=== PATIENT | male | born 1935 | race Caucasian/White ===

== ENCOUNTER 2016-11-27 13:37 | Observation (INO) ==
[2016-11-27] MEDS ORDERED: Acetaminophen 325 MG TABLET PO PRN (15:55)
[2016-11-27] MEDS ORDERED: Naloxone 0.4 MG/ML INJ IVP PRN (15:55)
[2016-11-27] MEDS ORDERED: Ondansetron 4 MG/2 ML VIAL IVP PRN (15:55)
[2016-11-27] MEDS: 0.9 % Sodium Chloride 1,000 ML IVC SCH (17:28)
[2016-11-27] MEDS ORDERED: *HR* Dextrose 50 % in Water (Syg) 50 ML SYRINGE IVP PRN (18:00)
[2016-11-27] MEDS ORDERED: Dextrose Gel 15 GM PO PRN ×2 (18:00)
[2016-11-27] MEDS ORDERED: D5% in Water 1,000 ML IVC PRN (18:00)
[2016-11-27] MEDS ORDERED: Nitroglycerin 0.4 MG TAB.SUBL SL PRN (18:03)
--- NOTE | 2016-11-27 18:24 | Internal Med History&Physical ---
<Emily Le M - Last Filed: 11/27/16 19:20> Date of Encounter: 11/27/16 Time of Encounter: 18:20 Assessment and Plan (1) Abdominal pain Current visit: Yes Status: Acute Patient reported crampy abdominal pain starting yesterday, improved with passing flatus and with pain medication, also now improved with IV fluids. Possibly secondary to transient bowel ischemia given lactate of 5.5. Tylenol, ultram and morphine PRN for pain. Qualifiers: Abdominal location: generalized Qualified Code(s): R10.84 - Generalized abdominal pain (2) Lactic acid acidosis Current visit: Yes Status: Acute Lactic acid of 5.5, along with abdominal pain. UA consistent with dehydration. Patient was given fluid boluses at [place], continue with IV fluids. Patient may have had transient bowel ischemia suspected as possible source of lactic acidosis. Trending down with second value of 3.7. Continue to trend. (3) CAD (coronary artery disease) Current visit: Yes Status: Chronic Patient with history of CAD s/p CABG and stent placement. Continue aspirin, plavix, statin, beta dominique, imdur. Qualifiers: Coronary Disease-Associated Artery/Lesion type: bypass graft [place] vs. transplanted heart: [place] heart Associated angina: with unstable angina Qualified Code(s): I25.700 - Atherosclerosis of coronary artery bypass graft(s) , unspecified, with unstable angina pectoris (4) LYNSEY on CPAP Current visit: Yes Status: Chronic respiratory therapy consulted for CPAP (5) Atrial fibrillation Current visit: Yes Status: Chronic Patient in sinus rhythm, rate controlled. Continue home dose of medications. Qualifiers: Atrial fibrillation type: unspecified Qualified Code(s): I48.91 - Unspecified atrial fibrillation (6) Type 2 diabetes mellitus Current visit: Yes Status: Acute Hold metformin, glipizide diabetic diet check blood sugars ACHS sliding scale correction dose ACHS hypoglycemic protocol. Qualifiers: Diabetes mellitus complication status: with unspecified complications Diabetes mellitus nursing home insulin use: without termite renewal inspector use Qualified Code( s): E11.8 - Type 2 diabetes mellitus with unspecified complications (7) Anticoagulated on Coumadin Current visit: Yes Status: Acute INR therapeutic at 2.2. Continue home dose of Coumadin. Check PT/INR daily. (8) DVT prophylaxis Current visit: Yes Status: Acute patient on coumadin for history of afib and PE. additional pharmacologic prophylaxis not warranted. Internal Medicine - H&P: HPI Chief complaint: abdominal pain Admitted From: Hospital to Hospital Transfer Plans for Post Hospital Care: Home History of present illness: Mr. Poe is a 81 year old male with hypertension, hyperlipidemia, coronary artery disease status post stent placement and CABG, COPD, CHF, A. fib on Coumadin, history of DVT, and PE presented to the [place] ED with complaints of abdominal pain. Patient reports that abdominal pain started yesterday, he describes it as diffuse, crampy, intermittently sharp, somewhat relieved by passing gas, and pain medicine given in the ER. Evaluation in the emergency department revealed lactic acidosis with lactate of 5.5. He also had anemia with hemoglobin of 9.5, which is stable. Chronic kidney function was at baseline with creatinine of 1.45. Lipase was normal at 38. UA was consistent with a little dehydration. Chest x-ray showed no acute process. CT of the abdomen and pelvis showed no acute issues. EKG showed no significant changes in sinus rhythm. On exam, patient alert and oriented, in no acute distress. Cardiovascular regular rate and rhythm, lungs are clear bilaterally to auscultation. Abdomen was soft, obese, nontender to palpation, with positive bowel sounds. He had bilateral lower extremity +2 edema. Past Med Surg Social Fam HX - Past Medical History Medical history: atrial fibrillation, CHF, COPD, coronary artery disease, DVT, diabetes, GERD, hyperlipidemia, hypertension, myocardial infarction, pulmonary embolus, TIA Psychiatric history: no psych history - Past Surgical History Surgical History: angioplasty/stent, coronary bypass (CABG), IVC Filter, other - Social History Smoking Status: Former smoker Smokeless Tobacco Status: No Alcohol use: none Drug use: none - Family History Father Living Status: Hx Family Cardiac Disorders: Yes (Father) Hx Family Respiratory Disorders: No Hx Family Cancer: Yes Hx Family GI Disorders: Yes (ULCERS, GERD) Hx Family Endocrine Disorder: No Hx Family Neuromuscular Disorders: No Hx Family Neurologic Disorders: No Hx Family HEENT Disorders: No Hx Family Autoimmune Disorders: No Internal Medicine - H&P: Meds Acetaminophen [Tylenol] 975 mg PO QID PRN 11/16/15 [History] Aspirin 81 mg PO DAILY 11/16/15 [History] Atorvastatin [Lipitor] 40 mg PO HS 11/16/15 [History] Gabapentin [Neurontin] 200 mg PO TID 11/16/15 [History] Isosorbide MONOnitrate (24 HR) [Imdur] 30 mg PO DAILY 11/16/15 [History] Metformin HCl [Metformin HCl ER] 2,000 mg PO BID 11/16/15 [History] Nitroglycerin [Nitrostat] 0.4 mg SL AD PRN 11/16/15 [History] Warfarin [Coumadin] 3 mg PO DAILY 11/16/15 [History] Metoprolol XL (24 HR) Succ [Toprol Xl] 25 mg PO DAILY #30 tab.er.24h 11/19/15 [ Rx] Ferrous Sulfate [Iron] 325 mg PO BID 12/02/15 [History] Furosemide [Lasix] 40 mg PO BID 12/02/15 [History] Omeprazole [PriLOSEC] 20 mg PO DAILY 12/02/15 [History] Terazosin HCl 10 mg PO DAILY 12/02/15 [History] glipiZIDE [Glucotrol] 5 mg PO DAILY 12/02/15 [History] Ascorbic Acid [Vitamin C] 500 mg PO DAILY 365 Days 01/26/16 [Rx] Cyanocobalamin (B-12) [Vitamin B12] 1,000 mcg PO DAILY 11/27/16 [History] Lisinopril [Zestril] 5 mg PO DAILY 11/27/16 [History] [place]-3/Dha/Epa/Fish Oil [Fish Oil 1,000 mg Softgel] 1 each PO DAILY 11/27/16 [ History] Spironolactone [Aldactone] 25 mg PO DAILY 11/27/16 [History] 3 Allergy/AdvReac Type Severity Reaction Status Date / Time pseudoephedrine Allergy Anaphylaxis Verified 11/27/16 10:15 [From Actifed] sulfamethoxazole Allergy Anaphylaxis Verified 11/27/16 10:15 [From Bactrim] trimethoprim [From Bactrim] Allergy Anaphylaxis Verified 11/27/16 10:15 triprolidine [From Actifed] Allergy Anaphylaxis Verified 11/27/16 10:15 All Systems PM: A 10-system review of systems was performed and is negative for pertinent findings except as documented above in the HPI. - Constitutional Constitutional: no chills, no fever(s), no night sweats - EENT Eyes: no change in vision, no discharge, no pain, no photophobia Ears: no ear discharge, no ear pain, no tinnitus Nose, mouth and throat: no dysphagia, no nasal discharge, no neck pain, no sore throat - Cardiovascular Cardiovascular ROS IM: no chest pain, no diaphoresis, no dyspnea, no lightheadedness, no palpitations, no syncope - Respiratory Respiratory: no cough, no dyspnea, no wheezing, no excessive phlegm production - Gastrointestinal Gastrointestinal: abdominal pain, no diarrhea, no hematemesis, no hematochezia, no melena, no nausea, no vomiting - Musculoskeletal Musculoskeletal ROS IM: no numbness, no tingling - Integumentary Integumentary IM: no rash, no unusual bruising - Neurological Neurological ROS: no confusion, no convulsions, no focal weakness, no numbness, no tingling, no tremor(s) - Hematologic/Lymphatic Hematologic/Lymphatic: no easy bruising - Constitutional Vitals: Temp Pulse Resp BP Pulse Ox 97.8 F 77 16 163/92 97 11/27/16 15:42 11/27/16 15:42 11/27/16 15:42 11/27/16 15:42 11/27/16 15:42 General appearance: Present: A&O X 3, morbidly obese, pleasant, no acute distress - Head Head exam: Present: atraumatic, normocephalic - Eye Eye exam: Present: PERRL, conjuntiva pink, sclera anicteric Pupils: Present: PERRL - Neck Neck exam general surgery: Present: supple, trachea midline. Absent: lymphadenopathy - Respiratory Respiratory exam: Present: CTAB. Absent: accessory muscle use, rales, rhonchi, wheezes - Cardiovascular Cardiovascular exam: Present: RRR, +S1, +S2. Absent: diastolic murmur, gallop, rubs, systolic murmur - GI/Abdominal GI/Abdominal exam: Present: normal bowel sounds, soft, no peritoneal signs. Absent: distended, tenderness - Extremities Exam Extremities exam: Present: warm, radial pulses palpable and symmetrical. Absent : calf tenderness, cyanotic, pedal edema - Neurological Exam Neurological exam: Present: CN II-XII intact, oriented X3, no focal deficits. Absent: facial droop, speech deficit - Skin Skin exam: Present: dry, intact Internal Med - H&P Results - Labs Labs: Labs from [facility]: Hgb 9.5 Hct 31.5 WBC 9.1 Plt 139 Na 139 K 4.3 Cl 104 CO2 19 BUN 27 Cr 1.45 Glu 219 <FloColeNguyễn A - Last Filed: 11/28/16 12:20> Date of Encounter: 11/28/16 Internal Medicine - H&P: HPI History of present illness: Mr. Poe is a 81 year old male All Systems PM: A 10-system review of systems was performed and is negative for pertinent findings except as documented above in the HPI. - Constitutional Vitals: Temp Pulse Resp BP Pulse Ox 98.1 F 86 16 110/68 97 11/28/16 11:16 11/28/16 11:16 11/28/16 11:16 11/28/16 11:16 11/28/16 11:16 Internal Med - H&P Results - Labs CBC & Chem 7: 11/28/16 11:06 11/28/16 11:06 Labs: Short CBC 11/28/16 11/28/16 Range/Units 00:43 11:06 WBC 9.7 7.3 (4.3-11.1) K/mcL Hgb 9.3 L 9.4 L (12.9-16.9) g/dL Hct 31.8 L 32.1 L (37.5-50.1) % Plt Count 143 148 (140-400) K/mcL Neutrophils # 7.6 5.8 (1.6-8.9) K/mcL BMP 11/28/16 11/28/16 00:43 11:06 Sodium 139 137 Potassium 4.6 H 4.5 Chloride 106 107 Carbon Dioxide 24 24 BUN 19 16 Creatinine 1.22 1.19 Glucose 143 H 200 H Calcium 8.4 L 8.7 - Attending Attestation I have personally performed a face to face evaluation on this patient on . I have reviewed and agree with the care plan. History and Exam by me shows: Please see event note of this date.
[2016-11-27 19:03] LABS: Hemoglobin A1C 6.3 %
[2016-11-27] MEDS ORDERED: *HR* Morphine 2 MG/ML SYRINGE IVP PRN (19:24)
[2016-11-27] MEDS ORDERED: traMADol 50 MG TABLET PO PRN (19:24)
--- NOTE | 2016-11-27 19:26 | Event Note ---
Date of Encounter: 11/27/16 Time of Encounter: 19:24 I have personally performed a face to face evaluation on this patient. I have reviewed and agree with the care plan. History and Exam by me shows: 81 y/o transferred from [place] with abd pain and elevated lactate. He has received IV fluids and is doing better. Exam Alert. Comfortable Abd soft and nontender Heart not tachy I/P 1. Abd pain - ? mild ischemic Plan as in H&P and orders.
[2016-11-27] MEDS: Gabapentin 100 MG CAPSULE PO SCH (20:13)
[2016-11-27] MEDS: Furosemide 40 MG TABLET PO SCH (20:30)
[2016-11-27] MEDS ORDERED: Insulin LISPRO 300 UNITS/3 ML VIAL SQ SCH (21:00)
[2016-11-28 00:51] LABS: Basophils % 0.2 %; Eosinophils # 0.1 K/mcL (0.0-0.6); Eosinophils % 0.6 %; Hematocrit 31.8 % (37.5-50.1); Hemoglobin 9.3 g/dL (12.9-16.9); Immature Granulocytes % 0.6 % (0-4); Immature Platelets 4.4 % (1.1-6.1); Lymphocytes # 1.1 K/mcL (0.6-4.6); Lymphocytes % 11.3 %; Mean Corpuscular HGB Conc 29.2 g/dL (31.6-35.5); Mean Corpuscular Hemoglobin 24.1 pg (28.0-33.3); Mean Corpuscular Volume 82.4 fL (83.0-100.0); Mean Platelet Volume 10.5 fL (9.4-12.4); Monocytes # 0.9 K/mcL (0.0-1.3); Monocytes % 9.3 %; Neutrophils # 7.6 K/mcL (1.6-8.9); Platelet Count 143 K/mcL (140-400); Red Blood Count 3.86 M/mcL (4.19-5.50); Red Cell Distribution Width 15.2 % (11.5-14.5)
[2016-11-28 00:55] LABS: INR 2.5
[2016-11-28 00:58] LABS: Activated Partial Thrombo Time 36.8 Seconds (26.0-36.0)
[2016-11-28 01:04] LABS: BUN/Creatinine Ratio 16 (6-26); Blood Urea Nitrogen 19 mg/dL (8-26); Calcium 8.4 mg/dL (8.6-10.8); Carbon Dioxide 24 mEq/L (19-29); Chloride 106 mEq/L (98-109); Glucose 143 mg/dL (70-99); Osmolality,Calculated 293 (280-300); Potassium 4.6 mEq/L (3.5-4.5); Sodium 139 mEq/L (136-145); eGFR For African Americans > 60 (> 60); eGFR For Non-African Americans 57 (> 60)
[2016-11-28] MEDS: 0.9 % Sodium Chloride 1,000 ML IVC SCH (02:18)
[2016-11-28] MEDS: Gabapentin 100 MG CAPSULE PO SCH (08:37)
[2016-11-28] MEDS: Furosemide 40 MG TABLET PO SCH (08:37)
[2016-11-28] MEDS: Insulin LISPRO 300 UNITS/3 ML VIAL SQ SCH ×2 (08:37→12:17)
[2016-11-28] MEDS ORDERED: Cyanocobalamin (B-12) 1,000 MCG TABLET PO SCH (09:00)
[2016-11-28] MEDS ORDERED: Metoprolol XL (24 HR) Succ 25 MG TAB.ER.24H PO SCH (09:00)
[2016-11-28] MEDS ORDERED: Aspirin 81 MG TAB.CHEW PO SCH (09:00)
[2016-11-28] MEDS ORDERED: Isosorbide MONOnitrate (24 HR) 30 MG TAB.ER.24H PO SCH (09:00)
[2016-11-28] MEDS ORDERED: Spironolactone 25 MG TABLET PO SCH (09:00)
[2016-11-28] MEDS ORDERED: Ascorbic Acid 500 MG TABLET PO SCH (09:00)
[2016-11-28 11:14] LABS: Basophils % 0.1 %; Eosinophils # 0.1 K/mcL (0.0-0.6); Eosinophils % 0.7 %; Hematocrit 32.1 % (37.5-50.1); Hemoglobin 9.4 g/dL (12.9-16.9); Immature Granulocytes % 0.5 % (0-4); Immature Platelets 4.4 % (1.1-6.1); Lymphocytes # 0.9 K/mcL (0.6-4.6); Lymphocytes % 12.4 %; Mean Corpuscular HGB Conc 29.3 g/dL (31.6-35.5); Mean Corpuscular Hemoglobin 24.2 pg (28.0-33.3); Mean Corpuscular Volume 82.5 fL (83.0-100.0); Mean Platelet Volume 10.3 fL (9.4-12.4); Monocytes # 0.6 K/mcL (0.0-1.3); Monocytes % 7.9 %; Neutrophils # 5.8 K/mcL (1.6-8.9); Platelet Count 148 K/mcL (140-400); Red Blood Count 3.89 M/mcL (4.19-5.50); Red Cell Distribution Width 15.3 % (11.5-14.5); Segmented Neutrophils % 78.4 %
[2016-11-28 11:21] VITALS: BP 110/68
[2016-11-28 11:24] LABS: BUN/Creatinine Ratio 13 (6-26); Blood Urea Nitrogen 16 mg/dL (8-26); Calcium 8.7 mg/dL (8.6-10.8); Carbon Dioxide 24 mEq/L (19-29); Chloride 107 mEq/L (98-109); Glucose 200 mg/dL (70-99); Osmolality,Calculated 291 (280-300); Potassium 4.5 mEq/L (3.5-4.5); Sodium 137 mEq/L (136-145); eGFR For African Americans > 60 (> 60); eGFR For Non-African Americans 59 (> 60)
--- NOTE | 2016-11-28 14:11 | Discharge Summary ---
<Felicia Thompson - Last Filed: 11/28/16 15:04> Date of Encounter: 11/28/16 Time of Encounter: 14:08 - Discharge Diagnosis (1) Abdominal pain Priority: Primary Status: Acute Qualifiers: Abdominal location: generalized Qualified Code(s): R10.84 - Generalized abdominal pain (2) Lactic acidosis Priority: Primary Status: Acute (3) CAD (coronary artery disease) Priority: Secondary Status: Chronic Qualifiers: Coronary Disease-Associated Artery/Lesion type: bypass graft [place] vs. transplanted heart: [place] heart Associated angina: with unstable angina Qualified Code(s): I25.700 - Atherosclerosis of coronary artery bypass graft(s) , unspecified, with unstable angina pectoris (4) LYNSEY on CPAP Priority: Secondary Status: Chronic (5) Atrial fibrillation Priority: Secondary Status: Chronic Qualifiers: Atrial fibrillation type: unspecified Qualified Code(s): I48.91 - Unspecified atrial fibrillation (6) Type 2 diabetes mellitus Priority: Secondary Status: Acute Qualifiers: Diabetes mellitus complication status: with unspecified complications Diabetes mellitus penitentiary insulin use: without intermediate accountant use Qualified Code( s): E11.8 - Type 2 diabetes mellitus with unspecified complications (7) Anticoagulated on Coumadin Priority: Secondary Status: Chronic (8) DVT prophylaxis Priority: Secondary Status: Acute - Discharge Medications Home Medications: Acetaminophen [Tylenol] 975 mg PO QID PRN 11/16/15 [History] Aspirin 81 mg PO DAILY 11/16/15 [History] Atorvastatin [Lipitor] 40 mg PO HS 11/16/15 [History] Gabapentin [Neurontin] 200 mg PO TID 11/16/15 [History] Isosorbide MONOnitrate (24 HR) [Imdur] 30 mg PO DAILY 11/16/15 [History] Metformin HCl [Metformin HCl ER] 2,000 mg PO DAILY 11/16/15 [History] Nitroglycerin [Nitrostat] 0.4 mg SL AD PRN 11/16/15 [History] Warfarin [Coumadin] 3 mg PO DAILY 11/16/15 [History] Ferrous Sulfate [Iron] 325 mg PO BID 12/02/15 [History] Furosemide [Lasix] 40 mg PO BID 12/02/15 [History] Omeprazole [PriLOSEC] 20 mg PO DAILY 12/02/15 [History] Terazosin HCl 10 mg PO DAILY 12/02/15 [History] glipiZIDE [Glucotrol] 5 mg PO DAILY 12/02/15 [History] Ascorbic Acid [Vitamin C] 500 mg PO DAILY 365 Days 01/26/16 [Rx] Cyanocobalamin (B-12) [Vitamin B12] 1,000 mcg PO DAILY 11/27/16 [History] Lisinopril [Zestril] 5 mg PO DAILY 11/27/16 [History] [place]-3/Dha/Epa/Fish Oil [Fish Oil 1,000 mg Softgel] 1 each PO DAILY 11/27/16 [ History] Spironolactone [Aldactone] 25 mg PO DAILY 11/27/16 [History] Clopidogrel [Plavix] 75 mg PO DAILY 11/28/16 [History] Metoprolol XL (24 HR) Succ [Toprol Xl] 25 mg PO DAILY 11/28/16 [Rx] Potassium Chloride [Klor-Con 10] 10 meq PO DAILY 11/28/16 [History] Allergies/Adverse Reactions: 3 Allergy/AdvReac Type Severity Reaction Status Date / Time pseudoephedrine Allergy Anaphylaxis Verified 11/27/16 10:15 [From Actifed] sulfamethoxazole Allergy Anaphylaxis Verified 11/27/16 10:15 [From Bactrim] trimethoprim [From Bactrim] Allergy Anaphylaxis Verified 11/27/16 10:15 triprolidine [From Actifed] Allergy Anaphylaxis Verified 11/27/16 10:15 Procedures/tests Complete & Pending: Abdomen Pelvis/CT CT/CT abd pelvis wo no iv no oral IMPRESSION: Multiple low-density liver lesions most likely cysts. These are not completely evaluated. Patchy ill-defined increased density in the right lung base. This is indeterminate and may represent atelectasis. A small segment of developing pneumonia would be difficult to exclude. Cholelithiasis Low-density left renal lesion. Statistically, this is likely a small cyst. No hydronephrosis or renal calculus Prostate enlargement. Lower abdominal wall hernia containing fat D/ / Severiano Puri / Severiano Puri Interpreting Provider: Severiano Puri 11/27/2016 IMPRESSION: No acute process. EKG 11/27/16 Date of admission: 11/27/16 15:09 Primary care physician: PCP ME Discharging clinician: Felicia Thompson Anticipated date of discharge: 11/28/16 - Patient Status Disposition: Home Health Service Condition: Good Functional capacity at discharge: uses cane/walker Overall status at discharge: patient is progressing back to baseline - Discharge Instructions Instructions: Atrial Fibrillation (DC) Follow Up With: [facility] [Primary Care Provider] - (please make a hospital follow up appointment for 7-10 days ) Additional Instructions: Please follow up with your primary care provider within 1 week Please return to the emergency room with acute onset of abdominal pain, shortness of breath, fever, chest pain or new onset of symptoms - Diet and Activity Activity: ambulate only with your walker, increase activity as tolerated, wear oxygen at night Diet: advance to your usual diet Interval History: Abdominal pain resolved. Tolerated lunch well. No chest pain. SOB improved. States he does not need nasal cannula and has placed nasal prongs to side when MD visited in AM and PM. Hospital course: Mr. Poe is a 81 year old male with hypertension, hyperlipidemia, coronary artery disease status post stent placement and CABG, COPD, CHF, A. fib on Coumadin, history of DVT, and PE who presented to the [place] ED with complaints of abdominal pain. Patient reports that abdominal pain started the day prior to diffusion and and described quality as diffuse, crampy, intermittently sharp and somewhat relieved by passing gas. Pain management was commenced in ER. Evaluation in the emergency department revealed lactic acidosis with lactate of 5.5. CBC demonstrated anemia with hemoglobin of 9.5, which remained stable during hospitalization. BMP was suggestive chronic kidney function near baseline with creatinine of 1.45. Lipase was normal at 38. Urinalysis was consistent with dehydration. CXR, CT of abdomen and pelvis and EKG was ordered. Chest x-ray showed no acute process. CT of the abdomen and pelvis showed no acute issues. CT suggested no disproportionate bowel distension or bowel wall thickening. EKG showed no significant changes in sinus rhythm. Initial management includes fluid resuscitation, hemodynamic monitoring and support, telemetry monitoring for patient's atrial fibrillation and monitoring for correction of electrolyte abnormalities, trending for lactic acid acidosis, abdominal pain exams, pain control and continued anticoagulation. - Time Spent with Patient Total time spent providing and/or coordinating discharge services: Greater than 30 minutes - Constitutional Vitals: Temp Pulse Resp BP Pulse Ox 98.1 F 86 16 110/68 97 11/28/16 11:16 11/28/16 11:16 11/28/16 11:16 11/28/16 11:16 11/28/16 11:16 General appearance: Present: A&O X 3, morbidly obese, pleasant, no acute distress - Head Head exam: Present: atraumatic, normocephalic - Respiratory Respiratory exam: Present: CTAB. Absent: accessory muscle use, rales, rhonchi, wheezes - Cardiovascular Cardiovascular exam: Present: RRR, +S1, +S2. Absent: rubs, tachycardia - GI/Abdominal GI/Abdominal exam: Present: normal bowel sounds, soft, no peritoneal signs. Absent: distended, tenderness <Nguyễn Rossi - Last Filed: 11/28/16 16:21> Date of Encounter: 11/28/16 - Discharge Diagnosis (1) Lactic acidosis Status: Acute (2) Abdominal pain Status: Acute Qualifiers: Abdominal location: periumbilical Qualified Code(s): R10.33 - Periumbilical pain (3) Type 2 diabetes mellitus Status: Acute Qualifiers: Diabetes mellitus complication status: with circulatory complication Diabetes mellitus complication detail: with other circulatory complications Diabetes mellitus intermediate accountant insulin use: without intermediate accountant use Qualified Code( s): E11.59 - Type 2 diabetes mellitus with other circulatory complications (4) HTN (hypertension) Priority: Secondary Status: Chronic Qualifiers: Hypertension type: essential hypertension Qualified Code(s): I10 - Essential (primary) hypertension (5) CAD (coronary artery disease) Status: Chronic Qualifiers: Coronary Disease-Associated Artery/Lesion type: bypass graft [place] vs. transplanted heart: [place] heart Associated angina: with unstable angina Qualified Code(s): I25.700 - Atherosclerosis of coronary artery bypass graft(s) , unspecified, with unstable angina pectoris (6) LYNSEY on CPAP Status: Chronic (7) Diastolic heart failure Priority: Secondary Status: Chronic Qualifiers: Heart failure chronicity: chronic Qualified Code(s): I50.32 - Chronic diastolic (congestive) heart failure Date of admission: 11/27/16 15:09 Primary care physician: PCP [place] Hospital course: Mr. Poe is a 81 year old male - Time Spent with Patient Total time spent providing and/or coordinating discharge services: - Constitutional Vitals: Temp Pulse Resp BP Pulse Ox 98.1 F 86 16 110/68 97 11/28/16 11:16 11/28/16 11:16 11/28/16 11:16 11/28/16 11:16 11/28/16 11:16 - Attending Attestation I examined this patient and my medical decision-making was reviewed with the Resident Physician on 11/28/16. I agree with the documented findings, disposition and treatment plan as described except to the extent set forth below. Mr Poe was placed in observation for abdominal pain and elevated lactate. This AM he has no pain and is tolerating a full diet. He has had no fever or chills. No cough or dyspnea. His lactate improved with fluids. Exam Alert. Comfortable Heart reg No wheeze Abd with bowel sounds, soft and nontender now I/P 1. I suspect he may have had some low grade ischemia to his gut. He was volume depleted on admit. He is improved with fluids. Plan d/c today Follow up with PCP. Return if symptoms return or worsen.
[2016-11-28] MEDS ORDERED: *HR* Warfarin 3 MG TABLET PO SCH (18:00)
== END 2016-11-28 15:32 | disposition home health service (06) ==
LOC: INTOOBSV 15:09 → SUATTDRO 15:09 → 2NENU 15:09
PROVIDERS: ADMIT Nurse Practitioner Family; ATTEND Internal Medicine

== ENCOUNTER 2017-06-21 14:55 | Inpatient (IN) ==
[2017-06-21] MEDS ORDERED: Heparin 25,000 UNIT/500 ML D5W 25,000 UNIT/500 ML BAG IVC SCH (16:30)
--- NOTE | 2017-06-21 16:48 | Internal Med History&Physical ---
Date of Encounter: 06/21/17 Time of Encounter: 16:43 Assessment and Plan (1) COPD (chronic obstructive pulmonary disease) Current visit: Yes Status: Chronic no active wheezing Qualifiers: COPD type: emphysema Emphysema type: unspecified Qualified Code(s): J43.9 - Emphysema, unspecified (2) Hyperlipidemia Current visit: Yes Status: Chronic chronic Qualifiers: Hyperlipidemia type: pure hypercholesterolemia Qualified Code(s): E78.00 - Pure hypercholesterolemia, unspecified; E78.0 - Pure hypercholesterolemia (3) ACS (acute coronary syndrome) Current visit: No Status: Acute chest pain suggestive of acs with elevated troponin keep on heparin and trend troponin (4) Type 2 diabetes mellitus Current visit: No Status: Chronic chronic resume home meds and start on sliding scale Qualifiers: Diabetes mellitus senior living insulin use: without senior living use Diabetes mellitus complication status: with circulatory complication Diabetes mellitus complication detail: with other circulatory complications Qualified Code(s): E11.59 - Type 2 diabetes mellitus with other circulatory complications (5) Anticoagulated on Coumadin Current visit: No Status: Chronic Patient started on heparin inr subtherapeutic (6) CAD (coronary artery disease) Current visit: No Status: Chronic history of cabg and multiple pci/stent Qualifiers: Coronary Disease-Associated Artery/Lesion type: bypass graft [place] vs. transplanted heart: [place] heart Associated angina: with unstable angina Qualified Code(s): I25.700 - Atherosclerosis of coronary artery bypass graft(s) , unspecified, with unstable angina pectoris (7) HTN (hypertension) Current visit: No Status: Chronic Chronic and noncontrolled likely contribution to ischemia will adjust home medication Qualifiers: Hypertension type: essential hypertension Qualified Code(s): I10 - Essential (primary) hypertension Internal Medicine - H&P: HPI Chief complaint: transfer from [place] with chest pain Admitted From: Emergency Dept Plans for Post Hospital Care: Home History of present illness: Mr. Poe is a 81 year old male Patient with history of CABG, stents 3 in the past, last stent about 3 years ago obstructive sleep apnea, atrial fibrillation, diabetes, history of DVT and PE, on anticoagulation, patient has a history of diabetes, COPD, GERD, high cholesterol, hypertension, TIA. Patient had episode of chest pain describes a pressure tightness going to both sides of cheek lasted about 5 minutes and then he went to [facility] chest pain had resolved but does have mild residual discomfort evaluation shows troponin was 0.06 . then they called cardiology and patient started on heparin drip and transferred here. We will continue heparin resume his home medication and cardiology will re evaluate , keep npo after MN in case tropoin rises and needs cardiac cath Past Med Surg Social Fam HX - Past Medical History Medical history: atrial fibrillation, CHF, COPD, coronary artery disease, DVT, diabetes, GERD, hyperlipidemia, hypertension, myocardial infarction, pulmonary embolus, TIA, other Psychiatric history: no psych history - Past Surgical History Surgical History: angioplasty/stent, coronary bypass (CABG), IVC Filter, other - Social History Smoking Status: Former smoker Smokeless Tobacco Status: No Alcohol use: none Drug use: none - Family History Father Living Status: Hx Family Cardiac Disorders: Yes (Father) Hx Family Respiratory Disorders: No Hx Family Cancer: Yes Hx Family GI Disorders: Yes (ULCERS, GERD) Hx Family Endocrine Disorder: No Hx Family Neuromuscular Disorders: No Hx Family Neurologic Disorders: No Hx Family HEENT Disorders: No Hx Family Autoimmune Disorders: No Internal Medicine - H&P: Meds Acetaminophen [Tylenol] 975 mg PO QID PRN 11/16/15 [History] Atorvastatin [Lipitor] 40 mg PO HS 11/16/15 [History] Gabapentin [Neurontin] 200 mg PO TID 11/16/15 [History] Isosorbide MONOnitrate (24 HR) [Imdur] 30 mg PO DAILY 11/16/15 [History] Metformin HCl [Metformin HCl ER] 500 mg PO QID 11/16/15 [History] Ferrous Sulfate [Iron] 325 mg PO BID 12/02/15 [History] Omeprazole [PriLOSEC] 20 mg PO DAILY 12/02/15 [History] Terazosin HCl 10 mg PO DAILY 12/02/15 [History] glipiZIDE [Glucotrol] 5 mg PO DAILY 12/02/15 [History] Cyanocobalamin (B-12) [Vitamin B12] 1,000 mcg PO DAILY 11/27/16 [History] Lisinopril [Zestril] 5 mg PO DAILY 11/27/16 [History] Spironolactone [Aldactone] 25 mg PO DAILY 11/27/16 [History] Furosemide [Lasix] 20 mg PO BID 06/21/17 [History] Metoprolol XL (24 HR) Succ [Toprol Xl] 25 mg PO BID 06/21/17 [History] [place]-3/Dha/Epa/Fish Oil [Fish Oil 1,000 mg Softgel] 1,000 mg PO DAILY 06/21/17 [History] Warfarin [Coumadin] 3 mg PO SUMOTUTHFRSA 06/21/17 [History] Warfarin [Coumadin] 4 mg PO DAILY 06/21/17 [History] 3 Allergy/AdvReac Type Severity Reaction Status Date / Time pseudoephedrine Allergy Anaphylaxis Verified 06/21/17 11:42 [From Actifed] sulfamethoxazole Allergy Anaphylaxis Verified 06/21/17 11:42 [From Bactrim] tramadol Allergy See Verified 06/21/17 16:38 Comments trimethoprim [From Bactrim] Allergy Anaphylaxis Verified 06/21/17 11:42 triprolidine [From Actifed] Allergy Anaphylaxis Verified 06/21/17 11:42 All Systems PM: A 10-system review of systems was performed and is negative for pertinent findings except as documented above in the HPI. - Head Head exam: Present: atraumatic, normocephalic - Neck Neck exam general surgery: Present: supple, trachea midline. Absent: lymphadenopathy - Respiratory Respiratory exam: Present: CTAB. Absent: accessory muscle use, rales, rhonchi, wheezes - Cardiovascular Cardiovascular exam: Present: RRR, +S1, +S2. Absent: diastolic murmur, gallop, rubs, systolic murmur - GI/Abdominal GI/Abdominal exam: Present: normal bowel sounds, soft, no peritoneal signs. Absent: distended, tenderness
[2017-06-21] MEDS ORDERED: Naloxone 0.4 MG/ML INJ IVP PRN (17:02)
[2017-06-21] MEDS ORDERED: traMADol 50 MG TABLET PO PRN (17:02)
[2017-06-21] MEDS ORDERED: Acetaminophen 325 MG TABLET PO PRN (17:04)
[2017-06-21] MEDS ORDERED: *HR* Heparin 5,000 UNIT/ML VIAL IVP PRN ×2 (19:58)
[2017-06-21] MEDS: Gabapentin 100 MG CAPSULE PO SCH (21:05)
[2017-06-22 05:47] LABS: Basophils % 0.2 %; Eosinophils # 0.1 K/mcL (0.0-0.6); Eosinophils % 2.1 %; Hematocrit 31.9 % (37.5-50.1); Hemoglobin 9.6 g/dL (12.9-16.9); Lymphocytes # 2.1 K/mcL (0.6-4.6); Lymphocytes % 33.8 %; Mean Corpuscular HGB Conc 30.1 g/dL (31.6-35.5); Mean Corpuscular Hemoglobin 24.7 pg (28.0-33.3); Mean Platelet Volume 11.9 fL (9.4-12.4); Monocytes # 0.4 K/mcL (0.0-1.3); Monocytes % 6.7 %; Neutrophils # 3.4 K/mcL (1.6-8.9); Platelet Count 130 K/mcL (140-400); Red Blood Count 3.89 M/mcL (4.19-5.50); Red Cell Distribution Width 14.9 % (11.5-14.5); Segmented Neutrophils % 56.2 %
[2017-06-22 06:03] LABS: Albumin 3.2 g/dL (3.5-5.7); Albumin/Globulin Ratio 1.3 (1.1-2.2); Bilirubin,Total 0.4 mg/dL (0.3-1.0); Calcium 8.2 mg/dL (8.6-10.3); Chol/HDL Ratio 4.9 (0-4.9); Globulin 2.4 g/dL (2.4-3.5); Magnesium 1.3 mg/dL (1.6-2.6); Potassium 3.8 mEq/L (3.5-5.1); Total Protein 5.6 g/dL (6.4-8.9)
--- NOTE | 2017-06-22 08:57 | Internal Med Progress Note ---
<FranniehansmaryCamilo zarate - Last Filed: 06/22/17 10:48> Date of Encounter: 06/22/17 Time of Encounter: 08:50 - Assessment and plan (1) ACS (acute coronary syndrome) Current Visit: Yes Status: Acute Assessment and plan: Chest pain suggestive of ACS with elevated troponin x 3 (.07 x 3). - Continue heparin drip. - Continue statin, Imdur, lisinopril, metoprolol, spironolactone, terazosin. - Cardiology on board. (2) COPD (chronic obstructive pulmonary disease) Current Visit: Yes Status: Chronic Assessment and plan: Patient not on oxygen at home. No active wheezing on examination. Qualifiers: COPD type: emphysema Emphysema type: unspecified Qualified Code(s): J43.9 - Emphysema, unspecified (3) Hyperlipidemia Current Visit: Yes Status: Chronic Assessment and plan: Continue statin. Qualifiers: Hyperlipidemia type: pure hypercholesterolemia Qualified Code(s): E78.00 - Pure hypercholesterolemia, unspecified; E78.0 - Pure hypercholesterolemia (4) DM2 (diabetes mellitus, type 2) Current Visit: No Status: Chronic Assessment and plan: Glucose controlled at 120. - Continue glipizide. - Continue sliding scale. - Patient currently nothing by mouth for now due to possible LHC. Qualifiers: Diabetes mellitus half-way insulin use: without termite treater use Diabetes mellitus complication status: with kidney complications Diabetes mellitus complication detail: with chronic kidney disease Chronic kidney disease stage : stage 3 (moderate) Qualified Code(s): E11.22 - Type 2 diabetes mellitus with diabetic chronic kidney disease; N18.3 - Chronic kidney disease, stage 3 ( moderate); N18.3 - Chronic kidney disease, stage 3 (moderate) (5) CAD (coronary artery disease) Current Visit: No Status: Chronic Assessment and plan: History of CABG and multiple pci/stent. Last stent in 2016. - Continue home meds. Qualifiers: Coronary Disease-Associated Artery/Lesion type: bypass graft [place] vs. transplanted heart: [place] heart Associated angina: with unstable angina Qualified Code(s): I25.700 - Atherosclerosis of coronary artery bypass graft(s) , unspecified, with unstable angina pectoris (6) History of DVT (deep vein thrombosis) Current Visit: No Status: Chronic Assessment and plan: On Coumadin at home. We have currently placed him on heparin drip in anticipation of possible LHC. (7) HTN (hypertension) Current Visit: No Status: Chronic Assessment and plan: Controlled at 139/94. - Continue home medications. Qualifiers: Hypertension type: essential hypertension Qualified Code(s): I10 - Essential (primary) hypertension (8) LYNSEY on CPAP Current Visit: No Status: Chronic Assessment and plan: On CPAP and BiPAP at night. A 94% O2 on room air right now. (9) DVT prophylaxis Current Visit: No Status: Acute Assessment and plan: On heparin drip. - Subjective Interval history: Patient denies any chest pain, shortness of breath, nausea, vomiting. Denies any fever, chills. No bowel movement since admission. - Constitutional Vitals: Temp Pulse Resp BP Pulse Ox 98.3 F 73 15 139/94 94 06/22/17 07:18 06/22/17 07:18 06/22/17 07:18 06/22/17 07:18 06/22/17 07:18 General appearance: Present: A&O X 3, no acute distress, answers questions appropriately - Respiratory Respiratory exam: Present: CTAB. Absent: accessory muscle use, rales, rhonchi, wheezes - Cardiovascular Cardiovascular exam: Present: RRR, +S1, +S2. Absent: diastolic murmur, gallop, rubs, systolic murmur - GI/Abdominal GI/Abdominal exam: Present: normal bowel sounds, soft, no peritoneal signs. Absent: distended, guarding, rebound, tenderness Additional comments: Reducible abdominal hernia and umbilical region. - Extremities Exam Extremities exam: Present: full ROM, normal capillary refill, pedal edema, warm , radial pulses palpable and symmetrical. Absent: calf tenderness, cyanotic, tenderness Additional comments: +2 right pitting edema. Negative Homans sign. Pedal pulses intact and symmetrical bilaterally. Internal Medicine: Result - Labs CBC & Chem 7: 06/22/17 05:09 06/22/17 05:09 Labs: Short CBC 06/22/17 Range/Units 05:09 WBC 6.1 (4.3-11.1) K/mcL Hgb 9.6 L (12.9-16.9) g/dL Hct 31.9 L (37.5-50.1) % Plt Count 130 L (140-400) K/mcL Neutrophils # 3.4 (1.6-8.9) K/mcL BMP 06/22/17 05:09 Sodium 142 Potassium 3.8 Chloride 109 H Carbon Dioxide 27 BUN 22 Creatinine 1.48 H Glucose 120 H Calcium 8.2 L Cardiac Enzymes 06/21/17 06/21/17 06/22/17 Range/Units 17:24 22:43 05:09 Troponin I 0.07 H* 0.07 H* 0.07 H* (< 0.04) ng/mL Liver Function 06/22/17 Range/Units 05:09 Total Bilirubin 0.4 (0.3-1.0) mg/dL AST 15 (13-39) Units/L ALT 16 (7-52) Units/L Alkaline Phosphatase 73 (34-104) Units/L Albumin 3.2 L (3.5-5.7) g/dL Consult Discharge Plan - Plan [facility]errals: [facility] Care Provider[facility] - <Ming Briones H - Last Filed: 06/22/17 11:00> Date of Encounter: 06/22/17 - Constitutional Vitals: Temp Pulse Resp BP Pulse Ox 98.3 F 73 15 139/94 94 06/22/17 07:18 06/22/17 07:18 06/22/17 07:18 06/22/17 07:18 06/22/17 07:18 Internal Medicine: Result - Labs CBC & Chem 7: 06/22/17 05:09 06/22/17 05:09 Labs: Short CBC 06/22/17 Range/Units 05:09 WBC 6.1 (4.3-11.1) K/mcL Hgb 9.6 L (12.9-16.9) g/dL Hct 31.9 L (37.5-50.1) % Plt Count 130 L (140-400) K/mcL Neutrophils # 3.4 (1.6-8.9) K/mcL BMP 06/22/17 05:09 Sodium 142 Potassium 3.8 Chloride 109 H Carbon Dioxide 27 BUN 22 Creatinine 1.48 H Glucose 120 H Calcium 8.2 L Cardiac Enzymes 06/21/17 06/21/17 06/22/17 Range/Units 17:24 22:43 05:09 Troponin I 0.07 H* 0.07 H* 0.07 H* (< 0.04) ng/mL Liver Function 06/22/17 Range/Units 05:09 Total Bilirubin 0.4 (0.3-1.0) mg/dL AST 15 (13-39) Units/L ALT 16 (7-52) Units/L Alkaline Phosphatase 73 (34-104) Units/L Albumin 3.2 L (3.5-5.7) g/dL - Attending Attestation Elevated troponins, possible non-STEMI Continue heparin drip due to nontherapeutic INR as well and history of DVT and PE Hypermagnesemia, give IV magnesium as the patient is nothing by mouth, replete orally as well when possible Nonsustained V. tach, replete magnesium I examined this patient and my medical decision-making was reviewed with the Resident Physician. I agree with the documented findings, disposition and treatment plan as described except to the extent set forth below.
[2017-06-22] MEDS ORDERED: *HR* GlipiZIDE 5 MG TABLET PO SCH (09:00)
[2017-06-22] MEDS: Isosorbide MONOnitrate (24 HR) 30 MG TAB.ER.24H PO SCH (09:38)
[2017-06-22] MEDS: Cyanocobalamin (B-12) 1,000 MCG TABLET PO SCH (09:39)
[2017-06-22] MEDS: Spironolactone 25 MG TABLET PO SCH (09:39)
[2017-06-22] MEDS: Gabapentin 100 MG CAPSULE PO SCH ×3 (09:39→22:22)
--- NOTE | 2017-06-22 10:17 | Cardiology Consult Note ---
<Annel Penaloza - Last Filed: 06/22/17 14:16> Date of Encounter: 06/22/17 Time of Encounter: 10:00 Assessment and Plan (1) Chest pain Current Visit: No Status: Acute Chest pain that began at rest and was relieved by nitro pace given in ED at [place]. Pressure like and radiated to neck. Reported palpitations. No nausea, diaphoresis, syncope, headache. -06/22/2017 EKG: sinus HR 65, non specific ST changes, PVCs -TIMOTHY score: 5 -troponin 0.06, 0.07, 0.07, 0.07, 0.07 Denies chest pain since it resolved yesterday. No murmur or arrhythmia on exam. PMH: CABG x3 stents, A.fib, CHF, DM, [place] 12/02/2015 Cath: ISAC in SVG to proximal 1st diagonal. Previous stent is SVG to 1st diagonal with severe 99% in stent stenosis that was intervened on. -Ordered echo to evaluate EF. If normal will consider nuclear pharm stress test but if significantly reduced consider cath. -agree with heparin -will continue to follow Qualifiers: Chest pain type: unspecified Qualified Code(s): R07.9 - Chest pain, unspecified (2) CAD (coronary artery disease) Current Visit: No Status: Chronic PMH: CABG x3 stents -11/18/2015 C: LVEF 50%. Left main normal. LAD proximal 50% stenosis, mid 60% stenosis. Probable occluded diagonal branch. Circumflex proximal 30% stenosis, mid 40% stenosis. OM1 100% stenosis. L PDA small and diffusely diseased. RCA small non dominant mild disease. SVG to D1 99% ISR. VALENCIA to mid LAD known known to be atretic. Radial artery graft to OM1 patent. Attempted PCI of the SVG graft unsuccessful, unable to cross lesion. -12/02/2015 [facility]: ISAC in SVG to proximal 1st diagonal. Previous stent is SVG to 1st diagonal with severe 99% in stent stenosis that was intervened on. -continue asa, lipitor, metoprolol, imdur, aldactone, lisinopril Qualifiers: Coronary Disease-Associated Artery/Lesion type: bypass graft [place] vs. transplanted heart: [place] heart Associated angina: with unstable angina Qualified Code(s): I25.700 - Atherosclerosis of coronary artery bypass graft(s) , unspecified, with unstable angina pectoris (3) CKD (chronic kidney disease) stage 3, GFR 30-59 ml/min Current Visit: No Status: Chronic History of CKD stage 3 Creatinine 1.48 (1.59) -management per primary team. avoid nephrotoxic agents. (4) Diastolic heart failure Current Visit: No Status: Chronic 08/02/2016 TTE: EF 65-70% mild left ventricular diastolic dysfunction. mild tricuspid regurgitation ad pulmonary hypertension. -TTE ordered -continue toprol, aldactone, lisinopril, imdur Qualifiers: Heart failure chronicity: chronic Qualified Code(s): I50.32 - Chronic diastolic (congestive) heart failure (5) Atrial fibrillation Current Visit: No Status: Chronic History of a.fib on anticoagulation with warfarin and rate controlled with toprol CHADVASC score: 8 (age, CHF, HTN, DM, TIA, DVT, [place]) Per 02/13/2017 office visit record with Dr. Tripp the patient had a recent diagnosis of an intracranial hemorrhage after a fall. Anti-coagulation was interrupted. -agree with heparin, continue toprol Qualifiers: Atrial fibrillation type: unspecified Qualified Code(s): I48.91 - Unspecified atrial fibrillation (6) Type 2 diabetes mellitus Current Visit: No Status: Chronic History of diabetes. -management per primary team Qualifiers: Diabetes mellitus technician terminal and repeater insulin use: without technician terminal and repeater use Diabetes mellitus complication status: with circulatory complication Diabetes mellitus complication detail: with other circulatory complications Qualified Code(s): E11.59 - Type 2 diabetes mellitus with other circulatory complications Discussion w patient/family: The assessment and plan as outlined above was discussed with the patient and/or family members who expressed understanding and agreement. All questions were answered. Thank you for involving us in the care of your patient. Please call with any questions. History of Present Illness Consult date: 06/22/17 Requesting physician: Mony Joyce Consult reason: ACS Chief complaint: chest pain History of present illness: Mr. Poe is a 81 year old male with PMH CABG x3 stents, A.fib, COPD, CHF, DM, PE with IVC filter, TIA who presented to [facility] as a transfer from [facility] due to chest pain concerning for ACS. The patient reported that [facility] he became shaky more than usual and developed pressure like chest pain that radiated to his neck. He reported palpitations. He was sitting at the time. He reported the pain was different from when he had an OH. EMS was then called and he was taken to [place] ED and given nitro pace which resolved the pain. Troponin was 0.06. There was concern for ACS so he was transferred to [place]. He denies recent illness, fever, chills, trauma, syncope, diaphoresis, blurry vision. Admits occasional shortness of breath. He is a non-smoker and family hx of dad having an OH around 81yo. -11/18/2015 C: LVEF 50%. Left main normal. LAD proximal 50% stenosis, mid 60% stenosis. Probable occluded diagonal branch. Circumflex proximal 30% stenosis, mid 40% stenosis. OM1 100% stenosis. L PDA small and diffusely diseased. RCA small non dominant mild disease. SVG to D1 99% ISR. VALENCIA to mid LAD known known to be atretic. Radial artery graft to OM1 patent. Attempted PCI of the SVG graft unsuccessful, unable to cross lesion. -12/02/2015 [facility]: ISAC in SVG to proximal 1st diagonal. Previous stent is SVG to 1st diagonal with severe 99% in stent stenosis that was intervened on. Past Med Surg Social Fam HX - Past Medical History Medical history: atrial fibrillation, CHF, COPD, coronary artery disease, DVT, diabetes, GERD, hyperlipidemia, hypertension, myocardial infarction, pulmonary embolus, TIA, other Psychiatric history: no psych history - Past Surgical History Surgical History: angioplasty/stent, coronary bypass (CABG), IVC Filter, other - Social History Smoking Status: Former smoker Smokeless Tobacco Status: No Alcohol use: none Drug use: none - Family History Father Living Status: Hx Family Cardiac Disorders: Yes (Father) Hx Family Respiratory Disorders: No Hx Family Cancer: Yes Hx Family GI Disorders: Yes (ULCERS, GERD) Hx Family Endocrine Disorder: No Hx Family Neuromuscular Disorders: No Hx Family Neurologic Disorders: No Hx Family HEENT Disorders: No Hx Family Autoimmune Disorders: No Medications and Allergies Acetaminophen [Tylenol] 975 mg PO QID PRN 11/16/15 [History] Atorvastatin [Lipitor] 40 mg PO HS 11/16/15 [History] Gabapentin [Neurontin] 200 mg PO TID 11/16/15 [History] Isosorbide MONOnitrate (24 HR) [Imdur] 30 mg PO DAILY 11/16/15 [History] Metformin HCl [Metformin HCl ER] 2,000 mg PO QPM 11/16/15 [History] Ferrous Sulfate [Iron] 325 mg PO BID 12/02/15 [History] Omeprazole [PriLOSEC] 20 mg PO DAILY 12/02/15 [History] Terazosin HCl 10 mg PO HS 12/02/15 [History] glipiZIDE [Glucotrol] 5 mg PO DAILY 12/02/15 [History] Cyanocobalamin (B-12) [Vitamin B12] 1,000 mcg PO DAILY 11/27/16 [History] Lisinopril [Zestril] 5 mg PO DAILY 11/27/16 [History] Spironolactone [Aldactone] 25 mg PO DAILY 11/27/16 [History] Furosemide [Lasix] 20 mg PO BID 06/21/17 [History] Metoprolol XL (24 HR) Succ [Toprol Xl] 25 mg PO BID 06/21/17 [History] Keller-3/Dha/Epa/Fish Oil [Fish Oil 1,000 mg Softgel] 1,000 mg PO DAILY 06/21/17 [History] Warfarin [Coumadin] 3 mg PO SUMOTUTHFRSA 06/21/17 [History] Warfarin [Coumadin] 4 mg PO WE 06/21/17 [History] 3 Allergy/AdvReac Type Severity Reaction Status Date / Time pseudoephedrine Allergy Anaphylaxis Verified 06/21/17 11:42 [From Actifed] sulfamethoxazole Allergy Anaphylaxis Verified 06/21/17 11:42 [From Bactrim] tramadol Allergy See Verified 06/21/17 16:38 Comments trimethoprim [From Bactrim] Allergy Anaphylaxis Verified 06/21/17 11:42 triprolidine [From Actifed] Allergy Anaphylaxis Verified 06/21/17 11:42 All Systems Review: The remainder of the systems were reviewed and are negative - Constitutional Constitutional: headache(s), no chills, no fever(s) - EENT Eyes: no blurred vision, no loss of vision - Cardiovascular Cardiovascular: chest pain at rest, radiating jaw, neck or arm pain, palpitations, no diaphoresis, no lightheadedness, no syncope - Respiratory Respiratory: no cough, no dyspnea - Gastrointestinal Gastrointestinal: no abdominal pain - Integumentary Integumentary: no erythema - Neurological Neurological: no abnormal speech, no loss of vision Physical Examination Vital Signs, Last 4 Hours Temp Pulse Resp BP Pulse Ox 06/22/17 07:18 98.3 F 73 15 139/94 94 General: Conversant, No Apparent Distress HEENT: Atraumatic, Mucus Membranes Moist Neck: No JVD Cardiac: Reg Rate and Rhythm, Normal S1 and S2, No Murmur Lungs: Normal Breath Sounds, No Wheeze, Rales, Rhonchi Neuro: Alert and responsive Abdomen: Soft, Non-Tender Skin: No rashes noted on visualized skin Musculoskeletal: No Chest Wall Tenderness Extremities: No Edema Results 06/22/17 05:09 06/22/17 05:09 Lab Results 06/21/17 06/21/17 06/21/17 17:24 20:37 22:43 WBC Hgb Hct Plt Count APTT 86.0 H D Sodium Potassium Chloride Carbon Dioxide BUN Creatinine Glucose Calcium Magnesium Total Bilirubin AST ALT Alkaline Phosphatase Troponin I 0.07 H* 0.07 H* B-Natriuretic Peptide 06/21/17 06/22/17 06/22/17 22:43 05:09 05:09 WBC 6.1 Hgb 9.6 L Hct 31.9 L Plt Count 130 L APTT 87.1 H Sodium 142 Potassium 3.8 Chloride 109 H Carbon Dioxide 27 BUN 22 Creatinine 1.48 H Glucose 120 H Calcium 8.2 L Magnesium 1.3 L Total Bilirubin 0.4 AST 15 ALT 16 Alkaline Phosphatase 73 Troponin I B-Natriuretic Peptide 06/22/17 06/22/17 06/22/17 05:09 05:09 05:09 WBC Hgb Hct Plt Count APTT 106.3 H Sodium Potassium Chloride Carbon Dioxide BUN Creatinine Glucose Calcium Magnesium Total Bilirubin AST ALT Alkaline Phosphatase Troponin I 0.07 H* B-Natriuretic Peptide 830 H Consult Discharge Plan - Plan [facility]errals: [facility] [Primary Care Provider] - <Angela Snowden - Last Filed: 06/22/17 16:50> Date of Encounter: 06/22/17 - Attending Attestation I examined this patient and my medical decision-making was reviewed with the DIRECTOR OF ATHLETICS. I agree with the documented findings, disposition and treatment plan as described. Mr. Poe presents with an episode of chest discomfort yesterday while at [facility] which he describes as a "fluttering" feeling that radiated into his neck. He has not had any further episodes since admission. ECG demonstrated NSR with nonspecific ST findings - somewhat limited by baseline artifact. Repeat ECG demonstrated no new ischemic findings. Troponins mildly elevated, flat and adynamic. Has known history of CAD having undergone bypass with most recent heart catheterization in November 2015 where he received a ISAC to SVT- RPDA for severe ISR. He denies any recent chest pain with his general activities. Etiology of mild troponin elevation is unclear. Given his symptoms of fluttering, may consider PAF as a cause. Recommend reviewing LVEF structure and function and wall motion abnormalities on an echo before deciding on further plan of care. Continue heparin at this time. It should be noted that he suffered an intracranial hemorrhage after a fall in January 2017. He was referred to a tertiary care center at that time with neurosurgical capabilities. Records to be reviewed from [facility]. Assessment and Plan Discussion w patient/family: The assessment and plan as outlined above was discussed with the patient and/or family members who expressed understanding and agreement. All questions were answered. Thank you for involving us in the care of your patient. Please call with any questions. History of Present Illness History of present illness: Mr. Poe is a 81 year old male All Systems Review: The remainder of the systems were reviewed and are negative Physical Examination Vital Signs, Last 4 Hours Temp Pulse Resp BP Pulse Ox 06/22/17 15:33 98.5 F 92 15 122/66 94 Results 06/22/17 05:09 06/22/17 05:09 Lab Results 06/21/17 06/21/17 06/21/17 17:24 20:37 22:43 WBC Hgb Hct Plt Count INR APTT 86.0 H D Sodium Potassium Chloride Carbon Dioxide BUN Creatinine Glucose Calcium Magnesium Total Bilirubin AST ALT Alkaline Phosphatase Troponin I 0.07 H* 0.07 H* B-Natriuretic Peptide 06/21/17 06/22/17 06/22/17 22:43 05:09 05:09 WBC 6.1 Hgb 9.6 L Hct 31.9 L Plt Count 130 L INR APTT 87.1 H Sodium 142 Potassium 3.8 Chloride 109 H Carbon Dioxide 27 BUN 22 Creatinine 1.48 H Glucose 120 H Calcium 8.2 L Magnesium 1.3 L Total Bilirubin 0.4 AST 15 ALT 16 Alkaline Phosphatase 73 Troponin I B-Natriuretic Peptide 06/22/17 06/22/17 06/22/17 05:09 05:09 05:09 WBC Hgb Hct Plt Count INR APTT 106.3 H Sodium Potassium Chloride Carbon Dioxide BUN Creatinine Glucose Calcium Magnesium Total Bilirubin AST ALT Alkaline Phosphatase Troponin I 0.07 H* B-Natriuretic Peptide 830 H 06/22/17 12:08 WBC Hgb Hct Plt Count INR 1.4 APTT 97.7 H Sodium Potassium Chloride Carbon Dioxide BUN Creatinine Glucose Calcium Magnesium Total Bilirubin AST ALT Alkaline Phosphatase Troponin I B-Natriuretic Peptide
[2017-06-22] MEDS: Magnesium Oxide 400 MG TABLET PO SCH ×2 (12:00→22:22)
[2017-06-22 13:07] LABS: INR 1.4
[2017-06-22 13:09] LABS: Activated Partial Thrombo Time 97.7 Seconds (26.0-36.0)
[2017-06-22] MEDS ORDERED: *HR* Heparin 5,000 UNIT/ML VIAL IVP PRN (14:37)
[2017-06-22] MEDS ORDERED: *HR* Dextrose 50 % in Water (Syg) 50 ML SYRINGE IVP PRN (14:54)
[2017-06-22] MEDS ORDERED: D5% in Water 1,000 ML IVC PRN (14:54)
[2017-06-22] MEDS ORDERED: Dextrose Gel 15 GM/37.5 ML TUBE PO PRN ×2 (14:54)
[2017-06-22] MEDS: Insulin LISPRO 300 UNITS/3 ML VIAL SQ SCH ×2 (16:26→22:23)
--- NOTE | 2017-06-22 16:58 | Electrocardiograph Report ---
[place] [id number] Test Date: 2017-06-22 Pat Name: Virgilio Poe Department: 111 Room: 2NE20 Gender: M Community Outreach Coordinator: : [id number] Requested By: Annel Penaloza Order Number: [id number] Reading MD: Yoel Tripp Measurements Intervals [place] Rate: 65 P: -19 DC: 131 QRS: 30 QRSD: 94 T: 115 QT: 425 QTc: 437 Interpretive Statements SINUS RHYTHM WITH FREQUENT VENTRICULAR PREMATURE COMPLEXES NONSPECIFIC T-WAVE ABNORMALITY Electronically Signed On 06-22-2017 16:56:38 EDT by Yoel Tripp
[2017-06-22] MEDS: Metoprolol XL (24 HR) Succ 25 MG TAB.ER.24H PO SCH (22:22)
[2017-06-22] MEDS: Heparin 25,000 UNIT/500 ML D5W 25,000 UNIT/500 ML BAG IVC SCH (22:24)
[2017-06-23 05:46] LABS: Basophils % 0.1 %; Eosinophils # 0.1 K/mcL (0.0-0.6); Eosinophils % 2.1 %; Hematocrit 31.7 % (37.5-50.1); Hemoglobin 9.6 g/dL (12.9-16.9); Immature Granulocytes % 0.7 % (0-4); Lymphocytes # 1.9 K/mcL (0.6-4.6); Mean Corpuscular HGB Conc 30.3 g/dL (31.6-35.5); Mean Corpuscular Hemoglobin 24.9 pg (28.0-33.3); Mean Corpuscular Volume 82.1 fL (83.0-100.0); Mean Platelet Volume 11.8 fL (9.4-12.4); Monocytes # 0.5 K/mcL (0.0-1.3); Monocytes % 7.1 %; Neutrophils # 4.2 K/mcL (1.6-8.9); Platelet Count 144 K/mcL (140-400); Red Blood Count 3.86 M/mcL (4.19-5.50); Red Cell Distribution Width 14.9 % (11.5-14.5)
[2017-06-23 06:49] LABS: Calcium 8.2 mg/dL (8.6-10.3); Potassium 3.8 mEq/L (3.5-5.1)
[2017-06-23] MEDS: Insulin LISPRO 300 UNITS/3 ML VIAL SQ SCH ×4 (08:11→21:27)
--- NOTE | 2017-06-23 09:50 | Cardiology Progress Note ---
Addendum entered and electronically signed by Annel Penaloza DO 06/23/17 10:38: Per cardiology: -ordered a Pharm stress test. -no A.fib events overnight TTE: Impressions: LVEF 50%. Normal LV chamber size and function. Mild left ventricular diastolic dysfunction. Asymmetric hypertrophy of the basal septum. No LVOT obstruction. Atypical septal motion consistent with post-operative status. Normal right ventricular structure and function. Mild mitral regurgitation. Mild pulmonary hypertension. Estimated RVSP is 36 mmHg. Original Note: <Annel Penaloza - Last Filed: 06/23/17 09:48> Date of Encounter: 06/23/17 Time of Encounter: 09:15 Assessment and Plan (1) Chest pain Current Visit: No Status: Acute Etiology is unclear but may be due to PAF since patient reported he had a heart fluttering sensation when he had the chest pain. Chest pain that began at rest and was relieved by nitro pace given in ED at [place]. Pressure like and radiated to neck. Reported palpitations. No nausea, diaphoresis, syncope, headache. -06/22/2017 EKG: sinus HR 65, non specific ST changes, PVCs -TIMOTHY score: 5 -troponin 0.06, 0.07, 0.07, 0.07, 0.07 PMH: CABG x3 stents, A.fib, CHF, DM, [place] 12/02/2015 Cath: ISAC in SVG to proximal 1st diagonal. Previous stent is SVG to 1st diagonal with severe 99% in stent stenosis that was intervened on. Denies chest pain and palpitations. No murmur or arrhythmia on exam. -awaiting echo results evaluate EF. If normal will consider nuclear pharm stress test but if significantly reduced consider cath. -agree with heparin -will continue to follow Qualifiers: Chest pain type: unspecified Qualified Code(s): R07.9 - Chest pain, unspecified (2) CAD (coronary artery disease) Current Visit: No Status: Chronic PMH: CABG x3 stents -11/18/2015 [facility]: LVEF 50%. Left main normal. LAD proximal 50% stenosis, mid 60% stenosis. Probable occluded diagonal branch. Circumflex proximal 30% stenosis, mid 40% stenosis. OM1 100% stenosis. L PDA small and diffusely diseased. RCA small non dominant mild disease. SVG to D1 99% ISR. VALENCIA to mid LAD known known to be atretic. Radial artery graft to OM1 patent. Attempted PCI of the SVG graft unsuccessful, unable to cross lesion. -12/02/2015 [facility]: ISAC in SVG to proximal 1st diagonal. Previous stent is SVG to 1st diagonal with severe 99% in stent stenosis that was intervened on. -continue asa, lipitor, metoprolol, imdur, aldactone, lisinopril Qualifiers: Coronary Disease-Associated Artery/Lesion type: bypass graft [place] vs. transplanted heart: [place] Associated angina: with unstable angina Qualified Code(s): I25.700 - Atherosclerosis of coronary artery bypass graft(s) , unspecified, with unstable angina pectoris (3) CKD (chronic kidney disease) stage 3, GFR 30-59 ml/min Current Visit: No Status: Chronic History of CKD stage 3 Creatinine 1.44 (1.48) improving -management per primary team. avoid nephrotoxic agents. (4) Diastolic heart failure Current Visit: No Status: Chronic 08/02/2016 TTE: EF 65-70% mild left ventricular diastolic dysfunction. mild tricuspid regurgitation ad pulmonary hypertension. -awaiting TTE results -continue toprol, aldactone, lisinopril, imdur Qualifiers: Heart failure chronicity: chronic Qualified Code(s): I50.32 - Chronic diastolic (congestive) heart failure (5) Atrial fibrillation Current Visit: No Status: Chronic History of a.fib on anticoagulation with warfarin and rate controlled with toprol CHADVASC score: 8 (age, CHF, HTN, DM, TIA, DVT, [place]) Per 02/13/2017 office visit record with Dr. Tripp the patient had a recent diagnosis of an intracranial hemorrhage after a fall. Anti-coagulation was interrupted. -agree with heparin, continue toprol Qualifiers: Atrial fibrillation type: unspecified Qualified Code(s): I48.91 - Unspecified atrial fibrillation (6) Type 2 diabetes mellitus Current Visit: No Status: Chronic History of diabetes. -management per primary team Qualifiers: Diabetes mellitus shelter insulin use: without shelter use Diabetes mellitus complication status: with circulatory complication Diabetes mellitus complication detail: with other circulatory complications Qualified Code(s): E11.59 - Type 2 diabetes mellitus with other circulatory complications Discussion w patient/family: The assessment and plan as outlined above was discussed with the patient and/or family members who expressed understanding and agreement. All questions were answered. Thank you for involving us in the care of your patient. Please call with any questions. Subjective Principal diagnosis: chest pain Interval history: Awaiting results of echo. The patient reports he is currently chest pain free, no palpitations. Objective Vital Signs, Last 4 Hours Temp Pulse Resp BP Pulse Ox 06/23/17 06:54 97.6 F 70 15 156/90 97 General: Conversant, No Apparent Distress HEENT: Atraumatic, Mucus Membranes Moist Neck: No JVD Cardiac: Reg Rate and Rhythm, Normal S1 and S2 Lungs: Normal Breath Sounds, No Wheeze, Rales, Rhonchi Neuro: Alert and responsive, No focal deficits noted Abdomen: Soft, Non-Tender Skin: No rashes noted on visualized skin Musculoskeletal: No Chest Wall Tenderness Extremities: No Edema Results 06/23/17 04:57 06/23/17 04:57 Lab Results 06/22/17 06/22/17 06/23/17 12:08 19:49 04:57 WBC 6.7 Hgb 9.6 L Hct 31.7 L Plt Count 144 INR 1.4 APTT 97.7 H 60.4 H Sodium Potassium Chloride Carbon Dioxide BUN Creatinine Glucose Calcium 06/23/17 06/23/17 04:57 04:57 WBC Hgb Hct Plt Count INR APTT 65.4 H Sodium 142 Potassium 3.8 Chloride 109 H Carbon Dioxide 25 BUN 18 Creatinine 1.44 H Glucose 126 H Calcium 8.2 L - VTE Documentation of Mechanical Device: Graduated compression elastic hosiery Consult Discharge Plan - Plan [facility]errals: [facility] [Primary Care Provider] - <Angela Snowden - Last Filed: 06/23/17 13:26> Date of Encounter: 06/23/17 Assessment and Plan Discussion w patient/family: I examined this patient and my medical decision-making was reviewed with the Resident Physician. I agree with the documented findings, disposition and treatment plan as described. Mr. Poe's echo demonstrated no concerning findings. No atrial fibrillation overnight. Patient without new symptoms. Recommend proceeding with stress testing for an ischemic evaluation. Continue heparin for now. [place] records reviewed - had an [facility] after suffering a mechanical fall in December 2016. Plan was to restart anticoagulants in late December. Objective Vital Signs, Last 4 Hours Temp Pulse Resp BP Pulse Ox 06/23/17 12:00 96 06/23/17 11:04 98.3 F 64 15 163/72 95 Results 06/23/17 04:57 06/23/17 04:57 Lab Results 06/22/17 06/23/17 06/23/17 19:49 04:57 04:57 WBC 6.7 Hgb 9.6 L Hct 31.7 L Plt Count 144 INR APTT 60.4 H Sodium 142 Potassium 3.8 Chloride 109 H Carbon Dioxide 25 BUN 18 Creatinine 1.44 H Glucose 126 H Calcium 8.2 L Troponin I 06/23/17 06/23/17 06/23/17 04:57 09:52 10:18 WBC Hgb Hct Plt Count INR 1.2 APTT 65.4 H Sodium Potassium Chloride Carbon Dioxide BUN Creatinine Glucose Calcium Troponin I 0.04 H*
--- NOTE | 2017-06-23 10:04 | Internal Med Progress Note ---
<FranniehansmaryCamilo zarate - Last Filed: 06/23/17 10:49> Date of Encounter: 06/23/17 Time of Encounter: 09:50 - Assessment and plan (1) ACS (acute coronary syndrome) Current Visit: Yes Status: Acute Assessment and plan: Chest pain suggestive of ACS with elevated troponin x 3 (.07 x 3). Patient also c/o new onset chest pain starting this morning. Denies any SOB, numbness/tingling, or radiation. - Ordered stat EKG. - Ordered stat troponin. - Continue heparin drip. - Continue statin, Imdur, lisinopril, metoprolol, spironolactone, terazosin. - Cardiology on board. - Echcardiogram results pending. - Will proceed with stress stest or LHC per evaluation from cardiology pending results of echocardiogram. (2) COPD (chronic obstructive pulmonary disease) Current Visit: Yes Status: Chronic Assessment and plan: Patient not on oxygen at home. No active wheezing on examination. Qualifiers: COPD type: emphysema Emphysema type: unspecified Qualified Code(s): J43.9 - Emphysema, unspecified (3) Hyperlipidemia Current Visit: Yes Status: Chronic Assessment and plan: Continue statin. Qualifiers: Hyperlipidemia type: pure hypercholesterolemia Qualified Code(s): E78.00 - Pure hypercholesterolemia, unspecified; E78.0 - Pure hypercholesterolemia (4) DM2 (diabetes mellitus, type 2) Current Visit: No Status: Chronic Assessment and plan: Glucose controlled at 126. - Continue glipizide. - Continue sliding scale. - Patient currently nothing by mouth for now due to possible LHC. Qualifiers: Diabetes mellitus termite treater insulin use: without senior living use Diabetes mellitus complication status: with kidney complications Diabetes mellitus complication detail: with chronic kidney disease Chronic kidney disease stage : stage 3 (moderate) Qualified Code(s): E11.22 - Type 2 diabetes mellitus with diabetic chronic kidney disease; N18.3 - Chronic kidney disease, stage 3 ( moderate); N18.3 - Chronic kidney disease, stage 3 (moderate) (5) CAD (coronary artery disease) Current Visit: No Status: Chronic Assessment and plan: History of CABG and multiple pci/stent. Last stent in 2016. - Continue home meds. Qualifiers: Coronary Disease-Associated Artery/Lesion type: bypass graft [place] vs. 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 We have currently placed him on heparin drip in anticipation of possible LHC. - INR level for today is currently pending. Yesterday was at 1.4 at subtherapeutic level. (7) HTN (hypertension) Current Visit: No Status: Chronic Assessment and plan: Controlled at 156/90 (135-156/67-90). - Continue home medications. Qualifiers: Hypertension type: essential hypertension Qualified Code(s): I10 - Essential (primary) hypertension (8) LYNSEY on CPAP Current Visit: No Status: Chronic Assessment and plan: On CPAP and BiPAP at night. (9) DVT prophylaxis Current Visit: No Status: Acute Assessment and plan: On heparin drip. - Subjective Interval history: when seen today, patient was c/o chest tightness b/l. He says it started in the morning and rates it as a 1-2/10 in pain scale. He denies any radiation, SOB, nausea, vomiting, abdominal pain, fever, or chills. - Constitutional Vitals: Temp Pulse Resp BP Pulse Ox 97.6 F 70 15 156/90 97 06/23/17 06:54 06/23/17 06:54 06/23/17 06:54 06/23/17 06:54 06/23/17 06:54 General appearance: Present: A&O X 3, no acute distress, answers questions appropriately - Respiratory Respiratory exam: Present: CTAB. Absent: accessory muscle use, chest wall tenderness, rales, rhonchi, wheezes - Cardiovascular Cardiovascular exam: Present: irregular rhythm. Absent: bradycardia, diastolic murmur, systolic murmur, tachycardia - GI/Abdominal GI/Abdominal exam: Present: normal bowel sounds, soft, no peritoneal signs. Absent: distended, tenderness Additional comments: Reducible umbilical hernia noted. - Extremities Exam Extremities exam: Present: normal capillary refill, pedal edema (+2 B/L [place] edema noted in R leg. ), radial pulses palpable and symmetrical. Absent: calf tenderness, cyanotic, tenderness Internal Medicine: Result - Labs CBC & Chem 7: 06/23/17 04:57 06/23/17 04:57 Labs: Short CBC 06/23/17 Range/Units 04:57 WBC 6.7 (4.3-11.1) K/mcL Hgb 9.6 L (12.9-16.9) g/dL Hct 31.7 L (37.5-50.1) % Plt Count 144 (140-400) K/mcL Neutrophils # 4.2 (1.6-8.9) K/mcL BMP 06/23/17 04:57 Sodium 142 Potassium 3.8 Chloride 109 H Carbon Dioxide 25 BUN 18 Creatinine 1.44 H Glucose 126 H Calcium 8.2 L - ABG Interpretation ABG results: PT/INR, D-dimer PT 15.0 Seconds (9.4-12.1) H 06/22/17 12:08 - VTE Documentation of Mechanical Device: Graduated compression elastic hosiery Consult Discharge Plan - Plan [facility]errals: [facility]Primary Care Provider[facility] - <Ming Briones H - Last Filed: 06/23/17 15:07> Date of Encounter: 06/23/17 - Constitutional Vitals: Temp Pulse Resp BP Pulse Ox 97.7 F 77 15 126/80 97 06/23/17 14:52 06/23/17 14:52 06/23/17 14:52 06/23/17 14:52 06/23/17 14:52 Internal Medicine: Result - Labs CBC & Chem 7: 06/23/17 04:57 06/23/17 04:57 Labs: Short CBC 06/23/17 Range/Units 04:57 WBC 6.7 (4.3-11.1) K/mcL Hgb 9.6 L (12.9-16.9) g/dL Hct 31.7 L (37.5-50.1) % Plt Count 144 (140-400) K/mcL Neutrophils # 4.2 (1.6-8.9) K/mcL BMP 06/23/17 04:57 Sodium 142 Potassium 3.8 Chloride 109 H Carbon Dioxide 25 BUN 18 Creatinine 1.44 H Glucose 126 H Calcium 8.2 L Cardiac Enzymes 06/23/17 Range/Units 10:18 Troponin I 0.04 H* (< 0.04) ng/mL - ABG Interpretation ABG results: PT/INR, D-dimer PT 13.0 Seconds (9.4-12.1) H 06/23/17 09:52 - Impressions Impressions Echocardiogram 06/22/17 11:05 Impressions: LVEF 50%. Normal LV chamber size and function. Mild left ventricular diastolic dysfunction. Asymmetric hypertrophy of the basal septum. No LVOT obstruction. Atypical septal motion consistent with post-operative status. Normal right ventricular structure and function. Mild mitral regurgitation. Mild pulmonary hypertension. Estimated RVSP is 36 mmHg. Left Ventricular Wall Motion: Rest Echo Findings All wall segments showed normal motion. Findings: Study Quality * Technically adequate exam. ECG Findings * Normal sinus rhythm. Left Ventricle * LVEF 50%. * Normal LV chamber size and function. * Mild left ventricular diastolic dysfunction. * Asymmetric hypertrophy of the basal septum. No LVOT obstruction. * Atypical septal motion consistent with post-operative status. Right Ventricle * Normal right ventricular structure and function. Left Atrium * Mildly dilated left atrium. Right Atrium * Normal right atrial size. Interatrial Septum * Interatrial septum not well evaluated. Aortic Valve * Trileaflet aortic valve. * No aortic regurgitation. * No aortic stenosis. Mitral Valve * Mild mitral annular calcification * Mild mitral regurgitation. * No mitral stenosis. Tricuspid Valve * Normal tricuspid valve structure and function. * Trace tricuspid regurgitation. * Mild pulmonary hypertension. * Estimated RVSP is 36 mmHg. * Estimated RA pressure is presumed to be 5 mmHg. IVC not well visualized. Pulmonic Valve * Normal pulmonic valve structure. * Mild pulmonic regurgitation. Aorta * Normally sized aortic root. Pericardium * The pericardium appears normal. IVC * The IVC is not well evaluated. Pulmonary Artery * Pulmonary artery not well visualized. - Attending Attestation stress test pending, awaiting cardiology recommendations I examined this patient and my medical decision-making was reviewed with the Resident Physician. I agree with the documented findings, disposition and treatment plan as described except to the extent set forth below.
[2017-06-23 10:30] LABS: INR 1.2
[2017-06-23] MEDS ORDERED: Regadenoson 0.4 MG/5 ML SYRINGE IVP ONE (10:53)
--- NOTE | 2017-06-23 12:08 | Event Note ---
Date of Encounter: 06/23/17 Time of Encounter: 11:30 Saw patient earlier this morning and was c/o some minor chest tightness. He denied any SOB, numbness/tingling, or radiation. I ordered an EKG and repeat troponin level. EKG shows no acute ischemic changes when compared to previous EKG. Troponin has dropped to 0.04 from 0.07. Will continue to monitor for any further symptoms.
[2017-06-23] MEDS: Isosorbide MONOnitrate (24 HR) 30 MG TAB.ER.24H PO SCH (14:10)
[2017-06-23] MEDS: Gabapentin 100 MG CAPSULE PO SCH ×3 (14:10→21:26)
[2017-06-23] MEDS: Magnesium Oxide 400 MG TABLET PO SCH ×2 (14:10→21:26)
[2017-06-23] MEDS: Metoprolol XL (24 HR) Succ 25 MG TAB.ER.24H PO SCH ×2 (14:10→21:26)
[2017-06-23] MEDS: Spironolactone 25 MG TABLET PO SCH (14:11)
[2017-06-23] MEDS: Cyanocobalamin (B-12) 1,000 MCG TABLET PO SCH (14:13)
--- NOTE | 2017-06-23 15:06 | Physician Discharge Referral ---
Home Health/Hosp Referral Info Transfer to: Home Health Provider in Charge Post Discharge: PCP - Diagnosis (1) ACS (acute coronary syndrome) Priority: Primary Status: Acute (2) COPD (chronic obstructive pulmonary disease) Priority: Primary Status: Chronic (3) Hyperlipidemia Priority: Primary Status: Chronic (4) DM2 (diabetes mellitus, type 2) Priority: Primary Status: Chronic (5) CAD (coronary artery disease) Priority: Primary Status: Chronic (6) History of DVT (deep vein thrombosis) Priority: Primary Status: Chronic (7) HTN (hypertension) Priority: Primary Status: Chronic (8) LYNSEY on CPAP Priority: Primary Status: Chronic (9) DVT prophylaxis Priority: Primary Status: Acute - Respiratory Orders Oxygen / L per min (2 L) Smoking Cessation: Smoking cessation has been advised. For more information, call the [employer] Tobacco Quit Line at 3-915-FJTR-NOW. - Diet/Nutrition Diet/Nutrition Orders: Cardiac - Activity Activity Orders: Walker - Services Needed Following services are medically necessary services: Nursing, Home Health Aide, Physical Therapy, Occupational Therapy - Transfer Medications Home Medications: Acetaminophen [Tylenol] 975 mg PO QID PRN 11/16/15 [History] Atorvastatin [Lipitor] 40 mg PO HS 11/16/15 [History] Gabapentin [Neurontin] 200 mg PO TID 11/16/15 [History] Isosorbide MONOnitrate (24 HR) [Imdur] 30 mg PO DAILY 11/16/15 [History] Metformin HCl [Metformin HCl ER] 2,000 mg PO QPM 11/16/15 [History] Ferrous Sulfate [Iron] 325 mg PO BID 12/02/15 [History] Omeprazole [PriLOSEC] 20 mg PO DAILY 12/02/15 [History] Terazosin HCl 10 mg PO HS 12/02/15 [History] glipiZIDE [Glucotrol] 5 mg PO DAILY 12/02/15 [History] Cyanocobalamin (B-12) [Vitamin B12] 1,000 mcg PO DAILY 11/27/16 [History] Lisinopril [Zestril] 5 mg PO DAILY 11/27/16 [History] Spironolactone [Aldactone] 25 mg PO DAILY 11/27/16 [History] Furosemide [Lasix] 20 mg PO BID 06/21/17 [History] Metoprolol XL (24 HR) Succ [Toprol Xl] 25 mg PO BID 06/21/17 [History] Edwards-3/Dha/Epa/Fish Oil [Fish Oil 1,000 mg Softgel] 1,000 mg PO DAILY 06/21/17 [History] Warfarin [Coumadin] 3 mg PO SUMOTUTHFRSA 06/21/17 [History] Warfarin [Coumadin] 4 mg PO WE 06/21/17 [History] Allergies/Adverse Reactions: 3 Allergy/AdvReac Type Severity Reaction Status Date / Time pseudoephedrine Allergy Anaphylaxis Verified 06/21/17 11:42 [From Actifed] sulfamethoxazole Allergy Anaphylaxis Verified 06/21/17 11:42 [From Bactrim] tramadol Allergy See Verified 06/21/17 16:38 Comments trimethoprim [From Bactrim] Allergy Anaphylaxis Verified 06/21/17 11:42 triprolidine [From Actifed] Allergy Anaphylaxis Verified 06/21/17 11:42 Certification: Further, I certify that my clinical findings support that this patient is homebound (i.e. absences from home require considerable and taxing effort and are for medical reasons or temple services or infrequently or short duration when for other reasons) because: Homebound Reason: Patient requires assistance of a person or device to safely leave home, Leaving home requires considerable and taxing effort due to condition, Severity of cardiac or pulmonary status limits activity tolerance Attestation: My signature below is to certify that this patient is under my care and that I, or nurse practitioner, or a physician's assistant branch operations manager working with me, has a face-to -face encounter with this patient.
--- NOTE | 2017-06-23 16:57 | Event Note ---
Date of Encounter: 06/23/17 Time of Encounter: 16:00 - Cardiology Event Note Stress test results reviewed. Mainly anterolateral and inferolateral ischemia. Has significant residual disease in the anterior and anterolateral rosas based on findings from C 11/16/2015. Will review with Interventional Cardiology tomorrow. Spoke with patient. Likely will need [facility]. R/B/A of the procedure were discussed with the patient. He expressed understanding and agreement to proceed. Renal function is stable. Continue heparin drip. Patient without symptoms at this time.
[2017-06-24 06:15] LABS: Basophils % 0.3 %; Eosinophils # 0.1 K/mcL (0.0-0.6); Eosinophils % 2.1 %; Hematocrit 31.4 % (37.5-50.1); Hemoglobin 9.6 g/dL (12.9-16.9); Immature Granulocytes % 0.8 % (0-4); Lymphocytes # 1.9 K/mcL (0.6-4.6); Lymphocytes % 28.1 %; Mean Corpuscular HGB Conc 30.6 g/dL (31.6-35.5); Mean Corpuscular Hemoglobin 25.5 pg (28.0-33.3); Mean Corpuscular Volume 83.3 fL (83.0-100.0); Mean Platelet Volume 11.5 fL (9.4-12.4); Monocytes # 0.5 K/mcL (0.0-1.3); Monocytes % 7.8 %; Neutrophils # 4.1 K/mcL (1.6-8.9); Platelet Count 136 K/mcL (140-400); Red Blood Count 3.77 M/mcL (4.19-5.50); Red Cell Distribution Width 14.9 % (11.5-14.5); Segmented Neutrophils % 60.9 %
[2017-06-24 06:23] LABS: INR 1.1; Prothrombin Time 11.8 Seconds (9.4-12.1)
[2017-06-24 06:27] LABS: Calcium 8.6 mg/dL (8.6-10.3); Potassium 3.8 mEq/L (3.5-5.1)
[2017-06-24] MEDS: *HR* Heparin 5,000 UNIT/ML VIAL IVP PRN (06:40)
[2017-06-24] MEDS ORDERED: Nitroglycerin 1,000 MCG/10 ML VIAL IV ONE (08:50)
[2017-06-24] MEDS ORDERED: *HR* Heparin 10,000 UNIT/10 ML VIAL ONE (08:50)
[2017-06-24] MEDS ORDERED: ISOVUE-370 200 ML INFUS..BTL IV ONE ×2 (08:50→08:54)
[2017-06-24] MEDS ORDERED: Heparin 1,000 UNITS/500 mL 500 ML ONE (08:50)
[2017-06-24] MEDS ORDERED: 0.9 % Sodium Chloride 1,000 ML ONE ×2 (08:50→09:48)
[2017-06-24] MEDS: Heparin 25,000 UNIT/500 ML D5W 25,000 UNIT/500 ML BAG IVC SCH ×3 (08:52→22:24)
[2017-06-24] MEDS: Magnesium Oxide 400 MG TABLET PO SCH ×2 (08:55→21:36)
[2017-06-24] MEDS: Insulin LISPRO 300 UNITS/3 ML VIAL SQ SCH ×4 (08:55→21:36)
[2017-06-24] MEDS: Cyanocobalamin (B-12) 1,000 MCG TABLET PO SCH (08:55)
[2017-06-24] MEDS: Isosorbide MONOnitrate (24 HR) 30 MG TAB.ER.24H PO SCH (08:55)
[2017-06-24] MEDS: Spironolactone 25 MG TABLET PO SCH (08:55)
[2017-06-24] MEDS: Metoprolol XL (24 HR) Succ 25 MG TAB.ER.24H PO SCH ×2 (08:55→21:36)
[2017-06-24] MEDS: Gabapentin 100 MG CAPSULE PO SCH ×3 (08:56→21:35)
[2017-06-24] MEDS ORDERED: *HR* Midazolam HCl 2 MG/2 ML VIAL ONE (09:47)
--- NOTE | 2017-06-24 09:47 | Pre-Sedation Evaluation ---
Pre-sedation evaluation - Pre-sedation checklist Date of procedure: 06/24/17 Procedure: [facility] Recent Vitals: Last Vital Signs Temp 98.4 F 06/24/17 07:25 Pulse 60 06/24/17 07:25 Resp 18 06/24/17 07:25 BP 120/77 06/24/17 07:25 Pulse Ox 96 06/24/17 09:12 H&P (including ROS) documented in medical record: Yes Previous reaction to sedatives/anesthetics: No Dietary Status: NPO after Midnight Airway Assessment: Patient can open mouth completely, TMJ function normal Dentition: No loose teeth or bridges, full dentition Possible difficult airway: No ASA Classification *see protocol: CLASS IV-Severe systemic disease/constant threat to pt's life
--- NOTE | 2017-06-24 10:32 | Internal Med Progress Note ---
<Enrico Cr - Last Filed: 06/24/17 13:09> Date of Encounter: 06/24/17 Time of Encounter: 10:30 - Assessment and plan (1) ACS (acute coronary syndrome) Current Visit: Yes Status: Acute Assessment and plan: Chest pain suggestive of ACS with elevated troponin x 3 (.07 x 3). Patient also c/o new onset chest pain starting this morning. Denies any SOB, numbness/tingling, or radiation. -Had left heart catheter today; spoke with cardiology. Patient has severe coronary vessel disease. No stents were placed. Patient may need CABG. Will discuss with cardiac surgery (2) DM2 (diabetes mellitus, type 2) Current Visit: No Status: Chronic Assessment and plan: Glucose controlled - Continue glipizide. - Continue sliding scale. - Patient currently nothing by mouth for now due to possible LHC. Qualifiers: Diabetes mellitus residential insulin use: without social work instructor use Diabetes mellitus complication status: with kidney complications Diabetes mellitus complication detail: with chronic kidney disease Chronic kidney disease stage : stage 3 (moderate) Qualified Code(s): E11.22 - Type 2 diabetes mellitus with diabetic chronic kidney disease; N18.3 - Chronic kidney disease, stage 3 ( moderate); N18.3 - Chronic kidney disease, stage 3 (moderate) (3) CAD (coronary artery disease) Current Visit: No Status: Chronic Assessment and plan: History of CABG and multiple pci/stent. Last stent in 2016. - Continue home meds. Qualifiers: Coronary Disease-Associated Artery/Lesion type: bypass graft [place] vs. transplanted heart: [place] heart Associated angina: with unstable angina Qualified Code(s): I25.700 - Atherosclerosis of coronary artery bypass graft(s) , unspecified, with unstable angina pectoris (4) History of DVT (deep vein thrombosis) Current Visit: No Status: Chronic Assessment and plan: On Coumadin at home. We have currently placed him on heparin drip in anticipation of possible LHC. - INR level for today is currently pending. Yesterday was at 1.4 at subtherapeutic level. (5) HTN (hypertension) Current Visit: No Status: Chronic Assessment and plan: Continue home medications Qualifiers: Hypertension type: essential hypertension Qualified Code(s): I10 - Essential (primary) hypertension - Subjective Interval history: Patient seen and examined at bedside this morning. Had left heart catheter today. Denies having any competitions from his procedure. Denies having any drowsiness. Denies having any chest pain, shortness of breath, palpitations, dizziness, headache, or syncope. Patient has been made aware of his condition; severe coronary vessel disease; no stents placed. Patient may need CABG. We will make decision after discussing with cardiac surgery. Patient has no complaints at this time. - Constitutional Vitals: Temp Pulse Resp BP Pulse Ox 98.4 F 60 18 120/77 96 06/24/17 07:25 06/24/17 07:25 06/24/17 07:25 06/24/17 07:25 06/24/17 09:12 General appearance: Present: A&O X 3, no acute distress, answers questions appropriately - Head Head exam: Present: atraumatic, normocephalic - Eye Eye exam: Present: PERRL, conjuntiva pink, sclera anicteric Pupils: Present: PERRL - Neck Neck exam general surgery: Present: supple, trachea midline. Absent: lymphadenopathy - Respiratory Respiratory exam: Present: CTAB. Absent: accessory muscle use, rales, rhonchi, wheezes - Cardiovascular Cardiovascular exam: Present: RRR, +S1, +S2. Absent: diastolic murmur, gallop, rubs, systolic murmur - GI/Abdominal GI/Abdominal exam: Present: normal bowel sounds, soft, no peritoneal signs. Absent: distended, tenderness - Extremities Exam Extremities exam: Present: warm, radial pulses palpable and symmetrical. Absent : calf tenderness, cyanotic, pedal edema - Neurological Exam Neurological exam: Present: CN II-XII intact, oriented X3, no focal deficits. Absent: pronater drift, facial droop, speech deficit - Skin Skin exam: Present: dry, intact Internal Medicine: Result - Labs CBC & Chem 7: 06/24/17 05:42 06/24/17 05:42 Labs: Short CBC 06/24/17 Range/Units 05:42 WBC 6.7 (4.3-11.1) K/mcL Hgb 9.6 L (12.9-16.9) g/dL Hct 31.4 L (37.5-50.1) % Plt Count 136 L (140-400) K/mcL Neutrophils # 4.1 (1.6-8.9) K/mcL BMP 06/24/17 05:42 Sodium 141 Potassium 3.8 Chloride 109 H Carbon Dioxide 27 BUN 19 Creatinine 1.42 H Glucose 134 H Calcium 8.6 Cardiac Enzymes 06/23/17 Range/Units 10:18 Troponin I 0.04 H* (< 0.04) ng/mL - ABG Interpretation ABG results: PT/INR, D-dimer PT 11.8 Seconds (9.4-12.1) 06/24/17 05:42 - VTE Documentation of Mechanical Device: Graduated compression elastic hosiery Consult Discharge Plan - Plan [facility]errals: [facility] [Primary Care Provider[facility] - <Ming Briones H - Last Filed: 06/24/17 13:17> Date of Encounter: 06/24/17 - Constitutional Vitals: Temp Pulse Resp BP Pulse Ox 98.4 F 66 20 131/73 98 06/24/17 07:25 06/24/17 12:43 06/24/17 12:43 06/24/17 12:43 06/24/17 12:43 Internal Medicine: Result - Labs CBC & Chem 7: 06/24/17 05:42 06/24/17 05:42 Labs: Short CBC 06/24/17 Range/Units 05:42 WBC 6.7 (4.3-11.1) K/mcL Hgb 9.6 L (12.9-16.9) g/dL Hct 31.4 L (37.5-50.1) % Plt Count 136 L (140-400) K/mcL Neutrophils # 4.1 (1.6-8.9) K/mcL [facility] 06/24/17 05:42 Sodium 141 Potassium 3.8 Chloride 109 H Carbon Dioxide 27 BUN 19 Creatinine 1.42 H Glucose 134 H Calcium 8.6 - ABG Interpretation ABG results: PT/INR, D-dimer PT 11.8 Seconds (9.4-12.1) 06/24/17 05:42 - Attending Attestation Hollis catheterization final report still pending, cardiology apparently we will discuss the patient's case with cardiothoracic surgery on Monday. Cardiology recommendations appreciated. 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 CT of the head from 01/10 : . Acute 2.3 cm hemorrhage within the right basal ganglia, contiguous with the caudate and right lateral ventricle. There is a small amount of intraventricular extension. No midline shift. Close interval follow-up is recommended. 2. Moderate chronic small vessel ischemic changes. I examined this patient and my medical decision-making was reviewed with the Resident Physician. I agree with the documented findings, disposition and treatment plan as described except to the extent set forth below.
--- NOTE | 2017-06-24 11:02 | Invasive Diagnostic Lab Proc ---
Name: Virgilio Poe Date of Study: 06/24/2017 Date: 1935 Ht: 70.1in Medical Record#: [id number] Age: 81 Wt: 212.75lb Gender: Male BSA: 2.14 Order #: [id number] BMI: 30.46 Physicians Procedure Physician: Mickey Crow DO Referring MD: Referring MD: Staff Name Position Time In HerbJulius RN Monitor 09:39 AM Rodrigue Shaw RN Dynamics Ax Technical Architect 09:39 AM Lima Rodriguez RT Scrub 09:40 AM Indications Indication Abnormal Test - Stress Procedures Performed Procedure L HRT ART/GRFT ANGIO Pre-Procedure Checklist Informed consent is complete signed and on chart. H&P is on chart. ID band is on and ID verified with patient. Patient NPO for procedure The procedure was described for the patient and questions were answered. ECG is on chart. Plan of Care Patient will tolerate the procedure without complications. Adequate level of comfort will be maintained. Hemodynamics will remain stable Patient will recover from procedure without complications. Respiratory function will be maintained. Cardiac rhythm will remain stable. Patient temperature will be maintained. Patient and/or family have verbalized understanding of the procedure. Patient Education Chief Complaint/Reason for Test: Cardiac Cath Developmental Category: Geriatric (65+ years) Developmentally Appropriate for Age: Yes Learning Barriers: None Education Needs: Procedure Education Method: Verbal Information Taught: Cardiac Cath Educational Evaluation: Able to repeat information Intravenous Access Time IV Size Location DC'd Fluid/Drip Rate Units RN 20g 1 /" Patent On Arrival Rt Arm Allergies Chlorpheniramine Phenylephrine trimethoprim sulfamethoxazole tramadol pseudoephedrine triprolidine Vital Signs Time BP (mmHg) HR (bpm) O2 Sat. RR (bpm) LOC 09:45 AM / % 5 = Fully awake and oriented or at pre-proc level 09:45 AM / % 4 = Oriented but drowsy 10:02 AM / % 4 = Oriented but drowsy 10:17 AM / % 4 = Oriented but drowsy 10:32 AM / % 4 = Oriented but drowsy 09:50 AM 147 / 81 60 99 % 15 09:55 AM 144 / 82 62 99 % 15 10:00 AM 140 / 80 67 98 % 17 10:05 AM 137 / 76 60 98 % 16 10:10 AM 143 / 77 58 98 % 17 10:15 AM 136 / 80 63 98 % 19 10:20 AM 124 / 79 62 97 % 17 10:25 AM 139 / 74 66 97 % 20 10:30 AM 141 / 79 58 97 % 14 10:35 AM 146 / 84 70 99 % 18 10:40 AM 147 / 83 63 100 % 13 10:45 AM 142 / 80 63 99 % 15 Procedural Medications Time Medication Dose Units Method Given By 09:45 AM Oxygen 2 L/min nasal cannula Rodrigue Shaw RN 10:09 AM Lidocaine 2% 10 ml Subcutaneous Mickey Crow DO 09:50 AM Versed 1 mg Intravenous Rodrigue Shaw RN ASA Classification: CLASS IV- Severe systemic that is constant threat to patient's life Robert Score Preprocedure Postprocedure Activity 2- Moves 4 extremities sustained head lift Activity 2- Moves 4 extremities sustained head lift Circulation 2- SBP +/= 20 points of pre-anesthetic level Circulation 2- SBP +/= 20 points of pre-anesthetic level Consciousness 2- Awake and alert oriented x 3 Consciousness 2- Awake and alert oriented x 3 O2 Saturation 2- Able to maintain O2 satruation of 92% on room air O2 Saturation 2- Able to maintain O2 satruation of 92% on room air Respiratory 2- Able to deep breathe and cough well Respiratory 2- Able to deep breathe and cough well Total Score 10 Total Score 10 Contrast Agent: Isovue Diagnostic Contrast: 150 ml Total Contrast: 150 ml Fluoro Dose: 874 mGy Activated Clotting Time Time Seconds to Clot 10:32 AM 142 Procedure Log Time Note Enter By 09:39 AM Pt arrived to logging rafter laborer 2 at 09:39 ner 09:39 AM Julius Estevez RN Position: Monitor Time in: 09:39 09:39 AM Rodrigue Shaw RN Position: Dynamics Ax Technical Architect Time in: 09:39 09:40 AM Lima Rodriguez Position: Scrub Time in: :40 [email or web address] 09:40 AM Patient charges- Angio tray pack, Navilyst 3mm J, Pulse Oximetry and ACIST tubing and transducer kk 09:40 AM Hair removed from procedure site in procedure lab using clippers. Bilateral groin prepped with Chloraprep by Lima Rodriguez RT, then patient was draped. Skin intact. kkall 09:40 AM Physician arrived 09:40 kkallner 09:40 AM Justin completed kkner 09:40 AM Sign in performed according to hospital policy. [email or web address] 09:40 AM Procedure start 09:40 kkallner 09:44 AM 09:45 AM Time: :45 Patient comfortable and pain free: Yes [email or web address] 09:45 AM Time: 09:45LOC: 5 = Fully awake and oriented or at pre-proc level [email or web address] 09:45 AM Time: 09:45 Oxygen on at 2 L/min per nasal cannula by Rodrigue Shaw RN [email or web address] 09:49 AM 09:50 AM Time: 09:50 Versed 1 mg Intravenous Given by Rodrigue Shaw RN [email or web address] 09:50 AM 09:51 AM ASA Class CLASS IV- Severe systemic that is constant threat to patient's life [email or web address] 09:55 AM 09:59 AM 09:59 AM 10:00 AM 10:02 AM Time: 09:45LOC: 4 = Oriented but drowsy kkallner 10:02 AM Time: 09:45 Patient comfortable and pain free: Yes [email or web address] 10:05 AM 10:09 AM Clinical Presentation: Unstable angina kkallner 10:09 AM Time out performed according to hospital policy kk 10:09 AM Time: :09 10 ml Lidocaine 2% to right groin Subcutaneous Given by Mickey Crow DO [email or web address] 10:10 AM 10:12 AM Micro-Introducer Kit utilized for sheath placement [email or web address] 10:12 AM 10:12 AM Access obtained by percutaneous puncture. 6Fr 10cm Terumo Dafter sheath placed in right Femoral artery. [id number] kkallner 10:13 AM 6Fr FR 4 catheter inserted over the wire DNC kkallner 10:13 AM 10:14 AM 10:15 AM Catheter selectively placed in left ventricle kkallner 10:15 AM 10:15 AM 10:17 AM Time: 10:02 Patient comfortable and pain free: Yes [email or web address] 10:17 AM Time: 10:02LOC: 4 = Oriented but drowsy kkallner 10:18 AM hand injected LV gram kkallner 10:18 AM cath repositioned to RCA kkallner 10:18 AM RCA angiography performed in multiple views. [email or web address] 10:18 AM cath repositioned to SVG kkallner 10:18 AM SVG to the 1st Diagonal angio performed in multiple views. kkallner 10:19 AM Attempting to view VALENCIA to LAD, known to be occluded from previous caths kkallner 10:20 AM 10:22 AM Left MELANI to the LAD angio performed in multiple views. [email or web address] 10:22 AM Catheter removed kkallner 10:22 AM 6Fr FL 4 catheter inserted over the wire DNC kkallner 10:25 AM LCA angiography performed in multiple views. [email or web address] 10:25 AM 10:25 AM 10:26 AM Coronary Dominance: Left kkallner 10: AM Catheter removed kkallner 10: AM Wire removed kkallner 10: AM right groin shot obtained. kkallner 10:29 AM Procedure completed at 10:29 kkallner 10:29 AM What is the NYHA Class? Class 2 kkallner 10:29 AM Did you address TIMOTHY flow and Dominance? Yes kkallner 10:29 AM Sign out completed: Radiation Dose 874 mGy Fluoro Time: 5.0 Isovue 370 - 200ml contrast 150 ml given by Mickey Crow DO. Complications: NoneCardiac Rehab Consult needed: NoConfirmed administered medications: Yes kkallner 10:29 AM Isovue 370 - 200ml,1 Bottle(s) used. kkallner 10:30 AM Estimated Blood Loss: minimal kkallner 10:30 AM 10:30 AM Post ECG Sinus Bradycardia kkallner 10:30 AM Post Blood Pressure 141/79 kkallner 10:31 AM 10:31 Post Pulses Bilateral DP & PT 1+ kkallner 10:31 AM Information taught Cardiac Cath and V+ Pad kkallner 10:31 AM Education needs Procedure, Plan of Care, and Responsibilities of Patient in Care kkallner 10:31 AM Learning barriers :None kkallner 10:31 AM Education Methods Verbal kkallner 10:31 AM Education evaluation Able to repeat information kkallner 10:32 AM Plavix, Effient or Brilinta given No kkallner 10:32 AM Family placed in consult room. kkallner 10:32 AM Complications: None kkallner 10:32 AM At 10:32 the ACT was 142 seconds. kkallner 10:32 AM Fluoro Time: 5 kkallner 10:32 AM Time: 10:17 Patient comfortable and pain free: Yes kkallner 10:32 AM Time: 10:17LOC: 4 = Oriented but drowsy kkallner 10:33 AM Isovue 370 - 200ml contrast 150 ml given by Mickey Crow. kkallner 10:33 AM Radiation Dose 874 mGy kkallner 10:33 AM Complex lesions, films to be reviewed by interventionalist and family/patient. Decide best course of action for triple vessel disease. kkallner 10:35 AM 10:40 AM 10:41 AM Lesion found in Mid LAD. Pre Stenosis: 90 Pre TIMOTHY Flow: kkallner 10:41 AM Lesion found in 1st Diagonal. Pre Stenosis: 90 Pre TIMOTHY Flow: kkallner 10:41 AM Lesion found in Distal Circumflex. Pre Stenosis: 90 Pre TIMOTHY Flow: kkallner 10:41 AM Lesion found in 1st Marginal. Pre Stenosis: 90 Pre TIMOTHY Flow: kkallner 10:42 AM Mid/Distal Left Anterior Descending Coronary Artery and diagonal branches with 90% stenosis. If graft is supplying this area, 90 % stenosis kkallner 10:42 AM Circumflex, Obtuse Marginal, Left Posterior Descending, and Left Posterolateral Coronary Arteries with 90 % stenosis. If graft is supplying this area, 90 % stenosis kkallner 10:45 AM 10:48 AM Time: 10:32LOC: 4 = Oriented but drowsy kkallner 10:48 AM Time: 10:32 Patient comfortable and pain free: Yes kkallner 10:48 AM Arterial sheath pulled using manual compression and V+ Pad for 15 minutes by Lima Rodriguez RT kkallner 10:48 AM Site status No bleeding/hematoma - Rt Groin as reported by Lima Rodriguez RT at 10:48 kkallner 10:48 AM Opsite applied kkallner 10:48 AM Patient out of room: 10:[facility] Complications Complication None None Hemodynamics Pressures Site Systolic/A Wave Diastolic/V Wave Mean LV 128 -2 6 LV 125 0 4 AO 130 56 86 AO 125 50 82 AO 131 56 86 Post Procedure Information Blood Pressure: 141/79 mmHg Rhythm: Sinus Bradycardia Post procedural instructions were given Closure Device Time Device Success/Fail 06/24/2017 10:35:00 AM Manual Compression Successful Site Checks Time Location Status Staff Sheath In? Note 10:48 AM Rt Groin No bleeding/hematoma Lima Rodriguez Pulses Time Site Pre-Procedure Post-Procedure Note 06/24/2017 10:30:00 AM Bilateral DP & PT 1+ 10:31:00 AM Bilateral DP & PT 1+ Updated by RT Juan (R) on 06/24/2017 10:52:32 AM electronically signed on 06/24/2017 10:53:54 AM with status of Final
[2017-06-24] MEDS: 0.9 % Sodium Chloride 1,000 ML IVC SCH ×2 (11:46→18:40)
--- NOTE | 2017-06-24 13:59 | Event Note ---
Date of Encounter: 06/24/17 Time of Encounter: 13:57 - Cardiology Event Note [facility] completed. Discussed with Dr. Crow. Report is pending. Old [facility] films to be reviewed and compared to todays [facility]. Further recommendation on possible PCI monday verses medical management after review.
--- NOTE | 2017-06-24 15:51 | Electrocardiograph Report ---
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
[2017-06-25] MEDS: 0.9 % Sodium Chloride 1,000 ML IVC SCH (05:32)
[2017-06-25] MEDS: Acetaminophen 325 MG TABLET PO PRN ×2 (05:34→13:15)
[2017-06-25 05:46] LABS: Basophils % 0.3 %; Eosinophils # 0.1 K/mcL (0.0-0.6); Hematocrit 30.3 % (37.5-50.1); Hemoglobin 9.2 g/dL (12.9-16.9); Immature Granulocytes % 0.6 % (0-4); Lymphocytes # 1.5 K/mcL (0.6-4.6); Lymphocytes % 22.7 %; Mean Corpuscular HGB Conc 30.4 g/dL (31.6-35.5); Mean Corpuscular Hemoglobin 25.1 pg (28.0-33.3); Mean Corpuscular Volume 82.6 fL (83.0-100.0); Mean Platelet Volume 11.9 fL (9.4-12.4); Monocytes # 0.5 K/mcL (0.0-1.3); Monocytes % 8.1 %; Neutrophils # 4.4 K/mcL (1.6-8.9); Platelet Count 126 K/mcL (140-400); Red Blood Count 3.67 M/mcL (4.19-5.50); Red Cell Distribution Width 14.9 % (11.5-14.5); Segmented Neutrophils % 66.3 %
[2017-06-25 06:02] LABS: Calcium 8.3 mg/dL (8.6-10.3)
[2017-06-25] MEDS: Insulin LISPRO 300 UNITS/3 ML VIAL SQ SCH ×4 (08:40→23:20)
[2017-06-25] MEDS: Spironolactone 25 MG TABLET PO SCH (08:41)
[2017-06-25] MEDS: Cyanocobalamin (B-12) 1,000 MCG TABLET PO SCH (08:41)
[2017-06-25] MEDS: Gabapentin 100 MG CAPSULE PO SCH ×3 (08:41→19:56)
[2017-06-25] MEDS: Magnesium Oxide 400 MG TABLET PO SCH ×2 (08:41→19:56)
[2017-06-25] MEDS: Metoprolol XL (24 HR) Succ 25 MG TAB.ER.24H PO SCH ×2 (08:41→19:56)
[2017-06-25] MEDS: Isosorbide MONOnitrate (24 HR) 30 MG TAB.ER.24H PO SCH (08:41)
--- NOTE | 2017-06-25 10:06 | Internal Med Progress Note ---
<Enrico Cr - Last Filed: 06/25/17 12:11> Date of Encounter: 06/25/17 Time of Encounter: 10:30 - Assessment and plan (1) ACS (acute coronary syndrome) Current Visit: Yes Status: Acute Assessment and plan: Chest pain suggestive of ACS with elevated troponin x 3 (.07 x 3). Patient also c/o new onset chest pain starting this morning. Denies any SOB, numbness/tingling, or radiation. -Had left heart catheter today; spoke with cardiology. Patient has severe coronary vessel disease. No stents were placed. Patient was seen by cardiothoracic surgery; per cardiothoracic note: The patient has significant coronary artery disease, including disease in his saphenous vein graft, radial artery graft and a small VALENCIA. He also has significant disease in his koi coronary arteries. Discussed possible redo coronary artery bypass grafting with him. He is at extremely high risk given his numerous medical problems. The patient is opposed to surgery at this time. He favors medical management and/or possible repeat stenting with PTCA. (2) DM2 (diabetes mellitus, type 2) Current Visit: No Status: Chronic Assessment and plan: Glucose controlled - Continue glipizide. - Continue sliding scale. - Patient currently nothing by mouth for now due to possible LHC. Qualifiers: Diabetes mellitus dedicated intermodal truck driver insulin use: without dedicated intermodal truck driver use Diabetes mellitus complication status: with kidney complications Diabetes mellitus complication detail: with chronic kidney disease Chronic kidney disease stage : stage 3 (moderate) Qualified Code(s): E11.22 - Type 2 diabetes mellitus with diabetic chronic kidney disease; N18.3 - Chronic kidney disease, stage 3 ( moderate); N18.3 - Chronic kidney disease, stage 3 (moderate) (3) CAD (coronary artery disease) Current Visit: No Status: Chronic Assessment and plan: History of CABG and multiple pci/stent. Last stent in 2016. - Continue home meds. Qualifiers: Coronary Disease-Associated Artery/Lesion type: bypass graft [place] vs. transplanted heart: koi heart Associated angina: with unstable angina Qualified Code(s): I25.700 - Atherosclerosis of coronary artery bypass graft(s) , unspecified, with unstable angina pectoris (4) History of DVT (deep vein thrombosis) Current Visit: No Status: Chronic Assessment and plan: On Coumadin at home. We have currently placed him on heparin drip in anticipation of possible LHC. - INR level for today is currently pending. Yesterday was at 1.4 at subtherapeutic level. (5) HTN (hypertension) Current Visit: No Status: Chronic Assessment and plan: Continue home medications Qualifiers: Hypertension type: essential hypertension Qualified Code(s): I10 - Essential (primary) hypertension - Subjective Interval history: Patient seen and examined at bedside this morning. Patient has no complaints at this time. - Constitutional Vitals: Temp Pulse Resp BP Pulse Ox 97.7 F 71 18 134/66 98 06/25/17 07:30 06/25/17 07:30 06/25/17 07:30 06/25/17 07:30 06/25/17 07:30 General appearance: Present: A&O X 3, no acute distress, answers questions appropriately - Head Head exam: Present: atraumatic, normocephalic - Eye Eye exam: Present: PERRL, conjuntiva pink, sclera anicteric Pupils: Present: PERRL - Neck Neck exam general surgery: Present: supple, trachea midline. Absent: lymphadenopathy - Respiratory Respiratory exam: Present: CTAB. Absent: accessory muscle use, rales, rhonchi, wheezes Additional comments: Shortened inspiratory and expiratory phase - Cardiovascular Cardiovascular exam: Present: RRR, +S1, +S2. Absent: diastolic murmur, gallop, rubs, systolic murmur - Extremities Exam Extremities exam: Present: warm, radial pulses palpable and symmetrical. Absent : calf tenderness, cyanotic, pedal edema - Neurological Exam Neurological exam: Present: CN II-XII intact, oriented X3, no focal deficits. Absent: pronater drift, facial droop, speech deficit - Skin Skin exam: Present: dry, intact Internal Medicine: Result - Labs CBC & Chem 7: 06/25/17 05:27 06/25/17 05:27 Labs: Short CBC 06/25/17 Range/Units 05:27 WBC 6.6 (4.3-11.1) K/mcL Hgb 9.2 L (12.9-16.9) g/dL Hct 30.3 L (37.5-50.1) % Plt Count 126 L (140-400) K/mcL Neutrophils # 4.4 (1.6-8.9) K/mcL BMP 06/25/17 05:27 Sodium 141 Potassium 4.0 Chloride 111 H Carbon Dioxide 24 BUN 19 Creatinine 1.45 H Glucose 158 H Calcium 8.3 L - ABG Interpretation ABG results: PT/INR, D-dimer PT 11.8 Seconds (9.4-12.1) 06/24/17 05:42 - VTE Documentation of Mechanical Device: Graduated compression elastic hosiery Consult Discharge Plan - Plan [facility]errals: [facility]Primary Care Provider[facility] - <Ming Briones H - Last Filed: 06/25/17 12:16> Date of Encounter: 06/25/17 - Constitutional Vitals: Temp Pulse Resp BP Pulse Ox 97.8 F 62 18 136/72 97 06/25/17 11:37 06/25/17 11:37 06/25/17 11:37 06/25/17 11:37 06/25/17 11:37 Internal Medicine: Result - Labs CBC & Chem 7: 06/25/17 05:27 06/25/17 05:27 Labs: Short CBC 06/25/17 Range/Units 05:27 WBC 6.6 (4.3-11.1) K/mcL Hgb 9.2 L (12.9-16.9) g/dL Hct 30.3 L (37.5-50.1) % Plt Count 126 L (140-400) K/mcL Neutrophils # 4.4 (1.6-8.9) K/mcL [facility] 06/25/17 05:27 Sodium 141 Potassium 4.0 Chloride 111 H Carbon Dioxide 24 BUN 19 Creatinine 1.45 H Glucose 158 H Calcium 8.3 L - ABG Interpretation ABG results: PT/INR, D-dimer PT 11.8 Seconds (9.4-12.1) 06/24/17 05:42 - Attending Attestation Severe disease in koi vessels and grafts The patient discussed the case with cardiothoracic surgery and prefers not to have a new CABG. Cardiology recommendations appreciated. Continue heparin drip, considering stents? 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 CT of the head from 01/10 : . Acute 2.3 cm hemorrhage within the right basal ganglia, contiguous with the caudate and right lateral ventricle. There is a small amount of intraventricular extension. No midline shift. Close interval follow-up is recommended. 2. Moderate chronic small vessel ischemic changes. I examined this patient and my medical decision-making was reviewed with the Resident Physician. I agree with the documented findings, disposition and treatment plan as described except to the extent set forth below.
--- NOTE | 2017-06-25 10:45 | Cardiology Progress Note ---
Date of Encounter: 06/25/17 Time of Encounter: 10:43 Assessment and Plan (1) CAD (coronary artery disease) Current Visit: No Status: Chronic Mr. Casey presented with atypical chest pain initially thought to be secondary to PAF. He underwent nuclear stress test that was found to be abnormal and underwent LHC. He has previous history of CABG and PCI. LHC showed severe two vessel CAD. VALENCIA- LAD was patent. SVG-1st Dx with 90% stenosis. Radial artery to OM with 90% stenosis. EF preserved at 65%. No intervention at that time. New and previous LHC films reviewed by Dr. Crow today and CT surgery eval was recommended. Patient declined redo CABG. Medical management vs PCI discussed. He would like to proceed with PCI. He has CKD that remains stable. R/B/A of LHC discussed including possible NATHANIEL. He agrees to proceed. -continue asa, lipitor, metoprolol, imdur, aldactone, lisinopril. On heparin gtt while coumadin is on hold d/t high CHADS VASc score/ high risk for CVA. Qualifiers: Coronary Disease-Associated Artery/Lesion type: bypass graft [place] vs. transplanted heart: [place] heart Associated angina: with unstable angina Qualified Code(s): I25.700 - Atherosclerosis of coronary artery bypass graft(s) , unspecified, with unstable angina pectoris (2) Abnormal nuclear stress test Current Visit: No Status: Acute Abnormal stress test 06/23/17-Pharmacologic stress ECG is non-diagnostic for ischemia due to baseline non-specific ST and T changes. Gated EF = 50%. Medium sized, moderate to severe intensity, partially reversible mid to apical anterior and anterolateral defect. Findings suggestive of a prior PA with significant residual ischemia. Medium sized, moderate to severe intensity, mostly reversible inferior and inferolateral defect suggestive of ischemia. plan as described above. (3) Atrial fibrillation Current Visit: No Status: Chronic History of a.fib on anticoagulation with warfarin and rate controlled with toprol CHADVASC score: 8 (age, CHF, HTN, DM, TIA, DVT, PA) Telemetry review shows avg HR 65bpm. NSR with intermittent rate controlled PAF noted. -Coumadin on hold. Due to high Chads Vasc score continue heparin bridge. Qualifiers: Atrial fibrillation type: unspecified Qualified Code(s): I48.91 - Unspecified atrial fibrillation (4) Elevated troponin Current Visit: Yes Status: Acute Mild adynamic troponin elevation at 0.06, 0.07 x3. Non-diagnostic for ACS due to CKD. Patient proceeding with [facility] for abnormal stress test. Discussion w patient/family: The assessment and plan as outlined above was discussed with the patient and/or family members who expressed understanding and agreement. All questions were answered. Thank you for involving us in the care of your patient. Please call with any questions. Plan of care and assessment above discussed with Dr. Crow and Dr. Snowden. Subjective Principal diagnosis: chest pain Interval history: No recurrent chest pain overnight. No problem noted with right femoral access. Objective Vital Signs, Last 4 Hours Temp Pulse Resp BP Pulse Ox 06/25/17 07:30 97.7 F 71 18 134/66 98 General: Conversant, No Apparent Distress HEENT: Atraumatic, Normocephaly, Mucus Membranes Moist Neck: No JVD, Normal carotid pulses Cardiac: Other (Irregular) Lungs: Normal Breath Sounds, No Wheeze, Rales, Rhonchi Neuro: Alert and responsive, No focal deficits noted Abdomen: Soft, Non-Tender Skin: No rashes noted on visualized skin Musculoskeletal: No Chest Wall Tenderness Extremities: No Clubbing, No Cyanosis, No Edema, Normal Pulses, Other (Right femoral access dressing removed. No hematoma or ecchymosis. ) Results 06/25/17 05:27 06/25/17 05:27 Lab Results 06/25/17 06/25/17 06/25/17 05:27 05:27 05:27 WBC 6.6 Hgb 9.2 L Hct 30.3 L Plt Count 126 L APTT 80.9 H Sodium 141 Potassium 4.0 Chloride 111 H Carbon Dioxide 24 BUN 19 Creatinine 1.45 H Glucose 158 H Calcium 8.3 L - Imaging and Cardiology Stress Test: report reviewed Echo: report reviewed Cardiac cath: report reviewed - EKG Interpretation EKG results cardiology: personally reviewed - VTE Documentation of Mechanical Device: Graduated compression elastic hosiery Consult Discharge Plan - Plan [facility]errals: [facility] [Primary Care Provider] -
--- NOTE | 2017-06-25 10:46 | Cardiothoracic Consult Note ---
Date of Encounter: 06/25/17 Time of Encounter: 10:41 Assessment and Plan (1) CAD (coronary artery disease) Current Visit: No Status: Chronic The assessment and plan as outlined above was discussed with the patient and/or family members who expressed understanding and agreement. All questions were answered. The patient has significant coronary artery disease, including disease in his saphenous vein graft, radial artery graft and a small VALENCIA. He also has significant disease in his unga coronary arteries. I discussed possible redo coronary artery bypass grafting with him. He is at extremely high risk given his numerous medical problems. The patient is opposed to surgery at this time. He favors medical management and/or possible repeat stenting with PTCA. Qualifiers: Coronary Disease-Associated Artery/Lesion type: bypass graft [place] vs. transplanted heart: unga heart Associated angina: with unstable angina Qualified Code(s): I25.700 - Atherosclerosis of coronary artery bypass graft(s) , unspecified, with unstable angina pectoris - History of Present Illness History of present illness: Mr. Poe is a 81 year old male The patient is a 81-year-old gentleman who underwent coronary artery bypass grafting at [facility] in 2001. He is also had stent placement in the past. He has a history of atrial fibrillation and deep venous thrombosis and has been on chronic Coumadin therapy. He was admitted with chest pain. Troponins were positive up to 0.07. Echocardiogram revealed ejection fraction of 50% with no significant valvular disease. Cardiac catheterization revealed a 90% LAD lesion, 90% circumflex lesion and a small nondominant right coronary artery that was not blocked. His saphenous vein graft to the diagonal had a 90% blocked. His radial artery graft to the first marginal had a 90% blocked. His left internal mammary artery graft was patent, but small and atretic. Past medical history is notable for atrial fibrillation , congestive heart failure, COPD, diabetes, hypertension, hyperlipidemia and DVT with pulmonary embolism. He did have a TIA last year with no permanent sequela. He states that his carotid duplexes have all been okay. He has mild chronic kidney disease with a creatinine of 1.45. He has sleep apnea and uses CPAP at night. He has an inferior vena caval filter for DVT and pulmonary embolism. He broke his back in December 2016 and did have surgery for this. Social history. He lives in [place]. 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 He used to smoke but quit at age 26. Does not drink alcohol. Family history is positive for heart disease. Review of systems is negative for recent stroke or TIA. Negative for saphenous vein varicosities or strippings. Past Med Surg Social Fam HX - Past Medical History Medical history: atrial fibrillation, CHF, COPD, coronary artery disease, DVT, diabetes, GERD, hyperlipidemia, hypertension, myocardial infarction, pulmonary embolus, TIA, other Psychiatric history: no psych history - Past Surgical History Surgical History: angioplasty/stent, coronary bypass (CABG), IVC Filter, other - Social History Smoking Status: Former smoker Smokeless Tobacco Status: No Alcohol use: none Drug use: none - Family History Father Living Status: Hx Family Cardiac Disorders: Yes (Father) Hx Family Respiratory Disorders: No Hx Family Cancer: Yes Hx Family GI Disorders: Yes (ULCERS, GERD) Hx Family Endocrine Disorder: No Hx Family Neuromuscular Disorders: No Hx Family Neurologic Disorders: No Hx Family HEENT Disorders: No Hx Family Autoimmune Disorders: No Medications and Allergies Acetaminophen [Tylenol] 975 mg PO QID PRN 11/16/15 [History] Atorvastatin [Lipitor] 40 mg PO HS 11/16/15 [History] Gabapentin [Neurontin] 200 mg PO TID 11/16/15 [History] Isosorbide MONOnitrate (24 HR) [Imdur] 30 mg PO DAILY 11/16/15 [History] Metformin HCl [Metformin HCl ER] 2,000 mg PO QPM 11/16/15 [History] Ferrous Sulfate [Iron] 325 mg PO BID 12/02/15 [History] Omeprazole [PriLOSEC] 20 mg PO DAILY 12/02/15 [History] Terazosin HCl 10 mg PO HS 12/02/15 [History] glipiZIDE [Glucotrol] 5 mg PO DAILY 12/02/15 [History] Cyanocobalamin (B-12) [Vitamin B12] 1,000 mcg PO DAILY 11/27/16 [History] Lisinopril [Zestril] 5 mg PO DAILY 11/27/16 [History] Spironolactone [Aldactone] 25 mg PO DAILY 11/27/16 [History] Furosemide [Lasix] 20 mg PO BID 06/21/17 [History] Metoprolol XL (24 HR) Succ [Toprol Xl] 25 mg PO BID 06/21/17 [History] [place]-3/Dha/Epa/Fish Oil [Fish Oil 1,000 mg Softgel] 1,000 mg PO DAILY 06/21/17 [History] Warfarin [Coumadin] 3 mg PO SUMOTUTHFRSA 06/21/17 [History] Warfarin [Coumadin] 4 mg PO WE 06/21/17 [History] 3 Allergy/AdvReac Type Severity Reaction Status Date / Time pseudoephedrine Allergy Anaphylaxis Verified 06/21/17 11:42 [From Actifed] sulfamethoxazole Allergy Anaphylaxis Verified 06/21/17 11:42 [From Bactrim] tramadol Allergy See Verified 06/21/17 16:38 Comments trimethoprim [From Bactrim] Allergy Anaphylaxis Verified 06/21/17 11:42 triprolidine [From Actifed] Allergy Anaphylaxis Verified 06/21/17 11:42 All Systems Review: The remainder of the systems were reviewed and are negative Physical Examination Vital Signs, Last 4 Hours Temp Pulse Resp BP Pulse Ox 06/25/17 07:30 97.7 F 71 18 134/66 98 Pupils are equal, round and reactive to light and accommodation. No oral lesions. Neck is supple. Trachea in the midline. No thyromegaly or carotid bruits. Lungs are clear to percussion and auscultation. Heart is in atrial fibrillation. No murmurs, gallops or rubs. Abdomen is benign. No tenderness, rebound or guarding. Extremities. The right leg is swollen from previous DVT. No saphenous vein varicosities or strippings. Cranial nerves, motor and sensory intact. Results 06/25/17 05:27 06/25/17 05:27 Lab Results, Last 24 hours 06/25/17 06/25/17 06/25/17 05:27 05:27 05:27 WBC 6.6 Hgb 9.2 L Hct 30.3 L Plt Count 126 L APTT 80.9 H Sodium 141 Potassium 4.0 Chloride 111 H Carbon Dioxide 24 BUN 19 Creatinine 1.45 H Glucose 158 H Calcium 8.3 L Consult Discharge Plan - Plan [facility]errals: [facility] [Primary Care Provider] -
[2017-06-25] MEDS: Heparin 25,000 UNIT/500 ML D5W 25,000 UNIT/500 ML BAG IVC SCH (21:07)
[2017-06-26 00:43] LABS: Basophils % 0.1 %; Eosinophils # 0.2 K/mcL (0.0-0.6); Eosinophils % 2.2 %; Hematocrit 28.9 % (37.5-50.1); Hemoglobin 8.9 g/dL (12.9-16.9); Immature Granulocytes % 1.1 % (0-4); Lymphocytes # 1.5 K/mcL (0.6-4.6); Lymphocytes % 21.2 %; Mean Corpuscular HGB Conc 30.8 g/dL (31.6-35.5); Mean Corpuscular Hemoglobin 25.9 pg (28.0-33.3); Mean Corpuscular Volume 84.3 fL (83.0-100.0); Mean Platelet Volume 11.3 fL (9.4-12.4); Monocytes # 0.4 K/mcL (0.0-1.3); Neutrophils # 5.1 K/mcL (1.6-8.9); Platelet Count 112 K/mcL (140-400); Red Blood Count 3.43 M/mcL (4.19-5.50); Red Cell Distribution Width 14.9 % (11.5-14.5); Segmented Neutrophils % 69.4 %
[2017-06-26 00:50] LABS: Prothrombin Time 10.8 Seconds (9.4-12.1)
[2017-06-26 01:03] LABS: Calcium 8.2 mg/dL (8.6-10.3)
[2017-06-26] MEDS: 0.9 % Sodium Chloride 1,000 ML IVC SCH ×3 (03:57→21:36)
[2017-06-26] MEDS: Insulin LISPRO 300 UNITS/3 ML VIAL SQ SCH ×4 (08:12→21:38)
[2017-06-26] MEDS: Spironolactone 25 MG TABLET PO SCH (08:17)
[2017-06-26] MEDS: Gabapentin 100 MG CAPSULE PO SCH ×3 (08:20→21:33)
[2017-06-26] MEDS: Metoprolol XL (24 HR) Succ 25 MG TAB.ER.24H PO SCH ×2 (08:20→21:38)
[2017-06-26] MEDS: Cyanocobalamin (B-12) 1,000 MCG TABLET PO SCH (08:20)
[2017-06-26] MEDS: Isosorbide MONOnitrate (24 HR) 30 MG TAB.ER.24H PO SCH (08:20)
[2017-06-26] MEDS: Magnesium Oxide 400 MG TABLET PO SCH ×2 (08:21→21:34)
[2017-06-26] MEDS ORDERED: 0.9 % Sodium Chloride 1,000 ML ONE ×2 (09:10→09:30)
[2017-06-26] MEDS ORDERED: *HR* Heparin 10,000 UNIT/10 ML VIAL ONE (09:10)
[2017-06-26] MEDS ORDERED: Heparin 1,000 UNITS/500 mL 500 ML ONE (09:10)
[2017-06-26] MEDS ORDERED: ISOVUE-370 200 ML INFUS..BTL IV ONE ×2 (09:10→09:30)
[2017-06-26] MEDS ORDERED: Nitroglycerin 1,000 MCG/10 ML VIAL IV ONE (09:10)
[2017-06-26] MEDS ORDERED: *HR* Midazolam HCl 2 MG/2 ML VIAL ONE (09:29)
--- NOTE | 2017-06-26 09:34 | Pre-Sedation Evaluation ---
Pre-sedation evaluation - Pre-sedation checklist Date of procedure: 06/26/17 Procedure: Heart Cath Recent Vitals: Last Vital Signs Temp 98 F 06/26/17 06:57 Pulse 72 06/26/17 06:57 Resp 17 06/26/17 06:57 BP 144/63 06/26/17 06:57 Pulse Ox 95 06/26/17 08:28 H&P (including ROS) documented in medical record: Yes Previous reaction to sedatives/anesthetics: No Dietary Status: NPO after Midnight Airway Assessment: Patient can open mouth completely, TMJ function normal Dentition: No loose teeth or bridges, full dentition Possible difficult airway: No ASA Classification *see protocol: CLASS III-Severe systemic disease Plan of Care: Pt appropriate candidate for procedure/moderate/conscious sedation , Risks/benefits of procedure/sedation discussed w/ patient/family, If not NPO; Risk of intake outweiged by necessity to perform procedure
[2017-06-26] MEDS ORDERED: *HR* Bivalirudin 250 MG VIAL IVC ONE (09:46)
--- NOTE | 2017-06-26 10:27 | Cardiothoracic Progress Note ---
Date of Encounter: 06/26/17 Time of Encounter: 08:45 - Assessment and plan (1) CAD (coronary artery disease) Current Visit: No Status: Chronic The patient is a 81-year-old type II diabetic, hypertensive man with known CAD and chronic renal insufficiency. He underwent CABG3 in the past and was readmitted with substernal chest pain. The patient was diagnosed with an acute NSTEMI and underwent cardiac catheterization. This revealed severe 3 vessel [place] CAD as well as graft disease. Given the patient's presenting symptoms as well as his multiple medical risk factors, he has at increased operative risk. The STS risk calculator shows an operative mortality risk of 12.14%, deep sternal wound infection 1.68%, permanent stroke risk 3.65%, renal failure risk 20.53%, and reoperation risk 14.01%. The patient is not interested in undergoing a redo CABG and is requesting PCI with stent placement. I spoke with Dr. Mickey Crow, the patient's accordion repairer, and Dr. Crow plans to perform PCI to the [place] vessels today. The assessment and plan as outlined above was discussed with the patient and/or family members who expressed understanding and agreement. All questions were answered. Qualifiers: Coronary Disease-Associated Artery/Lesion type: bypass graft [place] vs. transplanted heart: [place] heart Associated angina: with unstable angina Qualified Code(s): I25.700 - Atherosclerosis of coronary artery bypass graft(s) , unspecified, with unstable angina pectoris - Subjective Interval history: The patient is resting comfortably in his hospital bed. He has no complaints. Vital Signs, Last 4 Hours Temp Pulse Resp BP Pulse Ox 06/26/17 08:28 95 06/26/17 06:57 98 F 72 17 144/63 95 [place] Flow Rate Oxygen Flow Rate (LPM) 91 Clinical Data, last 8 Hours Output, Urine Amount 475 Output, Urine Amount 0 Output, Urine Amount 425 Weight 06/24/17 06/25/17 06/26/17 23:59 23:59 23:59 Weight 97.3 kg 99.5 kg 100.1 kg - Physical Examination General: Conversant, No Apparent Distress Neck: No JVD, Normal carotid pulses Cardiac: Normal S1 and S2, No Murmur, Other (Irregular rate and rhythm (atrial fibrillation)) Lungs: Normal Breath Sounds, No Wheeze, Rales, Rhonchi Neuro: Alert and responsive, No focal deficits noted Vascular: Normal capillary refill Extremities: No Clubbing, No Cyanosis, No Edema - Labs 06/26/17 00:31 06/26/17 00:31 Lab Results, Last 24 hours 06/25/17 06/25/17 06/26/17 11:17 19:08 00:31 WBC 7.3 Hgb 8.9 L Hct 28.9 L Plt Count 112 L INR APTT 95.5 H 86.8 H Sodium Potassium Chloride Carbon Dioxide BUN Creatinine Glucose Calcium 06/26/17 06/26/17 06/26/17 00:31 00:31 00:31 WBC Hgb Hct Plt Count INR 1.0 APTT 68.1 H Sodium 141 Potassium 4.0 Chloride 112 H Carbon Dioxide 24 BUN 17 Creatinine 1.39 H Glucose 172 H Calcium 8.2 L - VTE Documentation of Mechanical Device: Graduated compression elastic hosiery Consult Discharge Plan - Plan [facility]errals: [facility] [Primary Care Provider] -
[2017-06-26] MEDS ORDERED: *HR* Ticagrelor 90 MG TABLET ONE (10:41)
--- NOTE | 2017-06-26 12:55 | Invasive Diagnostic Lab Proc ---
Name: Virgilio Poe Date of Study: 06/26/2017 Date: 1935 Ht: 70.1in Medical Record#: [id number] Age: 81 Wt: 220.46lb Gender: Male BSA: 2.18 Order #: [id number] BMI: 31.56 Physicians Procedure Physician: Mickey Crow DO Referring MD: Referring MD: Staff Name Position Time In Sandra Chen RT (R) Monitor 09:31 AM Reji Londono RT (R) Scrub 09:32 AM Irene Esparza RN Asphalt Tile Floor Layer 09:32 AM Indications Indication Coronary Artery Disease Procedures Performed Procedure CORONARY ARTERY ANGIO S&I PRQ CARD ISAC STENT W/ANGIO 1 VSL Pre-Procedure Checklist Informed consent is complete signed and on chart. H&P is on chart. ID band is on and ID verified with patient. Patient NPO for procedure The procedure was described for the patient and questions were answered. Blood Pressure: 167/83 ECG is on chart. Rhythm: NSR Plan of Care Patient will tolerate the procedure without complications. Adequate level of comfort will be maintained. Hemodynamics will remain stable Patient will recover from procedure without complications. Respiratory function will be maintained. Cardiac rhythm will remain stable. Patient temperature will be maintained. Patient and/or family have verbalized understanding of the procedure. Patient Education Chief Complaint/Reason for Test: Cardiac Cath Developmental Category: Geriatric (65+ years) Developmentally Appropriate for Age: Yes Learning Barriers: None Education Needs: Procedure Education Method: Verbal Information Taught: Cardiac Cath Educational Evaluation: Able to repeat information Intravenous Access Time IV Size Location DC'd Fluid/Drip Rate Units RN 09:34 AM 20g 1 1/4" Patent On Arrival Lt Arm 09:34 AM 18g 1 1/4" Patent On Arrival Lt Wrist 0.9NaCl 25 ml/hr Allergies Chlorpheniramine Phenylephrine trimethoprim sulfamethoxazole tramadol pseudoephedrine triprolidine Vital Signs Time BP (mmHg) HR (bpm) O2 Sat. RR (bpm) LOC 08:51 AM 144 / 63 72 95 % 17 5 = Fully awake and oriented or at pre-proc level 09:38 AM 161 / 89 73 98 % 09:42 AM 167 / 83 83 95 % 09:47 AM 147 / 78 69 93 % 09:52 AM 154 / 76 72 96 % 09:57 AM 153 / 85 74 98 % 10:02 AM 151 / 86 72 98 % 10:08 AM 147 / 78 71 96 % 10:12 AM 146 / 80 72 96 % 10:17 AM 145 / 78 69 97 % 10:22 AM 145 / 77 78 97 % 10:28 AM 149 / 74 68 98 % 10:32 AM 145 / 80 71 93 % 10:38 AM 147 / 75 65 96 % 10:42 AM 159 / 78 69 98 % 11:13 AM 169 / 93 71 96 % 17 5 = Fully awake and oriented or at pre-proc level 11:30 AM 146 / 80 70 96 % 17 5 = Fully awake and oriented or at pre-proc level 11:45 AM 131 / 74 68 97 % 17 4 = Oriented but drowsy 12:00 PM 138 / 70 70 99 % 16 5 = Fully awake and oriented or at pre-proc level 12:10 PM 150 / 78 69 99 % 16 5 = Fully awake and oriented or at pre-proc level 12:15 PM 144 / 73 67 99 % 16 5 = Fully awake and oriented or at pre-proc level 12:20 PM 157 / 80 70 99 % 17 5 = Fully awake and oriented or at pre-proc level 12:30 PM 141 / 62 70 99 % 16 5 = Fully awake and oriented or at pre-proc level Procedural Medications Time Medication Dose Units Method Given By 09:33 AM Oxygen 2 L/min nasal cannula Irene Esparza RN 09:38 AM Versed 1 mg Intravenous Irene Esparza RN 09:58 AM Lidocaine 2% 10 ml Subcutaneous Mickey Crow DO 10:07 AM Heparin 2000 units Intravenous Irene Esparza RN 10:29 AM Nitroglycerin 100 mcg Intracoronary Mickey Crow DO 10:40 AM Brilinta 180 mg Intravenous Irene Esparza RN ASA Classification: CLASS III- Severe systemic disease (i.e. prior AMI, diabetes with vascular complications, morbid obesity) Robert Score Preprocedure Postprocedure Activity 2- Moves 4 extremities sustained head lift Activity 2- Moves 4 extremities sustained head lift Circulation 2- SBP +/= 20 points of pre-anesthetic level Circulation 2- SBP +/= 20 points of pre-anesthetic level Consciousness 2- Awake and alert oriented x 3 Consciousness 2- Awake and alert oriented x 3 O2 Saturation 2- Able to maintain O2 satruation of 92% on room air O2 Saturation 2- Able to maintain O2 satruation of 92% on room air Respiratory 2- Able to deep breathe and cough well Respiratory 2- Able to deep breathe and cough well Total Score 10 Total Score 10 Contrast Agent: Isovue Diagnostic Contrast: 170 ml Total Contrast: 170 ml Fluoro Dose: 1847 mGy Activated Clotting Time Time Seconds to Clot 10:06 AM 171 10:35 AM 354 Procedure Log Time Note Enter By 09:31 AM Pt arrived to company laborer 2 at 09:31 [email or web address] 09:32 AM Sandra Chen RT (R) Position: Monitor Time in: 09:31 [email or web address] 09:32 AM Reji Londono RT (R) Position: Scrub Time in: 09:32 [email or web address] 09:32 AM Irene Esparza RN Position: Asphalt Tile Floor Layer Time in: 09:32 [email or web address] 09:32 AM Patient charges- Angio tray pack, Navilyst 3mm J, Pulse Oximetry and ACIST tubing and transducer [email or web address] 09:32 AM Case Delayed [email or web address] 09:32 AM Physician arrived 09:32 [email or web address] 09:32 AM Meet and greet completed [email or web address] 09:32 AM Sign in performed according to hospital policy. [email or web address] 09:32 AM Procedure start 09:32 3 09:33 AM Time: 09:33 Oxygen on at 2 L/min per nasal cannula by Irene Esparza RN [email or web address] 09:36 AM Vitals capture started with the following parameters, Patient=Adult, Interval=5 min, Initial Riicxuck=467 mmHg, Deflation Rate=3 mmHg, Cuff placed on Right Arm 09:38 AM ASA Class CLASS III- Severe systemic disease (i.e. prior AMI, diabetes with vascular complications, morbid obesity) [email or web address] 09:38 AM HR=73 bpm, WHNN=443/89 mmhg, SpO2=98.0 % 09:39 AM Time: 09:38 Versed 1 mg Intravenous Given by Irene Esparza RN [email or web address] 09:40 AM Recorded ECG: HR=72 Condition=Condition 1 09:42 AM Pressure channel 2 zero failed. 09:42 AM Pressure channel 2 zeroed. 09:42 AM HR=83 bpm, IOVM=590/83 mmhg, SpO2=95.0 % 09:47 AM HR=69 bpm, IXVL=250/78 mmhg, SpO2=93.0 %, Comment=nsr 09:52 AM Pressure channel 2 zeroed. 09:52 AM HR=72 bpm, MCVP=663/76 mmhg, SpO2=96.0 % 09:56 AM Time out performed according to hospital policy [email or web address] 09:57 AM HR=74 bpm, PVEB=960/85 mmhg, SpO2=98.0 %, Comment=nsr 09:58 AM Time: 09:58 10 ml Lidocaine 2% to right groin Subcutaneous Given by Mickey Crow DO [email or web address] 10:00 AM Micro-Introducer Kit utilized for sheath placement [email or web address] 10:00 AM Access obtained by percutaneous puncture. 6Fr 10cm Terumo [place] sheath placed in right Femoral artery. [id number] [email or web address] 10:02 AM 6Fr XB LAD 3.5 [place] Bright-Tip guide catheter was used to cannulate the PCI vessel successfully. reused? No [email or web address] 10:02 AM 0.035 145cm Navilyst 3mmJ wire [id number] [email or web address] 10:02 AM LCA angiography performed in multiple views. [email or web address] 10:02 AM HR=72 bpm, NZLB=834/86 mmhg, SpO2=98.0 %, Comment=nsr 10:03 AM Recorded Pressure: Ao, HR=75, Condition=Condition 1 (Aorta) Ao 158/78/112 10:05 AM .014 ChoICE PT Extra Support 300cm guide wire across target lesion- successful. reused? No [email or web address] 10:06 AM Guide wire removed intact. [email or web address] 10:06 AM Guide catheter removed intact. [email or web address] 10:07 AM 6Fr JL4 [place] Bright-Tip guide catheter was used to cannulate the PCI vessel successfully. reused? No [email or web address] 10:07 AM Time: 10:07 Heparin 2000 units Intravenous Given by Irene Esparza RN [email or web address] 10:08 AM HR=71 bpm, BWEW=324/78 mmhg, SpO2=96.0 %, Comment=nsr 10:08 AM Recorded Pressure: Ao, HR=71, Condition=Condition 1 (Aorta) Ao 159/80/113 10:10 AM Guide catheter removed intact. [email or web address] 10:12 AM 6Fr JL 5 Runway guide catheter was used to cannulate the PCI vessel successfully. reused? No [email or web address] 10:12 AM HR=72 bpm, BHKX=490/80 mmhg, SpO2=96.0 %, Comment=nsr 10:17 AM Wire re-inerted. [email or web address] 10:17 AM HR=69 bpm, LBWX=270/78 mmhg, SpO2=97.0 % 10:17 AM Inflation device was opened. [email or web address] 10:18 AM 2.0 mm x 20 mm Emerge Monorail balloon across target lesion- successful. reused? No [email or web address] 10:18 AM Balloon inflated @ 8 torrie for 20 seconds [email or web address] 10:19 AM Balloon inflated @ 12 torrie for 20 seconds [email or web address] 10:20 AM Balloon inflated @ 8 torrie for 17 seconds [email or web address] 10:21 AM Balloon inflated @ 10 torrie for 18 seconds [email or web address] 10:22 AM Balloon catheter removed intact. [email or web address] 10:22 AM Recorded Pressure: Ao, HR=69, Condition=Condition 1 (Aorta) Ao 158/78/112 10:22 AM HR=78 bpm, HCEP=075/77 mmhg, SpO2=97.0 %, Comment=nsr 10:23 AM 2.25mm x 20mm Synergy drug-eluting stent across target lesion- successful Lot #[id number] [email or web address] 10:24 AM Stent delivery system removed intact. [email or web address] 10:24 AM Stent deployed @ 12 torrie for 16 seconds [email or web address] 10:25 AM 2.25mm x 24mm Synergy drug-eluting stent across target lesion- successful Lot #[id number] [email or web address] 10:28 AM Stent deployed @ 14 torrie for 19 seconds [email or web address] 10:28 AM HR=68 bpm, DDWO=891/74 mmhg, SpO2=98.0 %, Comment=nsr 10:28 AM Stent balloon reinflated @ 14 torrie for 11 seconds [email or web address] 10:29 AM Time: 10:29 Nitroglycerin 100 mcg Intracoronary Given by Mickey Crow DO [email or web address] 10:32 AM Stent delivery system removed intact. [email or web address] 10:32 AM 2.5mm x 8mm Synergy drug-eluting stent across target lesion- successful Lot #[id number] [email or web address] 10:32 AM HR=71 bpm, AONV=073/80 mmhg, SpO2=93.0 %, Comment=nsr 10:34 AM Stent deployed @ 14 torrie for 17 seconds [email or web address] 10:35 AM Stent deployed @ 14 torrie for 11 seconds [email or web address] 10:36 AM Stent delivery system removed intact. [email or web address] 10:37 AM Guide wire removed intact. [email or web address] 10:38 AM HR=65 bpm, RMJU=200/75 mmhg, SpO2=96.0 %, Comment=nsr 10:38 AM Recorded Pressure: Ao, HR=66, Condition=Condition 1 (Aorta) Ao 151/70/103 10:39 AM Guide catheter removed intact. [email or web address] 10:40 AM Time: 10:40 Brilinta 180 mg Intravenous Given by Irene Esparza RN [email or web address] 10:42 AM HR=69 bpm, GUXX=589/78 mmhg, SpO2=98.0 %, Comment=nsr 10:43 AM Procedure completed at 10:43 [email or web address] 10:44 AM Sign out completed: Radiation Dose 1846.57 mGy Fluoro Time: 14.1 Isovue 370 - 200ml contrast 170 ml given by Mickey Crow DO. Complications: NoneCardiac Rehab Consult needed: YesConfirmed administered medications: No [email or web address] 10:44 AM Isovue 370 - 200ml,1 Bottle(s) used. [email or web address] 10:44 AM Sheath left in place to be pulled on floor/holding areaV+Pad [email or web address] 10:44 AM Estimated Blood Loss: minimal [email or web address] 10:44 AM Post ECG NSR [email or web address] 10:44 AM 10:44 Post Pulses Bilateral DP & PT 1+ [email or web address] 10:44 AM Information taught Cardiac Cath and PCI [email or web address] 10:44 AM Education needs Procedure, Plan of Care, and Disease Process [email or web address] 10:44 AM Learning barriers :None [email or web address] 10:44 AM Education Methods Verbal [email or web address] 10:44 AM Education evaluation Able to repeat information [email or web address] 10:44 AM Site status No bleeding/hematoma - Rt Groin as reported by Reji Londono RT (R) at 10:44 [email or web address] 10:44 AM Opsite applied [email or web address] 10:45 AM Delay to floor Bed availability [email or web address] 10:45 AM Family placed in consult room. [email or web address] 10:45 AM Fluoro Time: 14.1 [email or web address] 10:45 AM Isovue 370 - 200ml contrast [address] Crow. [email or web address] 10:45 AM Radiation Dose 1846.57 mGy [email or web address] 10:46 AM Report given to Stephanie SY Pt taken to Holding room Room #2. 10:46 [email or web address] 10:53 AM Coronary Dominance: Left [email or web address] 11:03 AM Patient out of room: 11:03 [email or web address] 12:32 PM Arterial sheath pulled using manual compression and V+ Pad for 15 minutes by Stephanie Jay RN scoates 12:32 PM Site status No bleeding/hematoma - Rt Groin as reported by Stephanie Jay RN at 12:32 scoates 12:32 PM Opsite applied scoates 12:35 PM sheath pulled at 12:10, site held for 20 mintues. No bleeding/hematoma noted scoates 12:44 PM Report called to Verena, Patient will be taken back to [facility] at this time scoates Complications Complication None Hemodynamics Pressures Site Systolic/A Wave Diastolic/V Wave Mean AO 158 78 112 AO 159 80 113 AO 158 78 112 AO 151 70 103 Post Procedure Information Rhythm: NSR Post procedural instructions were given Closure Device Time Device Success/Fail 06/26/2017 1:32:00 PM Manual Compression Successful Site Checks Time Location Status Staff Sheath In? Note 10:44 AM Rt Groin No bleeding/hematoma Reji Londono RT (R) 11:13 AM Rt Groin No bleeding/ No Hematoma QuanahStephanie pérez RN Yes 11:30 AM Rt Groin No bleeding/ No Hematoma QuanahStephanie pérez RN Yes 11:45 AM Rt Groin No bleeding/ No Hematoma MistyStephanie pérez RN Yes 12:00 PM Rt Groin No bleeding/hematoma MistyStephanie pérez RN Yes 12:10 PM Rt Groin No bleeding/ No Hematoma MistyStephanie pérez RN 12:30 PM Rt Groin No bleeding/ No Hematoma QuanahStephanie RN Pulses Time Site Pre-Procedure Post-Procedure Note 06/26/2017 9:34:00 AM Bilateral DP & PT 2+ 06/26/2017 9:34:00 AM Bilateral radial 2+ 10:44:00 AM Bilateral DP & PT 1+ 06/26/2017 11:13:00 AM Bilateral DP & PT 1+ 06/26/2017 11:30:00 AM Bilateral DP & PT 1+ 06/26/2017 11:45:00 AM Bilateral DP & PT 1+ 06/26/2017 12:00:00 PM Bilateral DP & PT 1+ 06/26/2017 12:10:00 PM Bilateral DP & PT 1+ 06/26/2017 12:30:00 PM Bilateral DP & PT 1+ Updated by Stephanie Poon RN on 06/26/2017 12:46:59 PM electronically signed on 06/26/2017 12:48:16 PM with status of Final
--- NOTE | 2017-06-26 14:00 | Internal Med Progress Note ---
<Simran Campoverde - Last Filed: 06/26/17 13:54> Date of Encounter: 06/26/17 Time of Encounter: 13:30 - Assessment and plan (1) CAD (coronary artery disease) Current Visit: No Status: Chronic Assessment and plan: - Known significant history of CAD s/p CABG - [facility] on 06/24/17 found severe three vessel coronary artery disease with LV EF 65 %. 1 of 3 patent bypass grafts. - Patient had 3 stents placed at OM1 today. - Currently on Brilinta. Continue Lipitor, metoprolol, lisinopril and Imdur. - Cardiology on board and appreciate further recommendation. Qualifiers: Coronary Disease-Associated Artery/Lesion type: bypass graft [place] vs. transplanted heart: [place] heart Associated angina: with unstable angina Qualified Code(s): I25.700 - Atherosclerosis of coronary artery bypass graft(s) , unspecified, with unstable angina pectoris (2) Atrial fibrillation Current Visit: No Status: Chronic Assessment and plan: - Known history of A-fib. - Continue rate control with metoprolol. - Currently on heparin drip for anticoagulation. - Subtherapeutic as INR 1.0 today. Will likely need bridging anticoagulation upon discharge. Qualifiers: Atrial fibrillation type: unspecified Qualified Code(s): I48.91 - Unspecified atrial fibrillation (3) History of DVT (deep vein thrombosis) Current Visit: No Status: Chronic Assessment and plan: - Was on Coumadin at home. - Subtherapeutic as INR 1.0 today. - Currently on heparin drip. - Will likely need anticoagulation bridging upon discharge. (4) DM2 (diabetes mellitus, type 2) Current Visit: No Status: Chronic Assessment and plan: - Continue insulin sliding scale and glucose monitoring. Qualifiers: Diabetes mellitus retirement insulin use: without retirement use Diabetes mellitus complication status: with kidney complications Diabetes mellitus complication detail: with chronic kidney disease Chronic kidney disease stage : stage 3 (moderate) Qualified Code(s): E11.22 - Type 2 diabetes mellitus with diabetic chronic kidney disease; N18.3 - Chronic kidney disease, stage 3 ( moderate); N18.3 - Chronic kidney disease, stage 3 (moderate) (5) HTN (hypertension) Current Visit: No Status: Chronic Assessment and plan: - Continue current anti-hypertensive regimen. Qualifiers: Hypertension type: essential hypertension Qualified Code(s): I10 - Essential (primary) hypertension - Subjective Interval history: Patient was seen and examined this afternoon after patient came back from [facility]. Per patient's family at bedside, patient has three stents placed at OM1. Patient reports no complaint and denies chest pain or shortness of breath. - Constitutional Vitals: Temp Pulse Resp BP Pulse Ox 97.6 F 70 17 166/83 98 06/26/17 13:10 06/26/17 13:10 06/26/17 13:10 06/26/17 13:10 06/26/17 13:10 General appearance: Present: A&O X 3, no acute distress, answers questions appropriately - Head Head exam: Present: normal inspection - Eye Eye exam: Present: EOMI - Neck Neck exam general surgery: Present: normal inspection, trachea midline - Respiratory Respiratory exam: Present: CTAB - Cardiovascular Cardiovascular exam: Present: RRR, +S1, +S2 - GI/Abdominal GI/Abdominal exam: Present: normal bowel sounds, soft. Absent: tenderness - Extremities Exam Extremities exam: Present: warm. Absent: cyanotic Additional comments: No significant hematoma noted on the right groin (where C access was). - Neurological Exam Neurological exam: Present: alert, no focal deficits. Absent: facial droop, speech deficit - Skin Skin exam: Present: dry, warm Internal Medicine: Result - Labs CBC & Chem 7: 06/26/17 00:31 06/26/17 00:31 Labs: Short CBC 06/26/17 Range/Units 00:31 WBC 7.3 (4.3-11.1) K/mcL Hgb 8.9 L (12.9-16.9) g/dL Hct 28.9 L (37.5-50.1) % Plt Count 112 L (140-400) K/mcL Neutrophils # 5.1 (1.6-8.9) K/mcL BMP 06/26/17 00:31 Sodium 141 Potassium 4.0 Chloride 112 H Carbon Dioxide 24 BUN 17 Creatinine 1.39 H Glucose 172 H Calcium 8.2 L - ABG Interpretation ABG results: PT/INR, D-dimer PT 10.8 Seconds (9.4-12.1) 06/26/17 00:31 - VTE Documentation of Mechanical Device: Graduated compression elastic hosiery Consult Discharge Plan - Plan [facility] - <[facility]te[facility]atibhaDanndarekMing [facility]aza H - Last Filed: 06/26/17 14:20> Date of Encounter: 06/26/17 - Constitutional Vitals: Temp Pulse Resp BP Pulse Ox 97.6 F 70 17 166/83 98 06/26/17 13:10 06/26/17 13:10 06/26/17 13:10 06/26/17 13:10 06/26/17 13:10 Internal Medicine: Result - Labs CBC & Chem 7: 06/26/17 00:31 06/26/17 00:31 Labs: Short CBC 06/26/17 Range/Units 00:31 WBC 7.3 (4.3-11.1) K/mcL Hgb 8.9 L (12.9-16.9) g/dL Hct 28.9 L (37.5-50.1) % Plt Count 112 L (140-400) K/mcL Neutrophils # 5.1 (1.6-8.9) K/mcL BMP 06/26/17 00:31 Sodium 141 Potassium 4.0 Chloride 112 H Carbon Dioxide 24 BUN 17 Creatinine 1.39 H Glucose 172 H Calcium 8.2 L - ABG Interpretation ABG results: PT/INR, D-dimer PT 10.8 Seconds (9.4-12.1) 06/26/17 00:31 - Attending Attestation Severe disease in [place] vessels and grafts The patient discussed the case with cardiothoracic surgery and preferred not to have a new CABG. Stents placed on the OM1, cath report pending Continue Brilinta and aspirin INR not therapeutic consider bridging with lovenox upon discharge Dec 2016 recent History of ICH after trauma, the patient has been on warfarin for the past few months without any problems despite recent history of intracranial hemorrhage. CT of the head from 01/10 : . Acute 2.3 cm hemorrhage within the right basal ganglia, contiguous with the caudate and right lateral ventricle. There is a small amount of intraventricular extension. No midline shift. Close interval follow-up is recommended. 2. Moderate chronic small vessel ischemic changes. I examined this patient and my medical decision-making was reviewed with the Resident Physician. I agree with the documented findings, disposition and treatment plan as described except to the extent set forth below.
[2017-06-26] MEDS: Heparin 25,000 UNIT/500 ML D5W 25,000 UNIT/500 ML BAG IVC SCH (17:42)
[2017-06-26] MEDS: *HR* Ticagrelor 90 MG TABLET PO SCH (21:37)
[2017-06-27 00:55] LABS: Basophils % 0.1 %; Eosinophils # 0.1 K/mcL (0.0-0.6); Eosinophils % 1.6 %; Hematocrit 28.1 % (37.5-50.1); Hemoglobin 8.6 g/dL (12.9-16.9); Immature Granulocytes % 0.9 % (0-4); Lymphocytes # 1.1 K/mcL (0.6-4.6); Lymphocytes % 15.8 %; Mean Corpuscular HGB Conc 30.6 g/dL (31.6-35.5); Mean Corpuscular Hemoglobin 25.5 pg (28.0-33.3); Mean Corpuscular Volume 83.4 fL (83.0-100.0); Mean Platelet Volume 12.2 fL (9.4-12.4); Monocytes # 0.5 K/mcL (0.0-1.3); Monocytes % 6.9 %; Platelet Count 112 K/mcL (140-400); Red Blood Count 3.37 M/mcL (4.19-5.50); Red Cell Distribution Width 15.2 % (11.5-14.5); Segmented Neutrophils % 74.7 %
[2017-06-27 01:10] LABS: BUN/Creatinine Ratio 11 (6-26); Blood Urea Nitrogen 14 mg/dL (8-23); Calcium 8.2 mg/dL (8.6-10.3); Carbon Dioxide 24 mEq/L (23-29); Chloride 114 mEq/L (98-107); Glucose 181 mg/dL (70-105); Osmolality,Calculated 297 (280-300); Potassium 4.1 mEq/L (3.5-5.1); Sodium 141 mEq/L (136-145); eGFR For African Americans > 60 (> 60); eGFR For Non-African Americans 53 (> 60)
[2017-06-27] MEDS: *HR* Heparin 5,000 UNIT/ML VIAL IVP PRN (01:41)
[2017-06-27] MEDS: Lisinopril 20 MG TABLET PO SCH (05:43)
[2017-06-27] MEDS: Heparin 25,000 UNIT/500 ML D5W 25,000 UNIT/500 ML BAG IVC SCH (05:45)
[2017-06-27] MEDS: 0.9 % Sodium Chloride 1,000 ML IVC SCH (05:45)
[2017-06-27 06:41] LABS: Activated Partial Thrombo Time 75.9 Seconds (26.0-36.0)
[2017-06-27 07:13] LABS: INR 1.1; Prothrombin Time 12.1 Seconds (9.4-12.1)
[2017-06-27] MEDS: Cyanocobalamin (B-12) 1,000 MCG TABLET PO SCH (08:25)
[2017-06-27] MEDS: Insulin LISPRO 300 UNITS/3 ML VIAL SQ SCH ×4 (08:25→21:20)
[2017-06-27] MEDS: Magnesium Oxide 400 MG TABLET PO SCH ×2 (08:25→21:20)
[2017-06-27] MEDS: *HR* Ticagrelor 90 MG TABLET PO SCH ×2 (08:26→21:20)
[2017-06-27] MEDS: Metoprolol XL (24 HR) Succ 25 MG TAB.ER.24H PO SCH ×2 (08:26→21:20)
[2017-06-27] MEDS: Gabapentin 100 MG CAPSULE PO SCH ×3 (08:26→21:20)
[2017-06-27] MEDS: Isosorbide MONOnitrate (24 HR) 30 MG TAB.ER.24H PO SCH (08:26)
[2017-06-27] MEDS: Spironolactone 25 MG TABLET PO SCH (08:26)
--- NOTE | 2017-06-27 09:23 | Cardiology Progress Note ---
Addendum entered and electronically signed by Annel Penaloza DO 06/27/17 11:14: Anticoagulation recs: patient will be on brilinta and not plavix. Per Dr. Crow. Everything else is unchanged. Original Note: <Annel Penaloza - Last Filed: 06/27/17 10:03> Date of Encounter: 06/27/17 Time of Encounter: 08:30 Assessment and Plan (1) CAD (coronary artery disease) Current Visit: No Status: Chronic Mr. Casey presented with atypical chest pain initially thought to be secondary to PAF. He underwent nuclear stress test that was found to be abnormal and underwent LHC. He has previous history of CABG and PCI. LHC showed severe three vessel CAD. [place]- LAD was patent. SVG-1st Dx with 90% stenosis. Radial artery to OM with 90% stenosis. EF preserved at 65%. New and previous [facility] films reviewed by Dr. Crow and CT surgery was consulted. Patient declined redo CABG. Medical management vs PCI discussed. He would like to proceed with PCI. He has CKD that remains stable. R/B/A of LHC discussed including possible NATHANIEL. He agreeed to proceed. -06/22/2017 TTE: LVEF 50%, Mild left ventricular diastolic dysfunction. Asymmetric hypertrophy of the basal septum. No LVOT obstruction. Atypical septal motion consistent with post-operative status. Normal right ventricular structure and function. Mild mitral regurgitation. Mild pulmonary hypertension. Estimated RVSP is 36 mmHg. -08/02/2016 TTE: EF 65-70% mild left ventricular diastolic dysfunction. mild tricuspid regurgitation ad pulmonary hypertension. -12/02/2015 Cath: ISAC in SVG to proximal 1st diagonal. Previous stent is SVG to 1st diagonal with severe 99% in stent stenosis that was intervened on. -Per unofficial report the patient received PCI to OM. Procedure went well. The site of vascular access appears to be healing well. -Mainly anterolateral and inferolateral ischemia. Has significant residual disease in the anterior and anterolateral rosas based on findings from C 2015. -Denies chest pain and palpitations. No murmur or arrhythmia on exam. Cardiology recommendations: -anticoagulation: triple therapy with coumadin, asa, plavix for 2 weeks then stop aspirin. The patient will follow up in the cardiology office out patient with Dr. Crow. -continue lipitor, metoprolol, imdur, aldactone, lisinopril -cardiology will sign off Qualifiers: Coronary Disease-Associated Artery/Lesion type: bypass graft [place] vs. transplanted heart: [place] heart Associated angina: with unstable angina Qualified Code(s): I25.700 - Atherosclerosis of coronary artery bypass graft(s) , unspecified, with unstable angina pectoris (2) Abnormal nuclear stress test Current Visit: No Status: Acute Abnormal stress test 06/23/17-Pharmacologic stress ECG is non-diagnostic for ischemia due to baseline non-specific ST and T changes. Gated EF = 50%. Medium sized, moderate to severe intensity, partially reversible mid to apical anterior and anterolateral defect. Findings suggestive of a prior RI with significant residual ischemia. Medium sized, moderate to severe intensity, mostly reversible inferior and inferolateral defect suggestive of ischemia. plan as described above. (3) Atrial fibrillation Current Visit: No Status: Chronic History of a.fib on anticoagulation with warfarin and rate controlled with toprol CHADVASC score: 8 (age, CHF, HTN, DM, TIA, DVT, RI) Telemetry review shows avg HR 65bpm. NSR with intermittent rate controlled PAF noted. -heparin bridge to Coumadin Qualifiers: Atrial fibrillation type: unspecified Qualified Code(s): I48.91 - Unspecified atrial fibrillation (4) Elevated troponin Current Visit: Yes Status: Acute Mild adynamic troponin elevation at 0.06, 0.07 x3 (5) CKD (chronic kidney disease) stage 3, GFR 30-59 ml/min Current Visit: No Status: Chronic History of CKD stage 3 Creatinine 1.31 improved -management per primary team. avoid nephrotoxic agents. Discussion w patient/family: The assessment and plan as outlined above was discussed with the patient and/or family members who expressed understanding and agreement. All questions were answered. Thank you for involving us in the care of your patient. Please call with any questions. Subjective Principal diagnosis: chest pain Interval history: The patient reports he is currently chest pain free, no palpitations. PCI yesterday Objective Vital Signs, Last 4 Hours Temp Pulse Resp BP Pulse Ox 06/27/17 08:34 95 06/27/17 07:13 97.8 F 76 15 173/91 92 General: Conversant, No Apparent Distress HEENT: Atraumatic, Mucus Membranes Moist Neck: No JVD Cardiac: Reg Rate and Rhythm, Normal S1 and S2 Lungs: Normal Breath Sounds, No Wheeze, Rales, Rhonchi Neuro: Alert and responsive Abdomen: Soft, Non-Tender Skin: No rashes noted on visualized skin Musculoskeletal: No Chest Wall Tenderness Extremities: No Edema Results 06/27/17 00:20 06/27/17 00:20 Lab Results 06/27/17 06/27/17 06/27/17 00:20 00:20 00:20 WBC 6.7 Hgb 8.6 L Hct 28.1 L Plt Count 112 L INR APTT 47.0 H Sodium 141 Potassium 4.1 Chloride 114 H Carbon Dioxide 24 BUN 14 Creatinine 1.31 H Glucose 181 H Calcium 8.2 L 06/27/17 06:13 WBC Hgb Hct Plt Count INR 1.1 APTT 75.9 H D Sodium Potassium Chloride Carbon Dioxide BUN Creatinine Glucose Calcium - VTE Documentation of Mechanical Device: Graduated compression elastic hosiery Consult Discharge Plan - Plan Instructions: Lisinopril (By mouth), Aspirin (By mouth), Enoxaparin (Injection) , Clopidogrel (By mouth), Magnesium (By mouth), Atrial Fibrillation (DC), Chest Pain (DC), Coronary Intravascular Stent Placement (DC), Diabetes Mellitus Type 2 in Adults (DC), Chronic Obstructive Pulmonary Disease (DC), Chronic Hypertension (DC), Coronary Intravascular Stent Placement, White Lead Filterer (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 Please follow up with your primary care physician at [facility] within a week regarding your hospitalization. Please follow up with [facility] within a week as well. Please take prescribed aspirin and Brilinta to protect your newly placed stents from re-narrowing. Please follow up with [facility] in 2 weeks regarding possible discontinuation of aspirin. Referrals: [facility],PCP [Primary Care Provider] - 07/04/17 12:15 pm (within a week. Also [facility] and would let the patient know when the appointment is) Yoel Tripp DO [Partnered Physician] - 07/19/17 8:00 am (this is at the [place] office) Prescriptions: Enoxaparin [Lovenox] 100 mg SQ Q12HR #14 syr Aspirin Enteric Coated [Aspirin EC] 81 mg PO DAILY #30 tablet. Lisinopril [Zestril] 20 mg PO DAILY #30 tablet Magnesium Oxide [Mag-Ox] 400 mg PO BID #60 tablet Ticagrelor [Brilinta] 90 mg PO BID #60 tablet <DarronAngelachristina - Last Filed: 06/28/17 13:35> Date of Encounter: 06/28/17 Assessment and Plan Discussion w patient/family: The assessment and plan as outlined above was discussed with the patient and/or family members who expressed understanding and agreement. All questions were answered. Thank you for involving us in the care of your patient. Please call with any questions. I examined this patient and my medical decision-making was reviewed with the Resident Physician. I agree with the documented findings, disposition and treatment plan as described except to the extent set forth below S/P PCI on triple therapy, patient to f/u in 1-2 weeks and stop ASA continuing plavix and coumadin to reduce risk of CVA. 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
[2017-06-27] MEDS: Aspirin Enteric Coated 81 MG Tablet PO SCH (11:46)
--- NOTE | 2017-06-27 13:19 | Discharge Summary ---
<Simran Campoverde - Last Filed: 06/27/17 18:39> - NOTES TO OUTPATIENT PROVIDER Notes to Outpatient Provider: Mr. Poe was admitted on 06/21/17 for chest pain. LHC on 06/24/17 found severe 3-V CAD with 1 of 3 patent bypass grafts. Patient elected to have PCI instead of redo CABG. 3 drug-eluting stents were placed on 06/26/17. Cardiology recommends to continue aspirin and Brilinta and follow up with [place] [facility] in 2 weeks for possible discontinuation of aspirin. Patient also has subtherapeutic INR on discharge so prescription of one -week supply of Lovenox was given for bridging while continuing home Coumadin regimen. Patient will need follow-up with PCP and [facility] within a week. Orders not resulted at time of discharge: Pending orders 06/23/17 10:35 NM danny perf SPECT multi [NM] Routine 06/25/17 13:02 CL Cardiac Catheterization [CL] Routine 06/26/17 10:54 ECG 12 lead ECG [ECG] Routine ECG 12 lead ECG [ECG] Stat 06/27/17 07:00 ECG 12 lead ECG [ECG] Routine Date of Encounter: 06/27/17 Time of Encounter: 12:00 - Discharge Diagnosis (1) CAD (coronary artery disease) Priority: Primary Status: Chronic Qualifiers: Coronary Disease-Associated Artery/Lesion type: bypass graft [place] vs. transplanted heart: [place] heart Associated angina: with unstable angina Qualified Code(s): I25.700 - Atherosclerosis of coronary artery bypass graft(s) , unspecified, with unstable angina pectoris (2) Atrial fibrillation Priority: Secondary Status: Chronic Qualifiers: Atrial fibrillation type: unspecified Qualified Code(s): I48.91 - Unspecified atrial fibrillation (3) History of DVT (deep vein thrombosis) Priority: Secondary Status: Chronic (4) DM2 (diabetes mellitus, type 2) Priority: Secondary Status: Chronic Qualifiers: Diabetes mellitus prison insulin use: without prison use Diabetes mellitus complication status: with kidney complications Diabetes mellitus complication detail: with chronic kidney disease Chronic kidney disease stage : stage 3 (moderate) Qualified Code(s): E11.22 - Type 2 diabetes mellitus with diabetic chronic kidney disease; N18.3 - Chronic kidney disease, stage 3 ( moderate); N18.3 - Chronic kidney disease, stage 3 (moderate) (5) HTN (hypertension) Priority: Secondary Status: Chronic Qualifiers: Hypertension type: essential hypertension Qualified Code(s): I10 - Essential (primary) hypertension Hospital course: Mr. 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 Patient presented with complaint of chest pain and was found to have troponin at 0.06. Patient was started on heparin drip and admitted on 06/21/17 for chest pain work-up. Cardiology was consulted. Echo on 06/22/17 showed LVEF 50% and mild LV diastolic dysfunction. Nuclear stress test on 06/23/17 found gated EF 50 % with medium sized, moderate to severe intensity, partially reversible mid to apical anterior and anterolateral defect suggestive of a prior [place] with significant residual ischemia. It also found medium sized, moderate to severe intensity, mostly reversible inferior and inferolateral defect suggestive of ischemia. Cardiac catheterization on 06/24/17 found severe three-vessel CAD with 1 of 3 patent bypass grafts. Cardiothoracic surgery was consulted for possible redo CABG which is extremely high risks given his multiple comorbidities. Patient elected to have medical management and possible repeat stenting with PTCA. 3 drug-eluting stents were successfully placed at [facility] on 06/26/17. Given patient is chest pain-free and remains hemodynamically stable, patient can be discharged to rehab as recommended by PT/OT evaluation. Given patient's history of recurrent DVT while being off from anticoagulation in the past and patient's subtherapeutic INR (INR 1.1 on 06/27/17), patient will need anticoagulation bridging with Lovenox while continuing his home Coumadin regimen. Patient will need follow-up with his [facility] and [facility] within a week. Patient will continue aspirin and Brilinta as dual antiplatelet therapy for his newly placed stents. Patient will need follow-up with [place] [facility] in 2 weeks for possible discontinuation of aspirin. Patient expressed his understanding and agreement with the discharge plan. All questions were answered. Patient can be discharged to rehab once it's set up and facility is ready to take patient. Discharge discussed with: patient, family - Time Spent with Patient Total time spent providing and/or coordinating discharge services: Greater than 30 minutes (46 minutes) - Discharge Medications Prescriptions: Enoxaparin [Lovenox] 100 mg SQ Q12HR #14 syr Aspirin Enteric Coated [Aspirin EC] 81 mg PO DAILY #30 tablet. Lisinopril [Zestril] 20 mg PO DAILY #30 tablet Magnesium Oxide [Mag-Ox] 400 mg PO BID #60 tablet Ticagrelor [Brilinta] 90 mg PO BID #60 tablet Home Medications: Acetaminophen [Tylenol] 975 mg PO QID PRN 11/16/15 [History] Atorvastatin [Lipitor] 40 mg PO HS 11/16/15 [History] Gabapentin [Neurontin] 200 mg PO TID 11/16/15 [History] Isosorbide MONOnitrate (24 HR) [Imdur] 30 mg PO DAILY 11/16/15 [History] Metformin HCl [Metformin HCl ER] 2,000 mg PO QPM 11/16/15 [History] Ferrous Sulfate [Iron] 325 mg PO BID 12/02/15 [History] Omeprazole [PriLOSEC] 20 mg PO DAILY 12/02/15 [History] Terazosin HCl 10 mg PO HS 12/02/15 [History] glipiZIDE [Glucotrol] 5 mg PO DAILY 12/02/15 [History] Cyanocobalamin (B-12) [Vitamin B12] 1,000 mcg PO DAILY 11/27/16 [History] Spironolactone [Aldactone] 25 mg PO DAILY 11/27/16 [History] Furosemide [Lasix] 20 mg PO BID 06/21/17 [History] Metoprolol XL (24 HR) Succ [Toprol Xl] 25 mg PO BID 06/21/17 [History] [place]-3/Dha/Epa/Fish Oil [Fish Oil 1,000 mg Softgel] 1,000 mg PO DAILY 06/21/17 [History] Warfarin [Coumadin] 3 mg PO SUMOTUTHFRSA 06/21/17 [History] Warfarin [Coumadin] 4 mg PO WE 06/21/17 [History] Aspirin Enteric Coated [Aspirin EC] 81 mg PO DAILY #30 tablet. 06/27/17 [Rx] Enoxaparin [Lovenox] 100 mg SQ Q12HR #14 syr 06/27/17 [Rx] Lisinopril [Zestril] 20 mg PO DAILY #30 tablet 06/27/17 [Rx] Magnesium Oxide [Mag-Ox] 400 mg PO BID #60 tablet 06/27/17 [Rx] Ticagrelor [Brilinta] 90 mg PO BID #60 tablet 06/27/17 [Rx] Allergies/Adverse Reactions: 3 Allergy/AdvReac Type Severity Reaction Status Date / Time pseudoephedrine Allergy Anaphylaxis Verified 06/21/17 11:42 [From Actifed] sulfamethoxazole Allergy Anaphylaxis Verified 06/21/17 11:42 [From Bactrim] tramadol Allergy See Verified 06/21/17 16:38 Comments trimethoprim [From Bactrim] Allergy Anaphylaxis Verified 06/21/17 11:42 triprolidine [From Actifed] Allergy Anaphylaxis Verified 06/21/17 11:42 Date of admission: 06/21/17 17:02 Primary care physician: [facility] Consults: 06/21/17 17:23 Consult to Cardiology [CONS] Routine Comment: Consulting Provider: Cardiology Milady Reason for Consult: acs Time Notified: 17:24 Call Completed: No 06/26/17 10:54 Consult to Cardiac Rehabilitation-Phase1 [CONS] Routine Comment: Reason for Consult: AMI Call Completed: Yes Consult to Nurse Navigator [CONS] Routine Comment: 06/26/17 13:39 Consult to Physical Therapy [CONS] Routine Comment: Evaluate, develop and implement POC Reason for Consult: Discharge planning Does patient have active BEDREST order?: No Is patient medically & hemodynamically stable?: Yes OT [Consult to Occupational Therapy] [CONS] Routine Comment: Evaluate, develop and implement POC Reason for Consult: Discharge planning Does patient have active BEDREST order?: No Is patient medically & hemodynamically stable?: Yes Discharging clinician: Simran Campoverde Anticipated date of discharge: 06/27/17 - Constitutional Vitals: Temp Pulse Resp BP Pulse Ox 98.4 F 85 15 176/88 93 06/27/17 11:18 06/27/17 11:18 06/27/17 11:18 06/27/17 11:18 06/27/17 11:18 General appearance: Present: A&O X 3, no acute distress, answers questions appropriately - Head Head exam: Present: normal inspection - Eye Eye exam: Present: EOMI - Neck Neck exam general surgery: Present: normal inspection, trachea midline - Respiratory Respiratory exam: Present: CTAB - Cardiovascular Cardiovascular exam: Present: RRR, +S1, +S2 - GI/Abdominal GI/Abdominal exam: Present: normal bowel sounds, soft. Absent: tenderness - Extremities Exam Extremities exam: Present: pedal edema (Chronic right ankle edema, no significant change from yesterday.). Absent: cyanotic - Neurological Exam Neurological exam: Present: alert, no focal deficits. Absent: facial droop, speech deficit - Skin Skin exam: Present: dry, warm - Patient Status Disposition: Transfer Inpatient Rehab Fac Condition: Fair Functional capacity at discharge: uses cane/walker Overall status at discharge: patient is progressing back to baseline - Discharge Instructions Instructions: Lisinopril (By mouth), Aspirin (By mouth), Enoxaparin (Injection) , Clopidogrel (By mouth), Magnesium (By mouth), Atrial Fibrillation (DC), Chest Pain (DC), Coronary Intravascular Stent Placement (DC), Diabetes Mellitus Type 2 in Adults (DC), Chronic Obstructive Pulmonary Disease (DC), Chronic Hypertension (DC), Coronary Intravascular Stent Placement, Gravity Prospecting Supervisor (GEN) Follow Up With: [facility],PCP [Primary Care Provider] - 07/04/17 12:15 pm (within a week. Also needs follow-up [facility] within a week as well [facility] said they would take care of it and would let the patient know when the appointment is) Yoel Tripp DO [Partnered Physician] - 07/19/17 8:00 am (this is at the [place] office) Additional Instructions: Please take prescribed Lovenox 100 mg subcutaneously every 12 hours as anticoagulation bridging while taking your home Coumadin regimen. Please follow up with your primary care physician at [facility] within a week regarding your hospitalization. Please follow up with [facility] within a week as well. Please take prescribed aspirin and Brilinta to protect your newly placed stents from re-narrowing. Please follow up with [place] [facility] in 2 weeks regarding possible discontinuation of aspirin. - Diet and Activity Activity: as per physical therapy Diet: low fat, low cholesterol - VTE Documentation of Mechanical Device: Graduated compression elastic hosiery <Nguyễn Rossi - Last Filed: 06/27/17 19:36> Orders not resulted at time of discharge: Pending orders 06/23/17 10:35 NM danny perf SPECT multi [NM] Routine 06/25/17 13:02 CL Cardiac Catheterization [CL] Routine 06/26/17 10:54 ECG 12 lead ECG [ECG] Routine ECG 12 lead ECG [ECG] Stat 06/27/17 07:00 ECG 12 lead ECG [ECG] Routine 06/28/17 04:00 PT/INR [Prothrombin Time INR] [COAG] AM 0400 06/28/17 14:12 PTT [Activated Partial Thrombo Time] [COAG] Timed 06/29/17 04:00 PT/INR [Prothrombin Time INR] [COAG] AM 0400 06/30/17 04:00 PT/INR [Prothrombin Time INR] [COAG] AM 0400 07/01/17 04:00 PT/INR [Prothrombin Time INR] [COAG] AM 0400 07/02/17 04:00 PT/INR [Prothrombin Time INR] [COAG] AM 0400 Date of Encounter: 06/27/17 - Discharge Diagnosis (1) Unstable angina Priority: Primary Status: Resolved (2) CAD (coronary artery disease) Status: Chronic Qualifiers: Coronary Disease-Associated Artery/Lesion type: bypass graft [place] vs. transplanted heart: [place] heart Associated angina: with unstable angina Qualified Code(s): I25.700 - Atherosclerosis of coronary artery bypass graft(s) , unspecified, with unstable angina pectoris (3) Atrial fibrillation Status: Chronic Qualifiers: Atrial fibrillation type: chronic Qualified Code(s): I48.2 - Chronic atrial fibrillation (4) DM2 (diabetes mellitus, type 2) Status: Chronic Qualifiers: Diabetes mellitus ocean transportation intermediary insulin use: without ocean transportation intermediary use Diabetes mellitus complication status: with kidney complications Diabetes mellitus complication detail: with chronic kidney disease Chronic kidney disease stage : stage 3 (moderate) Qualified Code(s): E11.22 - Type 2 diabetes mellitus with diabetic chronic kidney disease; N18.3 - Chronic kidney disease, stage 3 ( moderate); N18.3 - Chronic kidney disease, stage 3 (moderate) (5) LYNSEY on CPAP Priority: Secondary Status: Chronic (6) HTN (hypertension) Status: Chronic Qualifiers: Hypertension type: essential hypertension Qualified Code(s): I10 - Essential (primary) hypertension (7) Diastolic heart failure Priority: Secondary Status: Chronic Qualifiers: Heart failure chronicity: chronic Qualified Code(s): I50.32 - Chronic diastolic (congestive) heart failure Hospital course: Mr. Poe is a 81 year old male - Time Spent with Patient Total time spent providing and/or coordinating discharge services: 38min Date of admission: 06/21/17 17:02 Primary care physician: PCP ÁNGEL Consults: 06/21/17 17:23 Consult to Cardiology [CONS] Routine Comment: Consulting Provider: Cardiology Milady Reason for Consult: acs Time Notified: 17:24 Call Completed: No 06/26/17 10:54 Consult to Cardiac Rehabilitation-Phase1 [CONS] Routine Comment: Reason for Consult: AMI Call Completed: Yes Consult to Nurse Navigator [CONS] Routine Comment: 06/26/17 13:39 Consult to Physical Therapy [CONS] Routine Comment: Evaluate, develop and implement POC Reason for Consult: Discharge planning Does patient have active BEDREST order?: No Is patient medically & hemodynamically stable?: Yes OT [Consult to Occupational Therapy] [CONS] Routine Comment: Evaluate, develop and implement POC Reason for Consult: Discharge planning Does patient have active BEDREST order?: No Is patient medically & hemodynamically stable?: Yes 06/27/17 14:21 Consult to Retail Marketing Manager [CONS] Routine Reason for SW Consult: PT/OT recommends rehab. Appreciate assistance on placement. - Constitutional Vitals: Temp Pulse Resp BP Pulse Ox 97.7 F 73 15 147/83 96 06/27/17 15:07 06/27/17 15:07 06/27/17 15:07 06/27/17 15:07 06/27/17 15:07 - Attending Attestation I examined this patient and my medical decision-making was reviewed with the Resident Physician on 06/27/17. I agree with the documented findings, disposition and treatment plan as described except to the extent set forth below. Mr Poe has been admitted for [facility] and had stent placement. He is currently without discomfort. He is to go to SNF for rehab. Exam alert Comfortable Mucus membranes dry Heart reg No wheeze Abd soft Plan D/C to SNF
[2017-06-27] MEDS: *HR* Enoxaparin 100 MG/ML SYRINGE SQ SCH (17:23)
[2017-06-27] MEDS: *HR* Warfarin 3 MG TABLET PO SCH (17:23)
[2017-06-27] MEDS ORDERED: Warfarin perPT PO PRN (18:00)
--- NOTE | 2017-06-27 18:39 | Physician Discharge Referral ---
ExtendedCare Referral Info Transfer To: Rehab Institutional Level of Care: Skilled - Diagnosis (1) CAD (coronary artery disease) Priority: Primary Status: Chronic (2) Atrial fibrillation Priority: Secondary Status: Chronic (3) History of DVT (deep vein thrombosis) Priority: Secondary Status: Chronic (4) DM2 (diabetes mellitus, type 2) Priority: Secondary Status: Chronic (5) HTN (hypertension) Priority: Secondary Status: Chronic - Transfer Medications Prescriptions: Enoxaparin [Lovenox] 100 mg SQ Q12HR #14 syr Aspirin Enteric Coated [Aspirin EC] 81 mg PO DAILY #30 tablet. Lisinopril [Zestril] 20 mg PO DAILY #30 tablet Magnesium Oxide [Mag-Ox] 400 mg PO BID #60 tablet Ticagrelor [Brilinta] 90 mg PO BID #60 tablet Home Medications: Acetaminophen [Tylenol] 975 mg PO QID PRN 11/16/15 [History] Atorvastatin [Lipitor] 40 mg PO HS 11/16/15 [History] Gabapentin [Neurontin] 200 mg PO TID 11/16/15 [History] Isosorbide MONOnitrate (24 HR) [Imdur] 30 mg PO DAILY 11/16/15 [History] Metformin HCl [Metformin HCl ER] 2,000 mg PO QPM 11/16/15 [History] Ferrous Sulfate [Iron] 325 mg PO BID 12/02/15 [History] Omeprazole [PriLOSEC] 20 mg PO DAILY 12/02/15 [History] Terazosin HCl 10 mg PO HS 12/02/15 [History] glipiZIDE [Glucotrol] 5 mg PO DAILY 12/02/15 [History] Cyanocobalamin (B-12) [Vitamin B12] 1,000 mcg PO DAILY 11/27/16 [History] Spironolactone [Aldactone] 25 mg PO DAILY 11/27/16 [History] Furosemide [Lasix] 20 mg PO BID 06/21/17 [History] Metoprolol XL (24 HR) Succ [Toprol Xl] 25 mg PO BID 06/21/17 [History] [place]-3/Dha/Epa/Fish Oil [Fish Oil 1,000 mg Softgel] 1,000 mg PO DAILY 06/21/17 [History] Warfarin [Coumadin] 3 mg PO SUMOTUTHFRSA 06/21/17 [History] Warfarin [Coumadin] 4 mg PO WE 06/21/17 [History] Aspirin Enteric Coated [Aspirin EC] 81 mg PO DAILY #30 tablet. 06/27/17 [Rx] Enoxaparin [Lovenox] 100 mg SQ Q12HR #14 syr 06/27/17 [Rx] Lisinopril [Zestril] 20 mg PO DAILY #30 tablet 06/27/17 [Rx] Magnesium Oxide [Mag-Ox] 400 mg PO BID #60 tablet 06/27/17 [Rx] Ticagrelor [Brilinta] 90 mg PO BID #60 tablet 06/27/17 [Rx] Allergies/Adverse Reactions: 3 Allergy/AdvReac Type Severity Reaction Status Date / Time pseudoephedrine Allergy Anaphylaxis Verified 06/21/17 11:42 [From Actifed] sulfamethoxazole Allergy Anaphylaxis Verified 06/21/17 11:42 [From Bactrim] tramadol Allergy See Verified 06/21/17 16:38 Comments trimethoprim [From Bactrim] Allergy Anaphylaxis Verified 06/21/17 11:42 triprolidine [From Actifed] Allergy Anaphylaxis Verified 06/21/17 11:42 - Respiratory Orders Smoking Cessation: Smoking cessation has been advised. For more information, call the [place] Tobacco Quit Line at 5-024-TKQLNOW. - Mobility Orders Chair - Rehabiliation Orders Rehab Potential: Fair Rehab Orders: Evaluation for Physical Therapy, Evaluation for Occupational Therapy - Diet Orders Cardiac CERTIFICATION: I certify that the transfer of the above named patient to an Extended Care Facility is necessary for the continuing treatment of the diagnosis listed. The above information is true and accurate reflection of patient's current condition. Confidential - Redisclosure prohibited without a patient's written consent.
[2017-06-28] MEDS: *HR* Enoxaparin 100 MG/ML SYRINGE SQ SCH ×2 (06:26→17:46)
[2017-06-28 06:41] LABS: INR 1.1; Prothrombin Time 11.5 Seconds (9.4-12.1)
[2017-06-28] MEDS: Insulin LISPRO 300 UNITS/3 ML VIAL SQ SCH ×4 (09:49→20:40)
[2017-06-28] MEDS: Lisinopril 20 MG TABLET PO SCH (09:49)
[2017-06-28] MEDS: Metoprolol XL (24 HR) Succ 25 MG TAB.ER.24H PO SCH ×2 (09:49→20:40)
[2017-06-28] MEDS: Isosorbide MONOnitrate (24 HR) 30 MG TAB.ER.24H PO SCH (09:49)
[2017-06-28] MEDS: Spironolactone 25 MG TABLET PO SCH (09:49)
[2017-06-28] MEDS: Magnesium Oxide 400 MG TABLET PO SCH ×2 (09:49→20:40)
[2017-06-28] MEDS: *HR* Ticagrelor 90 MG TABLET PO SCH ×2 (09:50→20:39)
[2017-06-28] MEDS: Aspirin Enteric Coated 81 MG Tablet PO SCH (09:50)
[2017-06-28] MEDS: Gabapentin 100 MG CAPSULE PO SCH ×3 (09:50→20:40)
[2017-06-28] MEDS: Cyanocobalamin (B-12) 1,000 MCG TABLET PO SCH (09:50)
--- NOTE | 2017-06-28 10:26 | Internal Med Progress Note ---
<Simran Campoverde - Last Filed: 06/28/17 17:06> Date of Encounter: 06/28/17 Time of Encounter: 08:30 - Assessment and plan (1) CAD (coronary artery disease) Current Visit: No Status: Chronic Assessment and plan: - Known significant history of CAD s/p CABG - [facility] on 06/24/17 found severe three vessel coronary artery disease with LV EF 65 %. 1 of 3 patent bypass grafts. - Patient had 3 stents placed at [facility] on 06/26/17 - Continue aspirin, Brilinta and Coumadin as recommended by cardiology, - Continue Lipitor, metoprolol, lisinopril and Imdur. Qualifiers: Coronary Disease-Associated Artery/Lesion type: bypass graft [place] vs. transplanted heart: [place] heart Associated angina: with unstable angina Qualified Code(s): I25.700 - Atherosclerosis of coronary artery bypass graft(s) , unspecified, with unstable angina pectoris (2) Atrial fibrillation Current Visit: No Status: Chronic Assessment and plan: - Known history of A-fib. - Continue rate control with metoprolol. - Currently on Lovenox for anticoagulation. - Subtherapeutic as INR 1. today. Qualifiers: Atrial fibrillation type: chronic Qualified Code(s): I48.2 - Chronic atrial fibrillation (3) History of DVT (deep vein thrombosis) Current Visit: No Status: Chronic Assessment and plan: - Continue Coumadin - Still subtherapeutic as INR 1.1 today. - Continue Lovenox for bridging - Will need anticoagulation bridging upon discharge. (4) DM2 (diabetes mellitus, type 2) Current Visit: No Status: Chronic Assessment and plan: - Continue insulin sliding scale and glucose monitoring. Qualifiers: Diabetes mellitus jail insulin use: without petroleum terminal plant operator use Diabetes mellitus complication status: with kidney complications Diabetes mellitus complication detail: with chronic kidney disease Chronic kidney disease stage : stage 3 (moderate) Qualified Code(s): E11.22 - Type 2 diabetes mellitus with diabetic chronic kidney disease; N18.3 - Chronic kidney disease, stage 3 ( moderate); N18.3 - Chronic kidney disease, stage 3 (moderate) (5) HTN (hypertension) Current Visit: No Status: Chronic Assessment and plan: - Continue current anti-hypertensive regimen. Qualifiers: Hypertension type: essential hypertension Qualified Code(s): I10 - Essential (primary) hypertension - Subjective Interval history: Patient was seen and examined this morning. Patient has no complaint and denies chest pain or shortness of breath. Patient is waiting for placement. - Constitutional Vitals: Temp Pulse Resp BP Pulse Ox 98.3 F 87 16 161/82 98 06/28/17 07:00 06/28/17 07:00 06/28/17 07:00 06/28/17 07:00 06/28/17 07:00 General appearance: Present: A&O X 3, no acute distress, answers questions appropriately - Head Head exam: Present: normal inspection - Eye Eye exam: Present: EOMI - Neck Neck exam general surgery: Present: normal inspection, trachea midline - Respiratory Respiratory exam: Present: CTAB - Cardiovascular Cardiovascular exam: Present: RRR, +S1, +S2 - GI/Abdominal GI/Abdominal exam: Present: normal bowel sounds, soft. Absent: tenderness - Extremities Exam Extremities exam: Absent: cyanotic, pedal edema - Neurological Exam Neurological exam: Present: alert, no focal deficits. Absent: facial droop, speech deficit - Skin Skin exam: Present: dry, warm Internal Medicine: Result - Labs CBC & Chem 7: 06/27/17 00:20 06/27/17 00:20 - ABG Interpretation ABG results: PT/INR, D-dimer PT 11.5 Seconds (9.4-12.1) 06/28/17 06:17 - VTE Documentation of Mechanical Device: Graduated compression elastic hosiery Consult Discharge Plan - Plan Instructions: Lisinopril (By mouth), Aspirin (By mouth), Enoxaparin (Injection) , Clopidogrel (By mouth), Magnesium (By mouth), Atrial Fibrillation (DC), Chest Pain (DC), Coronary Intravascular Stent Placement (DC), Diabetes Mellitus Type 2 in Adults (DC), Chronic Obstructive Pulmonary Disease (DC), Chronic Hypertension (DC), Coronary Intravascular Stent Placement, Air Conditioning Coil Assembler (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 Please follow up with your primary care physician at [place] within a week regarding your hospitalization. Please follow up with [place] [facility] within a week as well. Please take prescribed aspirin and Brilinta to protect your newly placed stents from re-narrowing. Please follow up with [place] [facility] in 2 weeks regarding possible discontinuation of aspirin. [facility] - [facility]/04/17 12:15 pm (within a week. Also [facility] and would let the patient know when the appointment is) Yoel Tripp DO [Partnered Physician] - 07/19/17 8:00 am (this is at the [place] office) Prescriptions: Enoxaparin [Lovenox] 100 mg SQ Q12HR #14 syr Aspirin Enteric Coated [Aspirin EC] 81 mg PO DAILY #30 tablet. Lisinopril [Zestril] 20 mg PO DAILY #30 tablet Magnesium Oxide [Mag-Ox] 400 mg PO BID #60 tablet Ticagrelor [Brilinta] 90 mg PO BID #60 tablet <Nguyễn Rossi - Last Filed: 06/28/17 18:23> Date of Encounter: 06/28/17 - Assessment and plan (1) Unstable angina Current Visit: Yes Status: Resolved (2) CAD (coronary artery disease) Current Visit: No Status: Chronic Qualifiers: Coronary Disease-Associated Artery/Lesion type: bypass graft [place] vs. transplanted heart: [place] heart Associated angina: with unstable angina Qualified Code(s): I25.700 - Atherosclerosis of coronary artery bypass graft(s) , unspecified, with unstable angina pectoris (3) Atrial fibrillation Current Visit: No Status: Chronic Qualifiers: Atrial fibrillation type: chronic Qualified Code(s): I48.2 - Chronic atrial fibrillation (4) DM2 (diabetes mellitus, type 2) Current Visit: No Status: Chronic Qualifiers: Diabetes mellitus petroleum terminal plant operator insulin use: without jail use Diabetes mellitus complication status: with kidney complications Diabetes mellitus complication detail: with chronic kidney disease Chronic kidney disease stage : stage 3 (moderate) Qualified Code(s): E11.22 - Type 2 diabetes mellitus with diabetic chronic kidney disease; N18.3 - Chronic kidney disease, stage 3 ( moderate); N18.3 - Chronic kidney disease, stage 3 (moderate) (5) LYNSEY on CPAP Current Visit: No Status: Chronic (6) HTN (hypertension) Current Visit: No Status: Chronic Qualifiers: Hypertension type: essential hypertension Qualified Code(s): I10 - Essential (primary) hypertension (7) Diastolic heart failure Current Visit: No Status: Chronic Qualifiers: Heart failure chronicity: chronic Qualified Code(s): I50.32 - Chronic diastolic (congestive) heart failure - Constitutional Vitals: Temp Pulse Resp BP Pulse Ox 98.1 F 76 18 134/72 96 06/28/17 15:00 06/28/17 15:00 06/28/17 15:00 06/28/17 15:00 06/28/17 15:00 Internal Medicine: Result - Labs CBC & Chem 7: 06/27/17 00:20 06/27/17 00:20 - ABG Interpretation ABG results: PT/INR, D-dimer PT 11.5 Seconds (9.4-12.1) 06/28/17 06:17 - Attending Attestation I examined this patient and my medical decision-making was reviewed with the Resident Physician on 06/28/17. I agree with the documented findings, disposition and treatment plan as described except to the extent set forth below. Mr Poe is currently admitted for CAD s/p LHC and stents. He is awaiting SNF placement. He remains on heparin drip with coumadin. He remains moderate risk at this time due to potential for worsening clinical status. Mr Poe is doing OK. No fever or chills. No CP or SOB. Bowels OK. Awaiting bed at SNF. Exam alert Comfortable. Mucus membranes dry Heart distant No wheeze Abd soft I/P 1. CAD s/p stent 2. DM Further diagnoses and plan as above.
[2017-06-28] MEDS: *HR* Warfarin 3 MG TABLET PO SCH (17:45)
[2017-06-29 04:34] LABS: INR 1.1
[2017-06-29] MEDS: *HR* Enoxaparin 100 MG/ML SYRINGE SQ SCH (06:24)
--- NOTE | 2017-06-29 08:30 | Discharge Summary ---
Orders not resulted at time of discharge: Pending orders 06/23/17 10:35 NM danny perf SPECT multi [NM] Routine 06/25/17 13:02 CL Cardiac Catheterization [CL] Routine 06/26/17 10:54 ECG 12 lead ECG [ECG] Routine ECG 12 lead ECG [ECG] Stat 06/27/17 07:00 ECG 12 lead ECG [ECG] Routine 06/30/17 04:00 PT/INR [Prothrombin Time INR] [COAG] AM 0400 07/01/17 04:00 PT/INR [Prothrombin Time INR] [COAG] AM 0400 07/02/17 04:00 PT/INR [Prothrombin Time INR] [COAG] AM 0400 Date of Encounter: 06/29/17 Time of Encounter: 07:30 - Discharge Diagnosis (1) CAD (coronary artery disease) Status: Chronic Qualifiers: Coronary Disease-Associated Artery/Lesion type: bypass graft [place] vs. transplanted heart: [place] heart Associated angina: with unstable angina Qualified Code(s): I25.700 - Atherosclerosis of coronary artery bypass graft(s) , unspecified, with unstable angina pectoris (2) Atrial fibrillation Status: Chronic Qualifiers: Atrial fibrillation type: chronic Qualified Code(s): I48.2 - Chronic atrial fibrillation (3) History of DVT (deep vein thrombosis) Status: Chronic (4) DM2 (diabetes mellitus, type 2) Status: Chronic Qualifiers: Diabetes mellitus [facility] insulin use: without terminal gauger use Diabetes mellitus complication status: with kidney complications Diabetes mellitus complication detail: with chronic kidney disease Chronic kidney disease stage : stage 3 (moderate) Qualified Code(s): E11.22 - Type 2 diabetes mellitus with diabetic chronic kidney disease; N18.3 - Chronic kidney disease, stage 3 ( moderate); N18.3 - Chronic kidney disease, stage 3 (moderate) (5) HTN (hypertension) Status: Chronic Qualifiers: Hypertension type: essential hypertension Qualified Code(s): I10 - Essential (primary) hypertension Hospital course: Mr. Poe is a 81 year old male - Time Spent with Patient Total time spent providing and/or coordinating discharge services: - Discharge Medications Prescriptions: Enoxaparin [Lovenox] 100 mg SQ Q12HR #14 syr Aspirin Enteric Coated [Aspirin EC] 81 mg PO DAILY #30 tablet. Lisinopril [Zestril] 20 mg PO DAILY #30 tablet Magnesium Oxide [Mag-Ox] 400 mg PO BID #60 tablet Ticagrelor [Brilinta] 90 mg PO BID #60 tablet Home Medications: Acetaminophen [Tylenol] 975 mg PO QID PRN 11/16/15 [History] Atorvastatin [Lipitor] 40 mg PO HS 11/16/15 [History] Gabapentin [Neurontin] 200 mg PO TID 11/16/15 [History] Isosorbide MONOnitrate (24 HR) [Imdur] 30 mg PO DAILY 11/16/15 [History] Metformin HCl [Metformin HCl ER] 2,000 mg PO QPM 11/16/15 [History] Ferrous Sulfate [Iron] 325 mg PO BID 12/02/15 [History] Omeprazole [PriLOSEC] 20 mg PO DAILY 12/02/15 [History] Terazosin HCl 10 mg PO HS 12/02/15 [History] glipiZIDE [Glucotrol] 5 mg PO DAILY 12/02/15 [History] Cyanocobalamin (B-12) [Vitamin B12] 1,000 mcg PO DAILY 11/27/16 [History] Spironolactone [Aldactone] 25 mg PO DAILY 11/27/16 [History] Furosemide [Lasix] 20 mg PO BID 06/21/17 [History] Metoprolol XL (24 HR) Succ [Toprol Xl] 25 mg PO BID 06/21/17 [History] [place]-3/Dha/Epa/Fish Oil [Fish Oil 1,000 mg Softgel] 1,000 mg PO DAILY 06/21/17 [History] Warfarin [Coumadin] [facility] 06/21/17 [History] Warfarin [Coumadin] 4 mg PO WE 06/21/17 [History] Aspirin Enteric Coated [Aspirin EC] 81 mg PO DAILY #30 tablet. 06/27/17 [Rx] Enoxaparin [Lovenox] 100 mg SQ Q12HR #14 syr 06/27/17 [Rx] Lisinopril [Zestril] 20 mg PO DAILY #30 tablet 06/27/17 [Rx] Magnesium Oxide [Mag-Ox] 400 mg PO BID #60 tablet 06/27/17 [Rx] Ticagrelor [Brilinta] 90 mg PO BID #60 tablet 06/27/17 [Rx] Allergies/Adverse Reactions: 3 Allergy/AdvReac Type Severity Reaction Status Date / Time pseudoephedrine Allergy Anaphylaxis Verified 06/21/17 11:42 [From Actifed] sulfamethoxazole Allergy Anaphylaxis Verified 06/21/17 11:42 [From Bactrim] tramadol Allergy See Verified 06/21/17 16:38 Comments trimethoprim [From Bactrim] Allergy Anaphylaxis Verified 06/21/17 11:42 triprolidine [From Actifed] Allergy Anaphylaxis Verified 06/21/17 11:42 Date of admission: 06/21/17 17:02 [facility] Consults: 06/21/17 17:23 Consult to Cardiology [CONS] Routine Comment: Consulting Provider: Cardiology Mliady Reason for Consult: acs Time Notified: 17:24 Call Completed: No 06/26/17 10:54 Consult to Cardiac Rehabilitation-Phase1 [CONS] Routine Comment: Reason for Consult: AMI Call Completed: Yes Consult to Nurse Navigator [CONS] Routine Comment: 06/26/17 13:39 Consult to Physical Therapy [CONS] Routine Comment: Evaluate, develop and implement POC Reason for Consult: Discharge planning Does patient have active BEDREST order?: No Is patient medically & hemodynamically stable?: Yes OT [Consult to Occupational Therapy] [CONS] Routine Comment: Evaluate, develop and implement POC Reason for Consult: Discharge planning Does patient have active BEDREST order?: No Is patient medically & hemodynamically stable?: Yes 06/27/17 14:21 Consult to Bass Guitar Teacher [CONS] Routine Reason for SW Consult: PT/OT recommends rehab. Appreciate assistance on placement. - Constitutional Vitals: Temp Pulse Resp BP Pulse Ox 97.8 F 86 18 150/90 98 06/29/17 07:00 06/29/17 07:00 06/29/17 07:00 06/29/17 07:00 06/29/17 07:00 General appearance: Present: A&O X 3, no acute distress, answers questions appropriately - Patient Status Disposition: Transfer Inpatient Rehab Fac Condition: Fair - Discharge Instructions Instructions: Lisinopril (By mouth), Aspirin (By mouth), Enoxaparin (Injection) , Clopidogrel (By mouth), Magnesium (By mouth), Atrial Fibrillation (DC), Chest Pain (DC), Coronary Intravascular Stent Placement (DC), Diabetes Mellitus Type 2 in Adults (DC), Chronic Obstructive Pulmonary Disease (DC), Chronic Hypertension (DC), Coronary Intravascular Stent Placement, Chainstitch Tunnel Elastic Operator (GEN) Follow Up With: [facility],PCP [Primary Care Provider] - 07/04/17 12:15 pm (within a week. Also needs follow-up [facility] as well [facility] said they would take care of it and would let the patient know when the appointment is) Yoel Tripp DO [Partnered Physician] - 07/19/17 8:00 am (this is at the [place] office) Additional Instructions: Please take prescribed Lovenox 100 mg subcutaneously every 12 hours as anticoagulation bridging while taking your home Coumadin regimen. Please follow up with your primary care physician at [facility] within a week regarding your hospitalization. Please follow up with [facility] within a week as well. Please take prescribed aspirin and Brilinta to protect your newly placed stents from re-narrowing. Please follow up with [place] cardiology in 2 weeks regarding possible discontinuation of aspirin. - VTE Documentation of Mechanical Device: Graduated compression elastic hosiery
--- NOTE | 2017-06-29 08:31 | Internal Med Progress Note ---
<Simran Campoverde - Last Filed: 06/29/17 15:11> Date of Encounter: 06/29/17 Time of Encounter: 07:30 - Assessment and plan (1) Hematoma of groin Current Visit: Yes Status: Acute Assessment and plan: - CT pelvis showed right groin hematoma measuring up to 6 cm with subcutaneous edema in the right thigh extending to the scrotum but no hematoma identified in the pelvis. - Hold Lovenox and Coumadin. - Hgb dropped to 7.7. Will transfuse one unit of pRBC given patient's significant CAD history. - Patient had applied Fem-stop to groin. May consider vascular surgery consult for further intervention such as thrombosis if the size of hematoma continues to grow. - Continue close monitoring in the hospital. Qualifiers: Encounter type: initial encounter Qualified Code(s): S30.1XXA - Contusion of abdominal wall, initial encounter (2) CAD (coronary artery disease) Current Visit: No Status: Chronic Assessment and plan: - Known significant history of CAD s/p CABG - LHC on 06/24/17 found severe three vessel coronary artery disease with LV EF 65 %. 1 of 3 patent bypass grafts. - Patient had 3 stents placed at [facility] on 06/26/17 - Continue aspirin, Brilinta, Lipitor, metoprolol, lisinopril and Imdur. Qualifiers: Coronary Disease-Associated Artery/Lesion type: bypass graft [place] vs. transplanted heart: [place] heart Associated angina: with unstable angina Qualified Code(s): I25.700 - Atherosclerosis of coronary artery bypass graft(s) , unspecified, with unstable angina pectoris (3) Atrial fibrillation Current Visit: No Status: Chronic Assessment and plan: - Known history of A-fib. - Continue rate control with metoprolol. - INR 1.1 today. Will hold Lovenox and Coumadin for now given current right groin hematoma. Qualifiers: Atrial fibrillation type: chronic Qualified Code(s): I48.2 - Chronic atrial fibrillation (4) History of DVT (deep vein thrombosis) Current Visit: No Status: Chronic Assessment and plan: - Still subtherapeutic as INR 1.1 today. - Will hold Lovenox and Coumadin at this time given current right groin hematoma. (5) DM2 (diabetes mellitus, type 2) Current Visit: No Status: Chronic Assessment and plan: - Continue insulin sliding scale and glucose monitoring. 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 insulin use: without moth exterminator use Diabetes mellitus complication status: with kidney complications Diabetes mellitus complication detail: with chronic kidney disease Chronic kidney disease stage : stage 3 (moderate) Qualified Code(s): E11.22 - Type 2 diabetes mellitus with diabetic chronic kidney disease; N18.3 - Chronic kidney disease, stage 3 ( moderate); N18.3 - Chronic kidney disease, stage 3 (moderate) (6) HTN (hypertension) Current Visit: No Status: Chronic Assessment and plan: - Continue current anti-hypertensive regimen but may consider holding those if patient's blood pressure drops given his blood loss in the right groin hematoma. Qualifiers: Hypertension type: essential hypertension Qualified Code(s): I10 - Essential (primary) hypertension - Subjective Interval history: Patient was seen and examined earlier this morning. Patient has no complaint at that time and denies chest pain or shortness of breath. - Constitutional Vitals: Temp Pulse Resp BP Pulse Ox 97.8 F 86 18 150/90 98 06/29/17 07:00 06/29/17 07:00 06/29/17 07:00 06/29/17 07:00 06/29/17 07:00 General appearance: Present: A&O X 3, no acute distress, answers questions appropriately - Head Head exam: Present: normal inspection - Eye Eye exam: Present: EOMI - Neck Neck exam general surgery: Present: normal inspection, trachea midline - Respiratory Respiratory exam: Present: CTAB Internal Medicine: Result - Labs CBC & Chem 7: 06/29/17 11:58 06/29/17 11:58 - ABG Interpretation ABG results: PT/INR, D-dimer PT 12.0 Seconds (9.4-12.1) 06/29/17 04:04 - VTE Documentation of Mechanical Device: Graduated compression elastic hosiery Consult Discharge Plan - Plan Instructions: Lisinopril (By mouth), Aspirin (By mouth), Enoxaparin (Injection) , Clopidogrel (By mouth), Magnesium (By mouth), Atrial Fibrillation (DC), Chest Pain (DC), Coronary Intravascular Stent Placement (DC), Diabetes Mellitus Type 2 in Adults (DC), Chronic Obstructive Pulmonary Disease (DC), Chronic Hypertension (DC), Coronary Intravascular Stent Placement, Coagulant Dipper (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 Please follow up with your primary care physician at [place] within a week regarding your hospitalization. Please follow up with [place] [facility] within a week as well. Please take prescribed aspirin and Brilinta to protect your newly placed stents from re-narrowing. Please follow up with [facility] in 2 weeks regarding possible discontinuation of aspirin. Referrals: [place],PCP [Primary Care Provider] - 07/04/17 12:15 pm (within a week. Also needs follow-up [facility] within a week as well [place] [facility] said they would take care of it and would let the patient know when the appointment is) Yoel Tripp DO [Partnered Physician] - 07/19/17 8:00 am (this is at the [place] office) Prescriptions: Enoxaparin [Lovenox] 100 mg SQ Q12HR #14 syr Aspirin Enteric Coated [Aspirin EC] 81 mg PO DAILY #30 tablet. Lisinopril [Zestril] 20 mg PO DAILY #30 tablet Magnesium Oxide [Mag-Ox] 400 mg PO BID #60 tablet Ticagrelor [Brilinta] 90 mg PO BID #60 tablet <Nguyễn Rossi - Last Filed: 06/29/17 19:21> Date of Encounter: 06/29/17 - Assessment and plan (1) Hematoma of groin Current Visit: Yes Status: Acute Qualifiers: Encounter type: initial encounter Qualified Code(s): S30.1XXA - Contusion of abdominal wall, initial encounter (2) Anemia Current Visit: Yes Status: Acute Qualifiers: Anemia type: other cause Other causes of anemia: acute posthemorrhagic Qualified Code(s): D62 - Acute posthemorrhagic anemia (3) Unstable angina Current Visit: Yes Status: Resolved (4) CAD (coronary artery disease) Current Visit: No Status: Chronic Qualifiers: Coronary Disease-Associated Artery/Lesion type: bypass graft [place] vs. transplanted heart: [place] heart Associated angina: with unstable angina Qualified Code(s): I25.700 - Atherosclerosis of coronary artery bypass graft(s) , unspecified, with unstable angina pectoris (5) Atrial fibrillation Current Visit: No Status: Chronic Qualifiers: Atrial fibrillation type: chronic Qualified Code(s): I48.2 - Chronic atrial fibrillation (6) DM2 (diabetes mellitus, type 2) Current Visit: No Status: Chronic 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 insulin use: without long-term use Diabetes mellitus complication status: with kidney complications Diabetes mellitus complication detail: with chronic kidney disease Chronic kidney disease stage : stage 3 (moderate) Qualified Code(s): E11.22 - Type 2 diabetes mellitus with diabetic chronic kidney disease; N18.3 - Chronic kidney disease, stage 3 ( moderate); N18.3 - Chronic kidney disease, stage 3 (moderate) (7) LYNSEY on CPAP Current Visit: No Status: Chronic (8) HTN (hypertension) Current Visit: No Status: Chronic Qualifiers: Hypertension type: essential hypertension Qualified Code(s): I10 - Essential (primary) hypertension (9) Diastolic heart failure Current Visit: No Status: Chronic Qualifiers: Heart failure chronicity: chronic Qualified Code(s): I50.32 - Chronic diastolic (congestive) heart failure - Constitutional Vitals: Temp Pulse Resp BP Pulse Ox 99.1 F 86 19 132/76 97 06/29/17 19:10 06/29/17 19:10 06/29/17 19:10 06/29/17 19:10 06/29/17 19:10 Internal Medicine: Result - Labs CBC & Chem 7: 06/29/17 11:58 06/29/17 11:58 Labs: Short CBC 06/29/17 Range/Units 11:58 WBC 7.2 (4.3-11.1) K/mcL Hgb 7.7 L (12.9-16.9) g/dL Hct 25.1 L (37.5-50.1) % Plt Count 105 L (140-400) K/mcL Neutrophils # 5.8 (1.6-8.9) K/mcL BMP 06/29/17 11:58 Sodium 138 Potassium 4.0 Chloride 118 H Carbon Dioxide 21 L BUN 16 Creatinine 1.16 Glucose 211 H Calcium 7.9 L - ABG Interpretation ABG results: PT/INR, D-dimer PT 12.0 Seconds (9.4-12.1) 06/29/17 04:04 - Impressions Impressions Pelvis CT 06/29/17 10:28 IMPRESSION: Right groin hematoma measuring up to 6 cm. Subcutaneous edema is present in the right thigh extending to the scrotum. There is no hematoma identified in the pelvis. The possibility of active hemorrhage or pseudoaneurysm formation cannot be evaluated on this noncontrast exam, which could be further evaluated with Doppler ultrasound could be performed if clinically appropriate. The findings were sent to the Radiology Results Communication [facility] at 11:30 am on 06/29/2017to be communicated to a licensed caregiver. D/ / Collin Akhtar / Collin Akhtar Interpreting Provider: Collin Akhtar - Attending Attestation I examined this patient and my medical decision-making was reviewed with the Resident Physician on 06/29/17. I agree with the documented findings, disposition and treatment plan as described except to the extent set forth below. Mr Poe is currently admitted for NSTEMI and now has developed a hematoma of his groin. He remains high risk at this time due to potential for worsening clinical status. Mr Poe has developed a R groin hematoma. He had pain there. Pressure has been applied. Appears to be about the same size now. Exam alert Mod distress due to pain in groin Mucus membranes dry Heart reg No wheeze Abd soft Large hematoma R groin and thigh I/P 1. Groin hematoma 2. Anemia Further diagnoses and plan as above Discussed with cardiology - will give antiplatelets due to recent stent. Lovenox and coumadin on hold now. I have held ASA and Brlinta first thing in AM and will restart later in morning. NPO after midnight per vascular surgery. Updated son.
[2017-06-29] MEDS: Insulin LISPRO 300 UNITS/3 ML VIAL SQ SCH ×4 (10:22→20:22)
[2017-06-29] MEDS: Metoprolol XL (24 HR) Succ 25 MG TAB.ER.24H PO SCH ×2 (10:25→20:39)
[2017-06-29] MEDS: Acetaminophen 325 MG TABLET PO PRN ×2 (10:26→18:24)
[2017-06-29] MEDS: Magnesium Oxide 400 MG TABLET PO SCH ×2 (10:26→20:39)
[2017-06-29] MEDS: *HR* Ticagrelor 90 MG TABLET PO SCH ×2 (10:27→20:39)
[2017-06-29] MEDS: Cyanocobalamin (B-12) 1,000 MCG TABLET PO SCH (10:27)
[2017-06-29] MEDS: Lisinopril 20 MG TABLET PO SCH (10:27)
[2017-06-29] MEDS: Spironolactone 25 MG TABLET PO SCH (10:27)
[2017-06-29] MEDS: Gabapentin 100 MG CAPSULE PO SCH ×3 (10:27→20:39)
[2017-06-29] MEDS: Aspirin Enteric Coated 81 MG Tablet PO SCH (10:27)
[2017-06-29] MEDS: Isosorbide MONOnitrate (24 HR) 30 MG TAB.ER.24H PO SCH (10:27)
[2017-06-29] MEDS ORDERED: Ondansetron 4 MG/2 ML VIAL IVP PRN (12:02)
[2017-06-29 12:13] LABS: Basophils % 0.1 %; Eosinophils % 1.5 %; Hematocrit 25.1 % (37.5-50.1); Hemoglobin 7.7 g/dL (12.9-16.9); Immature Granulocytes % 0.8 % (0-4); Lymphocytes % 9.7 %; Mean Corpuscular HGB Conc 30.7 g/dL (31.6-35.5); Mean Corpuscular Hemoglobin 25.3 pg (28.0-33.3); Mean Corpuscular Volume 82.6 fL (83.0-100.0); Mean Platelet Volume 11.9 fL (9.4-12.4); Monocytes % 7.4 %; Platelet Count 105 K/mcL (140-400); Red Blood Count 3.04 M/mcL (4.19-5.50); Red Cell Distribution Width 15.5 % (11.5-14.5); Segmented Neutrophils % 80.5 %
[2017-06-29 12:14] LABS: Eosinophils # 0.1 K/mcL (0.0-0.6); Lymphocytes # 0.7 K/mcL (0.6-4.6); Monocytes # 0.5 K/mcL (0.0-1.3); Neutrophils # 5.8 K/mcL (1.6-8.9)
[2017-06-29 12:38] LABS: BUN/Creatinine Ratio 14 (6-26); Blood Urea Nitrogen 16 mg/dL (8-23); Calcium 7.9 mg/dL (8.6-10.3); Carbon Dioxide 21 mEq/L (23-29); Chloride 118 mEq/L (98-107); Glucose 211 mg/dL (70-105); Osmolality,Calculated 293 (280-300); Sodium 138 mEq/L (136-145); eGFR For African Americans > 60 (> 60); eGFR For Non-African Americans > 60 (> 60)
--- NOTE | 2017-06-29 14:26 | Cardiology Progress Note ---
<Annel Penaloza - Last Filed: 06/29/17 14:17> Date of Encounter: 06/29/17 Time of Encounter: 14:17 Assessment and Plan (1) Hematoma Current Visit: Yes Status: Acute Hematoma in right groin with pseudoaneurysm that was demonstrated by U/S. s/p LHC 3 stents in 1st marginal OM on 06/26/2017 -no falls, patient was on bed rest besides bathroom privileges. Nurse noticed around 10am. -Pelvis CT: right groin hematoma 6cm. Subcutaneous edema in right thigh to scrotum. No hematoma in pelvis. -Hgb 7.7 (8.6) -pedal pulses present. Large right inguinal hematoma that is tender. per cardiology: -consult vascular surgery. recommendations appreciated. -fem stop currently being used. Nurses applying fem-stop state they have noticed improvement in swelling. -1 unit PRBC given -holding coumadin (2) CAD (coronary artery disease) Current Visit: No Status: Chronic Mr. Casey presented with atypical chest pain initially thought to be secondary to PAF. He underwent nuclear stress test that was found to be abnormal and underwent LHC. He has previous history of CABG and PCI. LHC showed severe three vessel CAD. [place]- LAD was patent. SVG-1st Dx with 90% stenosis. Radial artery to OM with 90% stenosis. EF preserved at 65%. New and previous [facility] films reviewed by Dr. Crow and CT surgery was consulted. Patient declined redo CABG. Medical management vs PCI discussed. He would like to proceed with PCI. He has CKD that remains stable. R/B/A of LHC discussed including possible NATHANIEL. He agreeed to proceed. -06/22/2017 TTE: LVEF 50%, Mild left ventricular diastolic dysfunction. Asymmetric hypertrophy of the basal septum. No LVOT obstruction. Atypical septal motion consistent with post-operative status. Normal right ventricular structure and function. Mild mitral regurgitation. Mild pulmonary hypertension. Estimated RVSP is 36 mmHg. -08/02/2016 TTE: EF 65-70% mild left ventricular diastolic dysfunction. mild tricuspid regurgitation ad pulmonary hypertension. -12/02/2015 Cath: ISAC in SVG to proximal 1st diagonal. Previous stent is SVG to 1st diagonal with severe 99% in stent stenosis that was intervened on. -PCI to OM with 3 stents on 06/26/2017. Procedure went well. The site of vascular access appears to be healing well at that time. -Mainly anterolateral and inferolateral ischemia. Has significant residual disease in the anterior and anterolateral rosas based on findings from [facility] 2015. -Denies chest pain and palpitations. No murmur or arrhythmia on exam. Cardiology recommendations: -currently holding coumadin but continue brilinta and asa due to high risk of re -stenosis if stopped -anticoagulation: triple therapy with coumadin, asa, brilinta for 2 weeks then stop aspirin. The patient will follow up in the cardiology office out patient with Dr. Crow. -continue lipitor, metoprolol, imdur, aldactone, lisinopril Qualifiers: Coronary Disease-Associated Artery/Lesion type: bypass graft [place] vs. transplanted heart: [place] heart Associated angina: with unstable angina Qualified Code(s): I25.700 - Atherosclerosis of coronary artery bypass graft(s) , unspecified, with unstable angina pectoris (3) Abnormal nuclear stress test Current Visit: No Status: Acute Abnormal stress test 06/23/17-Pharmacologic stress ECG is non-diagnostic for ischemia due to baseline non-specific ST and T changes. Gated EF = 50%. Medium sized, moderate to severe intensity, partially reversible mid to apical anterior and anterolateral defect. Findings suggestive of a prior NC with significant residual ischemia. Medium sized, moderate to severe intensity, mostly reversible inferior and inferolateral defect suggestive of ischemia. plan as described above. (4) Atrial fibrillation Current Visit: No Status: Chronic History of a.fib on anticoagulation with warfarin and rate controlled with toprol CHADVASC score: 8 (age, CHF, HTN, DM, TIA, DVT, NC) Telemetry review shows avg HR 65bpm. NSR with intermittent rate controlled PAF noted. -currently holding coumadin due to right groin hematoma Qualifiers: Atrial fibrillation type: chronic Qualified Code(s): I48.2 - Chronic atrial fibrillation (5) Elevated troponin Current Visit: Yes Status: Acute Mild adynamic troponin elevation at 0.06, 0.07 x3 (6) CKD (chronic kidney disease) stage 3, GFR 30-59 ml/min Current Visit: No Status: Chronic History of CKD stage 3 Creatinine 1.16 improved -management per primary team. avoid nephrotoxic agents. Discussion w patient/family: The assessment and plan as outlined above was discussed with the patient and/or family members who expressed understanding and agreement. All questions were answered. Thank you for involving us in the care of your patient. Please call with any questions. Subjective Principal diagnosis: chest pain Interval history: The patient reports he is currently chest pain free, no palpitations. Admits right groin pain with hematoma. PCI with stents placed 06/26/2017 Hematoma of right groin with pseudoaneurysm demonstrated by ultrasound. Objective Vital Signs, Last 4 Hours Pulse Resp BP Pulse Ox 06/29/17 13:06 86 16 116/74 99 06/29/17 12:55 88 115/64 06/29/17 12:50 86 116/66 06/29/17 12:45 84 115/70 06/29/17 12:40 84 107/92 06/29/17 12:35 85 118/69 06/29/17 12:30 81 98/68 06/29/17 12:25 81 98/65 06/29/17 12:20 77 113/70 06/29/17 12:15 81 130/76 06/29/17 12:10 85 130/80 06/29/17 12:05 89 132/82 06/29/17 12:00 91 125/62 06/29/17 11:50 88 117/75 06/29/17 11:46 90 128/80 06/29/17 11:00 94 20 138/77 99 General: Conversant, No Apparent Distress HEENT: Mucus Membranes Moist Neck: No JVD Cardiac: Reg Rate and Rhythm, Normal S1 and S2 Neuro: Alert and responsive, No focal deficits noted Abdomen: Soft Skin: Other (right groin hematoma) Musculoskeletal: No Chest Wall Tenderness Extremities: No Edema, Normal Pulses Results 06/29/17 11:58 06/29/17 11:58 Lab Results 06/28/17 06/29/17 06/29/17 14:45 04:04 11:58 WBC 7.2 Hgb 7.7 L Hct 25.1 L Plt Count 105 L INR 1.1 APTT 31.5 D Sodium Potassium Chloride Carbon Dioxide BUN Creatinine Glucose Calcium 06/29/17 11:58 WBC Hgb Hct Plt Count INR APTT Sodium 138 Potassium 4.0 Chloride 118 H Carbon Dioxide 21 L BUN 16 Creatinine 1.16 Glucose 211 H Calcium 7.9 L - VTE Documentation of Mechanical Device: Graduated compression elastic hosiery Consult Discharge Plan - Plan Instructions: Lisinopril (By mouth), Aspirin (By mouth), Enoxaparin (Injection) , Clopidogrel (By mouth), Magnesium (By mouth), Atrial Fibrillation (DC), Chest Pain (DC), Coronary Intravascular Stent Placement (DC), Diabetes Mellitus Type 2 in Adults (DC), Chronic Obstructive Pulmonary Disease (DC), Chronic Hypertension (DC), Coronary Intravascular Stent Placement, Oceanographer Geological (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 Please follow up with your primary care physician at [place] within a week regarding your hospitalization. Please follow up with [place] [facility] within a week as well. Please take prescribed aspirin and Brilinta to protect your newly placed stents from re-narrowing. Please follow up with [facility] in 2 weeks regarding possible discontinuation of aspirin. Referrals: [place],PCP [Primary Care Provider] - 07/04/17 12:15 pm (within a week. Also needs follow-up [place] [facility] within a week as well [place] [facility] said they would take care of it and would let the patient know when the appointment is) Yoel Tripp DO [Partnered Physician] - 07/19/17 8:00 am (this is at the [place] office) Prescriptions: Enoxaparin [Lovenox] 100 mg SQ Q12HR #14 syr Aspirin Enteric Coated [Aspirin EC] 81 mg PO DAILY #30 tablet. Lisinopril [Zestril] 20 mg PO DAILY #30 tablet Magnesium Oxide [Mag-Ox] 400 mg PO BID #60 tablet Ticagrelor [Brilinta] 90 mg PO BID #60 tablet <Madelyn Rob - Last Filed: 06/29/17 15:46> Date of Encounter: 06/29/17 Assessment and Plan (1) Hematoma Current Visit: Yes Status: Acute Hematoma in right groin with pseudoaneurysm that was demonstrated by U/S. s/p [facility] 3 stents in 1st [facility] OM on 06/26/2017 -no falls, patient was on bed rest besides bathroom privileges. Nurse noticed around 10am. -Pelvis CT: right groin hematoma 6cm. Subcutaneous edema in right thigh to scrotum. No hematoma in pelvis. -Hgb 7.7 (8.6) -pedal pulses present. Large right inguinal hematoma that is tender. per cardiology: -consult vascular surgery. recommendations appreciated. -fem stop currently being used. Nurses applying fem-stop state they have noticed improvement in swelling. -1 unit PRBC given -holding coumadin I examined this patient and my medical decision-making was reviewed with the Resident Physician. I agree with the documented findings, disposition and treatment plan as described except to the extent set forth below. S/P femoral LHC found to have hematoma with pseudoaneurysm on US. Consult Vascular for ? thrombin Injection Low femoral stick with low chance of RPH. Hemodynamicaly stable Discussion w patient/family: The assessment and plan as outlined above was discussed with the patient and/or family members who expressed understanding and agreement. All questions were answered. Thank you for involving us in the care of your patient. Please call with any questions. Objective Vital Signs, Last 4 Hours Temp Pulse Resp BP Pulse Ox 06/29/17 15:33 98.2 F 06/29/17 15:18 92 22 116/72 06/29/17 15:15 97.8 F 84 19 109/63 99 06/29/17 15:14 97.8 F 06/29/17 15:10 84 19 102/67 99 06/29/17 13:06 86 16 116/74 99 06/29/17 12:55 88 115/64 06/29/17 12:50 86 116/66 06/29/17 12:45 84 115/70 06/29/17 12:40 84 107/92 06/29/17 12:35 85 118/69 06/29/17 12:30 81 98/68 06/29/17 12:25 81 98/65 06/29/17 12:20 77 113/70 06/29/17 12:15 81 130/76 06/29/17 12:10 85 130/80 06/29/17 12:05 89 132/82 06/29/17 12:00 91 125/62 06/29/17 11:50 88 117/75 06/29/17 11:46 90 128/80 Results 06/29/17 11:58 06/29/17 11:58 Lab Results 06/29/17 06/29/17 06/29/17 04:04 11:58 11:58 WBC 7.2 Hgb 7.7 L Hct 25.1 L Plt Count 105 L INR 1.1 Sodium 138 Potassium 4.0 Chloride 118 H Carbon Dioxide 21 L BUN 16 Creatinine 1.16 Glucose 211 H Calcium 7.9 L
[2017-06-29] MEDS ORDERED: 0.9 % Sodium Chloride Mini Bag 100 ML ONE (15:05)
--- NOTE | 2017-06-29 19:06 | Vascular/Endovasc Consult Note ---
Date of Encounter: 06/29/17 Time of Encounter: 15:30 Assessment and Plan (1) History of DVT (deep vein thrombosis) Current Visit: No Status: Chronic Patient is treated with chronic anticoagulation with Coumadin. (2) COPD (chronic obstructive pulmonary disease) Current Visit: Yes Status: Chronic The patient is under chronic medical treatment for COPD Qualifiers: COPD type: emphysema Emphysema type: unspecified Qualified Code(s): J43.9 - Emphysema, unspecified (3) ACS (acute coronary syndrome) Current Visit: Yes Status: Acute Patient has undergone 2 cardiac catheterizations with stent angioplasty of obtuse marginal artery earlier this week via right femoral approach. (4) Hematoma of groin Current Visit: Yes Status: Acute Patient has delayed onset of right groin hematoma at puncture site. The hematoma this time appears to be controlled. I would recommend the patient be kept at strict bedrest and nothing by mouth for observation overnight. If the patient is stable we may liberalize his activity and diet tomorrow morning. At this point I do not believe there is an expanding hematoma or active bleeding requiring surgery. I agree with transfusion at this time. Patient's anticoagulation will need to be held. Qualifiers: Encounter type: initial encounter Qualified Code(s): S30.1XXA - Contusion of abdominal wall, initial encounter - History of Present Illness Consult date: 06/29/17 Requesting physician: Minal Felix Consult reason: Right groin hematoma Chief complaint: Right groin swelling History of present illness: Mr. Poe is a 81 year old male Was identified as having a right groin hematoma earlier today. The patient states that he was rolling in bed in order to sit up. He does this because he has chronic back pain. He noted after he had accomplished this that he developed a swelling in the right groin. He alerted the staff and this led to further evaluation and diagnostic workup. This included a CT scan as well as a duplex scan of the right groin. The CT scan demonstrates hematoma in the right groin approximate 5 cm. The duplex scan was negative for pseudoaneurysm. The vessels were patent. Of note the patient had undergone a cardiac catheterization on June 24 and then a second cardiac catheterization on June 26 via the right groin. He went on to have 3 stents placed in his obtuse marginal on that date. He had declined a redo CABG earlier. He was originally admitted to the hospital at this time on referral from [facility] because of chest pain. He was found to have an acute non-STEMI. This led to cardiology's involvement and the cardiac catheterizations. The patient's past history is significant for hypertension and diabetes. At the time of my initial evaluation the patient had only mild pain in the right groin. He had no leg pain. Direct manual compression and the use of a FemoStop has been ongoing since about 10 AM this morning. It was noted by the staff that they were able to control the swelling in the groin but when releasing pressure or the FemoStop that there was expansion in the medial and inferior aspect and so this led to multiple attempts at reapplication. Past Med Surg Social Fam HX - Past Medical History Medical history: atrial fibrillation, CHF, COPD, coronary artery disease, DVT, diabetes, GERD, hyperlipidemia, hypertension, myocardial infarction, pulmonary embolus, TIA, other Psychiatric history: no psych history - Past Surgical History Surgical History: angioplasty/stent, coronary bypass (CABG), IVC Filter, other - Social History Smoking Status: Former smoker Smokeless Tobacco Status: No Alcohol use: none Drug use: none - Family History Father Living Status: Hx Family Cardiac Disorders: Yes (Father) Hx Family Respiratory Disorders: No Hx Family Cancer: Yes Hx Family GI Disorders: Yes (ULCERS, GERD) Hx Family Endocrine Disorder: No Hx Family Neuromuscular Disorders: No Hx Family Neurologic Disorders: No Hx Family HEENT Disorders: No Hx Family Autoimmune Disorders: No Medications and Allergies Acetaminophen [Tylenol] 975 mg PO QID PRN 11/16/15 [History] Atorvastatin [Lipitor] 40 mg PO HS 11/16/15 [History] Gabapentin [Neurontin] 200 mg PO TID 11/16/15 [History] Isosorbide MONOnitrate (24 HR) [Imdur] 30 mg PO DAILY 11/16/15 [History] Metformin HCl [Metformin HCl ER] 2,000 mg PO QPM 11/16/15 [History] Ferrous Sulfate [Iron] 325 mg PO BID 12/02/15 [History] Omeprazole [PriLOSEC] 20 mg PO DAILY 12/02/15 [History] Terazosin HCl 10 mg PO HS 12/02/15 [History] glipiZIDE [Glucotrol] 5 mg PO DAILY 12/02/15 [History] Cyanocobalamin (B-12) [Vitamin B12] 1,000 mcg PO DAILY 11/27/16 [History] Spironolactone [Aldactone] 25 mg PO DAILY 11/27/16 [History] Furosemide [Lasix] 20 mg PO BID 06/21/17 [History] Metoprolol XL (24 HR) Succ [Toprol Xl] 25 mg PO BID 06/21/17 [History] [place]-3/Dha/Epa/Fish Oil [Fish Oil 1,000 mg Softgel] 1,000 mg PO DAILY 06/21/17 [History] Warfarin [Coumadin] 3 mg PO SUMOTUTHFRSA 06/21/17 [History] Warfarin [Coumadin] 4 mg PO WE 06/21/17 [History] Aspirin Enteric Coated [Aspirin EC] 81 mg PO DAILY #30 tablet. 06/27/17 [Rx] Enoxaparin [Lovenox] 100 mg SQ Q12HR #14 syr 06/27/17 [Rx] Lisinopril [Zestril] 20 mg PO DAILY #30 tablet 06/27/17 [Rx] Magnesium Oxide [Mag-Ox] 400 mg PO BID #60 tablet 06/27/17 [Rx] Ticagrelor [Brilinta] 90 mg PO BID #60 tablet 06/27/17 [Rx] 3 Allergy/AdvReac Type Severity Reaction Status Date / Time pseudoephedrine Allergy Anaphylaxis Verified 06/21/17 11:42 [From Actifed] sulfamethoxazole Allergy Anaphylaxis Verified 06/21/17 11:42 [From Bactrim] tramadol Allergy See Verified 06/21/17 16:38 Comments trimethoprim [From Bactrim] Allergy Anaphylaxis Verified 06/21/17 11:42 triprolidine [From Actifed] Allergy Anaphylaxis Verified 06/21/17 11:42 All Systems Review: The remainder of the systems were reviewed and are negative Exam Vital Signs, Last 4 Hours Temp Pulse Resp BP Pulse Ox 06/29/17 18:45 85 149/76 95 06/29/17 18:30 84 144/84 98 06/29/17 18:18 98.2 F 88 16 125/76 100 06/29/17 18:15 88 16 125/76 99 06/29/17 18:00 89 145/84 100 06/29/17 17:45 89 112/76 99 06/29/17 17:30 98.1 F 90 16 138/79 99 06/29/17 15:33 98.2 F 06/29/17 15:18 92 22 116/72 06/29/17 15:15 97.8 F 84 19 109/63 99 06/29/17 15:14 97.8 F 06/29/17 15:10 84 19 102/67 99 General: Present: Conversant, No Apparent Distress, Well developed, Well nourished HEENT: Present: Atraumatic, Normocephaly Neck: Absent: JVD Cardiac: Present: Reg Rate and Rhythm Neuro: Present: Alert and responsive, No focal deficits noted Abdomen: Present: Soft, Non-tender. Absent: Masses Vascular: Present: Normal capillary refill, Other (The patient has ecchymosis on the right groin. The patient has a firm indurated circular mass near the inguinal crease about possibly 5 x 5 cm. It is nonpulsatile. There is no signs of skin slough or skin blebs.). Absent: Cyanosis, Edema Skin: Present: No rashes noted on visualized skin Consult Discharge Plan - Plan Instructions: Lisinopril (By mouth), Aspirin (By mouth), Enoxaparin (Injection) , Clopidogrel (By mouth), Magnesium (By mouth), Atrial Fibrillation (DC), Chest Pain (DC), Coronary Intravascular Stent Placement (DC), Diabetes Mellitus Type 2 in Adults (DC), Chronic Obstructive Pulmonary Disease (DC), Chronic Hypertension (DC), Coronary Intravascular Stent Placement, Director Data Architecture (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 Please follow up with your primary care physician at [facility] within a week regarding your hospitalization. Please follow up with [facility] within a week as well. Please take prescribed aspirin and Brilinta to protect your newly placed stents from re-narrowing. Please follow up with [place] cardiology in 2 weeks regarding possible discontinuation of aspirin. Referrals: [facility],PCP [Primary Care Provider] - 07/04/17 12:15 pm (within a week. Also needs follow-up [facility] would take care of it and would let the patient know when the appointment is) Yoel Tripp DO [Partnered Physician] - 07/19/17 8:00 am (this is at the [place] office) Prescriptions: Enoxaparin [Lovenox] 100 mg SQ Q12HR #14 syr Aspirin Enteric Coated [Aspirin EC] 81 mg PO DAILY #30 tablet. Lisinopril [Zestril] 20 mg PO DAILY #30 tablet Magnesium Oxide [Mag-Ox] 400 mg PO BID #60 tablet Ticagrelor [Brilinta] 90 mg PO BID #60 tablet
--- NOTE | 2017-06-29 19:12 | Event Note ---
Date of Encounter: 06/29/17 Time of Encounter: 18:45 I'm seeing this patient earlier this afternoon in consultation. I came to his bedside late this afternoon for recheck of his physical status. He has subsequently been transferred from to [facility] to [address] [place] [address] #9. On my visit with him late this afternoon the patient is lying in bed. He is comfortable. He expresses no ongoing pain. He expresses that the right groin is stable and is presently not causing him any new symptoms. He can feel the induration and mass affect from the hematoma but this is certainly stable and better from earlier this afternoon. His vital signs and mental status remained stable. We'll plan on leaving the patient at strict bed rest and nothing by mouth overnight except for medicines. His Coumadin is to be held. Recheck hemoglobin.
[2017-06-29 20:31] LABS: Hematocrit 27.7 % (37.5-50.1); Hemoglobin 8.5 g/dL (12.9-16.9)
[2017-06-30 01:14] LABS: Basophils % 0.2 %; Eosinophils # 0.1 K/mcL (0.0-0.6); Eosinophils % 1.2 %; Hematocrit 25.8 % (37.5-50.1); Hemoglobin 8.1 g/dL (12.9-16.9); Immature Granulocytes % 0.9 % (0-4); Lymphocytes # 0.9 K/mcL (0.6-4.6); Lymphocytes % 11.2 %; Mean Corpuscular HGB Conc 31.4 g/dL (31.6-35.5); Mean Platelet Volume 12.3 fL (9.4-12.4); Monocytes # 0.6 K/mcL (0.0-1.3); Monocytes % 7.6 %; Neutrophils # 6.4 K/mcL (1.6-8.9); Platelet Count 118 K/mcL (140-400); Red Blood Count 3.11 M/mcL (4.19-5.50); Red Cell Distribution Width 15.6 % (11.5-14.5); Segmented Neutrophils % 78.9 %
[2017-06-30 01:25] LABS: INR 1.1; Prothrombin Time 11.9 Seconds (9.4-12.1)
[2017-06-30 01:33] LABS: BUN/Creatinine Ratio 15 (6-26); Blood Urea Nitrogen 19 mg/dL (8-23); Calcium 8.4 mg/dL (8.6-10.3); Carbon Dioxide 23 mEq/L (23-29); Chloride 113 mEq/L (98-107); Glucose 163 mg/dL (70-105); Osmolality,Calculated 296 (280-300); Potassium 4.1 mEq/L (3.5-5.1); Sodium 140 mEq/L (136-145); eGFR For African Americans > 60 (> 60); eGFR For Non-African Americans 54 (> 60)
--- NOTE | 2017-06-30 08:03 | Vascular/Endovas Progress Note ---
Date of Encounter: 06/30/17 Time of Encounter: 07:45 - Assessment and plan (1) History of DVT (deep vein thrombosis) Current Visit: No Status: Chronic Patient is treated with chronic anticoagulation with Coumadin. (2) COPD (chronic obstructive pulmonary disease) Current Visit: Yes Status: Chronic The patient is under chronic medical treatment for COPD Qualifiers: COPD type: emphysema Emphysema type: unspecified Qualified Code(s): J43.9 - Emphysema, unspecified (3) ACS (acute coronary syndrome) Current Visit: Yes Status: Acute Patient has undergone 2 cardiac catheterizations with stent angioplasty of obtuse marginal artery earlier this week via right femoral approach. (4) Hematoma of groin Current Visit: Yes Status: Acute Patient is doing well. There is no signs of expanding hematoma. Hemoglobin remained stable following 1 unit of transfusion. Therefore the patient may resume diet. He may liberalize her activity. Vascular surgery will sign off case for now. Thank you for consultation. Qualifiers: Encounter type: initial encounter Qualified Code(s): S30.1XXA - Contusion of abdominal wall, initial encounter - Subjective Interval history: The patient has no new complaints. He states he had an uneventful night. He does not have pain in the right groin. He was able to sleep during the night without difficulty. Vital Signs, Last 4 Hours Temp Pulse Resp BP Pulse Ox 06/30/17 07:08 98.9 F 96 16 95 06/30/17 04:48 98.1 F 101 18 103/49 96 - Physical Examination General: Present: Conversant, No Apparent Distress HEENT: Present: Atraumatic Neuro: Present: Alert and responsive, No focal deficits noted, Cranial nerves grossly intact Vascular: Present: Other (The right groin is soft. There is no bruit. There is no expanding hematoma. Ecchymosis is present as noted yesterday. There is no tenderness. The right foot remains warm.) - VTE Documentation of Mechanical Device: Graduated compression elastic hosiery Results 06/30/17 00:22 06/30/17 00:22 Lab Results, Last 24 hours 06/29/17 06/29/17 06/29/17 11:58 11:58 19:45 WBC 7.2 Hgb 7.7 L 8.5 L Hct 25.1 L 27.7 L Plt Count 105 L INR Sodium 138 Potassium 4.0 Chloride 118 H Carbon Dioxide 21 L BUN 16 Creatinine 1.16 Glucose 211 H Calcium 7.9 L 06/30/17 06/30/17 06/30/17 00:22 00:22 00:22 WBC 8.1 Hgb 8.1 L Hct 25.8 L Plt Count 118 L INR 1.1 Sodium 140 Potassium 4.1 Chloride 113 H Carbon Dioxide 23 BUN 19 Creatinine 1.29 Glucose 163 H Calcium 8.4 L Consult Discharge Plan - Plan Instructions: Lisinopril (By mouth), Aspirin (By mouth), Enoxaparin (Injection) , Clopidogrel (By mouth), Magnesium (By mouth), Atrial Fibrillation (DC), Chest Pain (DC), Coronary Intravascular Stent Placement (DC), Diabetes Mellitus Type 2 in Adults (DC), Chronic Obstructive Pulmonary Disease (DC), Chronic Hypertension (DC), Coronary Intravascular Stent Placement, Machine Joint Cutter (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 Please follow up with your primary care physician at [facility] within a week regarding your hospitalization. Please follow up with [facility] within a week as well. Please take prescribed aspirin and Brilinta to protect your newly placed stents from re-narrowing. Please follow up with [place] [facility]ology in 2 weeks regarding possible discontinuation of aspirin. Referrals: [facility],PCP [Primary Care Provider] - 07/04/17 12:15 pm (within a week. Also needs follow-up [facility] within a week as well [facility] said they would take care of it and would let the patient know when the appointment is) Yoel Tripp DO [Partnered Physician] - 07/19/17 8:00 am (this is at the [place] office) Prescriptions: Enoxaparin [Lovenox] 100 mg SQ Q12HR #14 syr Aspirin Enteric Coated [Aspirin EC] 81 mg PO DAILY #30 tablet. Lisinopril [Zestril] 20 mg PO DAILY #30 tablet Magnesium Oxide [Mag-Ox] 400 mg PO BID #60 tablet Ticagrelor [Brilinta] 90 mg PO BID #60 tablet
[2017-06-30] MEDS: Gabapentin 100 MG CAPSULE PO SCH ×3 (08:59→20:56)
[2017-06-30] MEDS: Isosorbide MONOnitrate (24 HR) 30 MG TAB.ER.24H PO SCH (08:59)
[2017-06-30] MEDS: Cyanocobalamin (B-12) 1,000 MCG TABLET PO SCH (08:59)
[2017-06-30] MEDS: Magnesium Oxide 400 MG TABLET PO SCH ×2 (08:59→20:57)
[2017-06-30] MEDS: Spironolactone 25 MG TABLET PO SCH (08:59)
[2017-06-30] MEDS: Insulin LISPRO 300 UNITS/3 ML VIAL SQ SCH ×4 (08:59→20:48)
[2017-06-30] MEDS: Metoprolol XL (24 HR) Succ 25 MG TAB.ER.24H PO SCH ×2 (08:59→20:56)
[2017-06-30] MEDS: Lisinopril 20 MG TABLET PO SCH (08:59)
--- NOTE | 2017-06-30 09:39 | Internal Med Progress Note ---
<Simran Campoverde - Last Filed: 06/30/17 18:05> Date of Encounter: 06/30/17 Time of Encounter: 08:00 - Assessment and plan (1) Hematoma of groin Current Visit: Yes Status: Acute Assessment and plan: - CT pelvis on 06/29/17 showed right groin hematoma measuring up to 6 cm with subcutaneous edema in the right thigh extending to the scrotum but no hematoma identified in the pelvis. - Hold Lovenox and Coumadin. - Per vascular surgery note this morning, no indication for surgical intervention at this time. - S/p 1 unit of pRBC transfusion so far. - Hgb dropped from 8.1 to 7.1 again this afternoon. Will transfuse one more unit of pRBC given patient's significant CAD history. - Continue close monitoring with H&H every 6 hours. Consider more pRBC transfusion if Hgb drops below 8.0. Qualifiers: Encounter type: initial encounter Qualified Code(s): S30.1XXA - Contusion of abdominal wall, initial encounter (2) CAD (coronary artery disease) Current Visit: No Status: Chronic Assessment and plan: - Known significant history of CAD s/p CABG - LHC on 06/24/17 found severe three vessel coronary artery disease with LV EF 65 %. 1 of 3 patent bypass grafts. - Patient had 3 stents placed at [facility] on 06/26/17 - Continue aspirin, Brilinta, Lipitor, metoprolol, lisinopril and Imdur. Qualifiers: Coronary Disease-Associated Artery/Lesion type: bypass graft [place] vs. transplanted heart: [place] heart Associated angina: with unstable angina Qualified Code(s): I25.700 - Atherosclerosis of coronary artery bypass graft(s) , unspecified, with unstable angina pectoris (3) Atrial fibrillation Current Visit: No Status: Chronic Assessment and plan: - Known history of A-fib. - Continue rate control with metoprolol. - INR 1.1 today. Continue to hold Lovenox and Coumadin for now given current right groin hematoma. Qualifiers: Atrial fibrillation type: chronic Qualified Code(s): I48.2 - Chronic atrial fibrillation (4) History of DVT (deep vein thrombosis) Current Visit: No Status: Chronic Assessment and plan: - Still subtherapeutic as INR 1.1 today. - Continue to hold Lovenox and Coumadin at this time given current right groin hematoma. (5) DM2 (diabetes mellitus, type 2) Current Visit: No Status: Chronic Assessment and plan: - Continue insulin sliding scale and glucose monitoring. Qualifiers: Diabetes mellitus senior living insulin use: without local intermodal truck driver use Diabetes mellitus complication status: with kidney complications Diabetes mellitus complication detail: with chronic kidney disease Chronic kidney disease stage : stage 3 (moderate) Qualified Code(s): E11.22 - Type 2 diabetes mellitus with diabetic chronic kidney disease; N18.3 - Chronic kidney disease, stage 3 ( moderate); N18.3 - Chronic kidney disease, stage 3 (moderate) (6) HTN (hypertension) Current Visit: No Status: Chronic Assessment and plan: - Continue current anti-hypertensive regimen but may consider holding those if patient's blood pressure drops given his blood loss in the right groin hematoma. Qualifiers: Hypertension type: essential hypertension Qualified Code(s): I10 - Essential (primary) hypertension - Subjective Interval history: Patient was seen and examined this morning. Patient reports right groin pain improves. Patient denies fever, chills, chest pain, shortness of breath, lightheadedness, abdominal pain, nausea, vomiting. - Constitutional Vitals: Temp Pulse Resp BP Pulse Ox 98.9 F 80 16 103/49 95 06/30/17 07:08 06/30/17 08:15 06/30/17 07:08 06/30/17 04:48 06/30/17 07:08 General appearance: Present: A&O X 3, no acute distress, answers questions appropriately - Head Head exam: Present: normal inspection - Eye Eye exam: Present: EOMI - Neck Neck exam general surgery: Present: normal inspection, trachea midline - Respiratory Respiratory exam: Present: CTAB - Cardiovascular Cardiovascular exam: Present: RRR, +S1, +S2 - GI/Abdominal GI/Abdominal exam: Present: normal bowel sounds, soft. Absent: tenderness - Extremities Exam Extremities exam: Present: pedal edema (Chronic right lower extremity edema.). Absent: cyanotic Additional comments: Right groin hematoma noted. No signficant increase in size compared to the draw from yesterday. Tender to touch but soft. - Neurological Exam Neurological exam: Present: alert, no focal deficits. Absent: facial droop, speech deficit - Skin Skin exam: Present: dry, warm Internal Medicine: Result - Labs CBC & Chem 7: 06/30/17 12:02 06/30/17 00:22 Labs: Short CBC 06/29/17 06/29/17 06/30/17 Range/Units 11:58 19:45 00:22 WBC 7.2 8.1 (4.3-11.1) K/mcL Hgb 7.7 L 8.5 L 8.1 L (12.9-16.9) g/dL Hct 25.1 L 27.7 L 25.8 L (37.5-50.1) % Plt Count 105 L 118 L (140-400) K/mcL Neutrophils # 5.8 6.4 (1.6-8.9) K/mcL BMP 06/29/17 06/30/17 11:58 00:22 Sodium 138 140 Potassium 4.0 4.1 Chloride 118 H 113 H Carbon Dioxide 21 L 23 BUN 16 19 Creatinine 1.16 1.29 Glucose 211 H 163 H Calcium 7.9 L 8.4 L - ABG Interpretation ABG results: PT/INR, D-dimer PT 11.9 Seconds (9.4-12.1) 06/30/17 00:22 - Impressions Impressions Pelvis CT 06/29/17 10:28 IMPRESSION: Right groin hematoma measuring up to 6 cm. Subcutaneous edema is present in the right thigh extending to the scrotum. There is no hematoma identified in the pelvis. The possibility of active hemorrhage or pseudoaneurysm formation cannot be evaluated on this noncontrast exam, which could be further evaluated with Doppler ultrasound could be performed if clinically appropriate. The findings were sent to the Radiology Results Communication Center at 11:30 am on 06/29/2017to be communicated to a licensed caregiver. 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 Please follow up with your primary care physician at [place] within a week regarding your hospitalization. Please follow up with [place] [facility] within a week as well. Please take prescribed aspirin and Brilinta to protect your newly placed stents from re-narrowing. Please follow up with [place] [facility] in 2 weeks regarding possible discontinuation of aspirin. Referrals: [facility],PCP [Primary Care Provider] - 07/04/17 12:15 pm (within a week. Also needs follow-up [facility] within a week as well [place] [facility] said they would take care of it and would let the patient know when the appointment is) Yoel Tripp DO [Partnered Physician] - 07/19/17 8:00 am (this is at the [facility]) Prescriptions: Enoxaparin [Lovenox] 100 mg SQ Q12HR #14 syr Aspirin Enteric Coated [Aspirin EC] 81 mg PO DAILY #30 tablet. Lisinopril [Zestril] 20 mg PO DAILY #30 tablet Magnesium Oxide [Mag-Ox] 400 mg PO BID #60 tablet Ticagrelor [Brilinta] 90 mg PO BID #60 tablet <Nguyễn Rossi - Last Filed: 06/30/17 19:51> Date of Encounter: 06/30/17 - Assessment and plan (1) Hematoma of groin Current Visit: Yes Status: Acute Qualifiers: Encounter type: subsequent encounter Qualified Code(s): S30.1XXD - Contusion of abdominal wall, subsequent encounter (2) Anemia Current Visit: Yes Status: Acute Qualifiers: Anemia type: other cause Other causes of anemia: acute posthemorrhagic Qualified Code(s): D62 - Acute posthemorrhagic anemia (3) Unstable angina Current Visit: Yes Status: Resolved (4) CAD (coronary artery disease) Current Visit: No Status: Chronic Qualifiers: Coronary Disease-Associated Artery/Lesion type: bypass graft [place] vs. transplanted heart: [place] heart Associated angina: with unstable angina Qualified Code(s): I25.700 - Atherosclerosis of coronary artery bypass graft(s) , unspecified, with unstable angina pectoris (5) Atrial fibrillation Current Visit: No Status: Chronic Qualifiers: Atrial fibrillation type: chronic Qualified Code(s): I48.2 - Chronic atrial fibrillation (6) DM2 (diabetes mellitus, type 2) Current Visit: No Status: Chronic Qualifiers: Diabetes mellitus local intermodal truck driver insulin use: without local intermodal truck driver use Diabetes mellitus complication status: with kidney complications Diabetes mellitus complication detail: with chronic kidney disease Chronic kidney disease stage : stage 3 (moderate) Qualified Code(s): E11.22 - Type 2 diabetes mellitus with diabetic chronic kidney disease; N18.3 - Chronic kidney disease, stage 3 ( moderate); N18.3 - Chronic kidney disease, stage 3 (moderate) (7) LYNSEY on CPAP Current Visit: No Status: Chronic (8) HTN (hypertension) Current Visit: No Status: Chronic Qualifiers: Hypertension type: essential hypertension Qualified Code(s): I10 - Essential (primary) hypertension (9) Diastolic heart failure Current Visit: No Status: Chronic Qualifiers: Heart failure chronicity: chronic Qualified Code(s): I50.32 - Chronic diastolic (congestive) heart failure - Constitutional Vitals: Temp Pulse Resp BP Pulse Ox 99.3 F 94 19 126/73 97 06/30/17 19:45 06/30/17 19:45 06/30/17 19:45 06/30/17 19:45 06/30/17 19:45 Internal Medicine: Result - Labs CBC & Chem 7: 06/30/17 12:02 06/30/17 00:22 Labs: Short CBC 06/29/17 06/30/17 06/30/17 Range/Units 19:45 00:22 12:02 WBC 8.1 (4.3-11.1) K/mcL Hgb 8.5 L 8.1 L 7.2 L (12.9-16.9) g/dL Hct 27.7 L 25.8 L 23.6 L (37.5-50.1) % Plt Count 118 L (140-400) K/mcL Neutrophils # 6.4 (1.6-8.9) K/mcL BMP 06/30/17 00:22 Sodium 140 Potassium 4.1 Chloride 113 H Carbon Dioxide 23 BUN 19 Creatinine 1.29 Glucose 163 H Calcium 8.4 L - ABG Interpretation ABG results: PT/INR, D-dimer PT 11.9 Seconds (9.4-12.1) 06/30/17 00:22 - Attending Attestation I examined this patient and my medical decision-making was reviewed with the Resident Physician on 06/30/17. I agree with the documented findings, disposition and treatment plan as described except to the extent set forth below. Mr Poe is currently admitted for [facility]. He has large groin hematoma. He is receiving blood. He remains moderate to high risk due to potential for worsening clinical status. Mr Poe feels OK. Less pain in groin. No fever or chills. No GI issues. No CP or SOB. Exam alert Comfortable Mucus membranes dry Heart reg No wheeze Hematoma size same I/P 1. Hematoma 2. [place] Further diagnoses and plan as above.
--- NOTE | 2017-06-30 10:22 | Cardiology Progress Note ---
<Annel Penaloza - Last Filed: 06/30/17 10:20> Date of Encounter: 06/30/17 Time of Encounter: 09:00 Assessment and Plan (1) Hematoma of groin Current Visit: Yes Status: Acute Patient reports improvement in pain of right groin hematoma. Hgb stable 8.1 (8.5 , 7.7) Hematoma in right groin. s/p LHC 3 stents in 1st marginal OM on 06/26/2017 -Pelvis CT: right groin hematoma 6cm. Subcutaneous edema in right thigh to scrotum. No hematoma in pelvis. -Arterial duplex negative for pseudoaneurysm. -pedal pulses present. Large right inguinal hematoma that is tender. -1 unit PRBC given per cardiology: -consulted vascular surgery, appreciate recommendations. They have signed off since Hgb stable and no need for further intervention -holding coumadin currently. Upon discharge restart coumadin. -Cardiology will sign off and follow up out patient. Qualifiers: Encounter type: initial encounter Qualified Code(s): S30.1XXA - Contusion of abdominal wall, initial encounter (2) CAD (coronary artery disease) Current Visit: No Status: Chronic Mr. Casey presented with atypical chest pain initially thought to be secondary to PAF. He underwent nuclear stress test that was found to be abnormal and underwent LHC. He has previous history of CABG and PCI. LHC showed severe three vessel CAD. [place]- LAD was patent. SVG-1st Dx with 90% stenosis. Radial artery to OM with 90% stenosis. EF preserved at 65%. New and previous C films reviewed by Dr. Crow and CT surgery was consulted. Patient declined redo CABG. Medical management vs PCI discussed and he chose PCI. -06/22/2017 TTE: LVEF 50%, Mild left ventricular diastolic dysfunction. Asymmetric hypertrophy of the basal septum. No LVOT obstruction. Atypical septal motion consistent with post-operative status. Normal right ventricular structure and function. Mild mitral regurgitation. Mild pulmonary hypertension. Estimated RVSP is 36 mmHg. -08/02/2016 TTE: EF 65-70% mild left ventricular diastolic dysfunction. mild tricuspid regurgitation ad pulmonary hypertension. -12/02/2015 Cath: ISAC in SVG to proximal 1st diagonal. Previous stent is SVG to 1st diagonal with severe 99% in stent stenosis that was intervened on. -PCI to OM with 3 stents on 06/26/2017. Procedure went well. The site of vascular access appears to be healing well at that time. -Mainly anterolateral and inferolateral ischemia. Has significant residual disease in the anterior and anterolateral rosas based on findings from [facility] 2015. -Denies chest pain and palpitations. No murmur or arrhythmia on exam. Cardiology recommendations: -currently holding coumadin due to right groin hematoma but continue brilinta and asa due to high risk of re-stenosis if stopped -anticoagulation: triple therapy with coumadin, asa, brilinta for 2 weeks then stop aspirin. The patient will follow up in the cardiology office out patient. -continue lipitor, metoprolol, imdur, aldactone, lisinopril Qualifiers: Coronary Disease-Associated Artery/Lesion type: bypass graft [place] vs. transplanted heart: [place] heart Associated angina: with unstable angina Qualified Code(s): I25.700 - Atherosclerosis of coronary artery bypass graft(s) , unspecified, with unstable angina pectoris (3) Atrial fibrillation Current Visit: No Status: Chronic History of a.fib on anticoagulation with warfarin and rate controlled with toprol CHADVASC score: 8 (age, CHF, HTN, DM, TIA, DVT, [place]) Telemetry review shows avg HR 65bpm. NSR with intermittent rate controlled PAF noted. -currently holding coumadin due to right groin hematoma. Re-start coumadin upon discharge due to high risk for stroke and other cardiovascular events if not continued. Qualifiers: Atrial fibrillation type: chronic Qualified Code(s): I48.2 - Chronic atrial fibrillation (4) Abnormal nuclear stress test Current Visit: No Status: Acute Abnormal stress test 06/23/17-Pharmacologic stress ECG is non-diagnostic for ischemia due to baseline non-specific ST and T changes. Gated EF = 50%. Medium sized, moderate to severe intensity, partially reversible mid to apical anterior and anterolateral defect. Findings suggestive of a prior MN with significant residual ischemia. Medium sized, moderate to severe intensity, mostly reversible inferior and inferolateral defect suggestive of ischemia. plan as described above. (5) Elevated troponin Current Visit: Yes Status: Acute Mild adynamic troponin elevation at 0.06, 0.07 x3 Discussion w patient/family: The assessment and plan as outlined above was discussed with the patient and/or family members who expressed understanding and agreement. All questions were answered. Thank you for involving us in the care of your patient. Please call with any questions. Subjective Principal diagnosis: chest pain Interval history: The patient reports he is currently chest pain free, no palpitations. Reports improvement in right groin pain with hematoma. Objective Vital Signs, Last 4 Hours Temp Pulse Resp Pulse Ox 06/30/17 08:15 80 06/30/17 07:08 98.9 F 96 16 95 General: Conversant, No Apparent Distress HEENT: Atraumatic, Mucus Membranes Moist Neck: No JVD Cardiac: Reg Rate and Rhythm, Normal S1 and S2 Lungs: Normal Breath Sounds, No Wheeze, Rales, Rhonchi Neuro: Alert and responsive, No focal deficits noted Abdomen: Soft, Non-Tender Skin: No rashes noted on visualized skin Musculoskeletal: No Chest Wall Tenderness Extremities: No Edema, Normal Pulses Results 06/30/17 00:22 06/30/17 00:22 Lab Results 06/29/17 06/29/17 06/29/17 11:58 11:58 19:45 WBC 7.2 Hgb 7.7 L 8.5 L Hct 25.1 L 27.7 L Plt Count 105 L INR Sodium 138 Potassium 4.0 Chloride 118 H Carbon Dioxide 21 L BUN 16 Creatinine 1.16 Glucose 211 H Calcium 7.9 L 06/30/17 06/30/17 06/30/17 00:22 00:22 00:22 WBC 8.1 Hgb 8.1 L Hct 25.8 L Plt Count 118 L INR 1.1 Sodium 140 Potassium 4.1 Chloride 113 H Carbon Dioxide 23 BUN 19 Creatinine 1.29 Glucose 163 H Calcium 8.4 L - VTE Documentation of Mechanical Device: Intermittent pneumatic compression device Consult Discharge Plan - Plan Instructions: Lisinopril (By mouth), Aspirin (By mouth), Enoxaparin (Injection) , Clopidogrel (By mouth), Magnesium (By mouth), Atrial Fibrillation (DC), Chest Pain (DC), Coronary Intravascular Stent Placement (DC), Diabetes Mellitus Type 2 in Adults (DC), Chronic Obstructive Pulmonary Disease (DC), Chronic Hypertension (DC), Coronary Intravascular Stent Placement, 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 Please follow up with your primary care physician at [place] within a week regarding your hospitalization. Please follow up with [place] [facility] within a week as well. Please take prescribed aspirin and Brilinta to protect your newly placed stents from re-narrowing. Please follow up with [place] [facility] in 2 weeks regarding possible discontinuation of aspirin. Referrals: [facility] [Primary Care Provider] - 07/04/17 12:15 pm (within a week. Also needs [facility] said [facility] would take care of it and would let the patient know when the appointment is) Yoel Tripp DO [Partnered Physician] - 07/19/17 8:00 am (this is at the [place] office) Prescriptions: Enoxaparin [Lovenox] 100 mg SQ Q12HR #14 syr Aspirin Enteric Coated [Aspirin EC] 81 mg PO DAILY #30 tablet. Lisinopril [Zestril] 20 mg PO DAILY #30 tablet Magnesium Oxide [Mag-Ox] 400 mg PO BID #60 tablet Ticagrelor [Brilinta] 90 mg PO BID #60 tablet <Madelyn Rob - Last Filed: 06/30/17 11:12> Date of Encounter: 06/30/17 Assessment and Plan (1) Hematoma Current Visit: Yes Status: Acute I examined this patient and my medical decision-making was reviewed with the Resident Physician. I agree with the documented findings, disposition and treatment plan as described except to the extent set forth below. Hematoma of the right groin post left heart catheter with revised ultrasound indicating no pseudoaneurysm. Hematoma is currently contained with stable hemodynamics and blood count. Patient asymptomatic okay for discharge. Coumadin to be restarted prior to discharge and titrated accordingly Discussion w patient/family: The assessment and plan as outlined above was discussed with the patient and/or family members who expressed understanding and agreement. All questions were answered. Thank you for involving us in the care of your patient. Please call with any questions. Objective Vital Signs, Last 4 Hours Pulse 06/30/17 08:15 80 Results 06/30/17 00:22 06/30/17 00:22 Lab Results 06/29/17 06/29/17 06/29/17 11:58 11:58 19:45 WBC 7.2 Hgb 7.7 L 8.5 L Hct 25.1 L 27.7 L Plt Count 105 L INR Sodium 138 Potassium 4.0 Chloride 118 H Carbon Dioxide 21 L BUN 16 Creatinine 1.16 Glucose 211 H Calcium 7.9 L 06/30/17 06/30/17 06/30/17 00:22 00:22 00:22 WBC 8.1 Hgb 8.1 L Hct 25.8 L Plt Count 118 L INR 1.1 Sodium 140 Potassium 4.1 Chloride 113 H Carbon Dioxide 23 BUN 19 Creatinine 1.29 Glucose 163 H Calcium 8.4 L
[2017-06-30 12:16] LABS: Hematocrit 23.6 % (37.5-50.1); Hemoglobin 7.2 g/dL (12.9-16.9)
[2017-06-30] MEDS ORDERED: 0.9 % Sodium Chloride 250 ML ONE (17:45)
[2017-06-30] MEDS: *HR* Ticagrelor 90 MG TABLET PO SCH (20:56)
[2017-06-30] MEDS ORDERED: Furosemide 20 MG/2 ML VIAL IVP ONE (21:33)
[2017-06-30] MEDS: Sennosides/Docusate Sodium TABLET PO SCH (21:40)
[2017-06-30 22:38] LABS: Hematocrit 30.3 % (37.5-50.1)
[2017-06-30 22:40] LABS: Hemoglobin 9.3 g/dL (12.9-16.9)
[2017-07-01 04:22] LABS: Basophils % 0.1 %; Eosinophils # 0.2 K/mcL (0.0-0.6); Eosinophils % 2.5 %; Hematocrit 26.5 % (37.5-50.1); Hemoglobin 8.4 g/dL (12.9-16.9); Immature Granulocytes % 0.8 % (0-4); Lymphocytes % 11.6 %; Mean Corpuscular HGB Conc 31.7 g/dL (31.6-35.5); Mean Corpuscular Volume 85.2 fL (83.0-100.0); Mean Platelet Volume 11.9 fL (9.4-12.4); Monocytes # 0.7 K/mcL (0.0-1.3); Monocytes % 7.9 %; Neutrophils # 6.5 K/mcL (1.6-8.9); Platelet Count 124 K/mcL (140-400); Red Blood Count 3.11 M/mcL (4.19-5.50); Red Cell Distribution Width 15.5 % (11.5-14.5); Segmented Neutrophils % 77.1 %
[2017-07-01 04:28] LABS: INR 1.1; Prothrombin Time 12.1 Seconds (9.4-12.1)
[2017-07-01 04:41] LABS: Calcium 8.2 mg/dL (8.6-10.3); Magnesium 2.1 mg/dL (1.6-2.6)
[2017-07-01] MEDS: Insulin LISPRO 300 UNITS/3 ML VIAL SQ SCH ×4 (07:53→21:10)
[2017-07-01] MEDS: Lisinopril 20 MG TABLET PO SCH (07:53)
[2017-07-01] MEDS: Gabapentin 100 MG CAPSULE PO SCH ×3 (07:54→21:10)
[2017-07-01] MEDS: Spironolactone 25 MG TABLET PO SCH (07:54)
[2017-07-01] MEDS: Sennosides/Docusate Sodium TABLET PO SCH (07:54)
[2017-07-01] MEDS: Magnesium Oxide 400 MG TABLET PO SCH ×2 (07:54→21:10)
[2017-07-01] MEDS: Isosorbide MONOnitrate (24 HR) 30 MG TAB.ER.24H PO SCH (07:54)
[2017-07-01] MEDS: Aspirin Enteric Coated 81 MG Tablet PO SCH (07:54)
[2017-07-01] MEDS: *HR* Ticagrelor 90 MG TABLET PO SCH ×2 (07:54→21:10)
[2017-07-01] MEDS: Cyanocobalamin (B-12) 1,000 MCG TABLET PO SCH (07:54)
[2017-07-01] MEDS: Metoprolol XL (24 HR) Succ 25 MG TAB.ER.24H PO SCH ×2 (07:54→21:10)
[2017-07-01 12:24] LABS: Hematocrit 28.8 % (37.5-50.1); Hemoglobin 8.9 g/dL (12.9-16.9)
--- NOTE | 2017-07-01 12:48 | Internal Med Progress Note ---
<Simran Campoverde - Last Filed: 07/01/17 12:49> Date of Encounter: 07/01/17 Time of Encounter: 11:00 - Assessment and plan (1) Hematoma of groin Current Visit: Yes Status: Acute Assessment and plan: - CT pelvis on 06/29/17 showed right groin hematoma measuring up to 6 cm with subcutaneous edema in the right thigh extending to the scrotum but no hematoma identified in the pelvis. - Hold Lovenox and Coumadin. - Per vascular surgery, no indication for surgical intervention at this time. - S/p 2 unit of pRBC transfusion so far. - Hgb stable (8.4 today and 8.9 on repeat). - Continue close monitoring with H&H closely. Consider more pRBC transfusion if Hgb drops below 8.0. Qualifiers: Encounter type: subsequent encounter Qualified Code(s): S30.1XXD - Contusion of abdominal wall, subsequent encounter (2) LUIS FERNANDO (acute kidney injury) Current Visit: Yes Status: Acute Assessment and plan: - SCr 1.65 / eGFR 40, worsen compared to SCr 1.29 / eGFR 54 yesterday. - Likely secondary to lasix use in the setting of anemia. - Avoid nephrotoxin. Also avoid diuresis at this time. - Continue to monitor renal function and electrolytes closely. (3) CAD (coronary artery disease) Current Visit: No Status: Chronic Assessment and plan: - Known significant history of CAD s/p CABG - [facility] on 06/24/17 found severe three vessel coronary artery disease with LV EF 65 %. 1 of 3 patent bypass grafts. - Patient had 3 stents placed at 1 on 06/26/17 - Continue aspirin, Brilinta, Lipitor, metoprolol, lisinopril and Imdur. Qualifiers: Coronary Disease-Associated Artery/Lesion type: bypass graft [place] vs. transplanted heart: [place] heart Associated angina: with unstable angina Qualified Code(s): I25.700 - Atherosclerosis of coronary artery bypass graft(s) , unspecified, with unstable angina pectoris (4) Atrial fibrillation Current Visit: No Status: Chronic Assessment and plan: - Known history of A-fib. - Continue rate control with metoprolol. - INR 1.1 today. Continue to hold Lovenox and Coumadin for now given current right groin hematoma. Qualifiers: Atrial fibrillation type: chronic Qualified Code(s): I48.2 - Chronic atrial fibrillation (5) History of DVT (deep vein thrombosis) Current Visit: No Status: Chronic Assessment and plan: - Still subtherapeutic as INR 1.1 today. - Continue to hold Lovenox and Coumadin at this time given current right groin hematoma. (6) DM2 (diabetes mellitus, type 2) Current Visit: No Status: Chronic Assessment and plan: - Continue insulin sliding scale and glucose monitoring. Qualifiers: Diabetes mellitus capsule machine operator insulin use: without capsule machine operator use Diabetes mellitus complication status: with kidney complications Diabetes mellitus complication detail: with chronic kidney disease Chronic kidney disease stage : stage 3 (moderate) Qualified Code(s): E11.22 - Type 2 diabetes mellitus with diabetic chronic kidney disease; N18.3 - Chronic kidney disease, stage 3 ( moderate); N18.3 - Chronic kidney disease, stage 3 (moderate) (7) HTN (hypertension) Current Visit: No Status: Chronic Assessment and plan: - Continue current anti-hypertensive regimen but may consider holding those if patient's blood pressure drops given his blood loss in the right groin hematoma. Qualifiers: Hypertension type: essential hypertension Qualified Code(s): I10 - Essential (primary) hypertension - Subjective Interval history: Patient was seen and examined this morning. Patient complains of more cough. Patient denies right groin pain, chest pain, shortness of breath, lightheadedness, abdominal pain, nausea, vomiting, fever, chills. - Constitutional Vitals: Temp Pulse Resp BP Pulse Ox 99.7 F H 82 16 106/46 100 07/01/17 11:51 07/01/17 11:51 07/01/17 11:51 07/01/17 11:51 07/01/17 11:51 General appearance: Present: A&O X 3, no acute distress, answers questions appropriately - Head Head exam: Present: normal inspection - Eye Eye exam: Present: EOMI - Neck Neck exam general surgery: Present: normal inspection, trachea midline - Respiratory Respiratory exam: Present: CTAB - Cardiovascular Cardiovascular exam: Present: RRR, +S1, +S2 - GI/Abdominal GI/Abdominal exam: Present: normal bowel sounds, soft. Absent: tenderness - Extremities Exam Extremities exam: Present: pedal edema (Chronic right lower extremity edema.). Absent: cyanotic Additional comments: Right groin hematoma appears to decrease in size. It's soft and less tender to touch compared to yesterday. - Neurological Exam Neurological exam: Present: alert, no focal deficits. Absent: facial droop, speech deficit - Skin Skin exam: Present: dry, warm Internal Medicine: Result - Labs CBC & Chem 7: 07/01/17 12:08 07/01/17 03:29 Labs: Short CBC 06/30/17 07/01/17 07/01/17 Range/Units 22:14 03:29 12:08 WBC 8.4 (4.3-11.1) K/mcL Hgb 9.3 L D 8.4 L 8.9 L (12.9-16.9) g/dL Hct 30.3 L 26.5 L 28.8 L (37.5-50.1) % Plt Count 124 L (140-400) K/mcL Neutrophils # 6.5 (1.6-8.9) K/mcL BMP 07/01/17 03:29 Sodium 137 Potassium 4.0 Chloride 109 H Carbon Dioxide 22 L BUN 24 H Creatinine 1.65 H Glucose 228 H Calcium 8.2 L - ABG Interpretation ABG results: PT/INR, D-dimer PT 12.1 Seconds (9.4-12.1) 07/01/17 03:29 - VTE Documentation of Mechanical Device: Intermittent pneumatic compression device Consult Discharge Plan - Plan Instructions: Lisinopril (By mouth), Aspirin (By mouth), Enoxaparin (Injection) , Clopidogrel (By mouth), Magnesium (By mouth), Atrial Fibrillation (DC), Chest Pain (DC), Coronary Intravascular Stent Placement (DC), Diabetes Mellitus Type 2 in Adults (DC), Chronic Obstructive Pulmonary Disease (DC), Chronic Hypertension (DC), Coronary Intravascular Stent Placement, Contractor General Building (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 Please follow up with your primary care physician at [place] within a week regarding your hospitalization. Please follow up with [place] [facility] within a week as well. Please take prescribed aspirin and Brilinta to protect your newly placed stents from re-narrowing. Please follow up with [facility] in 2 weeks regarding possible discontinuation of aspirin. Referrals: [place],PCP [Primary Care Provider] - 07/04/17 12:15 pm (within a week. [facility] and would let the patient know when the appointment is) Yoel Tripp DO [Partnered Physician] - 07/19/17 8:00 am (this is at the [place] office) Prescriptions: Enoxaparin [Lovenox] 100 mg SQ Q12HR #14 syr Aspirin Enteric Coated [Aspirin EC] 81 mg PO DAILY #30 tablet. Lisinopril [Zestril] 20 mg PO DAILY #30 tablet Magnesium Oxide [Mag-Ox] 400 mg PO BID #60 tablet Ticagrelor [Brilinta] 90 mg PO BID #60 tablet <Nguyễn Rossi - Last Filed: 07/01/17 13:44> Date of Encounter: 07/01/17 - Assessment and plan (1) Constipation by delayed colonic transit Current Visit: Yes Status: Acute (2) Hematoma of groin Current Visit: Yes Status: Acute Qualifiers: Encounter type: subsequent encounter Qualified Code(s): S30.1XXD - Contusion of abdominal wall, subsequent encounter (3) Anemia Current Visit: Yes Status: Acute Qualifiers: Anemia type: other cause Other causes of anemia: acute posthemorrhagic Qualified Code(s): D62 - Acute posthemorrhagic anemia (4) Unstable angina Current Visit: Yes Status: Resolved (5) CAD (coronary artery disease) Current Visit: No Status: Chronic Qualifiers: Coronary Disease-Associated Artery/Lesion type: bypass graft [place] vs. transplanted heart: [place] heart Associated angina: with unstable angina Qualified Code(s): I25.700 - Atherosclerosis of coronary artery bypass graft(s) , unspecified, with unstable angina pectoris (6) Atrial fibrillation Current Visit: No Status: Chronic Qualifiers: Atrial fibrillation type: chronic Qualified Code(s): I48.2 - Chronic atrial fibrillation (7) DM2 (diabetes mellitus, type 2) Current Visit: No Status: Chronic Qualifiers: Diabetes mellitus capsule machine operator insulin use: without care home use Diabetes mellitus complication status: with kidney complications Diabetes mellitus complication detail: with chronic kidney disease Chronic kidney disease stage : stage 3 (moderate) Qualified Code(s): E11.22 - Type 2 diabetes mellitus with diabetic chronic kidney disease; N18.3 - Chronic kidney disease, stage 3 ( moderate); N18.3 - Chronic kidney disease, stage 3 (moderate) (8) LYNSEY on CPAP Current Visit: No Status: Chronic (9) HTN (hypertension) Current Visit: No Status: Chronic Qualifiers: Hypertension type: essential hypertension Qualified Code(s): I10 - Essential (primary) hypertension (10) Diastolic heart failure Current Visit: No Status: Chronic Qualifiers: Heart failure chronicity: chronic Qualified Code(s): I50.32 - Chronic diastolic (congestive) heart failure - Constitutional Vitals: Temp Pulse Resp BP Pulse Ox 99.7 F H 82 16 106/46 100 07/01/17 11:51 07/01/17 11:51 07/01/17 11:51 07/01/17 11:51 07/01/17 11:51 Internal Medicine: Result - Labs CBC & Chem 7: 07/01/17 12:08 07/01/17 03:29 Labs: Short CBC 06/30/17 07/01/17 07/01/17 Range/Units 22:14 03:29 12:08 WBC 8.4 (4.3-11.1) K/mcL Hgb 9.3 L D 8.4 L 8.9 L (12.9-16.9) g/dL Hct 30.3 L 26.5 L 28.8 L (37.5-50.1) % Plt Count 124 L (140-400) K/mcL Neutrophils # 6.5 (1.6-8.9) K/mcL BMP 07/01/17 03:29 Sodium 137 Potassium 4.0 Chloride 109 H Carbon Dioxide 22 L BUN 24 H Creatinine 1.65 H Glucose 228 H Calcium 8.2 L - ABG Interpretation ABG results: PT/INR, D-dimer PT 12.1 Seconds (9.4-12.1) 07/01/17 03:29 - Attending Attestation I examined this patient and my medical decision-making was reviewed with the Resident Physician on 07/01/17. I agree with the documented findings, disposition and treatment plan as described except to the extent set forth below. Mr Poe is currently admitted for [facility] s/p [facility]. He has developed a hematoma in his groin. We are monitoring H/H. He remains moderate to high risk due to potential for worsening clinical status. Mr Poe feels OK. He is very constipated. No CP or SOB. Had short burst of [place] yesterday when H/H was low. Still monitoring H/H. Pain is OK in groin. Exam alert Comfortable Mucus membranes dry Heart not tachy Lungs clear at this time Abd soft I/P 1. Hematoma 2. Anemia - monitoring H/H Further diagnoses and plan as above.
[2017-07-01] MEDS ORDERED: Furosemide 20 MG/2 ML VIAL IVP ONE (23:49)
[2017-07-02 03:43] LABS: Hematocrit 26.6 % (37.5-50.1); Hemoglobin 8.4 g/dL (12.9-16.9); Mean Corpuscular HGB Conc 31.6 g/dL (31.6-35.5); Mean Corpuscular Hemoglobin 26.8 pg (28.0-33.3); Mean Corpuscular Volume 84.7 fL (83.0-100.0); Platelet Count 129 K/mcL (140-400); Red Blood Count 3.14 M/mcL (4.19-5.50); Red Cell Distribution Width 15.6 % (11.5-14.5)
[2017-07-02 03:51] LABS: INR 1.1; Prothrombin Time 11.9 Seconds (9.4-12.1)
[2017-07-02 04:07] LABS: Calcium 8.7 mg/dL (8.6-10.3); Potassium 3.8 mEq/L (3.5-5.1)
[2017-07-02] MEDS: Insulin LISPRO 300 UNITS/3 ML VIAL SQ SCH ×4 (07:43→20:40)
[2017-07-02] MEDS: Isosorbide MONOnitrate (24 HR) 30 MG TAB.ER.24H PO SCH (09:41)
[2017-07-02] MEDS: Furosemide 40 MG TABLET PO SCH (09:41)
[2017-07-02] MEDS: Lisinopril 20 MG TABLET PO SCH (09:41)
[2017-07-02] MEDS: Metoprolol XL (24 HR) Succ 25 MG TAB.ER.24H PO SCH ×2 (09:41→20:53)
[2017-07-02] MEDS: *HR* Ticagrelor 90 MG TABLET PO SCH ×2 (09:41→20:53)
[2017-07-02] MEDS: Aspirin Enteric Coated 81 MG Tablet PO SCH (09:41)
[2017-07-02] MEDS: Gabapentin 100 MG CAPSULE PO SCH ×3 (09:41→20:53)
[2017-07-02] MEDS: Magnesium Oxide 400 MG TABLET PO SCH ×2 (09:41→20:53)
[2017-07-02] MEDS: Spironolactone 25 MG TABLET PO SCH (09:41)
[2017-07-02] MEDS: Sennosides/Docusate Sodium TABLET PO SCH (09:41)
[2017-07-02] MEDS: Cyanocobalamin (B-12) 1,000 MCG TABLET PO SCH (09:41)
--- NOTE | 2017-07-02 12:02 | Internal Med Progress Note ---
<Simran Campoverde - Last Filed: 07/02/17 13:08> Date of Encounter: 07/02/17 Time of Encounter: 11:30 - Assessment and plan (1) Hematoma of groin Current Visit: Yes Status: Acute Assessment and plan: - CT pelvis on 06/29/17 showed right groin hematoma measuring up to 6 cm with subcutaneous edema in the right thigh extending to the scrotum but no hematoma identified in the pelvis. - Hold Lovenox and Coumadin. - Per vascular surgery, no indication for surgical intervention at this time. - S/p 2 unit of pRBC transfusion so far. - Hgb stable at 8.4 today. - Continue close monitoring with H&H closely. Consider more pRBC transfusion if Hgb drops below 8.0. Qualifiers: Encounter type: subsequent encounter Qualified Code(s): S30.1XXD - Contusion of abdominal wall, subsequent encounter (2) LUIS FERNANDO (acute kidney injury) Current Visit: Yes Status: Acute Assessment and plan: - SCr 1.54 / eGFR 44, slightly improve compared to SCr 1.65 / eGFR 40 yesterday. - Likely secondary to lasix use in the setting of anemia. - Avoid nephrotoxin. - Continue to monitor renal function and electrolytes closely. (3) CAD (coronary artery disease) Current Visit: No Status: Chronic Assessment and plan: - Known significant history of CAD s/p CABG - [facility] on 06/24/17 found severe three vessel coronary artery disease with LV EF 65 %. 1 of 3 patent bypass grafts. - Patient had 3 stents placed at [facility] on 06/26/17 - Continue aspirin, Brilinta, Lipitor, metoprolol, lisinopril and Imdur. Qualifiers: Coronary Disease-Associated Artery/Lesion type: bypass graft [place] vs. transplanted heart: [place] heart Associated angina: with unstable angina Qualified Code(s): I25.700 - Atherosclerosis of coronary artery bypass graft(s) , unspecified, with unstable angina pectoris (4) Atrial fibrillation Current Visit: No Status: Chronic Assessment and plan: - Known history of A-fib. - Continue rate control with metoprolol. - INR 1.1 today. Continue to hold Lovenox and Coumadin for now given current right groin hematoma. Qualifiers: Atrial fibrillation type: chronic Qualified Code(s): I48.2 - Chronic atrial fibrillation (5) History of DVT (deep vein thrombosis) Current Visit: No Status: Chronic Assessment and plan: - Still subtherapeutic as INR 1.1 today. - Continue to hold Lovenox and Coumadin at this time given current right groin hematoma. (6) DM2 (diabetes mellitus, type 2) Current Visit: No Status: Chronic Assessment and plan: - Continue insulin sliding scale and glucose monitoring. Qualifiers: Diabetes mellitus detention insulin use: without belt sander use Diabetes mellitus complication status: with kidney complications Diabetes mellitus complication detail: with chronic kidney disease Chronic kidney disease stage : stage 3 (moderate) Qualified Code(s): E11.22 - Type 2 diabetes mellitus with diabetic chronic kidney disease; N18.3 - Chronic kidney disease, stage 3 ( moderate); N18.3 - Chronic kidney disease, stage 3 (moderate) (7) HTN (hypertension) Current Visit: No Status: Chronic Assessment and plan: - Continue current anti-hypertensive regimen. Qualifiers: Hypertension type: essential hypertension Qualified Code(s): I10 - Essential (primary) hypertension - Subjective Interval history: Patient was seen and examined this morning. Patient still has some cough but denies chest pain, right groin pain, shortness of breath, abdominal pain, nausea , vomiting, fever, chills. - Constitutional Vitals: Temp Pulse Resp BP Pulse Ox 97.9 F 85 16 110/70 92 07/02/17 11:23 07/02/17 11:23 07/02/17 11:23 07/02/17 11:23 07/02/17 11:23 General appearance: Present: A&O X 3, no acute distress, answers questions appropriately - Head Head exam: Present: normal inspection - Eye Eye exam: Present: EOMI - Neck Neck exam general surgery: Present: normal inspection, trachea midline - Respiratory Respiratory exam: Present: CTAB - Cardiovascular Cardiovascular exam: Present: RRR, +S1, +S2 - GI/Abdominal GI/Abdominal exam: Present: normal bowel sounds, soft. Absent: tenderness - Extremities Exam Extremities exam: Present: pedal edema (Chronic right lower extremity edema). Absent: cyanotic Additional comments: Right groin hematoma appears to continue decrease in size and remains soft. - Neurological Exam Neurological exam: Present: alert, no focal deficits. Absent: facial droop, speech deficit - Skin Skin exam: Present: dry, warm Internal Medicine: Result - Labs CBC & Chem 7: 07/02/17 03:12 07/02/17 03:12 Labs: Short CBC 07/01/17 07/02/17 Range/Units 12:08 03:12 WBC 8.2 (4.3-11.1) K/mcL Hgb 8.9 L 8.4 L (12.9-16.9) g/dL Hct 28.8 L 26.6 L (37.5-50.1) % Plt Count 129 L (140-400) K/mcL BMP 07/02/17 03:12 Sodium 136 Potassium 3.8 Chloride 107 Carbon Dioxide 25 BUN 25 H Creatinine 1.54 H Glucose 151 H Calcium 8.7 - ABG Interpretation ABG results: PT/INR, D-dimer PT 11.9 Seconds (9.4-12.1) 07/02/17 03:12 - Impressions Impressions Chest X-Ray 07/01/17 11:14 IMPRESSION: Trace pleural effusions. No significant vascular congestion or pulmonary edema. D/ / Yoel Shaw MD / Yoel Shaw MD Interpreting Provider: Yoel Shaw MD - VTE Documentation of Mechanical Device: Intermittent pneumatic compression device Consult Discharge Plan - Plan Instructions: Lisinopril (By mouth), Aspirin (By mouth), Enoxaparin (Injection) , Clopidogrel (By mouth), Magnesium (By mouth), Atrial Fibrillation (DC), Chest Pain (DC), Coronary Intravascular Stent Placement (DC), Diabetes Mellitus Type 2 in Adults (DC), Chronic Obstructive Pulmonary Disease (DC), Chronic Hypertension (DC), Coronary Intravascular Stent Placement, Dam Tender Assistant (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 Please follow up with your primary care physician at [place] within a week regarding your hospitalization. Please follow up with [place] [facility] within a week as well. Please take prescribed aspirin and Brilinta to protect your newly placed stents from re-narrowing. Please follow up with [facility] in 2 weeks regarding possible discontinuation of aspirin. Referrals: [facility],PCP [Primary Care Provider] - 07/04/17 12:15 pm (within a week. [facility] and would let the patient know when the appointment is) Yoel Tripp DO [Partnered Physician] - 07/19/17 8:00 am (this is at the [place] office) Prescriptions: Enoxaparin [Lovenox] 100 mg SQ Q12HR #14 syr Aspirin Enteric Coated [Aspirin EC] 81 mg PO DAILY #30 tablet. Lisinopril [Zestril] 20 mg PO DAILY #30 tablet Magnesium Oxide [Mag-Ox] 400 mg PO BID #60 tablet Ticagrelor [Brilinta] 90 mg PO BID #60 tablet <Nguyễn Rossi - Last Filed: 07/02/17 17:02> Date of Encounter: 07/02/17 - Assessment and plan (1) Hematoma of groin Current Visit: Yes Status: Acute Qualifiers: Encounter type: subsequent encounter Qualified Code(s): S30.1XXD - Contusion of abdominal wall, subsequent encounter (2) Anemia Current Visit: Yes Status: Acute Qualifiers: Anemia type: other cause Other causes of anemia: acute posthemorrhagic Qualified Code(s): D62 - Acute posthemorrhagic anemia (3) Unstable angina Current Visit: Yes Status: Resolved (4) CAD (coronary artery disease) Current Visit: No Status: Chronic Qualifiers: Coronary Disease-Associated Artery/Lesion type: bypass graft [place] vs. transplanted heart: [place] heart Associated angina: with unstable angina Qualified Code(s): I25.700 - Atherosclerosis of coronary artery bypass graft(s) , unspecified, with unstable angina pectoris (5) Atrial fibrillation Current Visit: No Status: Chronic Qualifiers: Atrial fibrillation type: chronic Qualified Code(s): I48.2 - Chronic atrial fibrillation (6) DM2 (diabetes mellitus, type 2) Current Visit: No Status: Chronic Qualifiers: Diabetes mellitus belt sander insulin use: without detention use Diabetes mellitus complication status: with kidney complications Diabetes mellitus complication detail: with chronic kidney disease Chronic kidney disease stage : stage 3 (moderate) Qualified Code(s): E11.22 - Type 2 diabetes mellitus with diabetic chronic kidney disease; N18.3 - Chronic kidney disease, stage 3 ( moderate); N18.3 - Chronic kidney disease, stage 3 (moderate) (7) LYNSEY on CPAP Current Visit: No Status: Chronic (8) HTN (hypertension) Current Visit: No Status: Chronic Qualifiers: Hypertension type: essential hypertension Qualified Code(s): I10 - Essential (primary) hypertension (9) Diastolic heart failure Current Visit: No Status: Chronic Qualifiers: Heart failure chronicity: chronic Qualified Code(s): I50.32 - Chronic diastolic (congestive) heart failure (10) Constipation by delayed colonic transit Current Visit: Yes Status: Resolved - Constitutional Vitals: Temp Pulse Resp BP Pulse Ox 97.9 F 85 16 110/70 92 07/02/17 11:23 07/02/17 11:23 07/02/17 11:23 07/02/17 11:23 07/02/17 11:23 Internal Medicine: Result - Labs CBC & Chem 7: 07/02/17 03:12 07/02/17 03:12 Labs: Short CBC 07/02/17 Range/Units 03:12 WBC 8.2 (4.3-11.1) K/mcL Hgb 8.4 L (12.9-16.9) g/dL Hct 26.6 L (37.5-50.1) % Plt Count 129 L (140-400) K/mcL BMP 07/02/17 03:12 Sodium 136 Potassium 3.8 Chloride 107 Carbon Dioxide 25 BUN 25 H Creatinine 1.54 H Glucose 151 H Calcium 8.7 - ABG Interpretation ABG results: PT/INR, D-dimer PT 11.9 Seconds (9.4-12.1) 07/02/17 03:12 - Attending Attestation I examined this patient and my medical decision-making was reviewed with the Resident Physician on 07/02/17. I agree with the documented findings, disposition and treatment plan as described except to the extent set forth below. Mr Poe is currently admitted for acute [place] and groin hematoma. He remains moderate to high risk due to potential for worsening clinical status. Mr Poe is up in chair. He says his groin pain has improved. No fever or chills. No CP or SOB though he did get Lasix again last night. PO Lasix restarted today. Exam alert. Comfortable Mucus membranes dry Heart not tachy No wheeze I/P 1. Hematoma 2. CAD Further diagnoses and plan as above. Anticipate d/c to SNF tomorrow.
[2017-07-02] MEDS: Acetaminophen 325 MG TABLET PO PRN (20:53)
[2017-07-03 04:19] LABS: Hematocrit 25.3 % (37.5-50.1); Hemoglobin 7.8 g/dL (12.9-16.9); Mean Corpuscular HGB Conc 30.8 g/dL (31.6-35.5); Mean Corpuscular Volume 84.3 fL (83.0-100.0); Platelet Count 131 K/mcL (140-400); Red Cell Distribution Width 15.5 % (11.5-14.5)
[2017-07-03 04:34] LABS: Calcium 8.8 mg/dL (8.6-10.3); Potassium 3.9 mEq/L (3.5-5.1)
[2017-07-03] MEDS: Isosorbide MONOnitrate (24 HR) 30 MG TAB.ER.24H PO SCH (08:28)
[2017-07-03] MEDS: Spironolactone 25 MG TABLET PO SCH (08:28)
[2017-07-03] MEDS: Sennosides/Docusate Sodium TABLET PO SCH (08:28)
[2017-07-03] MEDS: *HR* Ticagrelor 90 MG TABLET PO SCH (08:28)
[2017-07-03] MEDS: Cyanocobalamin (B-12) 1,000 MCG TABLET PO SCH (08:28)
[2017-07-03] MEDS: Magnesium Oxide 400 MG TABLET PO SCH (08:28)
[2017-07-03] MEDS: Metoprolol XL (24 HR) Succ 25 MG TAB.ER.24H PO SCH (08:28)
[2017-07-03] MEDS: Gabapentin 100 MG CAPSULE PO SCH (08:28)
[2017-07-03] MEDS: Furosemide 40 MG TABLET PO SCH (08:29)
[2017-07-03] MEDS: Lisinopril 20 MG TABLET PO SCH (08:29)
[2017-07-03] MEDS: Aspirin Enteric Coated 81 MG Tablet PO SCH (08:29)
[2017-07-03] MEDS: Insulin LISPRO 300 UNITS/3 ML VIAL SQ SCH ×2 (08:31→12:30)
--- NOTE | 2017-07-03 09:22 | Internal Med Progress Note ---
<Simran Campoverde - Last Filed: 07/03/17 17:09> Date of Encounter: 07/03/17 Time of Encounter: 08:00 - Assessment and plan (1) Hematoma of groin Status: Acute Assessment and plan: - CT pelvis on 06/29/17 showed right groin hematoma measuring up to 6 cm with subcutaneous edema in the right thigh extending to the scrotum but no hematoma identified in the pelvis. - Hold Lovenox and Coumadin. - Per vascular surgery, no indication for surgical intervention at this time. - S/p 2 unit of pRBC transfusion so far. - Hgb stable at 8.1 on repeat today. - Given patient remains hemodynamically stable without sign of significant bleeding, patient can be discharged to SNF. Please see previous discharge summary on 06/27/17 for more detail regarding discharge. Qualifiers: Encounter type: subsequent encounter Qualified Code(s): S30.1XXD - Contusion of abdominal wall, subsequent encounter (2) LUIS FERNANDO (acute kidney injury) Status: Acute Assessment and plan: - SCr 1.41 / eGFR 48, continues to improve compared to SCr 1.54 / eGFR 44 yesterday. - Likely secondary to lasix use in the setting of anemia. - Avoid nephrotoxin. (3) CAD (coronary artery disease) Status: Chronic Assessment and plan: - Known significant history of CAD s/p CABG - [facility] on 06/24/17 found severe three vessel coronary artery disease with LV EF 65 %. 1 of 3 patent bypass grafts. - Patient had 3 stents placed at [facility] on 06/26/17 - Continue aspirin, Brilinta, Lipitor, metoprolol, lisinopril and Imdur. Qualifiers: Coronary Disease-Associated Artery/Lesion type: bypass graft [place] vs. transplanted heart: [place] heart Associated angina: with unstable angina Qualified Code(s): I25.700 - Atherosclerosis of coronary artery bypass graft(s) , unspecified, with unstable angina pectoris (4) Atrial fibrillation Status: Chronic Assessment and plan: - Known history of A-fib. - Continue rate control with metoprolol. - Given current right groin hematoma, will hold Coumadin until patient follow- up with cardiology who will decide when to resume Coumadin. Qualifiers: Atrial fibrillation type: chronic Qualified Code(s): I48.2 - Chronic atrial fibrillation (5) History of DVT (deep vein thrombosis) Status: Chronic Assessment and plan: - Per patient, he still has IVC filter in place. (6) DM2 (diabetes mellitus, type 2) Status: Chronic Assessment and plan: - Continue insulin sliding scale and glucose monitoring. Qualifiers: Diabetes mellitus tank terminal gauger insulin use: without tank terminal gauger use Diabetes mellitus complication status: with kidney complications Diabetes mellitus complication detail: with chronic kidney disease Chronic kidney disease stage : stage 3 (moderate) Qualified Code(s): E11.22 - Type 2 diabetes mellitus with diabetic chronic kidney disease; N18.3 - Chronic kidney disease, stage 3 ( moderate); N18.3 - Chronic kidney disease, stage 3 (moderate) (7) HTN (hypertension) Status: Chronic Assessment and plan: - Continue current anti-hypertensive regimen. Qualifiers: Hypertension type: essential hypertension Qualified Code(s): I10 - Essential (primary) hypertension - Subjective Interval history: Patient was seen and examined this morning. Patient still has some cough but reports overall feeling well. Patient denies chest pain, right groin pain, shortness of breath, abdominal pain, nausea, vomiting, fever, chills, lightheadedness. - Constitutional Vitals: Temp Pulse Resp BP Pulse Ox 96.8 F L 65 20 126/66 94 07/03/17 08:08 07/03/17 08:08 07/03/17 08:08 07/03/17 08:08 07/03/17 08:08 General appearance: Present: A&O X 3, no acute distress, answers questions appropriately - Head Head exam: Present: normal inspection - Eye Eye exam: Present: EOMI - Neck Neck exam general surgery: Present: normal inspection, trachea midline - Respiratory Respiratory exam: Present: CTAB - Cardiovascular Cardiovascular exam: Present: RRR, +S1, +S2 - GI/Abdominal GI/Abdominal exam: Present: normal bowel sounds, soft. Absent: tenderness - Extremities Exam Extremities exam: Present: pedal edema (Chronic right lower extremity edema). Absent: cyanotic - Neurological Exam Neurological exam: Present: alert, no focal deficits. Absent: facial droop, speech deficit Additional comments: Right groin hematoma continues to decrease in size and remains soft. - Skin Skin exam: Present: dry, warm Internal Medicine: Result - Labs CBC & Chem 7: 07/03/17 10:02 07/03/17 03:31 Labs: Short CBC 04/09/18 Range/Units 03:31 WBC 6.2 (4.3-11.1) K/mcL Hgb 7.8 L (12.9-16.9) g/dL Hct 25.3 L (37.5-50.1) % Plt Count 131 L (140-400) K/mcL BMP 07/03/17 03:31 Sodium 139 Potassium 3.9 Chloride 107 Carbon Dioxide 31 H BUN 22 Creatinine 1.41 H Glucose 142 H Calcium 8.8 - ABG Interpretation ABG results: PT/INR, D-dimer PT 11.9 Seconds (9.4-12.1) 07/02/17 03:12 - VTE Documentation of Mechanical Device: Graduated compression elastic hosiery Consult Discharge Plan - Plan Instructions: Lisinopril (By mouth), Aspirin (By mouth), Magnesium (By mouth), Ticagrelor (By mouth), Atrial Fibrillation (DC), Chest Pain (DC), Coronary Intravascular Stent Placement (DC), Diabetes Mellitus Type 2 in Adults (DC), Chronic Obstructive Pulmonary Disease (DC), Chronic Hypertension (DC), Coronary Intravascular Stent Placement, Temp Recruiter (GEN) Additional Instructions: Please follow up with your primary care physician at [facility] within a week regarding your hospitalization. Please follow up with [facility] Coumadin cliniwithin a week as well. Please take prescribed aspirin and Brilinta to protect your newly placed stents from re-narrowing. Please follow up with [place] cardiology in 2 weeks regarding possible discontinuation of aspirin. Referrals: [facility],PCP [Primary Care Provider] - () Yoel Tripp DO [Partnered Physician] - 07/19/17 8:00 am (this is at the [facility]) Prescriptions: Enoxaparin [Lovenox] 100 mg SQ Q12HR #14 syr Aspirin Enteric Coated [Aspirin EC] 81 mg PO DAILY #30 tablet. Lisinopril [Zestril] 20 mg PO DAILY #30 tablet Magnesium Oxide [Mag-Ox] 400 mg PO BID #60 tablet Ticagrelor [Brilinta] 90 mg PO BID #60 tablet <Nguyễn Rossi - Last Filed: 07/03/17 19:03> Date of Encounter: 07/03/17 - Assessment and plan (1) Hematoma of groin Status: Acute Qualifiers: Encounter type: subsequent encounter Qualified Code(s): S30.1XXD - Contusion of abdominal wall, subsequent encounter (2) Anemia Status: Acute Qualifiers: Anemia type: other cause Other causes of anemia: acute posthemorrhagic Qualified Code(s): D62 - Acute posthemorrhagic anemia (3) Unstable angina Status: Resolved (4) CAD (coronary artery disease) Status: Chronic Qualifiers: Coronary Disease-Associated Artery/Lesion type: bypass graft [place] vs. transplanted heart: [place] heart Associated angina: with unstable angina Qualified Code(s): I25.700 - Atherosclerosis of coronary artery bypass graft(s) , unspecified, with unstable angina pectoris (5) Atrial fibrillation Status: Chronic Qualifiers: Atrial fibrillation type: chronic Qualified Code(s): I48.2 - Chronic atrial fibrillation (6) DM2 (diabetes mellitus, type 2) Status: Chronic Qualifiers: Diabetes mellitus mcfp insulin use: without mcfp use Diabetes mellitus complication status: with kidney complications Diabetes mellitus complication detail: with chronic kidney disease Chronic kidney disease stage : stage 3 (moderate) Qualified Code(s): E11.22 - Type 2 diabetes mellitus with diabetic chronic kidney disease; N18.3 - Chronic kidney disease, stage 3 ( moderate); N18.3 - Chronic kidney disease, stage 3 (moderate) (7) LYNSEY on CPAP Status: Chronic (8) HTN (hypertension) Status: Chronic Qualifiers: Hypertension type: essential hypertension Qualified Code(s): I10 - Essential (primary) hypertension (9) Diastolic heart failure Status: Chronic Qualifiers: Heart failure chronicity: chronic Qualified Code(s): I50.32 - Chronic diastolic (congestive) heart failure (10) Constipation by delayed colonic transit Status: Resolved - Constitutional Vitals: Temp Pulse Resp BP Pulse Ox 98.7 F 73 20 127/70 94 07/03/17 11:33 07/03/17 11:33 07/03/17 11:33 07/03/17 11:33 07/03/17 11:33 Internal Medicine: Result - Labs CBC & Chem 7: 07/03/17 10:02 07/03/17 03:31 Labs: Short CBC 07/03/17 07/03/17 Range/Units 03:31 10:02 WBC 6.2 (4.3-11.1) K/mcL Hgb 7.8 L 8.1 L (12.9-16.9) g/dL Hct 25.3 L 26.7 L (37.5-50.1) % Plt Count 131 L (140-400) K/mcL BMP 07/03/17 03:31 Sodium 139 Potassium 3.9 Chloride 107 Carbon Dioxide 31 H BUN 22 Creatinine 1.41 H Glucose 142 H Calcium 8.8 - ABG Interpretation ABG results: PT/INR, D-dimer PT 11.9 Seconds (9.4-12.1) 07/02/17 03:12 - Attending Attestation I examined this patient and my medical decision-making was reviewed with the Resident Physician on 07/03/17. I agree with the documented findings, disposition and treatment plan as described except to the extent set forth below. Mr Poe has been admitted for [facility] and had LHC. He had hematoma develop post cath. He is now doing better and feels very well. He is ready for discharge to SNF Exam alert Comfortable Mucus membranes dry Heart distant Lungs clear Plan D/C to SNF today.
[2017-07-03 10:29] LABS: Hematocrit 26.7 % (37.5-50.1); Hemoglobin 8.1 g/dL (12.9-16.9)
[2017-07-03 11:35] VITALS: BP 127/70
== END 2017-07-03 13:32 | DRG 247 ==
LOC: 2NENU → SUATTDRO 17:02 → 2NNU 06-29 17:27
PROVIDERS: ADMIT Internal Medicine Cardiovascular Disease; ATTEND Internal Medicine

== ENCOUNTER 2017-08-11 05:00 | Observation (INO) ==
[2017-08-11] MEDS ORDERED: Naloxone 0.4 MG/ML INJ IVP PRN (07:44)
[2017-08-11] MEDS ORDERED: 0.9 % Sodium Chloride 1,000 ML IVC SCH (07:45)
--- NOTE | 2017-08-11 07:54 | Internal Med History&Physical ---
Date of Encounter: 08/11/17 Time of Encounter: 07:50 Internal Medicine - H&P: HPI Admitted From: Hospital to Hospital Transfer Plans for Post Hospital Care: Home History of present illness: Mr. Poe is a 82 year old male with history of chronic medical hernia but no surgical procedure was done due to multiple comorbid condition, diabetes mellitus, hypertension, CAD, CAD status post CABG and stent, history of DVT and PE on Coumadin since 2007 was transferred from [facility] with concern of incarcerated umbilical hernia after evaluation in positive finding on CT abdomen. Supportive treatment IV fluid, antiemetic and nasogastric tube and 1 dose of Zosyn was placed. [place] ER physician already talked to on-call surgeon Dr. Tolentino who accepted the patient but advised to get admitted under hospitalist service. As per patient, parisa-umbilical pain started yesterday morning and got progressively worse associated with vomiting that woke him up in the middle of tonight therefore he went to [facility] room and they transferred to this hospital as mentioned above. Icepack was advised during the transfer .patient got to this hospital floor and general surgeon saw and reduced successfully . now abdominal pain almost completely relieved. At present Patient denies fever, chills, cough, chest pain, shortness of breath , nausea, vomiting, headache, dizziness, diarrhea, constipation, urinary complaint Past Med Surg Social Fam HX - Past Medical History Medical history: atrial fibrillation, CHF, COPD, coronary artery disease, DVT, diabetes, GERD, hyperlipidemia, hypertension, myocardial infarction, pulmonary embolus, TIA, other Psychiatric history: no psych history - Past Surgical History Surgical History: angioplasty/stent, coronary bypass (CABG) - Social History Smoking Status: Former smoker Smokeless Tobacco Status: No Alcohol use: none Drug use: none - Family History Father Living Status: Hx Family Cardiac Disorders: Yes (Father) Hx Family Respiratory Disorders: No Hx Family Cancer: Yes Hx Family GI Disorders: Yes (ULCERS, GERD) Hx Family Endocrine Disorder: No Hx Family Neuromuscular Disorders: No Hx Family Neurologic Disorders: No Hx Family HEENT Disorders: No Hx Family Autoimmune Disorders: No Internal Medicine - H&P: Meds Acetaminophen [Tylenol] 975 mg PO QID PRN 11/16/15 [History] Atorvastatin [Lipitor] 40 mg PO HS 11/16/15 [History] Gabapentin [Neurontin] 200 mg PO TID 11/16/15 [History] Isosorbide MONOnitrate (24 HR) [Imdur] 30 mg PO DAILY 11/16/15 [History] Metformin HCl [Metformin HCl ER] 2,000 mg PO QPM 11/16/15 [History] Ferrous Sulfate [Iron] 325 mg PO BID 12/02/15 [History] Omeprazole [PriLOSEC] 20 mg PO DAILY 12/02/15 [History] Terazosin HCl 10 mg PO HS 12/02/15 [History] glipiZIDE [Glucotrol] 5 mg PO DAILY 12/02/15 [History] Cyanocobalamin (B-12) [Vitamin B12] 1,000 mcg PO DAILY 11/27/16 [History] Spironolactone [Aldactone] 25 mg PO DAILY 11/27/16 [History] Furosemide [Lasix] 20 mg PO BID 06/21/17 [History] Metoprolol XL (24 HR) Succ [Toprol Xl] 25 mg PO BID 06/21/17 [History] [place]-3/Dha/Epa/Fish Oil [Fish Oil 1,000 mg Softgel] 1,000 mg PO DAILY 06/21/17 [History] Warfarin [Coumadin] 3 mg PO SUMOTUTHFRSA 06/21/17 [History] Warfarin [Coumadin] 4 mg PO WE 06/21/17 [History] Aspirin Enteric Coated [Aspirin EC] 81 mg PO DAILY #30 tablet. 06/27/17 [Rx] Enoxaparin [Lovenox] 100 mg SQ Q12HR #14 syr 06/27/17 [Rx] Lisinopril [Zestril] 20 mg PO DAILY #30 tablet 06/27/17 [Rx] Magnesium Oxide [Mag-Ox] 400 mg PO BID #60 tablet 06/27/17 [Rx] Ticagrelor [Brilinta] 90 mg PO BID #60 tablet 06/27/17 [Rx] 3 Allergy/AdvReac Type Severity Reaction Status Date / Time pseudoephedrine Allergy Anaphylaxis Verified 06/21/17 11:42 [From Actifed] sulfamethoxazole Allergy Anaphylaxis Verified 06/21/17 11:42 [From Bactrim] tramadol Allergy See Verified 06/21/17 16:38 Comments trimethoprim [From Bactrim] Allergy Anaphylaxis Verified 06/21/17 11:42 triprolidine [From Actifed] Allergy Anaphylaxis Verified 06/21/17 11:42 All Systems PM: as documented above in the HPI. - Constitutional Vitals: Temp Pulse Resp BP Pulse Ox 97.4 F L 101 18 125/75 97 08/11/17 07:02 08/11/17 07:02 08/11/17 07:02 08/11/17 07:02 08/11/17 07:02 Exam: General appearance: No acute distress, A&O X 3 Head exam: Atraumatic Eye exam: EOMI, PERRLA ENT exam: Moist oral mucosa Neck nontender, supple Respiratory exam: Clear to auscultation bilaterally Cardiovascular exam: Regular rate and rhythm, no systolic murmur Abdominal exam: Soft, nontender, nondistended, positive bowel sounds . Reduced umbilical hernia Extremities exam: No calf tenderness, no pedal edema Present: Skin-no rash, warm, dry, intact Neurological exam: Grossly intact CN II-XII intact, no focal deficits. No facial droop. Normal speech. - Assessment and plan (1) Incarcerated umbilical hernia Current Visit: Yes Status: Acute Assessment and plan: History of chronic medical hernia but did not get repair due to multiple comorbidities. Incarcerated hernia now got successfully reduced by a general surgeon who advised to keep patient under observation for next 24 hour. Will allow ice chips, gentle hydration normal saline 75 per hour, strict I&O's and close monitoring. Consulted general surgeon (2) LUIS FERNANDO (acute kidney injury) Current Visit: Yes Status: Acute Assessment and plan: Baseline creatinine 1.3. History of CK D. Gentle hydration with a strict I&O' s. Watch for volume overload. Avoid nephrotoxic drugs. (3) Diabetes mellitus Current Visit: Yes Status: Acute Assessment and plan: Accu-Chek every 6 hours, SSI coverage. 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 Close monitoring Qualifiers: Hypertension type: essential hypertension Qualified Code(s): I10 - Essential (primary) hypertension (5) CAD (coronary artery disease) Current Visit: Yes Status: Chronic Assessment and plan: Stable. Continue home medicine Qualifiers: Coronary Disease-Associated Artery/Lesion type: bypass graft [place] vs. transplanted heart: [place] heart Associated angina: without angina Qualified Code(s): I25.810 - Atherosclerosis of coronary artery bypass graft(s) without angina pectoris (6) DVT (deep venous thrombosis) Current Visit: Yes Status: Acute Assessment and plan: Continue Coumadin. INR ordered. Qualifiers: DVT location: lower extremity Affected thrombotic vein of extremity: unspecified lower extremity proximal vein Laterality: unspecified laterality Qualified Code(s): I82.4Y9 - Acute embolism and thrombosis of unspecified deep veins of unspecified proximal lower extremity - Time Spent With Patient Total time spent is greater than 50% in coordination of care (as documented) at patient's floor/unit and/or counseling patient: 25 - 35 minutes
[2017-08-11] MEDS ORDERED: *HR* Dextrose 50 % in Water (Syg) 50 ML SYRINGE IVP PRN (08:08)
[2017-08-11] MEDS ORDERED: D5% in Water 1,000 ML IVC PRN (08:08)
[2017-08-11] MEDS ORDERED: Dextrose Gel 15 GM/37.5 ML TUBE PO PRN ×2 (08:08)
[2017-08-11 08:31] LABS: INR 1.6; Prothrombin Time 17.3 Seconds (9.4-12.1)
[2017-08-11 08:34] LABS: Activated Partial Thrombo Time 29.7 Seconds (26.0-36.0)
[2017-08-11] MEDS ORDERED: Insulin LISPRO 300 UNITS/3 ML VIAL SQ SCH ×2 (12:00→21:00)
[2017-08-11] MEDS: Insulin LISPRO 300 UNITS/3 ML VIAL SQ SCH ×2 (12:15→17:38)
--- NOTE | 2017-08-11 13:28 | General Surgery Consult Note ---
Date of Encounter: 08/11/17 Time of Encounter: 06:45 Assessment and Plan (1) Incarcerated umbilical hernia Current Visit: Yes Status: Acute The patient presented to the emergency department at [facility] with an incarcerated umbilical hernia by CAT scan and physical examination. Sutures treated with 1 hour of icepack. I was able to reduce the umbilical hernia without difficulty. The abdominal examination is completely negative. I doubt the patient will develop Jacobo's phenomena, however, a period of observation is warranted. History of Present Illness Consult date: 08/11/17 Reason for consult: hernia History of present illness: I was contacted by the emergency department at [facility]. The patient is a 82-year-old male that presented with a 1 day history of periumbilical pain and nausea and vomiting. He has had a known umbilical hernia for many years that was not repaired secondary to severe comorbid conditions. He presented with an incarcerated umbilical hernia by CAT scan and physical examination. He is transferred to [facility] for further care. During the transfer I placed an ice pack on the patient's umbilicus to initiate vasoconstriction and decreased vascular congestion. I evaluated the patient upon arrival. I was able to reduce his umbilical hernia without difficulty. His abdominal examination is completely negative. It is my experience that only nonischemic bowel will reduced from the umbilical hernias. I do not believe that there will be a Jacobo's phenomena. He would benefit from a period of observation to make sure his abdominal examination remains negative. I think it is reasonable to proceed with clear liquid diet. Discontinue nasogastric tube. Maximize his medical therapy. Past Med Surg Social Fam HX - Past Medical History Source: old records reviewed Medical history: atrial fibrillation, CHF, COPD, coronary artery disease, DVT, diabetes, GERD, hyperlipidemia, hypertension, myocardial infarction, pulmonary embolus, TIA, other Psychiatric history: no psych history - Past Surgical History Surgical History: angioplasty/stent, coronary bypass (CABG) - Social History Smoking Status: Former smoker Smokeless Tobacco Status: No Alcohol use: none Drug use: none - Family History Father Living Status: Hx Family Cardiac Disorders: Yes (Father) Hx Family Respiratory Disorders: No Hx Family Cancer: Yes Hx Family GI Disorders: Yes (ULCERS, GERD) Hx Family Endocrine Disorder: No Hx Family Neuromuscular Disorders: No Hx Family Neurologic Disorders: No Hx Family HEENT Disorders: No Hx Family Autoimmune Disorders: No Medications and Allergies Acetaminophen [Tylenol] 975 mg PO QID PRN 11/16/15 [History] Atorvastatin [Lipitor] 40 mg PO HS 11/16/15 [History] Gabapentin [Neurontin] 200 mg PO TID 11/16/15 [History] Isosorbide MONOnitrate (24 HR) [Imdur] 30 mg PO DAILY 11/16/15 [History] Metformin HCl [Metformin HCl ER] 2,000 mg PO QPM 11/16/15 [History] Ferrous Sulfate [Iron] 325 mg PO BID 12/02/15 [History] Omeprazole [PriLOSEC] 20 mg PO DAILY 12/02/15 [History] Terazosin HCl 10 mg PO HS 12/02/15 [History] glipiZIDE [Glucotrol] 5 mg PO DAILY 12/02/15 [History] Cyanocobalamin (B-12) [Vitamin B12] 1,000 mcg PO DAILY 11/27/16 [History] Spironolactone [Aldactone] 25 mg PO DAILY 11/27/16 [History] Furosemide [Lasix] 20 mg PO BID 06/21/17 [History] Metoprolol XL (24 HR) Succ [Toprol Xl] 25 mg PO BID 06/21/17 [History] [place]-3/Dha/Epa/Fish Oil [Fish Oil 1,000 mg Softgel] 1,000 mg PO DAILY 06/21/17 [History] Warfarin [Coumadin] 3.5 mg PO SUTUTHSA 06/21/17 [History] Warfarin [Coumadin] 4 mg PO MOWEFR 06/21/17 [History] Aspirin Enteric Coated [Aspirin EC] 81 mg PO DAILY #30 tablet. 06/27/17 [Rx] Lisinopril [Zestril] 20 mg PO DAILY #30 tablet 06/27/17 [Rx] Magnesium Oxide [Mag-Ox] 400 mg PO BID #60 tablet 06/27/17 [Rx] Ticagrelor [Brilinta] 90 mg PO BID #60 tablet 06/27/17 [Rx] 3 Allergy/AdvReac Type Severity Reaction Status Date / Time pseudoephedrine Allergy Anaphylaxis Verified 08/11/17 08:25 [From Actifed] sulfamethoxazole Allergy Anaphylaxis Verified 08/11/17 08:25 [From Bactrim] tramadol Allergy See Verified 08/11/17 08:25 Comments trimethoprim [From Bactrim] Allergy Anaphylaxis Verified 08/11/17 08:25 triprolidine [From Actifed] Allergy Anaphylaxis Verified 08/11/17 08:25 Review of Systems All systems PM: reviewed and no additional remarkable complaints except as stated (in the HPI) All systems PM: The remainder of the systems were reviewed and are negative General Surgery Exam Initial Vital Signs Temp Pulse Resp BP Pulse Ox 97.4 F L 101 18 125/75 97 08/11/17 07:02 08/11/17 07:02 08/11/17 07:02 08/11/17 07:02 08/11/17 07:02 - General physical appearance well developed, well nourished, moderate distress, chronically ill, obese, other (frail) - Eyes normal ocular movement - ENT normal mucosa, atraumatic, normocephalic - Neck no masses, no bruits, trachea midline, no lymphadectomy, no venous distension - Respiratory normal expansion, normal respiratory effort, clear to auscultation - Cardiovascular Cardiovascular exam: Present: irregular rhythm, no murmurs/rubs/gallops - Abdomen Abdomen general surgery: Present: bowel sounds present, soft, non tender ( Incarcerated hernia was reduced with 20 seconds of direct pressure. The patient denies any abdominal pain.) - Integumentary Integumentary general surgery: Present: warm and dry - Neurologic Present: CN 2-12 grossly intact, normal coordination, normal sensation - Psychiatric Psychiatric general surgery: Present: appropriate, oriented to person, oriented to place, oriented to time, speech is normal, memory intact Exam Initial Vital Signs Temp Pulse Resp BP Pulse Ox 97.4 F L 101 18 125/75 97 08/11/17 07:02 08/11/17 07:02 08/11/17 07:02 08/11/17 07:02 08/11/17 07:02 Results - Labs Abnormal lab results PT 17.3 Seconds (9.4-12.1) H 08/11/17 08:06 All other labs normal. - Imaging Additional studies: See labs and CT scan complete at [facility] 08/11/17 Consult Discharge Plan - Plan Referrals: [facility]PC[facility] [Primary Care Provider] - Charles Tolentino MD [Partnered Physician] - 05/29/18 1:40 pm - Attending Attestation For this encounter, I have reviewed the IT ASSOCIATE or PA documentation, treatment plan, and medical decision making; and I have had face to face time with this patient.
[2017-08-11] MEDS ORDERED: Acetaminophen 325 MG TABLET PO PRN (18:43)
[2017-08-11] MEDS ORDERED: *HR* Warfarin 4 MG TABLET PO SCH (18:45)
[2017-08-11] MEDS: Gabapentin 100 MG CAPSULE PO SCH (20:34)
[2017-08-11] MEDS: Metoprolol XL (24 HR) Succ 25 MG TAB.ER.24H PO SCH (20:34)
[2017-08-11] MEDS: *HR* Ticagrelor 90 MG TABLET PO SCH (20:34)
[2017-08-11] MEDS: Magnesium Oxide 400 MG TABLET PO SCH (20:34)
[2017-08-12 03:29] LABS: Basophils % 0.1 %; Eosinophils # 0.1 K/mcL (0.0-0.6); Eosinophils % 1.7 %; Hematocrit 29.8 % (37.5-50.1); Hemoglobin 9.1 g/dL (12.9-16.9); Immature Granulocytes % 0.7 % (0-4); Lymphocytes # 1.6 K/mcL (0.6-4.6); Lymphocytes % 21.7 %; Mean Corpuscular HGB Conc 30.5 g/dL (31.6-35.5); Mean Corpuscular Hemoglobin 25.6 pg (28.0-33.3); Mean Corpuscular Volume 83.7 fL (83.0-100.0); Mean Platelet Volume 10.6 fL (9.4-12.4); Monocytes # 0.5 K/mcL (0.0-1.3); Monocytes % 6.3 %; Neutrophils # 5.3 K/mcL (1.6-8.9); Platelet Count 157 K/mcL (140-400); Red Blood Count 3.56 M/mcL (4.19-5.50); Red Cell Distribution Width 15.9 % (11.5-14.5); Segmented Neutrophils % 69.5 %
[2017-08-12 03:47] LABS: Calcium 9.1 mg/dL (8.6-10.3); Potassium 4.7 mEq/L (3.5-5.1)
[2017-08-12] MEDS: Insulin LISPRO 300 UNITS/3 ML VIAL SQ SCH ×2 (07:36→11:40)
[2017-08-12] MEDS: Magnesium Oxide 400 MG TABLET PO SCH (07:42)
[2017-08-12] MEDS: Gabapentin 100 MG CAPSULE PO SCH (07:42)
[2017-08-12] MEDS: Metoprolol XL (24 HR) Succ 25 MG TAB.ER.24H PO SCH (07:42)
[2017-08-12] MEDS: *HR* Ticagrelor 90 MG TABLET PO SCH (07:43)
[2017-08-12] MEDS ORDERED: (Omega-3/Dha/Epa/Fish Oil [Fish Oil 1,000 Mg Softgel]) PO SCH (09:00)
[2017-08-12] MEDS ORDERED: Isosorbide MONOnitrate (24 HR) 30 MG TAB.ER.24H PO SCH (09:00)
[2017-08-12] MEDS ORDERED: Spironolactone 25 MG TABLET PO SCH (09:00)
[2017-08-12] MEDS ORDERED: Cyanocobalamin (B-12) 1,000 MCG TABLET PO SCH (09:00)
[2017-08-12] MEDS ORDERED: Aspirin Enteric Coated 81 MG Tablet PO SCH (09:00)
--- NOTE | 2017-08-12 09:36 | General Surgery Progress Note ---
Date of Encounter: 08/12/17 Time of Encounter: 06:00 - Assessment and Plan (1) Incarcerated umbilical hernia Current Visit: Yes Status: Acute The patient presented to the emergency department at [facility] with an incarcerated umbilical hernia by CAT scan and physical examination and transferred here on . Sutures treated with 1 hour of arrival with icepack. Umbilical hernia was able to be reduced yesterday. When seen today patient denied any abdominal pain and the umbilical hernia was able to be reduced easily. Patient denies any bowel movement but admits that he has been able to pass pointing of gas. He also had positive normal bowel sounds on his abdominal exam. Subjective Narrative: Patient denies any abdominal pain. Denies any nausea or vomiting. Denies any chest pain or shortness of breath. Denies having a bowel movement but admits to passing gas. Denies any fever or chills. Objective VITAL SIGNS: Reviewed. See [facility] GENERAL: no apparent distress. HEENT: [Normocephalic, PER, EOMi, oropharynx pink/moist, no JVD noted.] CV: b/l rad pulses 2+, RRR, no murmurs or gallops, no JVD RESPIRATORY: CTAB without wheezes, rales, or rhonchi ABD: soft, non-tender, no rebound/guarding/rigidity, no peritoneal signs. Umbilical hernia was reducible. No discoloration. Normal bowel sounds present. EXTREMITY: grossly normal motor function, no pedal edema, peripheral pulses 2+ b /l NEUROLOGIC EXAM: AOx3, obeys commands, no speech deficits. PSYCHIATRIC: normal mood and affect SKIN: no gross lesions, rashes, or skin changes Vital Signs - Last 8 Hours Temp Pulse Resp BP Pulse Ox 08/12/17 06:58 97.5 F L 62 17 109/67 97 08/12/17 03:50 97.5 F L 58 18 107/57 98 Intake and Output 08/11/17 08/12/17 08/12/17 23:59 07:59 15:59 Intake Total 360 / 360 880 / 880 600 / 600 Output Total 1150 / 1150 Balance 360 / 360 -270 / -270 600 / 600 Intake: Oral 360 / 360 880 / 880 600 / 600 Output: Urine 1150 / 1150 Other: Meal Dinner gold fish Breakfast Percent of Meal Consumed 100% 100% 100% # Voids 1 1 Weight 92.896 kg Blood Glucose* 110 137 Patient Weight 08/12/17 23:59 Weight 92.896 kg - Labs 08/12/17 02:41 08/12/17 02:41 Diabetes panel 08/12/17 Range/Units 02:41 Sodium 139 (136-145) mEq/L Potassium 4.7 (3.5-5.1) mEq/L Chloride 105 (98-107) mEq/L Carbon Dioxide 28 (23-29) mEq/L BUN 33 H (8-23) mg/dL Creatinine 1.65 H (0.70-1.30) mg/dL Glucose 128 H (70-105) mg/dL Calcium 9.1 (8.6-10.3) mg/dL Calcium panel 08/12/17 Range/Units 02:41 Calcium 9.1 (8.6-10.3) mg/dL Pituitary panel 08/12/17 Range/Units 02:41 Sodium 139 (136-145) mEq/L Potassium 4.7 (3.5-5.1) mEq/L Chloride 105 (98-107) mEq/L Carbon Dioxide 28 (23-29) mEq/L BUN 33 H (8-23) mg/dL Creatinine 1.65 H (0.70-1.30) mg/dL Glucose 128 H (70-105) mg/dL Calcium 9.1 (8.6-10.3) mg/dL Adrenal panel 08/12/17 Range/Units 02:41 Sodium 139 (136-145) mEq/L Potassium 4.7 (3.5-5.1) mEq/L Chloride 105 (98-107) mEq/L Carbon Dioxide 28 (23-29) mEq/L BUN 33 H (8-23) mg/dL Creatinine 1.65 H (0.70-1.30) mg/dL Glucose 128 H (70-105) mg/dL Calcium 9.1 (8.6-10.3) mg/dL Consult Discharge Plan - Plan Referrals: Charles Tolentino MD [Partnered Physician] - 08/22/17 1:40 pm [facility]Primary Care Provider[facility] -
[2017-08-12 10:34] VITALS: BP 127/67
[2017-08-12] MEDS ORDERED: Sennosides/Docusate Sodium TABLET PO PRN (11:14)
--- NOTE | 2017-08-12 13:18 | Discharge Summary ---
- NOTES TO OUTPATIENT PROVIDER Notes to Outpatient Provider: f/u with surgery Dr. Tolentino in one week Orders not resulted at time of discharge: Pending orders 08/11/17 07:44 Urinalysis reflex Microscopic [URIN] Routine Date of Encounter: 08/12/17 Time of Encounter: 13:14 - Discharge Diagnosis (1) Incarcerated umbilical hernia Priority: Primary Status: Acute (2) LUIS FERNANDO (acute kidney injury) Priority: Primary Status: Acute (3) Diabetes mellitus Priority: Secondary Status: Acute Qualifiers: Diabetes mellitus type: type 2 Diabetes mellitus long chain beamer insulin use: with long chain beamer use Diabetes mellitus complication status: without complication Qualified Code(s): E11.9 - Type 2 diabetes mellitus without complications; 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 transplanted heart: [place] heart Associated angina: without angina Qualified Code(s): I25.810 - Atherosclerosis of coronary artery bypass graft(s) without angina pectoris (6) DVT (deep venous thrombosis) Priority: Secondary Status: Acute Qualifiers: DVT location: lower extremity Affected thrombotic vein of extremity: unspecified lower extremity proximal vein Laterality: unspecified laterality Qualified Code(s): I82.4Y9 - Acute embolism and thrombosis of unspecified deep veins of unspecified proximal lower extremity Hospital course: Mr. Poe is a 82 year old male with history of chronic medical hernia but no surgical procedure was done due to multiple comorbid condition, diabetes mellitus, hypertension, CAD, CKD-3, CAD status post CABG and stent, history of DVT and PE on Coumadin since 2007 was transferred from [facility] with concern of incarcerated umbilical hernia after evaluation in positive finding on CT abdomen. Supportive treatment IV fluid, antiemetic and nasogastric tube and 1 dose of Zosyn was placed. As per patient, parisa- umbilical pain started yesterday morning and got progressively worse associated with vomiting that woke him up in the middle of tonight therefore he went to [place] emergency room and they transferred to this hospital as mentioned above. Pt was admitted in the hospital and evaluated by general surgeon Dr. Tolentino who reduced his ventral hernia successfully . now abdominal pain almost completely relieved. He is tolerating pO inntake well. He does not have BM yet, however he is passing gas well. So will d/c him home in stable condition today. - Time Spent with Patient Total time spent providing and/or coordinating discharge services: - Discharge Medications Home Medications: Atorvastatin [Lipitor] 40 mg PO HS 11/16/15 [History] Gabapentin [Neurontin] 200 mg PO TID 11/16/15 [History] Isosorbide MONOnitrate (24 HR) [Imdur] 30 mg PO DAILY 11/16/15 [History] Metformin HCl [Metformin HCl ER] 2,000 mg PO QPM 11/16/15 [History] Ferrous Sulfate [Iron] 325 mg PO BID 12/02/15 [History] Omeprazole [PriLOSEC] 20 mg PO DAILY 12/02/15 [History] Terazosin HCl 10 mg PO HS 12/02/15 [History] glipiZIDE [Glucotrol] 5 mg PO DAILY 12/02/15 [History] Cyanocobalamin (B-12) [Vitamin B12] 1,000 mcg PO DAILY 11/27/16 [History] Spironolactone [Aldactone] 25 mg PO DAILY 11/27/16 [History] Furosemide [Lasix] 20 mg PO BID 06/21/17 [History] Metoprolol XL (24 HR) Succ [Toprol Xl] 25 mg PO BID 06/21/17 [History] [place]-3/Dha/Epa/Fish Oil [Fish Oil 1,000 mg Softgel] 1,000 mg PO DAILY 06/21/17 [History] Warfarin [Coumadin] 3.5 mg PO SUTUTHSA 06/21/17 [History] Warfarin [Coumadin] 4 mg PO MOWEFR 06/21/17 [History] Aspirin Enteric Coated [Aspirin EC] 81 mg PO DAILY #30 tablet. 06/27/17 [Rx] Lisinopril [Zestril] 20 mg PO DAILY #30 tablet 06/27/17 [Rx] Magnesium Oxide [Mag-Ox] 400 mg PO BID #60 tablet 06/27/17 [Rx] Ticagrelor [Brilinta] 90 mg PO BID #60 tablet 06/27/17 [Rx] Acetaminophen [Tylenol] 650 mg PO QID PRN #0 08/12/17 [Rx] Allergies/Adverse Reactions: 3 Allergy/AdvReac Type Severity Reaction Status Date / Time pseudoephedrine Allergy Anaphylaxis Verified 08/11/17 08:25 [From Actifed] sulfamethoxazole Allergy Anaphylaxis Verified 08/11/17 08:25 [From Bactrim] tramadol Allergy See Verified 08/11/17 08:25 Comments trimethoprim [From Bactrim] Allergy Anaphylaxis Verified 08/11/17 08:25 triprolidine [From Actifed] Allergy Anaphylaxis Verified 08/11/17 08:25 Date of admission: 08/11/17 06:16 Primary care physician: PCP [facility] Consults: 08/11/17 07:36 Consult to Induction Machine Setter [CONS] Routine Reason for SW Consult: PT [facility] HAS PASSPORT 08/11/17 07:49 Consult to Surgery [CONS] Stat Consulting Provider: Surgery [facility] Reason for Consult: Incarcerated recurrent hernia Call Completed: Yes - Constitutional Vitals: Temp Pulse Resp BP Pulse Ox 97.7 F 62 16 127/67 97 08/12/17 10:32 08/12/17 10:32 08/12/17 10:32 08/12/17 10:32 08/12/17 10:32 General appearance: Present: A&O X 3, no acute distress, answers questions appropriately - Head Head exam: Present: atraumatic, normal inspection - Neck Neck exam general surgery: Present: supple - Respiratory Respiratory exam: Present: decreased breath sounds. Absent: rales, respiratory distress, rhonchi, wheezes - Cardiovascular Cardiovascular exam: Present: RRR, +S1, +S2. Absent: tachycardia - GI/Abdominal GI/Abdominal exam: Present: normal bowel sounds, soft. Absent: rebound, rigid, tenderness - Extremities Exam Extremities exam: Absent: calf tenderness, pedal edema, tenderness - Back Exam Back exam: Absent: CVA tenderness (L), CVA tenderness (R) - Neurological Exam Neurological exam: Present: alert, oriented X3 - Psychiatric Psychiatric exam: Present: normal affect, normal mood - Skin Skin exam: Absent: rash - Patient Status Disposition: Home, Self-Care Condition: Good Overall status at discharge: patient is back to baseline - Discharge Instructions Follow Up With: Charles Tolentino MD [Partnered Physician] - 08/22/17 1:40 pm [facility],PCP [Primary Care Provider] - - Diet and Activity Activity: increase activity as tolerated Diet: low salt diet
--- NOTE | 2017-08-12 13:28 | Physician Discharge Referral ---
Home Health/Hosp Referral Info Transfer to: Home Health Provider in Charge Post Discharge: PCP - Diagnosis (1) Incarcerated umbilical hernia Status: Acute (2) LUIS FERNANDO (acute kidney injury) Status: Acute (3) Diabetes mellitus Status: Acute (4) Hypertension Status: Acute (5) CAD (coronary artery disease) Status: Chronic (6) DVT (deep venous thrombosis) Status: Acute - Respiratory Orders Smoking Cessation: Smoking cessation has been advised. For more information, call the [place] Tobacco Quit Line at 0-051-EDBG-NOW. - Transfer Medications Home Medications: Atorvastatin [Lipitor] 40 mg PO HS 11/16/15 [History] Gabapentin [Neurontin] 200 mg PO TID 11/16/15 [History] Isosorbide MONOnitrate (24 HR) [Imdur] 30 mg PO DAILY 11/16/15 [History] Ferrous Sulfate [Iron] 325 mg PO BID 12/02/15 [History] Omeprazole [PriLOSEC] 20 mg PO DAILY 12/02/15 [History] Terazosin HCl 10 mg PO HS 12/02/15 [History] glipiZIDE [Glucotrol] 5 mg PO DAILY 12/02/15 [History] Cyanocobalamin (B-12) [Vitamin B12] 1,000 mcg PO DAILY 11/27/16 [History] Spironolactone [Aldactone] 25 mg PO DAILY 11/27/16 [History] Furosemide [Lasix] 20 mg PO BID 06/21/17 [History] Metoprolol XL (24 HR) Succ [Toprol Xl] 25 mg PO BID 06/21/17 [History] [place]-3/Dha/Epa/Fish Oil [Fish Oil 1,000 mg Softgel] 1,000 mg PO DAILY 06/21/17 [History] Warfarin [Coumadin] 3.5 mg PO SUTUTHSA 06/21/17 [History] Warfarin [Coumadin] 4 mg PO MOWEFR 06/21/17 [History] Aspirin Enteric Coated [Aspirin EC] 81 mg PO DAILY #30 tablet. 06/27/17 [Rx] Lisinopril [Zestril] 20 mg PO DAILY #30 tablet 06/27/17 [Rx] Magnesium Oxide [Mag-Ox] 400 mg PO BID #60 tablet 06/27/17 [Rx] Ticagrelor [Brilinta] 90 mg PO BID #60 tablet 06/27/17 [Rx] Acetaminophen [Tylenol] 650 mg PO QID PRN #0 08/12/17 [Rx] Allergies/Adverse Reactions: 3 Allergy/AdvReac Type Severity Reaction Status Date / Time pseudoephedrine Allergy Anaphylaxis Verified 08/11/17 08:25 [From Actifed] sulfamethoxazole Allergy Anaphylaxis Verified 08/11/17 08:25 [From Bactrim] tramadol Allergy See Verified 08/11/17 08:25 Comments trimethoprim [From Bactrim] Allergy Anaphylaxis Verified 08/11/17 08:25 triprolidine [From Actifed] Allergy Anaphylaxis Verified 08/11/17 08:25 Certification: Further, I certify that my clinical findings support that this patient is homebound (i.e. absences from home require considerable and taxing effort and are for medical reasons or christian services or infrequently or short duration when for other reasons) because: Homebound Reason: Patient requires assistance of a person or device to safely leave home Attestation: My signature below is to certify that this patient is under my care and that I, or nurse practitioner, or a physician's academic support assistant working with me, has a face-to -face encounter with this patient.
[2017-08-12] MEDS ORDERED: *HR* Warfarin 3 MG TABLET PO SCH (18:00)
== END 2017-08-12 14:10 | disposition home or self-care (01) ==
LOC: 2ANU
PROVIDERS: ADMIT General Practice; ATTEND Family Medicine

== ENCOUNTER 2017-09-08 17:04 | Inpatient (IN) ==
--- NOTE | 2017-09-08 17:30 | Emergency Department Note ---
Disposition Clinical Impression: Acute on chronic renal insufficiency, Hemianopia of left eye, Hyperkalemia Disposition: Admitted As Inpatient General Adult HPI - General Chief complaint: ED Neuro Symptoms/Deficit Stated complaint: vision changes Time Seen by Provider: 09/08/17 17:17 Source: patient, EMS Limitations: no limitations Nursing Notes Reviewed: Yes Vital Signs Reviewed: Yes - History of Present Illness HPI Narrative: 82-year-old male presents to the emergency department with concern for vision changes. Patient states that he cannot see horizontally, the upper half of the vision of his left eye. Patient denies any pain. Patient was at the [facility] where he was seen by ophthalmology and there was concern for possible clot in left retinal artery. Patient denies any blurriness of the vision, any redness. Patient states that it just appears dark. Patient reports history of strokes in the past, right-sided facial droop, coronary artery disease. Patient currently takes aspirin, brilinta, Coumadin. Patient not reporting any slurring of speech, extremity weakness. Pain Scale: 0 - Related Data Home Medications Medication Instructions Recorded Confirmed Atorvastatin [Lipitor] 40 mg PO HS 11/16/15 09/08/17 Gabapentin [Neurontin] 200 mg PO TID 11/16/15 09/08/17 Isosorbide MONOnitrate (24 HR) 30 mg PO DAILY 11/16/15 09/08/17 [Imdur] Ferrous Sulfate [Iron] 325 mg PO BID 12/02/15 09/08/17 Omeprazole [PriLOSEC] 20 mg PO DAILY 12/02/15 09/08/17 Terazosin HCl 10 mg PO HS 12/02/15 09/08/17 glipiZIDE [Glucotrol] 5 mg PO DAILY 12/02/15 09/08/17 Cyanocobalamin (B-12) [Vitamin B12] 1,000 mcg PO DAILY 11/27/16 09/08/17 Spironolactone [Aldactone] 25 mg PO DAILY 11/27/16 09/08/17 Furosemide [Lasix] 20 mg PO BID 06/21/17 09/08/17 Metoprolol XL (24 HR) Succ [Toprol 25 mg PO BID 06/21/17 09/08/17 Xl] [place]-3/Dha/Epa/Fish Oil [Fish Oil 1,000 mg PO DAILY 06/21/17 09/08/17 1,000 mg Softgel] Warfarin [Coumadin] 4 mg PO DAILY 06/21/17 09/08/17 Lisinopril [Zestril] 5 mg PO DAILY 09/08/17 09/08/17 Multivit-Min/FA/Lycopen/Lutein 1 tab PO DAILY 09/08/17 09/08/17 [Centrum Silver Tablet] Previous Rx's Medication Instructions Recorded Aspirin Enteric Coated [Aspirin EC] 81 mg PO DAILY #30 tablet. 06/27/17 Magnesium Oxide [Mag-Ox] 400 mg PO BID #60 tablet 06/27/17 Ticagrelor [Brilinta] 90 mg PO BID #60 tablet 06/27/17 Acetaminophen [Tylenol] 650 mg PO QID PRN #0 08/12/17 Allergies Allergy/AdvReac Type Severity Reaction Status Date / Time pseudoephedrine Allergy Anaphylaxis Verified 08/11/17 08:25 [From Actifed] sulfamethoxazole Allergy Anaphylaxis Verified 08/11/17 08:25 [From Bactrim] tramadol Allergy See Verified 08/11/17 08:25 Comments trimethoprim [From Bactrim] Allergy Anaphylaxis Verified 08/11/17 08:25 triprolidine [From Actifed] Allergy Anaphylaxis Verified 08/11/17 08:25 All systems ED: reviewed and negative except as stated. Review of Systems: As Per HPI Past Medical History - Past Medical History Medical history: Reports: atrial fibrillation, CHF, COPD, coronary artery disease, DVT, diabetes, GERD, hyperlipidemia, hypertension, myocardial infarction, peripheral artery disease, pulmonary embolus, TIA, other Surgical history: Reports: angioplasty/stent, coronary bypass (CABG) Psychiatric history: Reports: no psych history - Social History Smoking Status: Former smoker Smokeless Tobacco Status: No Alcohol use: Reports: none Drug use: Reports: none Physical Exam - General Limitations: no limitations General appearance: alert, in no apparent distress Course Vital Signs Temperature 98.1 F 09/08/17 17:07 Pulse Rate 80 09/08/17 17:07 Respiratory Rate 18 09/08/17 17:07 Blood Pressure 144/67 09/08/17 17:07 O2 Sat by Pulse Oximetry 99 09/08/17 17:07 Temperature 98.6 F 09/09/17 07:42 Pulse Rate 76 09/09/17 07:42 Respiratory Rate 17 09/09/17 07:42 Blood Pressure 151/75 09/09/17 07:42 O2 Sat by Pulse Oximetry 97 09/09/17 07:42 Oxygen Delivery Oxygen Delivery Room Air Medical Decision Making - [facility] Narrative Medical decision making narrative: 82[facility]ianops[facility]. Patient has no history of stroke, and has residual right-sided facial weakness. Patient is currently on Coumadin, Plavix, aspirin. He is maximized on medical therapy. CT scan of the head was obtained without contrast did not reveal any evidence of any intracranial hemorrhage. There was however signs of chronic ischemia. We obtained MRI of the head and neck. Revealed what is stated below. Patient's electrocardiogram did not reveal any evidence of ischemia. Chest x- ray was normal. Patient has creatinine of 2.33 with potassium of 5.6. There are no EKG changes with his potassium. Patient has history of Chronic Kidney Disease, but his potassium is ever been this elevated. Patient was admitted to the hospital for further management. Was not given any fluid at this time as I do not have the source of his chronic kidney disease. Patient does report history of CHF. We have obtained a BNP but these results are pending at time of admission. Patient clinically does not appear to be more fluid overloaded than his normal accroding to him. Dr. Ugarte was the hospitalist who agreed to accept him. He requested that we give Kayexalate. Head MRA 09/08/17 17:48 IMPRESSION: No acute infarct. Susceptibility artifact within medial right basal ganglia, without associated edema. This is the site of previous hemorrhage. 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 However, acute hemorrhage should be excluded with follow-up noncontrast CT head. Chronic small vessel ischemic white matter disease and diffuse cerebral volume loss. 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 No acute infarct is identified in this distribution. No additional evidence of high-grade stenosis or focal occlusion involving the intracranial vasculature. No evidence of intracranial aneurysm. Atherosclerotic disease at the bilateral carotid bifurcation, without flow-limiting stenosis by NASCET criteria. No focal flow-limiting stenosis involving the vertebral arteries. D/ / 09/08/2017 20:09:23 Kendall Huber MD / ivonne Interpreting Provider: Kendall Huber MD Neck MRA 09/08/17 17:48 IMPRESSION: No acute infarct. Susceptibility artifact within medial right basal ganglia, without associated edema. This is the site of previous hemorrhage. 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 However, acute hemorrhage should be excluded with follow-up noncontrast CT head. Chronic small vessel ischemic white matter disease and diffuse cerebral volume loss. 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 No acute infarct is identified in this distribution. No additional evidence of high-grade stenosis or focal occlusion involving the intracranial vasculature. No evidence of intracranial aneurysm. Atherosclerotic disease at the bilateral carotid bifurcation, without flow-limiting stenosis by NASCET criteria. No focal flow-limiting stenosis involving the vertebral arteries. D/ / 09/08/2017 20:09:23 Kendall Huber MD / ivonne Interpreting Provider: Kendall Huber MD Brain MRI 09/08/17 18:31 IMPRESSION: No acute infarct. Susceptibility artifact within medial right basal ganglia, without associated edema. This is the site of previous hemorrhage. 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 However, acute hemorrhage should be excluded with follow-up noncontrast CT head. Chronic small vessel ischemic white matter disease and diffuse cerebral volume loss. 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 No acute infarct is identified in this distribution. No additional evidence of high-grade stenosis or focal occlusion involving the intracranial vasculature. No evidence of intracranial aneurysm. Atherosclerotic disease at the bilateral carotid bifurcation, without flow-limiting stenosis by NASCET criteria. No focal flow-limiting stenosis involving the vertebral arteries. D/ / 09/08/2017 20:09:23 Kendall Huber MD / ivonne Interpreting Provider: Kendall Huber MD Chest X-Ray 09/08/17 20:23 IMPRESSION: No acute process. D/ / Tim Sam MD / Tim Sam MD Interpreting Provider: Tim Sam MD - Lab Data Result diagrams: 09/09/17 05:00 09/09/17 05:00 Lab Results 09/08/17 09/08/17 09/08/17 Range/Units 17:11 17:28 17:28 WBC 8.0 (4.3-11.1) K/mcL RBC 4.02 L (4.19-5.50) M/mcL Hgb 10.5 L (12.9-16.9) g/dL Hct 34.2 L (37.5-50.1) % MCV 85.1 (83.0-100.0) fL MCH 26.1 L (28.0-33.3) pg MCHC 30.7 L (31.6-35.5) g/dL RDW 15.3 H (11.5-14.5) % Plt Count 160 (140-400) K/mcL MPV 11.5 (9.4-12.4) fL Immature Gran % 0.9 (0-4) % Seg Neutrophils % 70.4 % Lymphocytes % 19.2 % Monocytes % 7.8 % Eosinophils % 1.4 % Basophils % 0.3 % Neutrophils # 5.6 (1.6-8.9) K/mcL Lymphocytes # 1.5 (0.6-4.6) K/mcL Monocytes # 0.6 (0.0-1.3) K/mcL Eosinophils # 0.1 (0.0-0.6) K/mcL Basophils # 0.0 (0.0-0.2) K/mcL PT 22.7 H (9.4-12.1) Seconds INR 2.1 APTT 37.9 H (26.0-36.0) Seconds Sodium (136-145) mEq/L Potassium (3.5-5.1) mEq/L Chloride (98-107) mEq/L Carbon Dioxide (23-29) mEq/L BUN (8-23) mg/dL Creatinine (0.70-1.30) mg/dL Est GFR ( Amer) (> 60) Est GFR (Non-Af Amer) (> 60) BUN/Creatinine Ratio (6-26) Glucose (70-105) mg/dL POC Glucose 70 (70-99) mg/dL Calculated Osmolality (280-300) Calcium (8.6-10.3) mg/dL Troponin I (< 0.04) ng/mL B-Natriuretic Peptide (Less than 100) pg/mL 09/08/17 09/08/17 09/08/17 Range/Units 17:28 20:57 22:13 WBC (4.3-11.1) K/mcL RBC (4.19-5.50) M/mcL Hgb (12.9-16.9) g/dL Hct (37.5-50.1) % MCV (83.0-100.0) fL MCH (28.0-33.3) pg MCHC (31.6-35.5) g/dL RDW (11.5-14.5) % Plt Count (140-400) K/mcL MPV (9.4-12.4) fL Immature Gran % (0-4) % Seg Neutrophils % % Lymphocytes % % Monocytes % % Eosinophils % % Basophils % % Neutrophils # (1.6-8.9) K/mcL Lymphocytes # (0.6-4.6) K/mcL Monocytes # (0.0-1.3) K/mcL Eosinophils # (0.0-0.6) K/mcL Basophils # (0.0-0.2) K/mcL PT (9.4-12.1) Seconds INR APTT (26.0-36.0) Seconds Sodium 138 (136-145) mEq/L Potassium 5.6 H (3.5-5.1) mEq/L Chloride 104 (98-107) mEq/L Carbon Dioxide 27 (23-29) mEq/L BUN 39 H (8-23) mg/dL Creatinine 2.33 H (0.70-1.30) mg/dL Est GFR ( Amer) 33 L (> 60) Est GFR (Non-Af Amer) 27 L (> 60) BUN/Creatinine Ratio 17 (6-26) Glucose 78 (70-105) mg/dL POC Glucose 81 (70-99) mg/dL Calculated Osmolality 294 (280-300) Calcium 9.2 (8.6-10.3) mg/dL Troponin I < 0.03 (< 0.04) ng/mL B-Natriuretic Peptide 118 H (Less than 100) pg/mL
--- NOTE | 2017-09-08 17:33 | Emergency Department Note ---
Disposition Clinical Impression: Acute on chronic renal insufficiency, Hemianopia of left eye, Hyperkalemia Disposition: Admitted As Inpatient General Adult HPI - General Chief complaint: ED Neuro Symptoms/Deficit Stated complaint: vision changes Time Seen by Provider: 09/08/17 17:17 Source: patient, EMS Limitations: no limitations - History of Present Illness Pain Scale: 0 - Related Data Home Medications Medication Instructions Recorded Confirmed Atorvastatin [Lipitor] 40 mg PO HS 11/16/15 09/08/17 Gabapentin [Neurontin] 200 mg PO TID 11/16/15 09/08/17 Isosorbide MONOnitrate (24 HR) 30 mg PO DAILY 11/16/15 09/08/17 [Imdur] Ferrous Sulfate [Iron] 325 mg PO BID 12/02/15 09/08/17 Omeprazole [PriLOSEC] 20 mg PO DAILY 12/02/15 09/08/17 Terazosin HCl 10 mg PO HS 12/02/15 09/08/17 glipiZIDE [Glucotrol] 5 mg PO DAILY 12/02/15 09/08/17 Cyanocobalamin (B-12) [Vitamin B12] 1,000 mcg PO DAILY 11/27/16 09/08/17 Spironolactone [Aldactone] 25 mg PO DAILY 11/27/16 09/08/17 Furosemide [Lasix] 20 mg PO BID 06/21/17 09/08/17 Metoprolol XL (24 HR) Succ [Toprol 25 mg PO BID 06/21/17 09/08/17 Xl] [place]-3/Dha/Epa/Fish Oil [Fish Oil 1,000 mg PO DAILY 06/21/17 09/08/17 1,000 mg Softgel] Warfarin [Coumadin] 4 mg PO DAILY 06/21/17 09/08/17 Lisinopril [Zestril] 5 mg PO DAILY 09/08/17 09/08/17 Multivit-Min/FA/Lycopen/Lutein 1 tab PO DAILY 09/08/17 09/08/17 [Centrum Silver Tablet] Previous Rx's Medication Instructions Recorded Aspirin Enteric Coated [Aspirin EC] 81 mg PO DAILY #30 tablet. 06/27/17 Magnesium Oxide [Mag-Ox] 400 mg PO BID #60 tablet 06/27/17 Ticagrelor [Brilinta] 90 mg PO BID #60 tablet 06/27/17 Acetaminophen [Tylenol] 650 mg PO QID PRN #0 08/12/17 Allergies Allergy/AdvReac Type Severity Reaction Status Date / Time pseudoephedrine Allergy Anaphylaxis Verified 08/11/17 08:25 [From Actifed] sulfamethoxazole Allergy Anaphylaxis Verified 08/11/17 08:25 [From Bactrim] tramadol Allergy See Verified 08/11/17 08:25 Comments trimethoprim [From Bactrim] Allergy Anaphylaxis Verified 08/11/17 08:25 triprolidine [From Actifed] Allergy Anaphylaxis Verified 08/11/17 08:25 Past Medical History - Past Medical History Medical history: Reports: atrial fibrillation, CHF, COPD, coronary artery disease, DVT, diabetes, GERD, hyperlipidemia, hypertension, myocardial infarction, peripheral artery disease, pulmonary embolus, TIA, other Surgical history: Reports: angioplasty/stent, coronary bypass (CABG) Psychiatric history: Reports: no psych history - Social History Smoking Status: Former smoker Smokeless Tobacco Status: No Alcohol use: Reports: none Drug use: Reports: none Physical Exam - General Limitations: no limitations General appearance: alert, in no apparent distress Course Vital Signs Temperature 98.1 F 09/08/17 17:07 Pulse Rate 80 09/08/17 17:07 Respiratory Rate 18 09/08/17 17:07 Blood Pressure 144/67 09/08/17 17:07 O2 Sat by Pulse Oximetry 99 09/08/17 17:07 Temperature 98.5 F 09/08/17 22:10 Pulse Rate 70 09/08/17 22:10 Respiratory Rate 18 09/08/17 22:10 Blood Pressure 138/62 09/08/17 22:10 O2 Sat by Pulse Oximetry 98 09/08/17 22:12 Oxygen Delivery Oxygen Delivery Room Air Medical Decision Making - Lab Data Result diagrams: 09/08/17 17:28 09/08/17 17:28 Lab Results 09/08/17 09/08/17 09/08/17 Range/Units 17:11 17:28 17:28 WBC 8.0 (4.3-11.1) K/mcL RBC 4.02 L (4.19-5.50) M/mcL Hgb 10.5 L (12.9-16.9) g/dL Hct 34.2 L (37.5-50.1) % MCV 85.1 (83.0-100.0) fL MCH 26.1 L (28.0-33.3) pg MCHC 30.7 L (31.6-35.5) g/dL RDW 15.3 H (11.5-14.5) % Plt Count 160 (140-400) K/mcL MPV 11.5 (9.4-12.4) fL Immature Gran % 0.9 (0-4) % Seg Neutrophils % 70.4 % Lymphocytes % 19.2 % Monocytes % 7.8 % Eosinophils % 1.4 % Basophils % 0.3 % Neutrophils # 5.6 (1.6-8.9) K/mcL Lymphocytes # 1.5 (0.6-4.6) K/mcL Monocytes # 0.6 (0.0-1.3) K/mcL Eosinophils # 0.1 (0.0-0.6) K/mcL Basophils # 0.0 (0.0-0.2) K/mcL PT 22.7 H (9.4-12.1) Seconds INR 2.1 APTT 37.9 H (26.0-36.0) Seconds Sodium (136-145) mEq/L Potassium (3.5-5.1) mEq/L Chloride (98-107) mEq/L Carbon Dioxide (23-29) mEq/L BUN (8-23) mg/dL Creatinine (0.70-1.30) mg/dL Est GFR ( Amer) (> 60) Est GFR (Non-Af Amer) (> 60) BUN/Creatinine Ratio (6-26) Glucose (70-105) mg/dL POC Glucose 70 (70-99) mg/dL Calculated Osmolality (280-300) Calcium (8.6-10.3) mg/dL Troponin I (< 0.04) ng/mL B-Natriuretic Peptide (Less than 100) pg/mL 09/08/17 09/08/17 Range/Units 17:28 20:57 WBC (4.3-11.1) K/mcL RBC (4.19-5.50) M/mcL Hgb (12.9-16.9) g/dL Hct (37.5-50.1) % MCV (83.0-100.0) fL MCH (28.0-33.3) pg MCHC (31.6-35.5) g/dL RDW (11.5-14.5) % Plt Count (140-400) K/mcL MPV (9.4-12.4) fL Immature Gran % (0-4) % Seg Neutrophils % % Lymphocytes % % Monocytes % % Eosinophils % % Basophils % % Neutrophils # (1.6-8.9) K/mcL Lymphocytes # (0.6-4.6) K/mcL Monocytes # (0.0-1.3) K/mcL Eosinophils # (0.0-0.6) K/mcL Basophils # (0.0-0.2) K/mcL PT (9.4-12.1) Seconds INR APTT (26.0-36.0) Seconds Sodium 138 (136-145) mEq/L Potassium 5.6 H (3.5-5.1) mEq/L Chloride 104 (98-107) mEq/L Carbon Dioxide 27 (23-29) mEq/L BUN 39 H (8-23) mg/dL Creatinine 2.33 H (0.70-1.30) mg/dL Est GFR ( Amer) 33 L (> 60) Est GFR (Non-Af Amer) 27 L (> 60) BUN/Creatinine Ratio 17 (6-26) Glucose 78 (70-105) mg/dL POC Glucose (70-99) mg/dL Calculated Osmolality 294 (280-300) Calcium 9.2 (8.6-10.3) mg/dL Troponin I < 0.03 (< 0.04) ng/mL B-Natriuretic Peptide 118 H (Less than 100) pg/mL Attestation Statement - Attestation Attestation: I examined this patient and my medical decision-making was reviewed with the Resident Physician. I agree with the documented findings, disposition and treatment plan as described except to the extent set forth below. Patient presents to the ED with chief complaint of needing an MRI. [facility]. He had a loss of the inferior portion of his vision in one eye. He had normal CT scan. Saw an chisel worker who is concern for some plaques in his retinal artery. States he needs an MRI. Transferred here to obtain that. On examination he is in no acute distress. He does have loss plan. Portion of his vision of his left eye. Plan. Obtain MRI. MRI does not show an acute infarct. Patient has an acute kidney injury. Patient is admitted for further medical workup. Head MRA 09/08/17 17:48 IMPRESSION: No acute infarct. Susceptibility artifact within medial right basal ganglia, without associated edema. This is the site of previous hemorrhage. 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 However, acute hemorrhage should be excluded with follow-up noncontrast CT head. Chronic small vessel ischemic white matter disease and diffuse cerebral volume loss. 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 No acute infarct is identified in this distribution. No additional evidence of high-grade stenosis or focal occlusion involving the intracranial vasculature. No evidence of intracranial aneurysm. Atherosclerotic disease at the bilateral carotid bifurcation, without flow-limiting stenosis by NASCET criteria. No focal flow-limiting stenosis involving the vertebral arteries. D/ / 09/08/2017 20:09:23 Kendall Huber MD / [facility] Interpreting Provider: Kendall Huber MD Neck MRA 09/08/17 17:48 IMPRESSION: No acute infarct. Susceptibility artifact within medial right basal ganglia, without associated edema. This is the site of previous hemorrhage. 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 However, acute hemorrhage should be excluded with follow-up noncontrast CT head. Chronic small vessel ischemic white matter disease and diffuse cerebral volume loss. 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 No acute infarct is identified in this distribution. No additional evidence of high-grade stenosis or focal occlusion involving the intracranial vasculature. No evidence of intracranial aneurysm. Atherosclerotic disease at the bilateral carotid bifurcation, without flow-limiting stenosis by NASCET criteria. No focal flow-limiting stenosis involving the vertebral arteries. D/ / 09/08/2017 20:09:23 Kendall Huber MD / [facility] Interpreting Provider: Kendall Huber MD Brain MRI 09/08/17 18:31 IMPRESSION: No acute infarct. Susceptibility artifact within medial right basal ganglia, without associated edema. This is the site of previous hemorrhage. 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 However, acute hemorrhage should be excluded with follow-up noncontrast CT head. Chronic small vessel ischemic white matter disease and diffuse cerebral volume loss. 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 No acute infarct is identified in this distribution. No additional evidence of high-grade stenosis or focal occlusion involving the intracranial vasculature. No evidence of intracranial aneurysm. Atherosclerotic disease at the bilateral carotid bifurcation, without flow-limiting stenosis by NASCET criteria. No focal flow-limiting stenosis involving the vertebral arteries. D/ / 09/08/2017 20:09:23 Kendall Huber MD / [facility] [place] Interpreting Provider: Kendall Huber MD Chest X-Ray 09/08/17 20:23 IMPRESSION: No acute process. D/ / Tim Sam MD / Tim Sam MD Interpreting Provider: Tim Sam MD
[2017-09-08] MEDS ORDERED: Gadolinium Contrast Agent (WT Based) IV PRN (17:48)
[2017-09-08 17:49] LABS: Basophils % 0.3 %; Eosinophils # 0.1 K/mcL (0.0-0.6); Eosinophils % 1.4 %; Hematocrit 34.2 % (37.5-50.1); Hemoglobin 10.5 g/dL (12.9-16.9); Immature Granulocytes % 0.9 % (0-4); Lymphocytes # 1.5 K/mcL (0.6-4.6); Lymphocytes % 19.2 %; Mean Corpuscular HGB Conc 30.7 g/dL (31.6-35.5); Mean Corpuscular Hemoglobin 26.1 pg (28.0-33.3); Mean Corpuscular Volume 85.1 fL (83.0-100.0); Mean Platelet Volume 11.5 fL (9.4-12.4); Monocytes # 0.6 K/mcL (0.0-1.3); Monocytes % 7.8 %; Neutrophils # 5.6 K/mcL (1.6-8.9); Platelet Count 160 K/mcL (140-400); Red Blood Count 4.02 M/mcL (4.19-5.50); Red Cell Distribution Width 15.3 % (11.5-14.5); Segmented Neutrophils % 70.4 %
[2017-09-08 17:57] LABS: INR 2.1; Prothrombin Time 22.7 Seconds (9.4-12.1)
[2017-09-08 17:59] LABS: Activated Partial Thrombo Time 37.9 Seconds (26.0-36.0)
[2017-09-08 18:05] LABS: BUN/Creatinine Ratio 17 (6-26); Blood Urea Nitrogen 39 mg/dL (8-23); Calcium 9.2 mg/dL (8.6-10.3); Carbon Dioxide 27 mEq/L (23-29); Chloride 104 mEq/L (98-107); Glucose 78 mg/dL (70-105); Osmolality,Calculated 294 (280-300); Potassium 5.6 mEq/L (3.5-5.1); Sodium 138 mEq/L (136-145); Troponin I < 0.03 ng/mL (< 0.04); eGFR For African Americans 33 (> 60); eGFR For Non-African Americans 27 (> 60)
[2017-09-09] MEDS ORDERED: Naloxone 0.4 MG/ML INJ IVP PRN (04:30)
[2017-09-09] MEDS ORDERED: Acetaminophen 325 MG TABLET PO PRN (04:30)
[2017-09-09] MEDS ORDERED: Dextrose Gel 15 GM/37.5 ML TUBE PO PRN ×2 (04:42)
[2017-09-09] MEDS ORDERED: D5% in Water 1,000 ML IVC PRN (04:42)
[2017-09-09] MEDS ORDERED: *HR* Dextrose 50 % in Water (Syg) 50 ML SYRINGE IVP PRN (04:42)
[2017-09-09 05:38] LABS: Basophils % 0.3 %; Eosinophils # 0.1 K/mcL (0.0-0.6); Eosinophils % 2.2 %; Hematocrit 32.1 % (37.5-50.1); Hemoglobin 9.8 g/dL (12.9-16.9); Immature Granulocytes % 0.6 % (0-4); Lymphocytes # 1.7 K/mcL (0.6-4.6); Lymphocytes % 26.3 %; Mean Corpuscular HGB Conc 30.5 g/dL (31.6-35.5); Mean Corpuscular Hemoglobin 25.5 pg (28.0-33.3); Mean Corpuscular Volume 83.4 fL (83.0-100.0); Mean Platelet Volume 11.2 fL (9.4-12.4); Monocytes # 0.5 K/mcL (0.0-1.3); Monocytes % 8.3 %; Neutrophils # 3.9 K/mcL (1.6-8.9); Platelet Count 148 K/mcL (140-400); Red Blood Count 3.85 M/mcL (4.19-5.50); Red Cell Distribution Width 15.4 % (11.5-14.5); Segmented Neutrophils % 62.3 %
--- NOTE | 2017-09-09 05:42 | Internal Med History&Physical ---
Date of Encounter: 09/09/17 Time of Encounter: 03:40 Internal Medicine - H&P: HPI Chief complaint: left eye vision loss Admitted From: Emergency Dept Plans for Post Hospital Care: Home History of present illness: Mr. Poe is an 82 year old male who presented to our ER tonight from the [place] urgent care. He presented there originally with complaints of left eye vision loss which started yesterday. He was being seen by the trackwalker at the [place] who noted a retinal artery occlusion and he was sent to the urgent care. CT imaging was negative, but because of the acute finding, he was transferred to [facility] ER for workup. In the ER, he had MRI of the brain, MRA of head and neck, and phone consultation with neurology. MRI of the brain was negative for acute infarct. However, there was recommendation by radiology to repeat a noncontrast CT today to rule out any hemorrhage. There was evidence of old hemorrhage but no definitive acute hemorrhage. This cannot be confirmed, however. Patient was therefore admitted to hospitalist service per ER and neurology recommendations. Of note, patient also has evidence of acute on chronic kidney disease with some mild hyperkalemia. I asked the ER to administer Kayexalate and we will trend his potassium levels. Upon my assessment of the patient, he is sleeping but easily arousable. He is alert and oriented 3. He notes no deficits other than vision loss on the upper half of his left eye. He states this started roughly 24 hours ago and it has not resolved. He has history of an old TIA with full recovery. He has never had stroke. He is on Coumadin, aspirin, and Brilinta for treatment of prior DVT and PE and coronary disease, respectively. He has been therapeutic on his Coumadin. Despite anticoagulation, he still developed retinal artery occlusion. Past Med Surg Social Fam HX - Past Medical History Attestation: Yes The following information was validated with the patient. Source: patient, old records reviewed, other ([place] records) Medical history: atrial fibrillation (paroxysmal), CHF, COPD, coronary artery disease, DVT, diabetes, GERD, hyperlipidemia, hypertension, myocardial infarction, peripheral artery disease, pulmonary embolus, TIA Additional medical history: PAD Psychiatric history: no psych history - Past Surgical History Surgical History: angioplasty/stent, coronary bypass (CABG) Additional surgical history: Back surgery, mulitple kimberly filters. - Social History Smoking Status: Former smoker Smokeless Tobacco Status: No Alcohol use: none Drug use: none Current living situation: Home Activity Level: Independent ambulation Recent Out of Country Travel Within the Last 8 Weeks: No - Family History Father Living Status: Hx Family Cardiac Disorders: Yes (Father) Hx Family Respiratory Disorders: No Hx Family Cancer: Yes Hx Family GI Disorders: Yes (ULCERS, GERD) Hx Family Endocrine Disorder: No Hx Family Neuromuscular Disorders: No Hx Family Neurologic Disorders: No Hx Family HEENT Disorders: No Hx Family Autoimmune Disorders: No Internal Medicine - H&P: Meds Atorvastatin [Lipitor] 40 mg PO HS 11/16/15 [History] Gabapentin [Neurontin] 200 mg PO TID 11/16/15 [History] Isosorbide MONOnitrate (24 HR) [Imdur] 30 mg PO DAILY 11/16/15 [History] Ferrous Sulfate [Iron] 325 mg PO BID 12/02/15 [History] Omeprazole [PriLOSEC] 20 mg PO DAILY 12/02/15 [History] Terazosin HCl 10 mg PO HS 12/02/15 [History] glipiZIDE [Glucotrol] 5 mg PO DAILY 12/02/15 [History] Cyanocobalamin (B-12) [Vitamin B12] 1,000 mcg PO DAILY 11/27/16 [History] Spironolactone [Aldactone] 25 mg PO DAILY 11/27/16 [History] Furosemide [Lasix] 20 mg PO BID 06/21/17 [History] Metoprolol XL (24 HR) Succ [Toprol Xl] 25 mg PO BID 06/21/17 [History] [place]-3/Dha/Epa/Fish Oil [Fish Oil 1,000 mg Softgel] 1,000 mg PO DAILY 06/21/17 [History] Warfarin [Coumadin] 4 mg PO DAILY 06/21/17 [History] Aspirin Enteric Coated [Aspirin EC] 81 mg PO DAILY #30 tablet. 06/27/17 [Rx] Magnesium Oxide [Mag-Ox] 400 mg PO BID #60 tablet 06/27/17 [Rx] Ticagrelor [Brilinta] 90 mg PO BID #60 tablet 06/27/17 [Rx] Acetaminophen [Tylenol] 650 mg PO QID PRN #0 08/12/17 [Rx] Lisinopril [Zestril] 5 mg PO DAILY 09/08/17 [History] Multivit-Min/FA/Lycopen/Lutein [Centrum Silver Tablet] 1 tab PO DAILY 09/08/17 [ History] 3 Allergy/AdvReac Type Severity Reaction Status Date / Time pseudoephedrine Allergy Anaphylaxis Verified 08/11/17 08:25 [From Actifed] sulfamethoxazole Allergy Anaphylaxis Verified 08/11/17 08:25 [From Bactrim] tramadol Allergy See Verified 08/11/17 08:25 Comments trimethoprim [From Bactrim] Allergy Anaphylaxis Verified 08/11/17 08:25 triprolidine [From Actifed] Allergy Anaphylaxis Verified 08/11/17 08:25 - Constitutional Constitutional: no chills, no fever(s), no night sweats - EENT Eyes: change in vision, loss of vision (left upper eye) Ears: no ear pain, no tinnitus Nose, mouth and throat: no nasal congestion, no sinus pressure - Cardiovascular Cardiovascular ROS IM: no chest pain, no dyspnea, no dyspnea on exertion, no lightheadedness, no syncope - Respiratory Respiratory: no cough, no hemoptysis - Gastrointestinal Gastrointestinal: no abdominal pain, no diarrhea, no hematemesis, no hematochezia, no melena, no vomiting - Genitourinary Genitourinary ROS male: no dysuria, no flank pain, no nocturia - Musculoskeletal Musculoskeletal ROS IM: no arthralgias, no back pain - Integumentary Integumentary IM: no rash, no jaundice - Neurological Neurological ROS: no convulsions, no dizziness, no focal weakness, no frequent falls, no headache(s), no numbness, no paresthesias, no vertigo - Psychiatric Psychiatric: no anxiety, no depression - Endocrine Endocrine IM: no polydipsia, no polyuria - Hematologic/Lymphatic Hematologic/Lymphatic: easy bruising - Allergic/Immunologic Allergic/Immunologic: no wheezing, no GI upset with certain foods - Constitutional Vitals: Temp Pulse Resp BP Pulse Ox 98.6 F 66 16 146/76 99 09/09/17 04:30 09/09/17 04:30 09/09/17 04:30 09/09/17 04:30 09/09/17 04:30 General appearance: Present: cooperative, A&O X 3, pleasant, no acute distress, answers questions appropriately - Head Head exam: Present: atraumatic, normal inspection - Eye Eye exam: Present: EOMI, normal appearance, PERRL. Absent: scleral icterus Pupils: Present: normal accommodation - ENT ENT exam: Present: mucous membranes dry, normal exam - Neck Neck exam general surgery: Present: full ROM, supple. Absent: tenderness, nuchal rigidity, thyromegaly - Expanded Neck Exam Neck exam: Absent: carotid bruit - Respiratory Respiratory exam: Present: CTAB. Absent: chest wall tenderness, rales, respiratory distress, rhonchi, wheezes - Cardiovascular Cardiovascular exam: Present: RRR, +S1, +S2. Absent: diastolic murmur, systolic murmur - GI/Abdominal GI/Abdominal exam: Present: normal bowel sounds, soft. Absent: guarding, hepatomegaly, mass, rebound, splenomegaly, tenderness - Extremities Exam Extremities exam: Present: full ROM, normal capillary refill, warm, radial pulses palpable and symmetrical. Absent: calf tenderness, pedal edema, tenderness - Back Exam Back exam: Absent: CVA tenderness (L), CVA tenderness (R) - Neurological Exam Neurological exam: Present: alert, oriented X3, reflexes normal, strengths equal and symetr throughout. Absent: CN II-XII intact (vision loss in left eye only upper half fo visual field), facial droop, speech deficit - Psychiatric Psychiatric exam: Present: normal affect, normal mood - Skin Skin exam: Present: intact, warm. Absent: rash Internal Med - H&P Results - Labs CBC & Chem 7: 09/08/17 17:28 09/08/17 17:28 Labs: MRA and MRI reports reviewed and noted - EKG Data -: EKG Interpreted by Myself - EKG Data Prior EKG available for review: yes EKG comments: 09/09/17 05:46 NSR; no acute findings - Diagnostic Studies Chest x-ray Status: image reviewed by me (negative) - VTE Reasons for not Prescribing Prophylaxis: Not indicated-Anticoagulated or INR therapeutic - Assessment and plan (1) Acute retinal artery occlusion Current Visit: Yes Status: Acute Assessment and plan: 1. MRI negative for stroke. 2. Likely cholesterol plaque leading to occlusion vs embolus. 3. Consult Neurology and CT Head ordered for noon today to rule out any intracranial hemorrhage as noted by radiology. 4. Patient already on maximal therapy for stroke prevention (Coumadin, Plavix, Brilinta, STATIN). 5. Will need follow up with ophthalmology. (2) Acute on chronic renal insufficiency Current Visit: Yes Status: Acute Assessment and plan: 1. Hold diuretics. 2. Monitor renal function and potassium. 3. May need nephrology consultation. (3) Hyperkalemia Current Visit: Yes Status: Acute Assessment and plan: 1. Kayexalate given in ER per my request. 2. Trend potassium levels and renal function. (4) Diabetes mellitus Current Visit: Yes Status: Chronic Assessment and plan: 1. Hold oral meds. 2. Will use SSI and monitor glucose closely. 3. Will his CKD, oral diabetic agents should not be prescribed in my opinion. Qualifiers: Diabetes mellitus type: type 2 Diabetes mellitus custodial insulin use: without hospital cleaner use Diabetes mellitus complication status: with circulatory complication Diabetes mellitus complication detail: with other circulatory complications Qualified Code(s): E11.59 - Type 2 diabetes mellitus with other circulatory complications (5) DVT prophylaxis Current Visit: No Status: Acute Assessment and plan: 1. Therapeutic on Coumadin. 2. Consult pharmacy to dose Coumadin while in hospital.
[2017-09-09 05:43] LABS: Prothrombin Time 21.7 Seconds (9.4-12.1)
[2017-09-09 05:55] LABS: Alanine Aminotransferase 21 Units/L (7-52); Albumin 3.5 g/dL (3.5-5.7); Albumin/Globulin Ratio 1.5 (1.1-2.2); Alkaline Phosphatase 89 Units/L (34-104); Aspartate Amino Transferase 16 Units/L (13-39); BUN/Creatinine Ratio 18 (6-26); Bilirubin,Total 0.3 mg/dL (0.3-1.0); Blood Urea Nitrogen 37 mg/dL (8-23); Calcium 8.9 mg/dL (8.6-10.3); Carbon Dioxide 25 mEq/L (23-29); Chloride 107 mEq/L (98-107); Chol/HDL Ratio 5.9 (0-4.9); Cholesterol 194 mg/dL (< 200); Globulin 2.4 g/dL (2.4-3.5); Glucose 149 mg/dL (70-105); HDL Cholesterol 33 mg/dL (40-59); Osmolality,Calculated 299 (280-300); Potassium 4.5 mEq/L (3.5-5.1); Sodium 139 mEq/L (136-145); Total Protein 5.9 g/dL (6.4-8.9); Triglycerides 449 mg/dL (< 150); eGFR For African Americans 38 (> 60); eGFR For Non-African Americans 31 (> 60)
[2017-09-09 06:52] LABS: Estimated Average Glucose 148 mg/dl; Hemoglobin A1C 6.8 %
[2017-09-09] MEDS ORDERED: 0.9 % Sodium Chloride 500 ML IVC ONE (08:16)
[2017-09-09] MEDS ORDERED: (Omega-3/Dha/Epa/Fish Oil [Fish Oil 1,000 Mg Softgel]) PO SCH (09:00)
[2017-09-09] MEDS: Aspirin Enteric Coated 81 MG Tablet PO SCH (09:27)
[2017-09-09] MEDS: *HR* Ticagrelor 90 MG TABLET PO SCH ×2 (09:27→19:48)
[2017-09-09] MEDS: Cyanocobalamin (B-12) 1,000 MCG TABLET PO SCH (09:27)
[2017-09-09] MEDS: Multivit/Ca/Min/Fe/FA 1 TAB TABLET PO SCH (09:27)
[2017-09-09] MEDS: Metoprolol XL (24 HR) Succ 25 MG TAB.ER.24H PO SCH ×2 (09:27→19:47)
[2017-09-09] MEDS: Isosorbide MONOnitrate (24 HR) 30 MG TAB.ER.24H PO SCH (09:27)
[2017-09-09] MEDS: Insulin LISPRO 300 UNITS/3 ML VIAL SQ SCH ×3 (09:28→17:07)
[2017-09-09] MEDS: Magnesium Oxide 400 MG TABLET PO SCH ×2 (09:28→19:47)
--- NOTE | 2017-09-09 11:27 | Event Note ---
Date of Encounter: 09/09/17 Time of Encounter: 11:00 Seen and examined at the bedside Admitted and being managed for LUIS FERNANDO on CKD, he also has R MULTANI, no lesions on Brain MRI or head CT. His renal function is improving Continue IVF Continue current management, INR is therapeutic Exam unremarkable
--- NOTE | 2017-09-09 12:19 | Neurology - Consult Note ---
Date of Encounter: 09/09/17 Time of Encounter: 12:17 Assessment and Plan (1) Acute retinal artery occlusion Current Visit: Yes Status: Acute This patient's symptoms are likely related to retinal artery occlusion with the left hemianopia and left nasal quadrant without any other focal deficit. Patient Already on antiplatelet therapy as well as anticoagulation and unfortunately he continued to have these vascular as well as extra vascular disease. MRA of the neck did not show any occlusion in the vertebral system or any occlusion of the carotid. He is also scheduled for carotid duplex we will follow the result At this time I do not think that we have anything further to add aspirin as treatment options are concern especially when he is on all possible treatment. Continued to monitor and continue on current treatment options with the statin as well as antiplatelet therapy. (2) History of TIA (transient ischemic attack) Current Visit: No Status: Suspected No significant deficit from previous the TIA. MRI of the brain negative for any acute infarct any other cranial nerve distribution. Continue monitor for for any cardiac arrhythmias. PT evaluation. (3) Hemianopia of left eye Current Visit: Yes Status: Acute History of Present Illness HPI: Mr. Poe is a 82 year old male who presented to ER from the [place] urgent care. with complaints of left eye vision loss which started yesterday. He was seen by the product marketing programs manager at the [place] who noted a retinal artery occlusion and he was sent to the urgent care. CT imaging was negative, he was transferred to [place] ER for workup. MRI of the brain, MRA of head and neck, negative for acute infarct. However, there was recommendation by radiology to repeat a noncontrast CT today to rule out any hemorrhage ?? no evidence on MRI of any acute findings, There was evidence of old hemorrhage but no definitive acute hemorrhage. pt main complaints are vision loss on the upper half of his left eye. He has history of TIA with full recovery. He is on Coumadin, aspirin, and Brilinta for treatment of prior DVT and PE and coronary disease, respectively. He has been therapeutic on his Coumadin. Patient denies any other focal motor weakness or any difficulty with a gait and balance. Past Med Surg Social Fam HX - Past Medical History Medical history: atrial fibrillation, CHF, COPD, coronary artery disease, DVT, diabetes, GERD, hyperlipidemia, hypertension, myocardial infarction, peripheral artery disease, pulmonary embolus, TIA, other Additional medical history: PAD Psychiatric history: no psych history - Past Surgical History Surgical History: angioplasty/stent, coronary bypass (CABG) Additional surgical history: Back surgery, mulitple kimberly filters. - Social History Smoking Status: Former smoker Smokeless Tobacco Status: No Alcohol use: none Drug use: none - Family History Father Living Status: Hx Family Cardiac Disorders: Yes (Father) Hx Family Respiratory Disorders: No Hx Family Cancer: Yes Hx Family GI Disorders: Yes (ULCERS, GERD) Hx Family Endocrine Disorder: No Hx Family Neuromuscular Disorders: No Hx Family Neurologic Disorders: No Hx Family HEENT Disorders: No Hx Family Autoimmune Disorders: No Medications and Allergies Atorvastatin [Lipitor] 40 mg PO HS 11/16/15 [History] Gabapentin [Neurontin] 200 mg PO TID 11/16/15 [History] Isosorbide MONOnitrate (24 HR) [Imdur] 30 mg PO DAILY 11/16/15 [History] Ferrous Sulfate [Iron] 325 mg PO BID 12/02/15 [History] Omeprazole [PriLOSEC] 20 mg PO DAILY 12/02/15 [History] Terazosin HCl 10 mg PO HS 12/02/15 [History] glipiZIDE [Glucotrol] 5 mg PO DAILY 12/02/15 [History] Cyanocobalamin (B-12) [Vitamin B12] 1,000 mcg PO DAILY 11/27/16 [History] Spironolactone [Aldactone] 25 mg PO DAILY 11/27/16 [History] Furosemide [Lasix] 20 mg PO BID 06/21/17 [History] Metoprolol XL (24 HR) Succ [Toprol Xl] 25 mg PO BID 06/21/17 [History] [place]-3/Dha/Epa/Fish Oil [Fish Oil 1,000 mg Softgel] 1,000 mg PO DAILY 06/21/17 [History] Warfarin [Coumadin] 4 mg PO DAILY 06/21/17 [History] Aspirin Enteric Coated [Aspirin EC] 81 mg PO DAILY #30 tablet. 06/27/17 [Rx] Magnesium Oxide [Mag-Ox] 400 mg PO BID #60 tablet 06/27/17 [Rx] Ticagrelor [Brilinta] 90 mg PO BID #60 tablet 06/27/17 [Rx] Acetaminophen [Tylenol] 650 mg PO QID PRN #0 08/12/17 [Rx] Lisinopril [Zestril] 5 mg PO DAILY 09/08/17 [History] Multivit-Min/FA/Lycopen/Lutein [Centrum Silver Tablet] 1 tab PO DAILY 09/08/17 [ History] 3 Allergy/AdvReac Type Severity Reaction Status Date / Time pseudoephedrine Allergy Anaphylaxis Verified 08/11/17 08:25 [From Actifed] sulfamethoxazole Allergy Anaphylaxis Verified 08/11/17 08:25 [From Bactrim] tramadol Allergy See Verified 08/11/17 08:25 Comments trimethoprim [From Bactrim] Allergy Anaphylaxis Verified 08/11/17 08:25 triprolidine [From Actifed] Allergy Anaphylaxis Verified 08/11/17 08:25 All Systems: The remainder of the systems were reviewed and are negative Physical Examination - Vital Signs Vital Signs: Initial Vital Signs Temp Pulse Resp BP Pulse Ox 98.1 F 80 18 144/67 99 09/08/17 17:07 09/08/17 17:07 09/08/17 17:07 09/08/17 17:07 09/08/17 17:07 - Exam Exam: GENERAL: Comfortable in no acute distress HEENT: Normal LUNGS: CTA HEART: RRR, S1 S2 Audible, no murmur EXTREMITIES: No Pedal edema. DETAILED NEUROLOGICAL EXAMINATION: MENTAL STATUS: Oriented to person, place, date and situation. Memory: knows the President, Aware of recent events Recent Memory Intact Cranial Nerve Examination: CN - II: Visual Acuity, decreased peripheral vision in the left nasal quadrant Fundus examination: No disk edema, Pupils- size shape reaction to light and accommodation: All normal. CN III, IV, : External ocular movements were intact, Pupils were reactive, Nodrooping of the eyelids CN V: Sensation over the face to light touch and pinprick all normal. Corneal reflexes not tested, jaw jerk normal. CN VII: No facial asymmetry, no flattening of nasolabial folds, no difficulty in closing the eyes, no loss of forehead wrinkles, no difficulty in eye-closure, frowning raising eyebrows. CNVIII: No significant hearing loss CN IX, X: Uvula centralized not deviated, Gag reflex: Not tested CN X1: Sternocleidomastoid, trapezius, normal or evidence of any weakness. CN X11: No Dysarthria, no wasting or fibrilation f tongue muscles, no deviation, tongue muscle strength normal. Motor examination: No hypertrophy, tone was normal, power grade 0-5 Upper limbs Proximal- No difficulty in lifting the arms above the head. Distal- No weakness in distal muscles On formal testing 5/5 all over Lower limbs On formal testing 5/5 all over Coordination: [id number]-glbd normal. Target pursuit normal finger tapping normal, Rapid alternating moment of wrist normal Sensory system: Superficial sensations- Touch normal. Pain- Pinprick, Temperature all normal, Deep sensation normal, Joint position sense normal. Cortical sensation, Tactile discrimination, localization and extinction all normal. Deep tendon reflexes. Symmetrical bilateral, No evidence of Babinski. No sign of meningeal irritation Gait Examination: Deferred Results - Laboratory Findings CBC and BMP: 09/09/17 05:00 09/09/17 05:00 Abnormal lab findings: Abnormal lab results RBC 3.85 M/mcL (4.19-5.50) L 09/09/17 05:00 Hgb 9.8 g/dL (12.9-16.9) L 09/09/17 05:00 Hct 32.1 % (37.5-50.1) L 09/09/17 05:00 MCH 25.5 pg (28.0-33.3) L 09/09/17 05:00 MCHC 30.5 g/dL (31.6-35.5) L 09/09/17 05:00 RDW 15.4 % (11.5-14.5) H 09/09/17 05:00 PT 21.7 Seconds (9.4-12.1) H 09/09/17 05:00 APTT 37.9 Seconds (26.0-36.0) H 09/08/17 17:28 BUN 37 mg/dL (8-23) H 09/09/17 05:00 Creatinine 2.06 mg/dL (0.70-1.30) H 09/09/17 05:00 Est GFR ( Amer) 38 (> 60) L 09/09/17 05:00 Est GFR (Non-Af Amer) 31 (> 60) L 09/09/17 05:00 Glucose 149 mg/dL (70-105) H 09/09/17 05:00 POC Glucose 125 mg/dL (70-99) H 09/09/17 07:45 Hemoglobin A1c 6.8 % (-5.6) H 09/09/17 05:00 B-Natriuretic Peptide 118 pg/mL (Less than 100) H 09/08/17 20:57 Serum Total Protein 5.9 g/dL (6.4-8.9) L 09/09/17 05:00 Triglycerides 449 mg/dL (< 150) H 09/09/17 05:00 HDL Cholesterol 33 mg/dL (40-59) L 09/09/17 05:00 Cholesterol/HDL Ratio 5.9 (0-4.9) H 09/09/17 05:00 - Diagnostic Findings Additional findings: MRI of the brain shows No acute infarct. Susceptibility artifact within medial right basal ganglia, without associated edema. This is the site of previous hemorrhage. 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 However, acute hemorrhage should be excluded with follow-up noncontrast CT head. Chronic small vessel ischemic white matter disease and diffuse cerebral volume loss. 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 No acute infarct is identified in this distribution. No additional evidence of high-grade stenosis or focal occlusion involving the intracranial vasculature. No evidence of intracranial aneurysm. Atherosclerotic disease at the bilateral carotid bifurcation, without flow-limiting stenosis by NASCET criteria. No focal flow-limiting stenosis involving the vertebral arteries. Consult Discharge Plan - Plan [facility]errals: [facility] [Primary Care Provider] -
[2017-09-09] MEDS ORDERED: Tetrahydrozoline 15 ML BOTTLE BOTH EYES PRN (13:35)
[2017-09-09] MEDS: Artificial Tears SOLN 15 ML BOTTLE BOTH EYES SCH ×2 (17:07→19:44)
[2017-09-09] MEDS ORDERED: *HR* Warfarin 4 MG TABLET PO ONE (18:00)
[2017-09-09] MEDS ORDERED: Warfarin perPT PO PRN (18:00)
[2017-09-10 06:32] VITALS: BP 151/71
[2017-09-10 07:35] LABS: Basophils % 0.4 %; Eosinophils # 0.1 K/mcL (0.0-0.6); Eosinophils % 1.8 %; Hematocrit 33.9 % (37.5-50.1); Hemoglobin 10.5 g/dL (12.9-16.9); Immature Granulocytes % 0.5 % (0-4); Lymphocytes # 1.4 K/mcL (0.6-4.6); Lymphocytes % 24.3 %; Mean Corpuscular Hemoglobin 25.8 pg (28.0-33.3); Mean Corpuscular Volume 83.3 fL (83.0-100.0); Mean Platelet Volume 11.7 fL (9.4-12.4); Monocytes # 0.4 K/mcL (0.0-1.3); Neutrophils # 3.7 K/mcL (1.6-8.9); Platelet Count 158 K/mcL (140-400); Red Blood Count 4.07 M/mcL (4.19-5.50); Red Cell Distribution Width 15.1 % (11.5-14.5)
[2017-09-10 07:39] LABS: INR 1.6; Prothrombin Time 17.2 Seconds (9.4-12.1)
[2017-09-10 07:54] LABS: Calcium 9.1 mg/dL (8.6-10.3); Potassium 4.2 mEq/L (3.5-5.1)
[2017-09-10] MEDS: Aspirin Enteric Coated 81 MG Tablet PO SCH (09:16)
[2017-09-10] MEDS: *HR* Ticagrelor 90 MG TABLET PO SCH (09:16)
[2017-09-10] MEDS: Insulin LISPRO 300 UNITS/3 ML VIAL SQ SCH ×2 (09:16→12:39)
[2017-09-10] MEDS: Isosorbide MONOnitrate (24 HR) 30 MG TAB.ER.24H PO SCH (09:16)
[2017-09-10] MEDS: Multivit/Ca/Min/Fe/FA 1 TAB TABLET PO SCH (09:16)
[2017-09-10] MEDS: Metoprolol XL (24 HR) Succ 25 MG TAB.ER.24H PO SCH (09:16)
[2017-09-10] MEDS: Cyanocobalamin (B-12) 1,000 MCG TABLET PO SCH (09:16)
[2017-09-10] MEDS: Magnesium Oxide 400 MG TABLET PO SCH (09:16)
--- NOTE | 2017-09-10 09:45 | Discharge Summary ---
- NOTES TO OUTPATIENT PROVIDER Notes to Outpatient Provider: Follow-up with PCP, horticultural farmworker, and machine ii coremaker. Lasix and lisinopril were held, however resumed upon discharge. Orders not resulted at time of discharge: Pending orders 09/11/17 04:00 Prothrombin Time INR [COAG] AM 0400 09/12/17 04:00 Prothrombin Time INR [COAG] AM 0400 09/13/17 04:00 Prothrombin Time INR [COAG] AM 0400 09/14/17 04:00 Prothrombin Time INR [COAG] AM 0400 Date of Encounter: 09/10/17 Time of Encounter: 09:40 - Discharge Diagnosis (1) DVT prophylaxis Priority: Primary Status: Resolved (2) Diabetes mellitus Priority: Secondary Status: Chronic Qualifiers: Diabetes mellitus type: type 2 Diabetes mellitus penitentiary insulin use: without penitentiary use Diabetes mellitus complication status: with circulatory complication Diabetes mellitus complication detail: with other circulatory complications Qualified Code(s): E11.59 - Type 2 diabetes mellitus with other circulatory complications (3) Acute on chronic renal insufficiency Priority: Primary Status: Resolved (4) Hyperkalemia Priority: Primary Status: Resolved (5) Acute retinal artery occlusion Priority: Primary Status: Acute Hospital course: Mr. Poe is an 82 year old male who presented to our ER tonight from the [place] urgent care. He presented there originally with complaints of left eye vision loss which started yesterday. He was being seen by the assessment director at the [place] who noted a retinal artery occlusion and he was sent to the urgent care. CT imaging was negative, but because of the acute finding, he was transferred to [facility] for workup. In the ER, he had MRI of the brain, MRA of head and neck, and phone consultation with neurology. MRI of the brain was negative for acute infarct. However, there was recommendation by radiology to repeat a noncontrast CT today to rule out any hemorrhage. There was evidence of old hemorrhage but no definitive acute hemorrhage. He also had hyperkalemia and acute on chronic kidney disease. He was therefore admitted to the hospitalist service for further management. Except for left eye duration, the patient had no neurologic findings on exam. He is on Coumadin, aspirin, Mayes for treatment of prior DVT and PE and coronary disease respectively. INR has been therapeutic upon admission and throughout hospital stay. He received IV fluid boluses for his acute on chronic kidney injury without any negative sequelae. The patient's renal function has returned to his baseline, he is seen and examined this morning with no new complaints. Stable clinically to be discharged home to resume health services, and follow- up with primary care physician, horticultural farmworker and machine ii coremaker. Discharge discussed with: patient, nurse - Time Spent with Patient Total time spent providing and/or coordinating discharge services: Less than 30 minutes - Discharge Medications Home Medications: Atorvastatin [Lipitor] 40 mg PO HS 11/16/15 [History] Gabapentin [Neurontin] 200 mg PO TID 11/16/15 [History] Isosorbide MONOnitrate (24 HR) [Imdur] 30 mg PO DAILY 11/16/15 [History] Ferrous Sulfate [Iron] 325 mg PO BID 12/02/15 [History] Omeprazole [PriLOSEC] 20 mg PO DAILY 12/02/15 [History] Terazosin HCl 10 mg PO HS 12/02/15 [History] glipiZIDE [Glucotrol] 5 mg PO DAILY 12/02/15 [History] Cyanocobalamin (B-12) [Vitamin B12] 1,000 mcg PO DAILY 11/27/16 [History] Spironolactone [Aldactone] 25 mg PO DAILY 11/27/16 [History] Furosemide [Lasix] 20 mg PO BID 06/21/17 [History] Metoprolol XL (24 HR) Succ [Toprol Xl] 25 mg PO BID 06/21/17 [History] [place]-3/Dha/Epa/Fish Oil [Fish Oil 1,000 mg Softgel] 1,000 mg PO DAILY 06/21/17 [History] Warfarin [Coumadin] 4 mg PO DAILY 06/21/17 [History] Aspirin Enteric Coated [Aspirin EC] 81 mg PO DAILY #30 tablet. 06/27/17 [Rx] Magnesium Oxide [Mag-Ox] 400 mg PO BID #60 tablet 06/27/17 [Rx] Ticagrelor [Brilinta] 90 mg PO BID #60 tablet 06/27/17 [Rx] Acetaminophen [Tylenol] 650 mg PO QID PRN #0 08/12/17 [Rx] Lisinopril [Zestril] 5 mg PO DAILY 09/08/17 [History] Multivit-Min/FA/Lycopen/Lutein [Centrum Silver Tablet] 1 tab PO DAILY 09/08/17 [ History] Artificial Tears SOLN [Akwa Tears] 1 drop BOTH EYES QID 09/09/17 [History] Allergies/Adverse Reactions: 3 Allergy/AdvReac Type Severity Reaction Status Date / Time pseudoephedrine Allergy Anaphylaxis Verified 08/11/17 08:25 [From Actifed] sulfamethoxazole Allergy Anaphylaxis Verified 08/11/17 08:25 [From Bactrim] tramadol Allergy See Verified 08/11/17 08:25 Comments trimethoprim [From Bactrim] Allergy Anaphylaxis Verified 08/11/17 08:25 triprolidine [From Actifed] Allergy Anaphylaxis Verified 08/11/17 08:25 Date of admission: 09/09/17 04:30 [facility] Consults: 09/09/17 19:07 Consult to Occupational Therapy [CONS] Routine Comment: Evaluate, develop and implement POC Reason for Consult: assess for home needs Does patient have active BEDREST order?: No Is patient medically & hemodynamically stable?: Yes Patient assessed for mobility or mobilized this visit?: No Consult to Physical Therapy [CONS] Routine Comment: Evaluate, develop and implement POC Reason for Consult: assess patient for home needs Does patient have active BEDREST order?: No Is patient medically & hemodynamically stable?: Yes Patient assessed for mobility or mobilized this visit?: No Discharging clinician: Leland Martell Anticipated date of discharge: 09/10/17 - Constitutional Vitals: Temp Pulse Resp BP Pulse Ox 97.8 F 72 16 151/71 95 09/10/17 06:31 09/10/17 06:31 09/10/17 06:31 09/10/17 06:31 09/10/17 06:31 General appearance: Present: cooperative, A&O X 3, pleasant, no acute distress, answers questions appropriately - Head Head exam: Present: atraumatic, normocephalic - Eye Eye exam: Present: PERRL, conjuntiva pink, sclera anicteric Pupils: Present: PERRL - Neck Neck exam general surgery: Present: supple, trachea midline. Absent: lymphadenopathy - Respiratory Respiratory exam: Present: CTAB. Absent: accessory muscle use, rales, rhonchi, wheezes - Cardiovascular Cardiovascular exam: Present: RRR, +S1, +S2. Absent: diastolic murmur, gallop, rubs, systolic murmur - GI/Abdominal GI/Abdominal exam: Present: normal bowel sounds, soft, no peritoneal signs. Absent: distended, tenderness - Extremities Exam Extremities exam: Present: warm, radial pulses palpable and symmetrical. Absent : calf tenderness, cyanotic, pedal edema - Neurological Exam Neurological exam: Present: alert, CN II-XII intact, oriented X3, no focal deficits. Absent: pronater drift, facial droop, speech deficit - Skin Skin exam: Present: dry, intact - Patient Status Disposition: Home Health Service Condition: Good Functional capacity at discharge: independent ambulation Overall status at discharge: patient is back to baseline - Discharge Instructions [facility] With: [facility] Care Provider[facility] - - Diet and Activity Activity: resume usual activities as tolerated Diet: diabetic diet, low fat, low cholesterol, low salt diet - VTE Reasons for not Prescribing Prophylaxis: Not indicated-Anticoagulated or INR therapeutic
--- NOTE | 2017-09-10 09:49 | Physician Discharge Referral ---
Home Health/Hosp Referral Info Transfer to: Home Health Attending Provider: Maria Del Rosario Martell Provider in Charge Post Discharge: PCP - Diagnosis (1) DVT prophylaxis Priority: Primary Status: Resolved (2) Diabetes mellitus Priority: Secondary Status: Chronic (3) Acute on chronic renal insufficiency Priority: Primary Status: Resolved (4) Hyperkalemia Priority: Primary Status: Resolved (5) Acute retinal artery occlusion Priority: Primary Status: Acute - Respiratory Orders Smoking Cessation: Smoking cessation has been advised. For more information, call the [place] Tobacco Quit Line at 6-657-BLIT-NOW. - Diet/Nutrition Diet/Nutrition Orders: Renal, Cardiac, No Concentrated Sweets - Activity Activity Orders: Ambulate - Services Needed Following services are medically necessary services: Nursing, Home Health Aide - Transfer Medications Home Medications: Atorvastatin [Lipitor] 40 mg PO HS 11/16/15 [History] Gabapentin [Neurontin] 200 mg PO TID 11/16/15 [History] Isosorbide MONOnitrate (24 HR) [Imdur] 30 mg PO DAILY 11/16/15 [History] Ferrous Sulfate [Iron] 325 mg PO BID 12/02/15 [History] Omeprazole [PriLOSEC] 20 mg PO DAILY 12/02/15 [History] Terazosin HCl 10 mg PO HS 12/02/15 [History] glipiZIDE [Glucotrol] 5 mg PO DAILY 12/02/15 [History] Cyanocobalamin (B-12) [Vitamin B12] 1,000 mcg PO DAILY 11/27/16 [History] Spironolactone [Aldactone] 25 mg PO DAILY 11/27/16 [History] Furosemide [Lasix] 20 mg PO BID 06/21/17 [History] Metoprolol XL (24 HR) Succ [Toprol Xl] 25 mg PO BID 06/21/17 [History] [place]-3/Dha/Epa/Fish Oil [Fish Oil 1,000 mg Softgel] 1,000 mg PO DAILY 06/21/17 [History] Warfarin [Coumadin] 4 mg PO DAILY 06/21/17 [History] Aspirin Enteric Coated [Aspirin EC] 81 mg PO DAILY #30 tablet. 06/27/17 [Rx] Magnesium Oxide [Mag-Ox] 400 mg PO BID #60 tablet 06/27/17 [Rx] Ticagrelor [Brilinta] 90 mg PO BID #60 tablet 06/27/17 [Rx] Acetaminophen [Tylenol] 650 mg PO QID PRN #0 08/12/17 [Rx] Lisinopril [Zestril] 5 mg PO DAILY 09/08/17 [History] Multivit-Min/FA/Lycopen/Lutein [Centrum Silver Tablet] 1 tab PO DAILY 09/08/17 [ History] Artificial Tears SOLN [Akwa Tears] 1 drop BOTH EYES QID 09/09/17 [History] Allergies/Adverse Reactions: 3 Allergy/AdvReac Type Severity Reaction Status Date / Time pseudoephedrine Allergy Anaphylaxis Verified 08/11/17 08:25 [From Actifed] sulfamethoxazole Allergy Anaphylaxis Verified 08/11/17 08:25 [From Bactrim] tramadol Allergy See Verified 08/11/17 08:25 Comments trimethoprim [From Bactrim] Allergy Anaphylaxis Verified 08/11/17 08:25 triprolidine [From Actifed] Allergy Anaphylaxis Verified 08/11/17 08:25 Certification: Further, I certify that my clinical findings support that this patient is homebound (i.e. absences from home require considerable and taxing effort and are for medical reasons or jew services or infrequently or short duration when for other reasons) because: Homebound Reason: Patient requires assistance of a person or device to safely leave home Attestation: My signature below is to certify that this patient is under my care and that I, or nurse practitioner, or a physician's school office assistant working with me, has a face-to -face encounter with this patient.
[2017-09-10] MEDS ORDERED: *HR* Warfarin 4 MG TABLET PO ONE (18:00)
--- NOTE | 2017-09-11 09:25 | Electrocardiograph Report ---
[place] [id number] Test Date: 2017-09-08 Pat Name: Virgilio Poe Department: 102 Room: 2NE29 Gender: M Technology Advisor: [facility] : 1935 Requested By: Jean Issa Order Number: [id number] Reading MD: Yoel Tripp Measurements Intervals [place] Rate: 76 P: 33 [place]: 183 QRS: 37 QRSD: 99 T: 66 QT: 375 QTc: 406 Interpretive Statements SINUS RHYTHM Electronically Signed On 09-11-2017 9:23:57 EDT by Yoel Tripp
== END 2017-09-10 14:21 | disposition home health service (06) | DRG 123 ==
LOC: 2NENU 17:04 → EMEROO 17:04 → 2NENU 21:58 → SUATTDRO 09-09 04:30
PROVIDERS: ADMIT Pediatrics; ATTEND Internal Medicine

== ENCOUNTER 2018-05-30 16:29 | Inpatient (IN) ==
--- NOTE | 2018-05-30 19:36 | Emergency Department Note ---
Disposition Clinical Impression: Deep venous thrombosis Qualifiers: DVT location: lower extremity Affected thrombotic vein of extremity: unspecified vein of extremity Chronicity: acute Laterality: right Qualified Code(s): I82.401 - Acute embolism and thrombosis of unspecified deep veins of right lower extremity Disposition: Admitted As Inpatient Condition: Fair [facility] - General Adult HPI - General Chief complaint: ED Extremity Problem,Nontraumatic Stated complaint: [facility] Time Seen by Provider: 05/30/18 18:56 Source: patient Limitations: no limitations - History of Present Illness Pain Scale: 5 - Related Data Home Medications Medication Instructions Recorded Confirmed Atorvastatin [Lipitor] 40 mg PO HS 11/16/15 09/08/17 Gabapentin [Neurontin] 200 mg PO TID 11/16/15 09/08/17 Isosorbide MONOnitrate (24 HR) 30 mg PO DAILY 11/16/15 09/08/17 [Imdur] Ferrous Sulfate [Iron] 325 mg PO BID 12/02/15 09/08/17 Omeprazole [PriLOSEC] 20 mg PO DAILY 12/02/15 09/08/17 Terazosin HCl 10 mg PO HS 12/02/15 09/08/17 glipiZIDE [Glucotrol] 5 mg PO DAILY 12/02/15 09/08/17 Cyanocobalamin (B-12) [Vitamin B12] 1,000 mcg PO DAILY 11/27/16 09/08/17 Spironolactone [Aldactone] 25 mg PO DAILY 11/27/16 09/08/17 Furosemide [Lasix] 20 mg PO BID 06/21/17 09/08/17 Metoprolol XL (24 HR) Succ [Toprol 25 mg PO BID 06/21/17 09/08/17 Xl] [place]-3/Dha/Epa/Fish Oil [Fish Oil 1,000 mg PO DAILY 06/21/17 09/08/17 1,000 mg Softgel] Warfarin [Coumadin] 4 mg PO DAILY 06/21/17 09/08/17 Lisinopril [Zestril] 5 mg PO DAILY 09/08/17 09/08/17 Multivit-Min/FA/Lycopen/Lutein 1 tab PO DAILY 09/08/17 09/08/17 [Centrum Silver Tablet] Artificial Tears SOLN [Akwa Tears] 1 drop BOTH EYES QID 09/09/17 09/09/17 Previous Rx's Medication Instructions Recorded Aspirin Enteric Coated [Aspirin EC] 81 mg PO DAILY #30 tablet. 06/27/17 Magnesium Oxide [Mag-Ox] 400 mg PO BID #60 tablet 06/27/17 Ticagrelor [Brilinta] 90 mg PO BID #60 tablet 06/27/17 Acetaminophen [Tylenol] 650 mg PO QID PRN #0 08/12/17 Allergies Allergy/AdvReac Type Severity Reaction Status Date / Time pseudoephedrine Allergy Anaphylaxis Verified 08/11/17 08:25 [From Actifed] sulfamethoxazole Allergy Anaphylaxis Verified 08/11/17 08:25 [From Bactrim] tramadol Allergy See Verified 08/11/17 08:25 Comments trimethoprim [From Bactrim] Allergy Anaphylaxis Verified 08/11/17 08:25 triprolidine [From Actifed] Allergy Anaphylaxis Verified 08/11/17 08:25 Past Medical History - Past Medical History Medical history: Reports: atrial fibrillation, CHF, COPD, coronary artery disease, DVT, diabetes, GERD, hyperlipidemia, hypertension, myocardial infarction, peripheral artery disease, pulmonary embolus, TIA, other Surgical history: Reports: angioplasty/stent, coronary bypass (CABG) Psychiatric history: Reports: no psych history - Social History Smoking Status: Former smoker Smokeless Tobacco Status: No Alcohol use: Reports: none Drug use: Reports: none Physical Exam - General Limitations: no limitations General appearance: alert, in no apparent distress Course Vital Signs Temperature 97.4 F L 05/30/18 17:02 Pulse Rate 61 05/30/18 17:02 Respiratory Rate 18 05/30/18 17:02 Blood Pressure 109/63 05/30/18 17:02 O2 Sat by Pulse Oximetry 98 05/30/18 17:02 Temperature 97.4 F L 05/30/18 17:02 Pulse Rate 61 05/30/18 17:02 Respiratory Rate 18 05/30/18 17:02 Blood Pressure 109/63 05/30/18 17:02 O2 Sat by Pulse Oximetry 98 05/30/18 17:02 Oxygen Delivery Oxygen Delivery Room Air Attestation Statement - Attestation Attestation: I examined this patient and my medical decision-making was reviewed with the Resident Physician. I agree with the documented findings, disposition and treatment plan as described except to the extent set forth below. Significant swelling of the affected extremity, particularly the foot. Ballotable fluid on the dorsum of the right foot. Exam not consistent with phlegmasia Alba Cortez's, but consistent with significant lymphedema. Motor and sensory function intact in the affected extremity. Patient lying in bed appears relatively comfortable. No symptoms of pulmonary embolism. No sx of GI bleeding or other abnormal bleeding. We will anticoagulate and admit.
[2018-05-30] MEDS ORDERED: *HR* Enoxaparin 100 MG/ML SYRINGE SQ STA (20:12)
[2018-05-30] MEDS ORDERED: *HR* Warfarin 4 MG TABLET PO ONE (21:16)
--- NOTE | 2018-05-30 21:22 | Emergency Department Note ---
Disposition Clinical Impression: Subtherapeutic international normalized ratio (INR) Deep venous thrombosis Qualifiers: DVT location: lower extremity Affected thrombotic vein of extremity: unspecified vein of extremity Chronicity: acute Laterality: right Qualified Code(s): I82.401 - Acute embolism and thrombosis of unspecified deep veins of right lower extremity Disposition: Admitted As Inpatient Condition: Fair Time of Disposition: 21:23 General Adult HPI - General Chief complaint: ED Extremity Problem,Nontraumatic Stated complaint: [facility] Time Seen by Provider: 05/30/18 18:56 Source: patient Mode of arrival: ambulatory Limitations: no limitations Nursing Notes Reviewed: Yes Vital Signs Reviewed: Yes - History of Present Illness HPI Narrative: Patient is an 82-year-old male with a past medical history of CAD, CAD with stent placement, arthritis, CHF, type 2 diabetes, COPD and DVT [place] [facility] [place] D[place] scan of the right lower extremity with a subtherapeutic INR. Patient states that he has been dealing with his right lower extremity swelling for the past 2 months with physical therapy and compression stocking and had no relief in symptoms. Denies any chest pain or shortness of breath takes warfarin and Brillinta daily. Pain Scale: 5 - Related Data Home Medications Medication Instructions Recorded Confirmed Atorvastatin [Lipitor] 40 mg PO HS 11/16/15 09/08/17 Gabapentin [Neurontin] 200 mg PO TID 11/16/15 09/08/17 Isosorbide MONOnitrate (24 HR) 30 mg PO DAILY 11/16/15 09/08/17 [Imdur] Ferrous Sulfate [Iron] 325 mg PO BID 12/02/15 09/08/17 Omeprazole [PriLOSEC] 20 mg PO DAILY 12/02/15 09/08/17 Terazosin HCl 10 mg PO HS 12/02/15 09/08/17 glipiZIDE [Glucotrol] 5 mg PO DAILY 12/02/15 09/08/17 Cyanocobalamin (B-12) [Vitamin B12] 1,000 mcg PO DAILY 11/27/16 09/08/17 Spironolactone [Aldactone] 25 mg PO DAILY 11/27/16 09/08/17 Furosemide [Lasix] 20 mg PO BID 06/21/17 09/08/17 Metoprolol XL (24 HR) Succ [Toprol 25 mg PO BID 06/21/17 09/08/17 Xl] [place]-3/Dha/Epa/Fish Oil [Fish Oil 1,000 mg PO DAILY 06/21/17 09/08/17 1,000 mg Softgel] Warfarin [Coumadin] 4 mg PO DAILY 06/21/17 09/08/17 Lisinopril [Zestril] 5 mg PO DAILY 09/08/17 09/08/17 Multivit-Min/FA/Lycopen/Lutein 1 tab PO DAILY 09/08/17 09/08/17 [Centrum Silver Tablet] Artificial Tears SOLN [Akwa Tears] 1 drop BOTH EYES QID 09/09/17 09/09/17 Previous Rx's Medication Instructions Recorded Aspirin Enteric Coated [Aspirin EC] 81 mg PO DAILY #30 tablet. 06/27/17 Magnesium Oxide [Mag-Ox] 400 mg PO BID #60 tablet 06/27/17 Ticagrelor [Brilinta] 90 mg PO BID #60 tablet 06/27/17 Acetaminophen [Tylenol] 650 mg PO QID PRN #0 08/12/17 Allergies Allergy/AdvReac Type Severity Reaction Status Date / Time pseudoephedrine Allergy Anaphylaxis Verified 08/11/17 08:25 [From Actifed] sulfamethoxazole Allergy Anaphylaxis Verified 08/11/17 08:25 [From Bactrim] tramadol Allergy See Verified 08/11/17 08:25 Comments trimethoprim [From Bactrim] Allergy Anaphylaxis Verified 08/11/17 08:25 triprolidine [From Actifed] Allergy Anaphylaxis Verified 08/11/17 08:25 All systems ED: reviewed and negative except as stated. Review of Systems: As Per HPI Constitutional: Denies: fever, chills Cardiovascular: Reports: edema. Denies: chest pain, palpitations, dyspnea on exertion, syncope Respiratory: Denies: cough, dyspnea Gastrointestinal: Denies: abdominal pain, nausea, vomiting Genitourinary: Denies: urgency Musculoskeletal: Denies: back pain, neck pain Integumentary: Denies: rash Neurological: Denies: headache, weakness, numbness, paresthesias, confusion Past Medical History - Past Medical History Attestation: Yes The following information was validated with the patient. Medical history: Reports: atrial fibrillation, CHF, COPD, coronary artery disease, DVT, diabetes, GERD, hyperlipidemia, hypertension, myocardial infarction, peripheral artery disease, pulmonary embolus, TIA, other Surgical history: Reports: angioplasty/stent, coronary bypass (CABG) Psychiatric history: Reports: no psych history - Social History Smoking Status: Former smoker Smokeless Tobacco Status: No Alcohol use: Reports: none Drug use: Reports: none Physical Exam CONSTITUTIONAL: Well-appearing; well-nourished; A&O X 3, in no apparent distress HEAD: Normocephalic; atraumatic EYES: PERRL, no scleral icterus NOSE: The nose is normal in appearance without rhinorrhea NECK: No JVD or distended neck veins RESP: Normal chest excursion with respiration; breath sounds clear and equal bilaterally; no wheezes, rhonchi, or rales CARD: Regular rhythm, without murmurs, rub or gallop ABD: Non-distended; non-tender, soft, without rigidity, rebound or guarding,no pulsatile mass CHEST: No pain with palpation SKIN: Normal for age and race; warm and dry without diaphoresis ; no apparent lesions EXTREMITIES: Pulses are 2 plus and equal times 4 extremities, Significant 2+ pitting edema of the RLE. Normal color. Warm to touch. Distal pulses intact. - General Limitations: no limitations General appearance: alert, in no apparent distress Course Course Narrative: [place] a positive [place] for a right lower extremity DVT. The ultrasound was performed because he had been having right lower external me swelling over the past 2 months which has been refractory to compression stockings. Patient states she has a history of blood clots in the past he is currently on warfarin [facility] and has a [place] filter. He had labs performed at the [place] today which showed a hemoglobin of 9.7. Platelets of 153. His INR was 1.4. Troponin was negative. At less than 0.015. Electrolytes were within normal limits. Patient is aware that his INR is subtherapeutic at this time. Eventually was able to obtain the patient's ultrasound report of his right lower extremity and he does have diffuse clotting of the right lower extremity with the common femoral showing no clot and good flow. Patient was given a 1 mg/kg Lovenox to bridge him he is also given a dose of his Coumadin 4mg. he denies any bloody stools, states his stools are black however they are always black due to him taking iron. - Reevaluation(s) Reevaluation #1: Patient accepted to the hospital by Dr. Gates. Time: 22:58 Vital Signs Temperature 97.4 F L 05/30/18 17:02 Pulse Rate 61 05/30/18 17:02 Respiratory Rate 18 05/30/18 17:02 Blood Pressure 109/63 05/30/18 17:02 O2 Sat by Pulse Oximetry 98 05/30/18 17:02 Temperature 97.4 F L 05/30/18 17:02 Pulse Rate 61 05/30/18 17:02 Respiratory Rate 18 05/30/18 17:02 Blood Pressure 109/63 05/30/18 17:02 O2 Sat by Pulse Oximetry 98 05/30/18 17:02 Oxygen Delivery Oxygen Delivery Room Air Medical Decision Making - Medical Records Medical records reviewed: Yes I reviewed the patient's medical records. - Radiology Data Radiology results reviewed: Yes I reviewed the patient's radiology results. Lower extremity venous Doppler shows partial compressibility of the common femoral with no spontaneous flow.
[2018-05-31] MEDS ORDERED: Naloxone 0.4 MG/ML INJ IVP PRN (05:34)
[2018-05-31] MEDS ORDERED: D5% in Water 1,000 ML IVC PRN (06:00)
[2018-05-31] MEDS ORDERED: Dextrose Gel 15 GM/37.5 ML TUBE PO PRN ×2 (06:00)
[2018-05-31] MEDS ORDERED: Dextrose 4 GM Chewable Tablets PO PRN ×2 (06:00)
[2018-05-31] MEDS ORDERED: *HR* Dextrose 50 % in Water (Syg) 50 ML SYRINGE IVP PRN (06:00)
--- NOTE | 2018-05-31 06:25 | Internal Med History&Physical ---
Date of Encounter: 05/31/18 Time of Encounter: 04:30 Internal Medicine - H&P: HPI Chief complaint: DVT Admitted From: Home Plans for Post Hospital Care: Home History of present illness: Mr. Poe is a 82 year old male with past medical history significant for CAD with stents x3, CABG, DVT, PE with Kimber[place] filter, paroxysmal afib, CHF, hyperlipidemia, hypertension, COPD, diabetes, TIA, and chronic kidney disease wh o presents from ultrasound where he was found to have an acute partially occlusive thrombus in his right lower extremity. He was sent to ultrasound from [place] urgent care after being seen there for right lower extremity edema for past two months. Ultrasound of right lower extremity shows "acute partially occlusive thrombus seen in the right common femoral with partially compressible vein and continuous flow that did not augment". Around two months ago patient noticed increased bilateral lower extremity edema and was instructed by PCP to decrease salt intake, increase lasix dose for three days, and use compression stockings. After this the left lower extremity decreased but the right lower extremity edema continued. Denies any other symptoms with right lower extremity other than intermittent pain with activity. Also was found to have a subtherapeutic INR of 1.4, with last INR check being around 3 weeks ago. Denies any headache, chest pain, shortness of breath, abdominal pain, bowel or bladder changes. Reports dark colored stools which are chronic for him secondary to iron supplements. ER started on therapeutic lovenox dose and gave dose of coumadin. Urgent care abnormal labs included potassium of 5.6, hemoglobin of 9.7, BUN of 32, creatinine of 1.92, and GFR of 36. Follows regularly with PCP and was last seen around 2 weeks ago. Also follows regularly with cardiology an d last follow up was about a year ago. Checks blood sugars regularly at home and reports they have been averaging in the 120's. Also checks blood pressures regularly at home and systolic has been averaging in the 110's. Past Med Surg Social Fam HX - Past Medical History Medical history: atrial fibrillation, CHF, COPD, coronary artery disease, DVT, diabetes, GERD, hyperlipidemia, hypertension, myocardial infarction, peripheral artery disease, pulmonary embolus, renal disease, TIA, other Additional medical history: PAD Psychiatric history: no psych history - Past Surgical History Surgical History: angioplasty/stent, coronary bypass (CABG) Additional surgical history: Back surgery, mulitple kimberly filters. - Social History Smoking Status: Former smoker Smokeless Tobacco Status: No Alcohol use: none Drug use: none - Family History Father Living Status: Hx Family Cardiac Disorders: Yes (Father) Hx Family Respiratory Disorders: No Hx Family Cancer: Yes Hx Family GI Disorders: Yes (ULCERS, GERD) Hx Family Endocrine Disorder: No Hx Family Neuromuscular Disorders: No Hx Family Neurologic Disorders: No Hx Family HEENT Disorders: No Hx Family Autoimmune Disorders: No Internal Medicine - H&P: Meds Atorvastatin [Lipitor] 40 mg PO HS 11/16/15 [History] Gabapentin [Neurontin] 200 mg PO TID 11/16/15 [History] Isosorbide MONOnitrate (24 HR) [Imdur] 30 mg PO DAILY 11/16/15 [History] Ferrous Sulfate [Iron] 325 mg PO BID 12/02/15 [History] Terazosin HCl 10 mg PO HS 12/02/15 [History] glipiZIDE [Glucotrol] 5 mg PO DAILY 12/02/15 [History] Cyanocobalamin (B-12) [Vitamin B12] 1,000 mcg PO DAILY 11/27/16 [History] Spironolactone [Aldactone] 25 mg PO DAILY 11/27/16 [History] Furosemide [Lasix] 40 mg PO BID 06/21/17 [History] Metoprolol XL (24 HR) Succ [Toprol Xl] 25 mg PO BID 06/21/17 [History] [place]-3/Dha/Epa/Fish Oil [Fish Oil 1,000 mg Softgel] 1,000 mg PO DAILY 06/21/17 [History] Warfarin [Coumadin] 4 mg PO DAILY 06/21/17 [History] Magnesium Oxide [Mag-Ox] 400 mg PO BID #60 tablet 06/27/17 [Rx] Ticagrelor [Brilinta] 90 mg PO BID #60 tablet 06/27/17 [Rx] Acetaminophen [Tylenol] 650 mg PO QID PRN #0 08/12/17 [Rx] Lisinopril [Zestril] 5 mg PO DAILY 09/08/17 [History] Artificial Tears SOLN [Akwa Tears] 1 drop BOTH EYES QID 09/09/17 [History] Allergy/AdvReac Type Severity Reaction Status Date / Time pseudoephedrine Allergy Anaphylaxis Verified 08/11/17 08:25 [From Actifed] sulfamethoxazole Allergy Anaphylaxis Verified 08/11/17 08:25 [From Bactrim] tramadol Allergy See Verified 08/11/17 08:25 Comments trimethoprim [From Bactrim] Allergy Anaphylaxis Verified 08/11/17 08:25 triprolidine [From Actifed] Allergy Anaphylaxis Verified 08/11/17 08:25 All Systems PM: A 10-system review of systems was performed and is negative for pertinent findings except as documented above in the HPI. - Constitutional Vitals: Temp Pulse Resp BP Pulse Ox 98.2 F 69 17 131/59 100 05/31/18 03:33 05/31/18 03:33 05/31/18 03:33 05/31/18 03:33 05/31/18 03:33 Exam: General: Alert and oriented. Skin:Normal color, no rash, no lesions. HEENT:Pupils equal, round and reactive. Cardiovascular:Normal S1 & S2, no rubs, murmurs or gallops. No JVD. Pulse regular. Lungs:Breath sounds decreased, no wheezes or crackles. Abdomen:Soft, non-tender, no rigidity. Extremities:No deformity, tenderness, or clubbing. Right lower extremity with 3+ pitting edema, PMS intact. Neurological:Normal cognition and motor skills. Pulses:Carotid and radial pulses normal +2. Rest of the physical exam is non contributory. - Assessment and Plan (1) Femoral thrombosis Current Visit: Yes Status: Acute Assessment and plan: Continuous school lunch monitor. ER gave one dose of therapeutic lovenox and one dose of coumadin. Discussed with pharmacy, will switch lovenox to heparin drip at time of second dose at 0900 due to renal function and continue coumadin with pharmacy to dose. (2) Lower extremity edema Current Visit: Yes Status: Acute Assessment and plan: Likely secondary to thrombus, plan as above. Keep extremity elevated. Continue to monitor for worsening edema. (3) Serum potassium elevated Current Visit: Yes Status: Acute Assessment and plan: Urgent care potassium reported as 5.6, patient does not recall any treatment prior to arrival, will repeat labs. (4) Decreased hemoglobin Current Visit: Yes Status: Chronic Assessment and plan: At baseline. No signs of bleeding. Repeat labs ordered. (5) Diabetes mellitus Current Visit: Yes Status: Chronic Assessment and plan: Hold home medications. Accucheck ACHS. Sliding scale insulin. Qualifiers: Qualified Code(s): E13.9 - Other specified diabetes mellitus without complications (6) Chronic kidney disease Current Visit: Yes Status: Chronic Assessment and plan: Renal function at baseline. Repeat labs ordered. Avoid nephrotoxins. Qualifiers: Chronic kidney disease stage: unspecified stage Qualified Code(s): N18.9 - Chronic kidney disease, unspecified - Time Spent With Patient Total time spent is greater than 50% in coordination of care (as documented) at patient's floor/unit and/or counseling patient:
[2018-05-31 06:51] LABS: Hematocrit 31.4 % (37.5-50.1); Hemoglobin 9.6 g/dL (12.9-16.9); Mean Corpuscular HGB Conc 30.6 g/dL (31.6-35.5); Mean Corpuscular Hemoglobin 25.4 pg (28.0-33.3); Mean Corpuscular Volume 83.1 fL (83.0-100.0); Mean Platelet Volume 11.4 fL (9.4-12.4); Platelet Count 134 K/mcL (140-400); Red Blood Count 3.78 M/mcL (4.19-5.50); Red Cell Distribution Width 14.9 % (11.5-14.5)
[2018-05-31 06:58] LABS: INR 1.5; Prothrombin Time 17.1 Seconds (9.4-12.1)
[2018-05-31 06:59] LABS: Heparin anti-factor XA UFH 0.42 IU/mL (0.30-0.70)
[2018-05-31 07:09] LABS: Potassium 5.7 mEq/L (3.5-5.1)
[2018-05-31 08:05] LABS: INR 1.5; Prothrombin Time 16.6 Seconds (9.4-12.1)
[2018-05-31] MEDS: Insulin LISPRO 300 UNITS/3 ML VIAL SQ SCH ×4 (08:25→22:42)
[2018-05-31] MEDS ORDERED: *HR* Heparin 5,000 UNIT/ML VIAL IVP PRN ×2 (09:00)
[2018-05-31] MEDS: Heparin 25,000 UNIT/250 ML D5W 25,000 UNIT/250 ML IV.SOLN IVC SCH (10:02)
[2018-05-31] MEDS ORDERED: Ipratropium/Albuterol Neb 3 ML IH ONE (10:23)
--- NOTE | 2018-05-31 11:57 | Internal Med Progress Note ---
<Natividad Sherman - Last Filed: 05/31/18 14:42> Hospitalist Progress Note - Encounter Date of Encounter: 05/31/18 - Exam Vitals: Temp Pulse Resp BP Pulse Ox 98.4 F 68 16 138/65 94 05/31/18 10:48 05/31/18 10:48 05/31/18 10:48 05/31/18 10:48 05/31/18 10:48 - Assessment and Plan (1) Femoral thrombosis Current Visit: Yes Status: Acute (2) Serum potassium elevated Current Visit: Yes Status: Acute (3) Diabetes mellitus Current Visit: Yes Status: Chronic (4) Chronic kidney disease Current Visit: Yes Status: Chronic (5) Decreased hemoglobin Current Visit: Yes Status: Chronic (6) Lower extremity edema Current Visit: Yes Status: Acute - Time Spent with Patient Total time spent is greater than 50% in coordination of care (as documented) at patient's floor/unit and/or counseling patient: Internal Medicine: Result - Labs CBC & Chem 7: 05/31/18 06:10 05/31/18 06:10 Labs: Short CBC 05/31/18 Range/Units 06:10 WBC 7.1 (4.3-11.1) K/mcL Hgb 9.6 L (12.9-16.9) g/dL Hct 31.4 L (37.5-50.1) % Plt Count 134 L (140-400) K/mcL BMP 05/31/18 06:10 Sodium 140 Potassium 5.7 H Chloride 110 H Carbon Dioxide 25 BUN 35 H Creatinine 1.84 H Glucose 127 H Calcium 9.0 Cardiac Enzymes 05/31/18 Range/Units 12:20 Troponin I < 0.03 (< 0.04) ng/mL - ABG Interpretation ABG results: PT/INR, D-dimer PT 16.6 Seconds (9.4-12.1) H 05/31/18 07:35 Consult Discharge Plan - Plan [facility]errals: [facility]Primary Care Provider[facility] - - Attending Attestation I examined this patient and my medical decision-making was reviewed with the Resident Physician Dr Carbajal. I agree with the documented findings, dispos ition and treatment plan as described except to the extent set forth below. Mr Poe is admitted for acute RLE DVT while on AC awake in bed, rle remains very edematous, no pain currently. denies any chest pain, pressure, sob or hemoptysis. has kimberly filter. gen- alert, awake,appears stated age cv- reg rate and rhythm, normal s1,s2, no murmurs appreciated lungs- ctabl, faint scattered exp wheezing, rhonchi or crackles, normal resp effort on ra neuro- AAOx3 Acute RLE partially occluded R common femoral vein DVT Subtherapeutic INR -hep gtt, coumadin by pharmacy Hyperkalemia- hold aldactone, ekg without changes this morning, kayexalate and c a gluconate given, repeat level later today, cont tele Anemia, chronic, at baseline CKD at baseline- avoid nephrotoxins CAD s/p PCI and CABG- later in day felt some pressure in chest, ekg no ischemic changes and tele unremarkable, cont home statin, imdur, bb, acei, brilinta, warfarin Further diagnoses and plan as noted by resident <Isabel Carbajal - Last Filed: 05/31/18 21:09> Hospitalist Progress Note - Encounter Date of Encounter: 05/31/18 Time of Encounter: 09:15 - Subjective Interval History: Seen and examined at bedside. He is resting in bed and appears comfortable. States his right leg is not painful, but has a tingling sensation and feels tight. Denies chest pain, heart palpitations, racing heart, shortness of breath, difficulty breathing, wheezing. - Exam Vitals: Temp Pulse Resp BP Pulse Ox 98.4 F 68 16 138/65 94 05/31/18 10:48 05/31/18 10:48 05/31/18 10:48 05/31/18 10:48 05/31/18 10:48 Exam: General: vital signs noted, no acute distress Head: normocephalic, atraumatic Eyes: EOMI, PERRL, sclera anicteric Neck: supple Cardio: RRR; no murmurs, gallops, rubs; normal S1 S2 Chest: symmetric chest rise Pulm: CTAB, no wheezes/rhonchi/rales, no respiratory distress, no tachypnea Abd: soft, nontender, nondistended, normal bowel sounds Neuro: no focal neurologic deficits, speech deficit, moves all extremities spontaneously, equal sensation BLE Ext: RLE 2+ pitting edema, right foot pedal edema, pedal pulses palpable and equal bilaterally Psych: normal mood and affect, cooperative, answers questions appropriately, doesnt appear anxious or agitated Skin: warm, dry, intact - Assessment and Plan (1) DVT (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 Assessment and Plan: - Previous history of RLE DVT and PE, kimberly filter - Acute RLE partially occluded R common femoral vein DVT confirmed by doppler - Subtherapeutic INR on presentation, anticoagulated on coumadin at home - INR of 1.5 at presentation Plan -hep gtt -Pharmacy to dose coumadin -elevate RLE -Continue to monitor daily INR until in therapeutic range -Monitor for signs of bleeding given anticoagulation with heparin and coumadin (2) Hyperkalemia Current Visit: Yes Status: Acute Assessment and Plan: K of 5.7 on presentation--decreased to 5.4 after kayexalate and calcium gluconate - Unclear etiology - No EKG changes noted - Will hold home aldactone - Repeat kayexalate x 1 - Repeat K @ 21:00 - Telemetry (3) CAD (coronary artery disease) Current Visit: Yes Status: Chronic Assessment and Plan: s/p CABG and PCI with stents x 3 - c/o intermittent chest tightness, no significant changes on EKG - restart lipitor, imdur, lisinopril, brillinta, toprol XL - continue telemetry (4) Diastolic heart failure Current Visit: Yes Status: Chronic Assessment and Plan: - Does not appear to be in acute exacerbation, lungs clear on exam - Echo August 2017 shows EF 60% with indeterminate diastolic dysfunction, PFO with [id number] shunt - Holding aldactone d/t hyperkalemia (5) CKD (chronic kidney disease) stage 3, GFR 30-59 ml/min Current Visit: Yes Status: Chronic Assessment and Plan: BUN/Cr of 35/1.84 - Appears to be within baseline - Avoid nephrotoxins when able, renally dose as necessary - Continue to monitor renal function with AM labs (6) Anticoagulated on Coumadin Current Visit: Yes Status: Chronic Assessment and Plan: as above subtherapeutic Pharmacy dosing Recheck INR in morning (7) Anemia Current Visit: Yes Status: Chronic Assessment and Plan: - Hgb 9.6 on presentation - Appear to be baseline - Likely related to CKD with iron deficiency - Continue iron supplement - Will continue to monitor for signs of bleeding while anticoagulated - repeat cbc in AM (8) DM2 (diabetes mellitus, type 2) Current Visit: Yes Status: Chronic Assessment and Plan: - Well controlled at this time with most recent BS of 120-130s - Most recent A1c of 6.8% in August 2017 - No home insulin - Will start SSI and ADA diet while inpatient - Hold glipizide (9) HTN (hypertension) Current Visit: Yes Status: Chronic Assessment and Plan: - Well controlled on current meds - continue to monitor DVT Prophylaxis: Heparin drip Coumadin--pharmacy dosing - Time Spent with Patient Total time spent is greater than 50% in coordination of care (as documented) at patient's floor/unit and/or counseling patient: Internal Medicine: Result - Labs CBC & Chem 7: 05/31/18 06:10 05/31/18 16:05 Labs: Short CBC 05/31/18 Range/Units 06:10 WBC 7.1 (4.3-11.1) K/mcL Hgb 9.6 L (12.9-16.9) g/dL Hct 31.4 L (37.5-50.1) % Plt Count 134 L (140-400) K/mcL BMP 05/31/18 06:10 Sodium 140 Potassium 5.7 H Chloride 110 H Carbon Dioxide 25 BUN 35 H Creatinine 1.84 H Glucose 127 H Calcium 9.0 - ABG Interpretation ABG results: PT/INR, D-dimer PT 16.6 Seconds (9.4-12.1) H 05/31/18 07:35 <Natividad Sherman - Last Filed: 05/31/18 14:42> (3) Diabetes mellitus Qualifiers: Qualified Code(s): E13.9 - Other specified diabetes mellitus without complications (4) Chronic kidney disease Qualifiers: Chronic kidney disease stage: unspecified stage Qualified Code(s): N18.9 - Chronic kidney disease, unspecified <Isabel Carbajal - Last Filed: 05/31/18 21:09> (1) DVT (deep venous thrombosis) Qualifiers: DVT location: lower extremity Affected thrombotic vein of extremity: unspecified vein of extremity Chronicity: acute Laterality: right Qualified Code(s): I82.401 - Acute embolism and thrombosis of unspecified deep veins of right lower extremity (3) CAD (coronary artery disease) Qualifiers: Coronary Disease-Associated Artery/Lesion type: bypass graft [place] vs. transplanted heart: [place] heart Associated angina: with unstable angina Qu alified Code(s): I25.700 - Atherosclerosis of coronary artery bypass graft(s), unspecified, with unstable angina pectoris (4) Diastolic heart failure Qualifiers: Heart failure chronicity: chronic Qualified Code(s): I50.32 - Chronic diastolic (congestive) heart failure (7) Anemia Qualifiers: Anemia type: other cause Other causes of anemia: acute posthemorrhagic Qualified Code(s): D62 - Acute posthemorrhagic anemia (8) DM2 (diabetes mellitus, type 2) Qualifiers: Diabetes mellitus computer terminal operator insulin use: without computer terminal operator use Diabetes mellitus complication status: with kidney complications Diabetes mellitus complication detail: with chronic kidney disease Chronic kidney disease stage: stage 3 (moderate) Qualified Code(s): E11.22 - Type 2 diabetes mellitus with diabetic chronic kidney disease; N18.3 - Chronic kidney disease, stage 3 (moderate) (9) HTN (hypertension) Qualifiers: Hypertension type: essential hypertension Qualified Code(s): I10 - Essential (primary) hypertension
[2018-05-31] MEDS: Isosorbide MONOnitrate (24 HR) 30 MG TAB.ER.24H PO SCH (14:30)
[2018-05-31] MEDS: *HR* Ticagrelor 90 MG TABLET PO SCH ×2 (14:30→22:42)
[2018-05-31] MEDS: Gabapentin 100 MG CAPSULE PO SCH ×2 (14:30→22:21)
[2018-05-31] MEDS ORDERED: *HR* Warfarin 4 MG TABLET PO ONE (18:00)
[2018-05-31] MEDS ORDERED: Warfarin perPT PO PRN (18:00)
[2018-05-31] MEDS: Furosemide 20 MG TABLET PO SCH (18:06)
[2018-05-31] MEDS: Magnesium Oxide 400 MG TABLET PO SCH (22:21)
[2018-05-31] MEDS: Metoprolol XL (24 HR) Succ 25 MG TAB.ER.24H PO SCH (22:21)
[2018-06-01 03:48] LABS: Hematocrit 32.5 % (37.5-50.1); Hemoglobin 9.9 g/dL (12.9-16.9); Mean Corpuscular HGB Conc 30.5 g/dL (31.6-35.5); Mean Corpuscular Hemoglobin 25.3 pg (28.0-33.3); Mean Corpuscular Volume 82.9 fL (83.0-100.0); Platelet Count 135 K/mcL (140-400); Red Blood Count 3.92 M/mcL (4.19-5.50); Red Cell Distribution Width 14.8 % (11.5-14.5)
[2018-06-01 03:57] LABS: INR 1.6; Prothrombin Time 17.5 Seconds (9.4-12.1)
[2018-06-01 04:11] LABS: Calcium 9.1 mg/dL (8.6-10.3)
[2018-06-01] MEDS: Insulin LISPRO 300 UNITS/3 ML VIAL SQ SCH ×4 (08:13→20:57)
[2018-06-01] MEDS: Gabapentin 100 MG CAPSULE PO SCH ×3 (09:13→20:50)
[2018-06-01] MEDS: Magnesium Oxide 400 MG TABLET PO SCH ×2 (09:13→20:50)
[2018-06-01] MEDS: Metoprolol XL (24 HR) Succ 25 MG TAB.ER.24H PO SCH ×2 (09:13→20:50)
[2018-06-01] MEDS: Cyanocobalamin (B-12) 1,000 MCG TABLET PO SCH (09:13)
[2018-06-01] MEDS: Isosorbide MONOnitrate (24 HR) 30 MG TAB.ER.24H PO SCH (09:14)
[2018-06-01] MEDS: *HR* Ticagrelor 90 MG TABLET PO SCH ×2 (09:14→20:50)
[2018-06-01] MEDS: Furosemide 20 MG TABLET PO SCH ×2 (09:14→17:49)
[2018-06-01] MEDS: Heparin 25,000 UNIT/250 ML D5W 25,000 UNIT/250 ML IV.SOLN IVC SCH (09:33)
--- NOTE | 2018-06-01 11:27 | Internal Med Progress Note ---
<Natividad Sherman - Last Filed: 06/01/18 13:58> Hospitalist Progress Note - Encounter Date of Encounter: 06/01/18 - Exam Vitals: Temp Pulse Resp BP Pulse Ox 97.2 F L 71 17 156/79 98 06/01/18 10:41 06/01/18 10:41 06/01/18 10:41 06/01/18 07:35 06/01/18 09:27 - Assessment and Plan (1) Femoral thrombosis Current Visit: Yes Status: Acute (2) Serum potassium elevated Current Visit: Yes Status: Acute (3) Diabetes mellitus Current Visit: Yes Status: Chronic (4) Chronic kidney disease Current Visit: Yes Status: Chronic (5) Decreased hemoglobin Current Visit: Yes Status: Chronic (6) Lower extremity edema Current Visit: Yes Status: Acute - Time Spent with Patient Total time spent is greater than 50% in coordination of care (as documented) at patient's floor/unit and/or counseling patient: Internal Medicine: Result - Labs CBC & Chem 7: 06/01/18 03:27 06/01/18 03:27 Labs: Short CBC 06/01/18 Range/Units 03:27 WBC 8.5 (4.3-11.1) K/mcL Hgb 9.9 L (12.9-16.9) g/dL Hct 32.5 L (37.5-50.1) % Plt Count 135 L (140-400) K/mcL BMP 05/31/18 05/31/18 06/01/18 16:05 20:46 03:27 Sodium 139 Potassium 5.4 H 5.3 H 5.0 Chloride 109 H Carbon Dioxide 21 L BUN 30 H Creatinine 1.77 H Glucose 111 H Calcium 9.1 Cardiac Enzymes 05/31/18 05/31/18 05/31/18 Range/Units 12:20 18:29 23:52 Troponin I < 0.03 < 0.03 < 0.03 (< 0.04) ng/mL - ABG Interpretation ABG results: PT/INR, D-dimer PT 17.5 Seconds (9.4-12.1) H 06/01/18 03:27 Consult Discharge Plan - Plan [facility]errals: [facility] [Primary Care Provider] - - Attending Attestation I examined this patient and my medical decision-making was reviewed with the Resident Physician Dr Carbajal. I agree with the documented findings, disposition and treatment plan as described except to the extent set forth below. Mr Poe is admitted for acute RLE DVT while on AC awake in bed,pleasnat, no chest pain pressure or sob, le leg improved and has leg wrapped currently gen- alert, awake,appears stated age cv- reg rate and rhythm, normal s1,s2, no murmurs appreciated, foot le improved lungs- ctabl,no wheezing, rhonchi or crackles, normal resp effort on ra neuro- AAOx3 Acute RLE partially occluded R common femoral vein DVT Subtherapeutic INR -hep gtt, coumadin by pharmacy -cannot bridge with lovenox given his CKD, will remain inpt awaiting therapeutic inr Hyperkalemia-resolved, cont to hold aldactone Anemia, chronic, at baseline CKD at baseline- avoid nephrotoxins CAD s/p PCI and CABG- cont home statin, imdur, bb, acei, brilinta, warfarin Further diagnoses and plan as noted by resident when he does dc he will be to home with no needs and may fu at coumadin clinic <Isabel Carbajal - Last Filed: 06/01/18 16:24> Hospitalist Progress Note - Encounter Date of Encounter: 06/01/18 Time of Encounter: 09:30 - Exam Vitals: Temp Pulse Resp BP Pulse Ox 97.2 F L 71 17 156/79 98 06/01/18 10:41 06/01/18 10:41 06/01/18 10:41 06/01/18 07:35 06/01/18 09:27 Exam: General: vital signs noted, no acute distress Head: normocephalic, atraumatic Eyes: EOMI, PERRL, sclera anicteric Neck: supple Cardio: RRR; no murmurs, gallops, rubs; normal S1 S2 Chest: symmetric chest rise Pulm: CTAB, no wheezes/rhonchi/rales, no respiratory distress, no tachypnea Abd: soft, nontender, nondistended, normal bowel sounds Neuro: no focal neurologic deficits, speech deficit, moves all extremities spontaneously, equal sensation BLE Ext: RLE wrapped with ALVAREZ bandage, right foot pedal edema, pedal pulses palpable and equal bilaterally, LLE with compression stocking Psych: normal mood and affect, cooperative, answers questions appropriately, pleasant Skin: warm, dry, intact - Assessment and Plan (1) DVT (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 Assessment and Plan: - Previous history of RLE DVT and PE, kimberly filter - Subtherapeutic INR on presentation, anticoagulated on coumadin at home - INR of 1.5 at presentation--> INR 1.6 today - Acute RLE partially occluded R common femoral vein DVT confirmed by doppler - R leg elevated with ALVAREZ wrap Plan -continue hep gtt -Pharmacy to dose coumadin -continue wrapping and elevation of RLE -Continue to monitor daily INR with goal INR 2.0 -Monitor for signs of bleeding given anticoagulation with heparin and coumadin (2) Anticoagulated on Coumadin Current Visit: Yes Status: Chronic Assessment and Plan: as above (3) CAD (coronary artery disease) Current Visit: Yes Status: Chronic Assessment and Plan: h/o CABG and PCI with stents x 3 - intermittent chest "tightness"--possibly musculoskeletal, no significant changes on EKG - restart lipitor, imdur, lisinopril, brillinta, toprol XL - continue telemetry (4) Diastolic heart failure Current Visit: Yes Status: Chronic Assessment and Plan: Stable - Does not appear to be in acute exacerbation, lungs clear on exam - Echo August 2017 shows EF 60% with indeterminate diastolic dysfunction, PFO with [id number] shunt - hyperkalemia resolved, but will continue to hold aldactone for now (5) CKD (chronic kidney disease) stage 3, GFR 30-59 ml/min Current Visit: Yes Status: Chronic Assessment and Plan: Stable - Appears to be within pt's baseline - BUN/Cr of 30/1.77 today - Avoid nephrotoxins when able, renally dose as necessary - Continue to monitor renal function with AM labs (6) Anemia Current Visit: Yes Status: Chronic Assessment and Plan: Stable - Hgb 9.9 today - Appears to be within pt's baseline - Likely related to chronic disease including CKD and iron deficiency - Continue iron supplement, continue B12 supplement - Will continue to monitor for signs of bleeding while receiving anticoagulation with heparin gtt and coumadin (7) DM2 (diabetes mellitus, type 2) Current Visit: Yes Status: Chronic Assessment and Plan: - Most recent A1c of 6.8% in August 2017 - No home insulin, manages with glipizide - Sliding scale insulin while inpatient with glucose checks AC HS - Cardiac and ADA diet modifications (8) HTN (hypertension) Current Visit: Yes Status: Chronic Assessment and Plan: Stable, well controlled Continue current meds (9) Hyperkalemia Current Visit: Yes Status: Resolved Assessment and Plan: K of 5.7 on presentation --> K 5.0 today - Unclear etiology - No significant changes to EKG - improved after kayexalate x 2 doses and calcium gluconate - Continue to hold home aldactone for now - Continue to monitor on daily BMP, give kayexalate if needed - Continue tele monitoring DVT Prophylaxis: Heparin drip Coumadin--pharmacy dosing - Time Spent with Patient Total time spent is greater than 50% in coordination of care (as documented) at patient's floor/unit and/or counseling patient: Internal Medicine: Result - Labs CBC & Chem 7: 06/01/18 03:27 06/01/18 03:27 Labs: Short CBC 06/01/18 Range/Units 03:27 WBC 8.5 (4.3-11.1) K/mcL Hgb 9.9 L (12.9-16.9) g/dL Hct 32.5 L (37.5-50.1) % Plt Count 135 L (140-400) K/mcL BMP 05/31/18 05/31/18 06/01/18 16:05 20:46 03:27 Sodium 139 Potassium 5.4 H 5.3 H 5.0 Chloride 109 H Carbon Dioxide 21 L BUN 30 H Creatinine 1.77 H Glucose 111 H Calcium 9.1 Cardiac Enzymes 05/31/18 05/31/18 05/31/18 Range/Units 12:20 18:29 23:52 Troponin I < 0.03 < 0.03 < 0.03 (< 0.04) ng/mL - ABG Interpretation ABG results: PT/INR, D-dimer PT 17.5 Seconds (9.4-12.1) H 06/01/18 03:27 <Natividad Sherman - Last Filed: 06/01/18 13:58> (3) Diabetes mellitus Qualifiers: Qualified Code(s): E13.9 - Other specified diabetes mellitus without complications (4) Chronic kidney disease Qualifiers: Chronic kidney disease stage: unspecified stage Qualified Code(s): N18.9 - Chronic kidney disease, unspecified <Isabel Carbajal - Last Filed: 06/01/18 16:24> (1) DVT (deep venous thrombosis) Qualifiers: DVT location: lower extremity Affected thrombotic vein of extremity: unspecified vein of extremity Chronicity: acute Laterality: right Qualified Code(s): I82.401 - Acute embolism and thrombosis of unspecified deep veins of right lower extremity (3) CAD (coronary artery disease) Qualifiers: Coronary Disease-Associated Artery/Lesion type: bypass graft [place] vs. transplanted heart: [place] heart Associated angina: with unstable angina Qualified Code(s): I25.700 - Atherosclerosis of coronary artery bypass graft(s), unspecified, with unstable angina pectoris (4) Diastolic heart failure Qualifiers: Heart failure chronicity: chronic Qualified Code(s): I50.32 - Chronic diastolic (congestive) heart failure (6) Anemia Qualifiers: Anemia type: other cause Other causes of anemia: acute posthemorrhagic Qualified Code(s): D62 - Acute posthemorrhagic anemia (7) DM2 (diabetes mellitus, type 2) Qualifiers: Diabetes mellitus longterm insulin use: without tennis camp 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
--- NOTE | 2018-06-01 16:31 | Electrocardiograph Report ---
[place] [id number] Test Date: 2018-05-31 Pat Name: Virgilio Poe Department: 114 Room: [facility] Gender: M Application Penetration Tester: : [id number] Requested By: Natividad Sherman Order Number: [id number] Reading MD: Angela Snowden Measurements Intervals [place] Rate: 66 P: 25 DE: 195 QRS: 107 QRSD: 98 T: 42 QT: 391 QTc: 404 Interpretive Statements SINUS RHYTHM RIGHT AXIS DEVIATION LOW QRS VOLTAGE IN PRECORDIAL LEADS Electronically Signed On 06-01-2018 16:30:29 EST by Angela Snowden
[2018-06-01] MEDS ORDERED: *HR* Warfarin 4 MG TABLET PO ONE (18:00)
[2018-06-02 04:28] LABS: Hematocrit 30.8 % (37.5-50.1); Hemoglobin 9.5 g/dL (12.9-16.9); Mean Corpuscular HGB Conc 30.8 g/dL (31.6-35.5); Mean Corpuscular Hemoglobin 25.1 pg (28.0-33.3); Mean Corpuscular Volume 81.5 fL (83.0-100.0); Mean Platelet Volume 10.9 fL (9.4-12.4); Platelet Count 150 K/mcL (140-400); Red Blood Count 3.78 M/mcL (4.19-5.50); Red Cell Distribution Width 14.6 % (11.5-14.5)
[2018-06-02 04:35] LABS: INR 1.8; Prothrombin Time 20.5 Seconds (9.4-12.1)
[2018-06-02 04:48] LABS: Calcium 8.9 mg/dL (8.6-10.3); Potassium 4.4 mEq/L (3.5-5.1)
[2018-06-02] MEDS: Insulin LISPRO 300 UNITS/3 ML VIAL SQ SCH ×4 (09:22→21:24)
[2018-06-02] MEDS: Magnesium Oxide 400 MG TABLET PO SCH ×2 (09:24→21:24)
[2018-06-02] MEDS: Isosorbide MONOnitrate (24 HR) 30 MG TAB.ER.24H PO SCH (09:24)
[2018-06-02] MEDS: Metoprolol XL (24 HR) Succ 25 MG TAB.ER.24H PO SCH ×2 (09:24→21:24)
[2018-06-02] MEDS: Gabapentin 100 MG CAPSULE PO SCH ×3 (09:24→21:24)
[2018-06-02] MEDS: *HR* Ticagrelor 90 MG TABLET PO SCH ×2 (09:24→21:24)
[2018-06-02] MEDS: Cyanocobalamin (B-12) 1,000 MCG TABLET PO SCH (09:24)
--- NOTE | 2018-06-02 10:48 | Internal Med Progress Note ---
<Isabel Carbajal - Last Filed: 06/02/18 15:00> Hospitalist Progress Note - Encounter Date of Encounter: 06/02/18 Time of Encounter: 10:48 - Subjective Interval History: Seen and examined at bedside this morning. Patient appears comfortable in bed watching television. Per patient, he slept well last night and states he's been sleeping well since we stopped giving him Kayexalate. He endorses no complaints today. Has some tingling in his feet from neuropathy, but no worse than usual. Denies pain or tight feeling of right lower extremity. - Exam Vitals: Temp Pulse Resp BP Pulse Ox 97.8 F 66 17 126/78 98 06/02/18 07:00 06/02/18 07:00 06/02/18 07:00 06/02/18 07:00 06/02/18 07:00 Exam: General: Appears stated age, no acute distress, pleasant Head: normocephalic, atraumatic Eyes: EOMI, PERRL, sclera anicteric Neck: supple Cardio: RRR; no murmurs, gallops, rubs; normal S1 S2 Chest: symmetric chest rise Pulm: CTAB, no wheezes/rhonchi/rales, no respiratory distress, no tachypnea Abd: soft, nontender, nondistended, normal bowel sounds Neuro: no focal neurologic deficits, moves all extremities spontaneously, equal sensation BLE, AAO 3 Ext: RLE decreased swelling and wrapped with ALVAREZ bandage, right foot pedal edema, pedal pulses palpable and equal bilaterally, LLE with compression stocking Psych: normal mood and affect, cooperative, answers questions appropriately Skin: warm, dry, intact - Assessment and Plan (1) DVT (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 Assessment and Plan: - Previous history of RLE DVT and PE, kimberly filter - Acute RLE partially occluded R common femoral vein DVT confirmed by doppler - Subtherapeutic INR on presentation, anticoagulated on coumadin at home - INR of 1.5 at presentation--> INR 1.8 today - R leg elevated with ALVAREZ wrap Plan -Continue to monitor daily INR with goal INR 2.0 -continue hep gtt until goal INR reached -Pharmacy to dose coumadin -We will need follow-up with Coumadin clinic once discharged -continue wrapping and elevation of RLE -Monitor for signs of bleeding given anticoagulation with heparin and coumadin (2) CAD (coronary artery disease) Current Visit: Yes Status: Chronic Assessment and Plan: h/o CABG and PCI with stents x 3 - continue lipitor, imdur, lisinopril, brillinta, toprol XL (3) Diastolic heart failure Current Visit: Yes Status: Chronic Assessment and Plan: Stable - Does not appear to be in acute exacerbation, lungs clear on exam - Echo August 2017 shows EF 60% with indeterminate diastolic dysfunction, PFO with [id number] shunt - Aldactone still on hold, hyperkalemia resolved, but will consider restarting in morning if K level remains favorable (4) CKD (chronic kidney disease) stage 3, GFR 30-59 ml/min Current Visit: Yes Status: Chronic Assessment and Plan: Stable - Appears to be within pt's baseline - BUN/Cr of 30/1.72 today - Avoid nephrotoxins when able, renally dose as necessary - Continue to monitor renal function with AM labs (5) Anemia Current Visit: Yes Status: Chronic Assessment and Plan: Stable and within pt's baseline - Hgb 9.5 today - Likely related to chronic disease including CKD and iron deficiency - Continue iron supplement, continue B12 supplement - Will continue to monitor for signs of bleeding while receiving heparin gtt and coumadin (6) DM2 (diabetes mellitus, type 2) Current Visit: Yes Status: Chronic Assessment and Plan: - Non-insulin dependant - A1c of 6.8% in August 2017 - Cardiac and ADA diet modifications Continue sliding scale insulin (7) HTN (hypertension) Current Visit: Yes Status: Chronic Assessment and Plan: - Stable, well controlled - SBP 120-130's / DBP 60-70's - Continue current medication regimen (8) Hyperkalemia Current Visit: Yes Status: Resolved Assessment and Plan: Resolved, K 4.4 today - No significant changes on EKG - Resolved with after kayexalate x 2 doses and calcium gluconate - Continue to hold home aldactone for now - Monitor on morning BMP, consider restarting Aldactone pending potassium level tomorrow DVT Prophylaxis: Heparin drip Coumadin--pharmacy dosing - Time Spent with Patient Total time spent is greater than 50% in coordination of care (as documented) at patient's floor/unit and/or counseling patient: Internal Medicine: Result - Labs CBC & Chem 7: 06/02/18 03:48 06/02/18 03:48 Labs: Short CBC 06/02/18 Range/Units 03:48 WBC 7.1 (4.3-11.1) K/mcL Hgb 9.5 L (12.9-16.9) g/dL Hct 30.8 L (37.5-50.1) % Plt Count 150 (140-400) K/mcL BMP 06/02/18 03:48 Sodium 137 Potassium 4.4 Chloride 106 Carbon Dioxide 23 BUN 28 H Creatinine 1.72 H Glucose 140 H Calcium 8.9 - ABG Interpretation ABG results: PT/INR, D-dimer PT 20.5 Seconds (9.4-12.1) H 06/02/18 03:48 Consult Discharge Plan - Plan [facility]: [facility]Primary Care Provider[facility] - <Natividad Sherman - Last Filed: 06/02/18 16:06> Hospitalist Progress Note - Encounter Date of Encounter: 06/02/18 - Exam Vitals: Temp Pulse Resp BP Pulse Ox 99.0 F 75 16 110/70 97 06/02/18 15:35 06/02/18 15:35 06/02/18 15:35 06/02/18 15:35 06/02/18 15:35 - Assessment and Plan (1) Femoral thrombosis Current Visit: Yes Status: Acute (2) Serum potassium elevated Current Visit: Yes Status: Acute (3) Diabetes mellitus Current Visit: Yes Status: Chronic (4) Chronic kidney disease Current Visit: Yes Status: Chronic (5) Decreased hemoglobin Current Visit: Yes Status: Chronic (6) Lower extremity edema Current Visit: Yes Status: Acute - Time Spent with Patient Total time spent is greater than 50% in coordination of care (as documented) at patient's floor/unit and/or counseling patient: Internal Medicine: Result - Labs CBC & Chem 7: 06/02/18 03:48 06/02/18 03:48 Labs: Short CBC 06/02/18 Range/Units 03:48 WBC 7.1 (4.3-11.1) K/mcL Hgb 9.5 L (12.9-16.9) g/dL Hct 30.8 L (37.5-50.1) % Plt Count 150 (140-400) K/mcL BMP 06/02/18 03:48 Sodium 137 Potassium 4.4 Chloride 106 Carbon Dioxide 23 BUN 28 H Creatinine 1.72 H Glucose 140 H Calcium 8.9 - ABG Interpretation ABG results: PT/INR, D-dimer PT 20.5 Seconds (9.4-12.1) H 06/02/18 03:48 - Attending Attestation I examined this patient and my medical decision-making was reviewed with the Resident Physician Dr Carbajal. I agree with the documented findings, disposition and treatment plan as described except to the extent set forth below. Mr Poe is admitted for acute RLE DVT while on AC awake in bed,no chest pain pressure or sob gen- alert, awake,appears stated age cv- reg rate and rhythm, normal s1,s2, no murmurs appreciated, no pitting le edema lungs- ctabl,no wheezing, rhonchi or crackles, normal resp effort on ra neuro- AAOx3 Acute RLE partially occluded R common femoral vein DVT Subtherapeutic INR -hep gtt, coumadin by pharmacy -cannot bridge with lovenox given his CKD, will remain inpt awaiting therapeutic inr Hyperkalemia-resolved, cont to hold aldactone Anemia, chronic, at baseline CKD at baseline- avoid nephrotoxins CAD s/p PCI and CABG- cont home statin, imdur, bb, acei, brilinta, warfarin Further diagnoses and plan as noted by resident when he does dc he will be to home with no needs and may fu at coumadin clinic <Isabel Carbajal - Last Filed: 06/02/18 15:00> (1) DVT (deep venous thrombosis) Qualifiers: DVT location: lower extremity Affected thrombotic vein of extremity: unspecified vein of extremity Chronicity: acute Laterality: right Qualified Code(s): I82.401 - Acute embolism and thrombosis of unspecified deep veins of right lower extremity (2) CAD (coronary artery disease) Qualifiers: Coronary Disease-Associated Artery/Lesion type: bypass graft [place] vs. transplanted heart: [place] heart Associated angina: with unstable angina Qualified Code(s): I25.700 - Atherosclerosis of coronary artery bypass graft(s), unspecified, with unstable angina pectoris (3) Diastolic heart failure Qualifiers: Heart failure chronicity: chronic Qualified Code(s): I50.32 - Chronic diastolic (congestive) heart failure (5) Anemia Qualifiers: Anemia type: other cause Other causes of anemia: acute posthemorrhagic Qualified Code(s): D62 - Acute posthemorrhagic anemia (6) DM2 (diabetes mellitus, type 2) Qualifiers: Diabetes mellitus fig caprifier insulin use: without senior living use Diabetes mellitus complication status: with kidney complications Diabetes mellitus complication detail: with chronic kidney disease Chronic kidney disease stage: stage 3 (moderate) Qualified Code(s): E11.22 - Type 2 diabetes mellitus with diabetic chronic kidney disease; N18.3 - Chronic kidney disease, stage 3 (moderate) (7) HTN (hypertension) Qualifiers: Hypertension type: essential hypertension Qualified Code(s): I10 - Essential (primary) hypertension <Natividad Sherman - Last Filed: 06/02/18 16:06> (3) Diabetes mellitus Qualifiers: Qualified Code(s): E13.9 - Other specified diabetes mellitus without complicat ions (4) Chronic kidney disease Qualifiers: Chronic kidney disease stage: unspecified stage Qualified Code(s): N18.9 - Chronic kidney disease, unspecified
[2018-06-02] MEDS: Furosemide 20 MG TABLET PO SCH ×2 (10:57→17:59)
[2018-06-02] MEDS: Heparin 25,000 UNIT/250 ML D5W 25,000 UNIT/250 ML IV.SOLN IVC SCH (15:23)
[2018-06-02] MEDS ORDERED: *HR* Warfarin 2 MG TABLET PO ONE (18:00)
[2018-06-03 05:28] LABS: Hematocrit 34.5 % (37.5-50.1); Hemoglobin 10.5 g/dL (12.9-16.9); Mean Corpuscular HGB Conc 30.4 g/dL (31.6-35.5); Mean Corpuscular Volume 82.1 fL (83.0-100.0); Mean Platelet Volume 10.9 fL (9.4-12.4); Platelet Count 167 K/mcL (140-400); Red Cell Distribution Width 14.5 % (11.5-14.5)
[2018-06-03 05:35] LABS: INR 1.9; Prothrombin Time 21.4 Seconds (9.4-12.1)
[2018-06-03 05:51] LABS: Calcium 9.1 mg/dL (8.6-10.3); Potassium 4.2 mEq/L (3.5-5.1)
[2018-06-03] MEDS: Furosemide 20 MG TABLET PO SCH (09:48)
[2018-06-03] MEDS: Gabapentin 100 MG CAPSULE PO SCH ×3 (09:49→20:04)
[2018-06-03] MEDS: Isosorbide MONOnitrate (24 HR) 30 MG TAB.ER.24H PO SCH (09:49)
[2018-06-03] MEDS: Metoprolol XL (24 HR) Succ 25 MG TAB.ER.24H PO SCH ×2 (09:49→20:00)
[2018-06-03] MEDS: Magnesium Oxide 400 MG TABLET PO SCH ×2 (09:49→20:04)
[2018-06-03] MEDS: Cyanocobalamin (B-12) 1,000 MCG TABLET PO SCH (09:49)
[2018-06-03] MEDS: *HR* Ticagrelor 90 MG TABLET PO SCH ×2 (09:49→20:04)
[2018-06-03] MEDS: Insulin LISPRO 300 UNITS/3 ML VIAL SQ SCH ×4 (09:50→20:00)
--- NOTE | 2018-06-03 11:13 | Internal Med Progress Note ---
<Isabel Carbajal - Last Filed: 06/03/18 14:40> Hospitalist Progress Note - Encounter Date of Encounter: 06/03/18 Time of Encounter: 11:00 - Subjective Interval History: Seen and examined this morning at bedside. When I entered the room patient was sleeping and appeared comfortable in his bed. Patient reports he is doing well, his RLE swelling is decreasing, and he has no complaints. - Exam Vitals: Temp Pulse Resp BP Pulse Ox 98.0 F 91 16 117/75 93 06/03/18 07:20 06/03/18 07:20 06/03/18 07:20 06/03/18 07:20 06/03/18 07:20 Exam: General: Appears stated age, no acute distress, pleasant Head: normocephalic, atraumatic Eyes: EOMI, PERRL, sclera anicteric Neck: supple Cardio: RRR; no murmurs, gallops, rubs; normal S1 S2 Chest: symmetric chest rise Pulm: CTAB, no wheezes/rhonchi/rales, no respiratory distress, no tachypnea Abd: soft, nontender, nondistended, normal bowel sounds Neuro: no focal neurologic deficits, moves all extremities spontaneously, equal sensation BLE, AAO 3 Ext: RLE decreased swelling and wrapped with ALVAREZ bandage, right foot pedal edema, pedal pulses palpable and equal bilaterally, LLE with compression stocking Psych: normal mood and affect, cooperative, answers questions appropriately Skin: warm, dry, intact - Assessment and Plan (1) DVT (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 Assessment and Plan: - Previous history of RLE DVT and PE, kimberly filter - Acute RLE partially occluded R common femoral vein DVT confirmed by doppler - Subtherapeutic INR on presentation, anticoagulated on coumadin at home - INR of 1.5 at presentation--> INR 1.9 today -Continue to monitor daily INR with goal INR 2.0--anticipate we'll be at goal tomorrow -continue hep gtt until goal INR reached -Pharmacy to dose coumadin -We will need follow-up with Coumadin clinic once discharged -Compression stocking and elevation of RLE -Monitor for signs of bleeding given anticoagulation with heparin and coumadin (2) Acute kidney injury superimposed on CKD Current Visit: Yes Status: Acute Assessment and Plan: LUIS FERNANDO on CKD stage III Baseline Cr around 1.6 Cr 1.72 yesterday --> 2.01 today Most likely d/t lisinopril and restarting furosemide Check post-void residual today--if elevated, may require straight cath or tai Hold lisinopril and furosemide--BP has been well-controlled during admission Follow renal dosing and avoid nephrotoxins when able Recheck renal function tomorrow morning with BMP (3) CAD (coronary artery disease) Current Visit: Yes Status: Chronic Assessment and Plan: h/o CABG and PCI with stents x 3 - continue lipitor, imdur, brillinta, toprol XL - Hold lisinopril due to LUIS FERNANDO (4) Diastolic heart failure Current Visit: Yes Status: Chronic Assessment and Plan: Stable - Does not appear to be in acute exacerbation, lungs clear on exam - Echo August 2017 shows EF 60% with indeterminate diastolic dysfunction, PFO with [id number]-ik-[id number] shunt - Continue to hold Aldactone (5) CKD (chronic kidney disease) stage 3, GFR 30-59 ml/min Current Visit: Yes Status: Chronic Assessment and Plan: - Baseline creatinine appears to be around 1.6 - Avoid nephrotoxins when able, renally dose as necessary - Continue to monitor renal function with AM labs (6) Anemia Current Visit: Yes Status: Chronic Assessment and Plan: Stable, chronic - Hgb 10.5 today - Likely related to chronic disease including CKD and iron deficiency - Continue iron supplement, continue B12 supplement - Will continue to monitor for signs of bleeding while receiving heparin gtt and coumadin (7) DM2 (diabetes mellitus, type 2) Current Visit: Yes Status: Chronic Assessment and Plan: - Satisfactory control during hospitalization - Non-insulin dependant - A1c of 6.8% in August 2017 - Cardiac and ADA diet modifications Continue sliding scale insulin (8) HTN (hypertension) Current Visit: Yes Status: Chronic Assessment and Plan: - Stable, well controlled - SBP 120-130's / DBP 60-70's - Hold furosemide and lisinopril to avoid further kidney injury (9) Hyperkalemia Current Visit: Yes Status: Resolved Assessment and Plan: Resolved - No significant changes on EKG - Resolved with after kayexalate x 2 doses and calcium gluconate - Continue to hold home aldactone for now - Monitor on morning BMP DVT Prophylaxis: Heparin drip Coumadin--pharmacy dosing - Time Spent with Patient Total time spent is greater than 50% in coordination of care (as documented) at patient's floor/unit and/or counseling patient: less than 15 minutes Plan of Care Discussed with: patient Internal Medicine: Result - Labs CBC & Chem 7: 06/03/18 04:33 06/03/18 04:33 Labs: Short CBC 06/03/18 Range/Units 04:33 WBC 7.8 (4.3-11.1) K/mcL Hgb 10.5 L (12.9-16.9) g/dL Hct 34.5 L (37.5-50.1) % Plt Count 167 (140-400) K/mcL BMP 06/03/18 04:33 Sodium 137 Potassium 4.2 Chloride 102 Carbon Dioxide 25 BUN 33 H Creatinine 2.01 H Glucose 143 H Calcium 9.1 - ABG Interpretation ABG results: PT/INR, D-dimer PT 21.4 Seconds (9.4-12.1) H 06/03/18 04:33 Consult Discharge Plan - Plan [facility]errals: [facility] [Primary Care Provider] - <Natividad Sherman - Last Filed: 06/03/18 15:06> Hospitalist Progress Note - Encounter Date of Encounter: 06/03/18 - Exam Vitals: Temp Pulse Resp BP Pulse Ox 98.0 F 70 15 109/70 95 06/03/18 11:51 06/03/18 11:51 06/03/18 11:51 06/03/18 11:51 06/03/18 11:51 - Assessment and Plan (1) Femoral thrombosis Current Visit: Yes Status: Acute (2) Serum potassium elevated Current Visit: Yes Status: Acute (3) Diabetes mellitus Current Visit: Yes Status: Chronic (4) Chronic kidney disease Current Visit: Yes Status: Chronic (5) Decreased hemoglobin Current Visit: Yes Status: Chronic (6) Lower extremity edema Current Visit: Yes Status: Acute - Time Spent with Patient Total time spent is greater than 50% in coordination of care (as documented) at patient's floor/unit and/or counseling patient: Internal Medicine: Result - Labs CBC & Chem 7: 06/03/18 04:33 06/03/18 04:33 Labs: Short CBC 06/03/18 Range/Units 04:33 WBC 7.8 (4.3-11.1) K/mcL Hgb 10.5 L (12.9-16.9) g/dL Hct 34.5 L (37.5-50.1) % Plt Count 167 (140-400) K/mcL [facility] 06/03/18 04:33 Sodium 137 Potassium 4.2 Chloride 102 Carbon Dioxide 25 BUN 33 H Creatinine 2.01 H Glucose 143 H Calcium 9.1 - ABG Interpretation ABG results: PT/INR, D-dimer PT 21.4 Seconds (9.4-12.1) H 06/03/18 04:33 - Attending Attestation I examined this patient and my medical decision-making was reviewed with the Resident Physician Dr Carbajal. I agree with the documented findings, disposition and treatment plan as described except to the extent set forth below. Mr Poe is admitted for acute RLE DVT while on AC asleep,a wakes to name. no cp, pressure or sob. le edema improving gen- alert, awake,appears stated age cv- reg rate and rhythm, normal s1,s2 lungs- ctabl,no wheezing, rhonchi or crackles, normal resp effort on ra neuro- AAOx3 Acute RLE partially occluded R common femoral vein DVT Subtherapeutic INR -hep gtt, coumadin by pharmacy -cannot bridge with lovenox given his CKD, will remain inpt awaiting therapeutic inr Hyperkalemia-resolved, cont to hold aldactone Anemia, chronic, at baseline CKD at baseline- avoid nephrotoxins CAD s/p PCI and CABG- cont home statin, imdur, bb, acei, brilinta, warfarin LUIS FERNANDO- hold lasix today as net neg 1.3 liters yesterday and suspect injury is prerenal, hold acei in am as already got today, check pvr Further diagnoses and plan as noted by resident when he does dc he will be to home with no needs and may fu at coumadin clinic <Isabel Carbajal - Last Filed: 06/03/18 14:40> (1) DVT (deep venous thrombosis) Qualifiers: DVT location: lower extremity Affected thrombotic vein of extremity: unspecified vein of extremity Chronicity: acute Laterality: right Qualified Code(s): I82.401 - Acute embolism and thrombosis of unspecified deep veins of right lower extremity (3) CAD (coronary artery disease) Qualifiers: Coronary Disease-Associated Artery/Lesion type: bypass graft [place] vs. transplanted heart: [place] heart Associated angina: with unstable angina Qualified Code(s): I25.700 - Atherosclerosis of coronary artery bypass graft(s), unspecified, with unstable angina pectoris (4) Diastolic heart failure Qualifiers: Heart failure chronicity: chronic Qualified Code(s): I50.32 - Chronic diastolic (congestive) heart failure (6) Anemia Qualifiers: Anemia type: other cause Other causes of anemia: acute posthemorrhagic Qualified Code(s): D62 - Acute posthemorrhagic anemia (7) DM2 (diabetes mellitus, type 2) Qualifiers: Diabetes mellitus penitentiary insulin use: without local intermodal truck driver use Diabetes mellitus complication status: with kidney complications Diabetes mellitus complication detail: with chronic kidney disease Chronic kidney disease stage: stage 3 (moderate) Qualified Code(s): E11.22 - Type 2 diabetes mellitus with diabetic chronic kidney disease; N18.3 - Chronic kidney disease, stage 3 (moderate) (8) HTN (hypertension) Qualifiers: Hypertension type: essential hypertension Qualified Code(s): I10 - Essential (primary) hypertension <Natividad Sherman - Last Filed: 06/03/18 15:06> (3) Diabetes mellitus Qualifiers: Qualified Code(s): E13.9 - Other specified diabetes mellitus without complications (4) Chronic kidney disease Qualifiers: Chronic kidney disease stage: unspecified stage Qualified Code(s): N18.9 - Chronic kidney disease, unspecified
[2018-06-03] MEDS ORDERED: *HR* Warfarin 2 MG TABLET PO ONE (18:00)
[2018-06-03] MEDS: Heparin 25,000 UNIT/250 ML D5W 25,000 UNIT/250 ML IV.SOLN IVC SCH (21:25)
[2018-06-04 03:05] LABS: INR 1.8; Prothrombin Time 19.9 Seconds (9.4-12.1)
[2018-06-04 03:15] LABS: Calcium 8.8 mg/dL (8.6-10.3); Potassium 4.4 mEq/L (3.5-5.1)
[2018-06-04] MEDS: Insulin LISPRO 300 UNITS/3 ML VIAL SQ SCH ×4 (03:56→16:35)
[2018-06-04] MEDS: Gabapentin 100 MG CAPSULE PO SCH ×3 (08:07→20:03)
[2018-06-04] MEDS: Magnesium Oxide 400 MG TABLET PO SCH ×2 (08:08→20:04)
[2018-06-04] MEDS: Metoprolol XL (24 HR) Succ 25 MG TAB.ER.24H PO SCH ×2 (08:08→20:04)
[2018-06-04] MEDS: *HR* Ticagrelor 90 MG TABLET PO SCH ×2 (08:08→20:04)
[2018-06-04] MEDS: Cyanocobalamin (B-12) 1,000 MCG TABLET PO SCH (08:08)
[2018-06-04] MEDS: Isosorbide MONOnitrate (24 HR) 30 MG TAB.ER.24H PO SCH (08:08)
--- NOTE | 2018-06-04 14:13 | Internal Med Progress Note ---
<WhitNatividad M - Last Filed: 06/04/18 16:00> Hospitalist Progress Note - Encounter Date of Encounter: 06/04/18 - Exam Vitals: Temp Pulse Resp BP Pulse Ox 97.6 F 83 17 121/73 97 06/04/18 11:23 06/04/18 11:23 06/04/18 11:23 06/04/18 11:23 06/04/18 11:23 - Assessment and Plan (1) Femoral thrombosis Current Visit: Yes Status: Acute (2) Serum potassium elevated Current Visit: Yes Status: Acute (3) Diabetes mellitus Current Visit: Yes Status: Chronic (4) Chronic kidney disease Current Visit: Yes Status: Chronic (5) Decreased hemoglobin Current Visit: Yes Status: Chronic (6) Lower extremity edema Current Visit: Yes Status: Acute - Time Spent with Patient Total time spent is greater than 50% in coordination of care (as documented) at patient's floor/unit and/or counseling patient: Internal Medicine: Result - Labs CBC & Chem 7: 06/03/18 04:33 06/04/18 02:43 Labs: BMP 06/04/18 02:43 Sodium 138 Potassium 4.4 Chloride 105 Carbon Dioxide 25 BUN 35 H Creatinine 1.89 H Glucose 140 H Calcium 8.8 - ABG Interpretation ABG results: PT/INR, D-dimer PT 19.9 Seconds (9.4-12.1) H 06/04/18 02:43 Consult Discharge Plan - Plan [facility]: [facility] Care Provider[facility] - - Attending Attestation I examined this patient and my medical decision-making was reviewed with the Resident Physician Dr Perea. I agree with the documented findings, disposition and treatment plan as described except to the extent set forth below. Mr Poe is admitted for acute RLE DVT while on AC awake, pleasant, no cp, pressure or sob. gen- alert, awake,appears stated age cv- reg rate and rhythm, normal s1,s2, no pitting le edema lungs- ctabl,no wheezing, rhonchi or crackles, normal resp effort on ra neuro- AAOx3 Acute RLE partially occluded R common femoral vein DVT Subtherapeutic INR -hep gtt, coumadin by pharmacy -cannot bridge with lovenox given his CKD, will remain inpt awaiting therapeutic inr Hyperkalemia-resolved, cont to hold aldactone and would hold on dc CAD s/p PCI and CABG- cont home statin, imdur, bb, acei, brilinta, warfarin LUIS FERNANDO- hold lasix and acei, cont to monitor Further diagnoses and plan as noted by resident when he does dc he will be to home with no needs and may fu at coumadin clinic <Nathalie Perea - Last Filed: 06/04/18 17:23> Hospitalist Progress Note - Encounter Date of Encounter: 06/04/18 Time of Encounter: 09:40 - Subjective Interval History: Patient reports right leg pain improving . He denies chest pain, shortness of breath, cough, nausea or vomiting. Vitals stable overnight. - Exam Vitals: Temp Pulse Resp BP Pulse Ox 97.6 F 83 17 121/73 97 06/04/18 11:23 06/04/18 11:23 03 11:23 06/04/18 11:23 06/04/18 11:23 Exam: General: pleasant, in no acute distress, A&Ox3 Head: atraumatic, normocephalic, Cardiac: RRR, no murmurs, no gallops Respiratory: CTAB no wheeze, no rales Abdomen: BSx4, Soft, not distended, no tenderness, no masses, no organomegaly Extremities: pulses intact, pedal edema R > L pitting +2 when wrap removed. with tenderness to palpation at right calf Psychiatric: normal mood and affect, intact memory, good judgement and insight - Assessment and Plan (1) DVT (deep venous thrombosis) Current Visit: Yes Status: Acute Assessment and Plan: Acute partial occlusion of right common femoral vein by [place] on coumadin with subtherapeutic INR on presentation History of DVT and PE with kimberly filter - pharmacy to dose with goal above 2 before discharge as therapeutic indication for acute DVT not prophylactic - continue to monitor vitals - recheck INR in am Plan for possible discharge tommorrow with close follow up with coumadin clinic and return to home health for leg wrapping (2) Subtherapeutic international normalized ratio (INR) Current Visit: Yes Status: Acute Assessment and Plan: Slow correction of subtherapuetic INR on coumadien with pharmacy dosing. INR 1.9 with goal of 2 - recheck in am (3) Acute kidney injury superimposed on CKD Current Visit: Yes Status: Acute Assessment and Plan: LUIS FERNANDO on CKD stage 3 with Scr 1.89 from 2 with unknown baseline - hold lasix and lisinopril, aviod nephrotoxic - monitor I/O - monitor with BMP in am (4) Lower extremity edema Current Visit: Yes Status: Acute Assessment and Plan: Mixed etiology of acute DVT and CHF (5) CAD (coronary artery disease) Current Visit: Yes Status: Chronic Assessment and Plan: CAD s/p CABG and PCI x3 stable with out complaints of chest pain - continue statin, imdur, brillinta and troprol (6) Diastolic heart failure Current Visit: Yes Status: Chronic Assessment and Plan: Stable with out clinical signs of exacerbation - holding lisinopril due to LUIS FERNANDO but plan to restart on discharge - new compression hose script and home health on discharge (7) DM2 (diabetes mellitus, type 2) Current Visit: Yes Status: Chronic Assessment and Plan: Well controlled at home with oral medication with last a1c 6.8 in August 2017 , Mild hyperglycemia during hospitalizations with FBG 110 - 140 - continue accuchecks and SSI - diabetic and cardiac diet (8) Anemia Current Visit: Yes Status: Chronic Assessment and Plan: Chronic anemia due to Vitamin B12 & Iron deficiency and CKD ; Hgb 10.5 from 9.5 stable at baseline - continue home supplements - recheck CBC in am - monitor vitals (9) Hyperkalemia Current Visit: Yes Status: Resolved Assessment and Plan: Resolved ; K 4.4 - asymptomatic during hospitalization with out EKG changes DVT Prophylaxis: Heparin drip Coumadin--pharmacy dosing - Time Spent with Patient Total time spent is greater than 50% in coordination of care (as documented) at patient's floor/unit and/or counseling patient: Internal Medicine: Result - Labs CBC & Chem 7: 06/03/18 04:33 06/04/18 02:43 Labs: BMP 06/04/18 02:43 Sodium 138 Potassium 4.4 Chloride 105 Carbon Dioxide 25 BUN 35 H Creatinine 1.89 H Glucose 140 H Calcium 8.8 - ABG Interpretation ABG results: PT/INR, D-dimer PT 19.9 Seconds (9.4-12.1) H 06/04/18 02:43 <Natividad Sherman M - Last Filed: 06/04/18 16:00> (3) Diabetes mellitus Qualifiers: Qualified Code(s): E13.9 - Other specified diabetes mellitus without complications (4) Chronic kidney disease Qualifiers: Chronic kidney disease stage: unspecified stage Qualified Code(s): N18.9 - Chronic kidney disease, unspecified <Nathalie Perea M - Last Filed: 06/04/18 17:23> (1) DVT (deep venous thrombosis) Qualifiers: DVT location: lower extremity Affected thrombotic vein of extremity: unspecified vein of extremity Chronicity: acute Laterality: right Qualified Code(s): I82.401 - Acute embolism and thrombosis of unspecified deep veins of right lower extremity (5) CAD (coronary artery disease) Qualifiers: Coronary Disease-Associated Artery/Lesion type: bypass graft [place] vs. transplanted heart: [place] heart Associated angina: with unstable angina Qualified Code(s): I25.700 - Atherosclerosis of coronary artery bypass graft(s), unspecified, with unstable angina pectoris (6) Diastolic heart failure Qualifiers: Heart failure chronicity: chronic Qualified Code(s): I50.32 - Chronic diastolic (congestive) heart failure (7) DM2 (diabetes mellitus, type 2) Qualifiers: Diabetes mellitus longterm insulin use: without intermediate designer use Diabetes mellitus complication status: with kidney complications Diabetes mellitus complication detail: with chronic kidney disease Chronic kidney disease stage: stage 3 (moderate) Qualified Code(s): E11.22 - Type 2 diabetes mellitus with diabetic chronic kidney disease; N18.3 - Chronic kidney disease, stage 3 (moderate) (8) Anemia Qualifiers: Anemia type: other cause Other causes of anemia: acute posthemorrhagic Qualified Code(s): D62 - Acute posthemorrhagic anemia
[2018-06-04] MEDS ORDERED: *HR* Warfarin 4 MG TABLET PO ONE (18:00)
[2018-06-05] MEDS: Heparin 25,000 UNIT/250 ML D5W 25,000 UNIT/250 ML IV.SOLN IVC SCH ×2 (03:53→22:56)
[2018-06-05 06:35] LABS: Basophils % 0.4 %; Eosinophils # 0.3 K/mcL (0.0-0.6); Eosinophils % 3.4 %; Hematocrit 33.1 % (37.5-50.1); Immature Granulocytes % 0.8 % (0-4); Lymphocytes # 1.5 K/mcL (0.6-4.6); Lymphocytes % 19.9 %; Mean Corpuscular HGB Conc 30.2 g/dL (31.6-35.5); Mean Corpuscular Hemoglobin 25.2 pg (28.0-33.3); Mean Corpuscular Volume 83.4 fL (83.0-100.0); Mean Platelet Volume 11.6 fL (9.4-12.4); Monocytes # 0.6 K/mcL (0.0-1.3); Monocytes % 8.1 %; Neutrophils # 5.1 K/mcL (1.6-8.9); Platelet Count 146 K/mcL (140-400); Red Blood Count 3.97 M/mcL (4.19-5.50); Red Cell Distribution Width 14.5 % (11.5-14.5); Segmented Neutrophils % 67.4 %
[2018-06-05 06:42] LABS: INR 1.8; Prothrombin Time 20.7 Seconds (9.4-12.1)
[2018-06-05 06:55] LABS: Calcium 8.9 mg/dL (8.6-10.3); Potassium 4.7 mEq/L (3.5-5.1)
[2018-06-05] MEDS: Cyanocobalamin (B-12) 1,000 MCG TABLET PO SCH (07:42)
[2018-06-05] MEDS: Insulin LISPRO 300 UNITS/3 ML VIAL SQ SCH ×4 (07:42→22:20)
[2018-06-05] MEDS: *HR* Ticagrelor 90 MG TABLET PO SCH ×2 (07:42→22:18)
[2018-06-05] MEDS: Gabapentin 100 MG CAPSULE PO SCH ×3 (07:42→22:19)
[2018-06-05] MEDS: Magnesium Oxide 400 MG TABLET PO SCH ×2 (07:42→22:19)
[2018-06-05] MEDS: Isosorbide MONOnitrate (24 HR) 30 MG TAB.ER.24H PO SCH (07:42)
[2018-06-05] MEDS: Metoprolol XL (24 HR) Succ 25 MG TAB.ER.24H PO SCH (07:43)
--- NOTE | 2018-06-05 11:34 | Internal Med Progress Note ---
<Nathalie Perea - Last Filed: 06/05/18 15:46> Hospitalist Progress Note - Encounter Date of Encounter: 06/05/18 Time of Encounter: 09:00 - Subjective Interval History: Patient has no complaints; states leg pain has resolved. No events overnight and vitals stables. Denies shortness of breath, chest pain, dizziness, syncope , nausea or vomiting. - Exam Vitals: Temp Pulse Resp BP Pulse Ox 98.0 F 72 16 131/71 94 06/05/18 11:15 06/05/18 11:15 06/05/18 11:15 06/05/18 11:15 06/05/18 11:15 Exam: General: pleasant, in no acute distress, A&Ox3 Head: atraumatic, normocephalic, Cardiac: RRR, no murmurs, no gallops Respiratory: CTAB no wheeze, no rales Abdomen: BSx4, Soft, not distended, no tenderness, no masses, no organomegaly Extremities: pulses intact, pedal edema R > L pitting +1 , no tenderness to palpation Psychiatric: normal mood and affect, intact memory, good judgment and insight skin; intact, warm to touch, no erythema - Assessment and Plan (1) DVT (deep venous thrombosis) Current Visit: Yes Status: Acute Assessment and Plan: Ri common femoral partial occlusion on US while subtherapuetic Coumadin; INR still 1.8 but expect rise tomorrow to meet INR goal of 2 History of previous unprovoked VTE thus too high risk to discharge with out full anticoagulation. Unable to bridge with lovenox due to CKD. - pharmacy to dose with increased dose last night to 4 mg - continue compression socks - recheck INR in am Possible discharge tomorrow with follow up at [facility] and return to home health for aid with compression hose and compliance (2) Subtherapeutic international normalized ratio (INR) Current Visit: Yes Status: Acute Assessment and Plan: see above (3) Acute kidney injury superimposed on CKD Current Visit: Yes Status: Acute Assessment and Plan: Acute on chronic kidney disease resolved with holding lasix and lisinopril . Scr 1.55 from 1.89; now near baseline - On discharge continue lisinopril 5 mg but decrease lasix from 40 mg bid (4) Lower extremity edema Current Visit: Yes Status: Acute Assessment and Plan: Improved with compression hose despite holding lasix - continue (5) CAD (coronary artery disease) Current Visit: Yes Status: Chronic Assessment and Plan: CAD s/p CABD and PCI with out complaints of chest pain - continue home meds of statin, imdur, and brillinta - increased toprol to home dose of 75 mg in am (6) Diastolic heart failure Current Visit: Yes Status: Chronic Assessment and Plan: Stable with out clinical signs of exacerbation - see above (7) DM2 (diabetes mellitus, type 2) Current Visit: Yes Status: Chronic Assessment and Plan: Well controlled at home with glipizide; during admission mild hyperglycemia rang 100-200 with in geriatric goals - continue SSI and accuchecks - plan to discharge on home medications - diabetic and cardiac diet (8) Anemia Current Visit: Yes Status: Chronic Assessment and Plan: Chronic anemia with history of vit B12 and Iron deficiency; HgB stable at 10 from 10.5 - continue home supplements - monitor with CBC in am (9) HTN (hypertension) Current Visit: Yes Status: Chronic Assessment and Plan: Well controlled under geriatric goal of SBP < 150 while holding lisinopril and lasix (10) Hyperkalemia Current Visit: Yes Status: Resolved DVT Prophylaxis: coumadin - Time Spent with Patient Total time spent is greater than 50% in coordination of care (as documented) at patient's floor/unit and/or counseling patient: Internal Medicine: Result - Labs CBC & Chem 7: 06/05/18 05:35 06/05/18 05:35 Labs: Short CBC 06/05/18 Range/Units 05:35 WBC 7.6 (4.3-11.1) K/mcL Hgb 10.0 L (12.9-16.9) g/dL Hct 33.1 L (37.5-50.1) % Plt Count 146 (140-400) K/mcL Neutrophils # 5.1 (1.6-8.9) K/mcL BMP 06/05/18 05:35 Sodium 138 Potassium 4.7 Chloride 106 Carbon Dioxide 23 BUN 29 H Creatinine 1.55 H Glucose 147 H Calcium 8.9 - ABG Interpretation ABG results: PT/INR, D-dimer PT 20.7 Seconds (9.4-12.1) H 06/05/18 05:35 Consult Discharge Plan - Plan [facility]errals: [facility] [Primary Care Provider] - <Natividad Sherman - Last Filed: 06/05/18 16:36> Hospitalist Progress Note - Encounter Date of Encounter: 06/05/18 - Exam Vitals: Temp Pulse Resp BP Pulse Ox 98.0 F 72 16 131/71 94 06/05/18 11:15 06/05/18 11:15 06/05/18 11:15 06/05/18 11:15 06/05/18 11:15 - Assessment and Plan (1) Femoral thrombosis Current Visit: Yes Status: Acute (2) Serum potassium elevated Current Visit: Yes Status: Acute (3) Diabetes mellitus Current Visit: Yes Status: Chronic (4) Chronic kidney disease Current Visit: Yes Status: Chronic (5) Decreased hemoglobin Current Visit: Yes Status: Chronic (6) Lower extremity edema Current Visit: Yes Status: Acute - Time Spent with Patient Total time spent is greater than 50% in coordination of care (as documented) at patient's floor/unit and/or counseling patient: Internal Medicine: Result - Labs CBC & Chem 7: 06/05/18 05:35 06/05/18 05:35 Labs: Short CBC 06/05/18 Range/Units 05:35 WBC 7.6 (4.3-11.1) K/mcL Hgb 10.0 L (12.9-16.9) g/dL Hct 33.1 L (37.5-50.1) % Plt Count 146 (140-400) K/mcL Neutrophils # 5.1 (1.6-8.9) K/mcL BMP 06/05/18 05:35 Sodium 138 Potassium 4.7 Chloride 106 Carbon Dioxide 23 BUN 29 H Creatinine 1.55 H Glucose 147 H Calcium 8.9 - ABG Interpretation ABG results: PT/INR, D-dimer PT 20.7 Seconds (9.4-12.1) H 06/05/18 05:35 - Attending Attestation I examined this patient and my medical decision-making was reviewed with the Resident Physician Dr Perea. I agree with the documented findings, disposition and treatment plan as described except to the extent set forth below. Mr Poe is admitted for acute RLE DVT while on AC and hep gtt bridge given he cannot take lovenox awake, pleasant, no complaints, increasing his activity with nursing assisting gen- alert, awake,appears stated age cv- reg rate and rhythm, normal s1,s2, no pitting le edema lungs- ctabl,no wheezing, rhonchi or crackles, normal resp effort on ra neuro- AAOx3 Acute RLE partially occluded R common femoral vein DVT Subtherapeutic INR -hep gtt, coumadin by pharmacy -cannot bridge with lovenox given his CKD and he was admitted for hep gtt bridge, will remain inpt awaiting therapeutic inr CAD s/p PCI and CABG- cont home statin, imdur, bb, acei, brilinta, warfarin -update- pharmacy confirmed different home dosing for BB- toprol xl 75 mg daily, stop current order and begin in am LUIS FERNANDO on CKD, resolved- held lasix and acei, with resolution resumeacei and lasix at lower dose Further diagnoses and plan as noted by resident when he does dc he will be to home with no needs and may fu at coumadin clinic <Nathalie Perea - Last Filed: 06/05/18 15:46> (1) DVT (deep venous thrombosis) Qualifiers: DVT location: lower extremity Affected thrombotic vein of extremity: unspecified vein of extremity Chronicity: acute Laterality: right Qualified Code(s): I82.401 - Acute embolism and thrombosis of unspecified deep veins of right lower extremity (5) CAD (coronary artery disease) Qualifiers: Coronary Disease-Associated Artery/Lesion type: bypass graft [place] vs. transplanted heart: [place] heart Associated angina: with unstable angina Qualified Code(s): I25.700 - Atherosclerosis of coronary artery bypass graft(s), unspecified, with unstable angina pectoris (6) Diastolic heart failure Qualifiers: Heart failure chronicity: chronic Qualified Code(s): I50.32 - Chronic diastolic (congestive) heart failure (7) DM2 (diabetes mellitus, type 2) Qualifiers: Diabetes mellitus custodial insulin use: without roasterman use Diabetes mellitus complication status: with kidney complications Diabetes mellitus complication detail: with chronic kidney disease Chronic kidney disease stage: stage 3 (moderate) Qualified Code(s): E11.22 - Type 2 diabetes mellitus with diabetic chronic kidney disease; N18.3 - Chronic kidney disease, stage 3 (moderate) (8) Anemia Qualifiers: Anemia type: other cause Other causes of anemia: acute posthemorrhagic Qualified Code(s): D62 - Acute posthemorrhagic anemia (9) HTN (hypertension) Qualifiers: Hypertension type: essential hypertension Qualified Code(s): I10 - Essential (primary) hypertension <Natividad Sherman - Last Filed: 06/05/18 16:36> (3) Diabetes mellitus Qualifiers: Qualified Code(s): E13.9 - Other specified diabetes mellitus without complications (4) Chronic kidney disease Qualifiers: Chronic kidney disease stage: unspecified stage Qualified Code(s): N18.9 - Chronic kidney disease, unspecified
[2018-06-05] MEDS ORDERED: *HR* Warfarin 4 MG TABLET PO ONE (18:00)
[2018-06-06 05:44] LABS: Heparin anti-factor XA UFH 0.5 IU/mL (0.30-0.70); INR 1.9; Prothrombin Time 21.5 Seconds (9.4-12.1)
[2018-06-06 08:14] LABS: Basophils % 0.3 %; Eosinophils # 0.2 K/mcL (0.0-0.6); Eosinophils % 2.4 %; Hematocrit 35.1 % (37.5-50.1); Hemoglobin 10.4 g/dL (12.9-16.9); Lymphocytes # 1.5 K/mcL (0.6-4.6); Lymphocytes % 19.6 %; Mean Corpuscular HGB Conc 29.6 g/dL (31.6-35.5); Mean Corpuscular Hemoglobin 24.6 pg (28.0-33.3); Mean Corpuscular Volume 83.2 fL (83.0-100.0); Mean Platelet Volume 11.3 fL (9.4-12.4); Monocytes # 0.5 K/mcL (0.0-1.3); Monocytes % 6.8 %; Neutrophils # 5.4 K/mcL (1.6-8.9); Platelet Count 147 K/mcL (140-400); Red Blood Count 4.22 M/mcL (4.19-5.50); Red Cell Distribution Width 14.5 % (11.5-14.5); Segmented Neutrophils % 69.9 %
[2018-06-06 08:32] LABS: Calcium 9.1 mg/dL (8.6-10.3); Potassium 5.1 mEq/L (3.5-5.1)
--- NOTE | 2018-06-06 08:52 | Discharge Summary ---
<Evaristo aLrose - Last Filed: 06/06/18 15:38> - NOTES TO OUTPATIENT PROVIDER Notes to Outpatient Provider: Patient admitted for DVT while on subtherapeutic coumadin. Being discharged on lovenox injections while waiting for INR to become therapeutic. Should follow up with coumadin clinic and PCP. Orders not resulted at time of discharge: Pending orders 06/06/18 04:00 Basic Metabolic Panel AM 0400 Complete Blood Count [HEME] AM 0400 06/07/18 04:00 INR/PT [Prothrombin Time INR] [COAG] AM 0400 06/07/18 05:20 Heparin anti-factor XA UFH [COAG] Timed 06/08/18 04:00 INR/PT [Prothrombin Time INR] [COAG] AM 0400 Date of Encounter: 06/06/18 Time of Encounter: 10:05 - Discharge Diagnosis (1) Femoral thrombosis Priority: Primary Status: Acute (2) Serum potassium elevated Priority: Secondary Status: Resolved (3) Diabetes mellitus Priority: Secondary Status: Chronic Qualifiers: Diabetes mellitus type: type 2 Diabetes mellitus alf insulin use: unspecified alf insulin use status Diabetes mellitus complication status: with unspecified complications Qualified Code(s): E11.8 - Type 2 diabetes mellitus with unspecified complications (4) Chronic kidney disease Priority: Secondary Status: Chronic Qualifiers: Chronic kidney disease stage: stage 3 (moderate) Qualified Code(s): N18.3 - Chronic kidney disease, stage 3 (moderate) (5) Decreased hemoglobin Priority: Secondary Status: Chronic (6) Lower extremity edema Priority: Secondary Status: Resolved Hospital course: Mr. Poe is a 82 year old male with past medical history of [place], CHF, COPD, CAD, previous DVT on Coumadin, diabetes, GERD, hyperlipidemia, hypertension, PAD, CKD, TIA. He presents the emergency room from ultrasound worries found to have an acute partially occlusive thrombus in his right lower extremity. He had a ultrasound done at the [place] urgent care where he was experiencing right lower extremity edema for the past 2 months. He is normally anticoagulated on Coumadin however has had his dose adjusted multiple times. On his most recent INR check his INR was subtherapeutic at 1.4 which was 3 weeks prior to admission. He denied any symptoms of chest pains, shortness of breath, abdominal pain. Vital signs admission were within normal limits including normal oxygen saturation. Laboratory results on admission were significant for a baseline anemia at 9.6 hemoglobin, INR measured at 1.5, potassium of 5.3, BUNs/creatinine of 35/1.84 which is increased from his baseline. Troponin was negative. EKG showed normal sinus rhythm with right axis deviation otherwise within normal limits with a rate of 66. Patient was started on heparin drip and admitted to the hospital for management. Throughout course of hospital stay, patient's symptoms did gradually improved and on day of admission he states the swelling is at baseline. He was restarted on his home Coumadin with heparin drip to bridge. His acute kidney injury did resolve back to baseline levels with hydration, holding of nephrotoxic medications. Labs otherwise return to baseline levels. Patient was initially not bridged with Lovenox due to LUIS FERNANDO but this has resolved. On day of discharge, patient will be started on Lovenox injections as his INR has climbed to 1.9 but still subtherapeutic. He was instructed to continue taking Lovenox until he follows up with his Coumadin clinic at the [place] and becomes therapeutic. At this time, he is medically stable for discharge and will follow-up with primary care physician at the [place]. Social work has in [facility] as well as follow-up. Discharge pending Lovenox approval at the [place] Discharge discussed with: patient, nurse, social work - Time Spent with Patient Total time spent providing and/or coordinating discharge services: - Discharge Medications Prescriptions: New Enoxaparin [Lovenox] 100 mg SQ Q12HR #10 syr Continue Isosorbide MONOnitrate (24 HR) [Imdur] 45 mg PO DAILY Gabapentin [Neurontin] 200 mg PO TID Terazosin HCl 10 mg PO HS glipiZIDE [Glucotrol] 5 mg PO DAILY [place]-3/Dha/Epa/Fish Oil [Fish Oil 1,000 mg Softgel] 1,000 mg PO DAILY Magnesium Oxide [Mag-Ox] 400 mg PO BID #60 tablet Ticagrelor [Brilinta] 90 mg PO BID #60 tablet Acetaminophen [Tylenol] 650 mg PO QID PRN #0 PRN Reason: Pain Artificial Tears SOLN [Akwa Tears] 1 drop BOTH EYES QID Atorvastatin Calcium [Lipitor] 40 mg PO DAILY Ferrous Sulfate 325 mg PO BID Furosemide [Lasix] 40 mg PO BID Lisinopril [Zestril] 5 mg PO DAILY Metoprolol Succinate [Toprol Xl] 75 mg PO DAILY Moxifloxacin OPTH Drops [Vigamox] 1 drop RIGHT EYE DAILY Nitroglycerin [Nitrostat] 0.4 mg SL AD PRN PRN Reason: Chest Pain Polyethylene Glycol 3350 [MiraLax bowel prep] 17 gm PO QPM Propylene Glycol/Peg 400 [Systane Ultra 0.4-0.3% Eye Drp] 2 drop BOTH EYES QID PRN PRN Reason: Dry Eyes raNITIdine HCl [Zantac] 150 mg PO DAILY PRN PRN Reason: GERD Spironolactone [Aldactone] 25 mg PO DAILY Cyanocobalamin (B-12) [Vitamin B12] 1,000 mcg PO DAILY Changed Warfarin [Coumadin] 4 mg PO DAILY #10 tablet Discontinued Warfarin [Coumadin] 2 mg PO [facility] Medications: Gabapentin [Neurontin] 200 mg PO TID 11/16/15 [History] Isosorbide MONOnitrate (24 HR) [Imdur] 45 mg PO DAILY 11/16/15 [History] Terazosin HCl 10 mg PO HS 12/02/15 [History] glipiZIDE [Glucotrol] 5 mg PO DAILY 12/02/15 [History] Cyanocobalamin (B-12) [Vitamin B12] 1,000 mcg PO DAILY 11/27/16 [History] Spironolactone [Aldactone] 25 mg PO DAILY 11/27/16 [History] [place]-3/Dha/Epa/Fish Oil [Fish Oil 1,000 mg Softgel] 1,000 mg PO DAILY 06/21/17 [History] Magnesium Oxide [Mag-Ox] 400 mg PO BID #60 tablet 06/27/17 [Rx] Ticagrelor [Brilinta] 90 mg PO BID #60 tablet 06/27/17 [Rx] Acetaminophen [Tylenol] 650 mg PO QID PRN #0 08/12/17 [Rx] Artificial Tears SOLN [Akwa Tears] 1 drop BOTH EYES QID 09/09/17 [History] Atorvastatin Calcium [Lipitor] 40 mg PO DAILY 06/02/18 [History] Ferrous Sulfate 325 mg PO BID 06/02/18 [History] Furosemide [Lasix] 40 mg PO BID 06/02/18 [History] Lisinopril [Zestril] 5 mg PO DAILY 06/02/18 [History] Metoprolol Succinate [Toprol Xl] 75 mg PO DAILY 06/02/18 [History] Moxifloxacin OPTH Drops [Vigamox] 1 drop RIGHT EYE DAILY 06/02/18 [History] Nitroglycerin [Nitrostat] 0.4 mg SL AD PRN 06/02/18 [History] Polyethylene Glycol 3350 [MiraLax bowel prep] 17 gm PO QPM 06/02/18 [History] Propylene Glycol/Peg 400 [Systane Ultra 0.4-0.3% Eye Drp] 2 drop BOTH EYES QID PRN 06/02/18 [History] raNITIdine HCl [Zantac] 150 mg PO DAILY PRN 06/02/18 [History] Enoxaparin [Lovenox] 100 mg SQ Q12HR #10 syr 06/06/18 [Rx] Warfarin [Coumadin] 4 mg PO DAILY #10 tablet 06/06/18 [Rx] Allergies/Adverse Reactions: Allergy/AdvReac Type Severity Reaction Status Date / Time pseudoephedrine Allergy Anaphylaxis Verified 08/11/17 08:25 [From Actifed] sulfamethoxazole Allergy Anaphylaxis Verified 08/11/17 08:25 [From Bactrim] tramadol Allergy See Verified 08/11/17 08:25 Comments trimethoprim [From Bactrim] Allergy Anaphylaxis Verified 08/11/17 08:25 triprolidine [From Actifed] Allergy Anaphylaxis Verified 08/11/17 08:25 Date of admission: 05/31/18 17:19 [facility] Discharging clinician: Evaristo Larose Anticipated date of discharge: 06/06/18 - Constitutional Vitals: Temp Pulse Resp BP Pulse Ox 98.4 F 67 16 128/73 94 06/06/18 06:50 06/06/18 06:50 06/06/18 06:50 06/06/18 06:50 06/06/18 06:50 Exam: Gen.: Vitals noted. No acute distress. AAOx3, resting comfortably in bed. HEENT: PERRL/EOMI, oropharynx clear, Normocephalic, atraumatic, MMM Cardiac: RRR, no murmur, +S1/S2, No BLE edema, pressure stockings in place Pulmonary: CTA bilaterally, no wheezes, rales or rhonchi, equal chest expansion, unlabored breathing Abdomen: soft, nontender, BS noted, no guarding, no palpable HSM Skin: warm and dry, no visible lesions. MSK: ROM intact, no joint swelling noted, gait no assessed while in bed. Non tender calf or clubbing Neuro: A&Ox3, moves all extremities, no focal deficits, sensation intact Psych: Appropriate mood and behavior, AOx3 - Patient Status Disposition: Home Health Service Condition: Fair Functional capacity at discharge: independent ambulation Overall status at discharge: patient is progressing back to baseline - Discharge Instructions [facility] With: [facility] [Primary Care Provider[facility] - Additional Instructions: Please follow up with her primary care and take all medications as prescribed. Follow up with the Coumadin clinic and take your Lovenox injections until instructed not to. Return to the emergency room with any worsening of symptoms. - Diet and Activity Activity: increase activity as tolerated, resume usual activities as tolerated Diet: advance to your usual diet <Nguyễn Rossi - Last Filed: 06/06/18 18:06> Orders not resulted at time of discharge: Pending orders 06/06/18 04:00 Basic Metabolic Panel AM 0400 Complete Blood Count [HEME] AM 0400 06/07/18 04:00 INR/PT [Prothrombin Time INR] [COAG] AM 0400 06/07/18 05:20 Heparin anti-factor XA UFH [COAG] Timed 06/08/18 04:00 INR/PT [Prothrombin Time INR] [COAG] AM 0400 Date of Encounter: 06/06/18 - Discharge Diagnosis (1) DVT (deep venous thrombosis) Priority: Primary Status: Acute Qualifiers: DVT location: lower extremity Affected thrombotic vein of extremity: femoral Chronicity: acute Laterality: right Qualified Code(s): I82.411 - Acute embolism and thrombosis of right femoral vein (2) Femoral thrombosis Status: Acute (3) Serum potassium elevated Status: Resolved (4) Diabetes mellitus Status: Chronic Qualifiers: Diabetes mellitus type: type 2 Diabetes mellitus alf insulin use: without alf use Diabetes mellitus complication status: without complication Qualified Code(s): E11.9 - Type 2 diabetes mellitus without complications (5) Chronic kidney disease Status: Chronic Qualifiers: Chronic kidney disease stage: stage 3 (moderate) Qualified Code(s): N18.3 - Chronic kidney disease, stage 3 (moderate) (6) Decreased hemoglobin Status: Chronic (7) Lower extremity edema Status: Resolved (8) CAD (coronary artery disease) Priority: Secondary Status: Chronic Qualifiers: Coronary Disease-Associated Artery/Lesion type: bypass graft [place] vs. transplanted heart: [place] heart Associated angina: without angina Qualified Code(s): I25.810 - Atherosclerosis of coronary artery bypass graft(s) without angina pectoris (9) Diastolic heart failure Priority: Secondary Status: Chronic Qualifiers: Heart failure chronicity: chronic Qualified Code(s): I50.32 - Chronic diastolic (congestive) heart failure (10) LYNSEY on CPAP Priority: Secondary Status: Chronic (11) HTN (hypertension) Priority: Secondary Status: Chronic Qualifiers: Hypertension type: essential hypertension Qualified Code(s): I10 - Essential (primary) hypertension (12) Atrial fibrillation Priority: Secondary Status: Chronic Qualifiers: Atrial fibrillation type: chronic Qualified Code(s): I48.2 - Chronic atrial fibrillation Hospital course: Mr. Poe is a 82 year old male - Time Spent with Patient Total time spent providing and/or coordinating discharge services: 35min Date of admission: 05/31/18 17:19 [facility] care physician: [facility] - Constitutional Vitals: Temp Pulse Resp BP Pulse Ox 97.6 F 75 16 137/77 98 06/06/18 14:29 06/06/18 14:29 06/06/18 14:29 06/06/18 14:29 06/06/18 14:29 - Attending Attestation I examined this patient and my medical decision-making was reviewed with the Resident Physician on 06/06/18. I agree with the documented findings, disposition and treatment plan as described except to the extent set forth below. Mr Poe has been admitted for acute DVT occurring when subtherapeutic on coumadin. He has been on heparin. Renal function improved and he will be discharged on Lovenox and coumadin with outpatient follow up . He is currently afebrile and ready for discharge home. Exam alert Comfortable Mucus membranes dry Heart reg and not tachy No wheeze abd soft Plan D/C home today with Lovenox/coumadin Follow up as arranged.
[2018-06-06] MEDS: Cyanocobalamin (B-12) 1,000 MCG TABLET PO SCH (10:10)
[2018-06-06] MEDS: Insulin LISPRO 300 UNITS/3 ML VIAL SQ SCH ×4 (10:10→21:21)
[2018-06-06] MEDS: Isosorbide MONOnitrate (24 HR) 30 MG TAB.ER.24H PO SCH (10:10)
[2018-06-06] MEDS: *HR* Ticagrelor 90 MG TABLET PO SCH ×2 (10:11→21:17)
[2018-06-06] MEDS: Magnesium Oxide 400 MG TABLET PO SCH ×2 (10:11→21:17)
[2018-06-06] MEDS: Gabapentin 100 MG CAPSULE PO SCH ×3 (10:11→21:17)
--- NOTE | 2018-06-06 15:38 | Physician Discharge Referral ---
Home Health/Hosp Referral Info Transfer to: Home Health - Diagnosis (1) Femoral thrombosis Priority: Primary Status: Acute (2) Serum potassium elevated Priority: Secondary Status: Resolved (3) Diabetes mellitus Priority: Secondary Status: Chronic (4) Chronic kidney disease Priority: Secondary Status: Chronic (5) Decreased hemoglobin Priority: Secondary Status: Chronic (6) Lower extremity edema Priority: Secondary Status: Resolved - Respiratory Orders Smoking Cessation: Smoking cessation has been advised. For more information, call the [place] Tobacco Quit Line at 4-335-OISX-NOW. - Diet/Nutrition Diet/Nutrition Orders: Renal, Cardiac - Activity Activity Orders: Ambulate - Services Needed Following services are medically necessary services: Home Health Aide - Transfer Medications Prescriptions: Enoxaparin [Lovenox] 100 mg SQ Q12HR #10 syr Warfarin [Coumadin] 4 mg PO DAILY #10 tablet Home Medications: Gabapentin [Neurontin] 200 mg PO TID 11/16/15 [History] Isosorbide MONOnitrate (24 HR) [Imdur] 45 mg PO DAILY 11/16/15 [History] Terazosin HCl 10 mg PO HS 12/02/15 [History] glipiZIDE [Glucotrol] 5 mg PO DAILY 12/02/15 [History] Cyanocobalamin (B-12) [Vitamin B12] 1,000 mcg PO DAILY 11/27/16 [History] Spironolactone [Aldactone] 25 mg PO DAILY 11/27/16 [History] [place]-3/Dha/Epa/Fish Oil [Fish Oil 1,000 mg Softgel] 1,000 mg PO DAILY 06/21/17 [History] Magnesium Oxide [Mag-Ox] 400 mg PO BID #60 tablet 06/27/17 [Rx] Ticagrelor [Brilinta] 90 mg PO BID #60 tablet 06/27/17 [Rx] Acetaminophen [Tylenol] 650 mg PO QID PRN #0 08/12/17 [Rx] Artificial Tears SOLN [Akwa Tears] 1 drop BOTH EYES QID 09/09/17 [History] Atorvastatin Calcium [Lipitor] 40 mg PO DAILY 06/02/18 [History] Ferrous Sulfate 325 mg PO BID 06/02/18 [History] Furosemide [Lasix] 40 mg PO BID 06/02/18 [History] Lisinopril [Zestril] 5 mg PO DAILY 06/02/18 [History] Metoprolol Succinate [Toprol Xl] 75 mg PO DAILY 06/02/18 [History] Moxifloxacin OPTH Drops [Vigamox] 1 drop RIGHT EYE DAILY 06/02/18 [History] Nitroglycerin [Nitrostat] 0.4 mg SL AD PRN 06/02/18 [History] Polyethylene Glycol 3350 [MiraLax bowel prep] 17 gm PO QPM 06/02/18 [History] Propylene Glycol/Peg 400 [Systane Ultra 0.4-0.3% Eye Drp] 2 drop BOTH EYES QID PRN 06/02/18 [History] raNITIdine HCl [Zantac] 150 mg PO DAILY PRN 06/02/18 [History] Enoxaparin [Lovenox] 100 mg SQ Q12HR #10 syr 06/06/18 [Rx] Warfarin [Coumadin] 4 mg PO DAILY #10 tablet 06/06/18 [Rx] Allergies/Adverse Reactions: Allergy/AdvReac Type Severity Reaction Status Date / Time pseudoephedrine Allergy Anaphylaxis Verified 08/11/17 08:25 [From Actifed] sulfamethoxazole Allergy Anaphylaxis Verified 08/11/17 08:25 [From Bactrim] tramadol Allergy See Verified 08/11/17 08:25 Comments trimethoprim [From Bactrim] Allergy Anaphylaxis Verified 08/11/17 08:25 triprolidine [From Actifed] Allergy Anaphylaxis Verified 08/11/17 08:25 Certification: Further, I certify that my clinical findings support that this patient is homebound (i.e. absences from home require considerable and taxing effort and are for medical reasons or judaism services or infrequently or short duration when for other reasons) because: Homebound Reason: Leaving home requires considerable and taxing effort due to condition Attestation: My signature below is to certify that this patient is under my care and that I, or nurse practitioner, or a physician's assistant surveyor working with me, has a [id number] encounter with this patient.
[2018-06-06] MEDS: Furosemide 20 MG TABLET PO SCH (17:51)
[2018-06-06] MEDS ORDERED: *HR* Warfarin 3 MG TABLET PO ONE (18:00)
[2018-06-07] MEDS: Heparin 25,000 UNIT/250 ML D5W 25,000 UNIT/250 ML IV.SOLN IVC SCH (01:32)
[2018-06-07 06:24] LABS: INR 2.4; Prothrombin Time 27.2 Seconds (9.4-12.1)
[2018-06-07 07:15] VITALS: BP 154/73
[2018-06-07] MEDS: Insulin LISPRO 300 UNITS/3 ML VIAL SQ SCH (07:45)
--- NOTE | 2018-06-07 07:48 | Internal Med Progress Note ---
<Nathalie Perea M - Last Filed: 06/07/18 15:15> Hospitalist Progress Note - Encounter Date of Encounter: 06/07/18 Time of Encounter: 07:47 - Subjective Interval History: Patient has not complaints. Right leg pain resolved. Denies chst pain, palpitations, shortness of breath, dizziness or abdominal pain. He wishes for transport to [place] at noon - Exam Vitals: Temp Pulse Resp BP Pulse Ox 98 F 78 16 154/73 99 06/07/18 06:35 06/07/18 06:35 06/07/18 06:35 06/07/18 06:35 06/07/18 06:35 Exam: General: pleasant, in no acute distress, A&O Head: atraumatic, normocephalic, Mouth: mucous membranes moist, no mucosal lesions, no obvious caries Cardiac: RRR, no murmurs, no gallops Respiratory: CTAB no wheze Abdomen: BS present, Soft, not distended, no tenderness, no masses, no organomegaly Extremities: +1 bilateral pitting edema below knees R>L, pulses intact, normal ROM Psychiatric: normal mood and affect, memory intact Skin; warm and dry with out rash or erythema - Assessment and Plan (1) DVT (deep venous thrombosis) Status: Acute Assessment and Plan: DVT in right common femoral with partial occlusion, INR now therapeutic at 2.4 - stop heparin drip - discontinue lovenox after one dose yesterday - continue to follow with Coumadin clinic (2) Subtherapeutic international normalized ratio (INR) Status: Resolved (3) Acute kidney injury superimposed on CKD Status: Resolved Assessment and Plan: Resolved with SCR yesterday from 2 now near baseline - continue home medications with lasix as previously reconciled (4) Lower extremity edema Status: Resolved (5) CAD (coronary artery disease) Status: Chronic Assessment and Plan: CAD s/p CABD and PCI with out complaints of chest pain and stable EKG - discharge on home dose of statin, imdur, and brillinta (6) Diastolic heart failure Status: Chronic Assessment and Plan: Stable with out clinical signs of exacerbation - discharge on home dose of medications (7) DM2 (diabetes mellitus, type 2) Status: Chronic Assessment and Plan: Well controlled at home, discharge on home dose glipizide (8) Anemia Status: Chronic Assessment and Plan: Chronic anemia with history of vit B12 and Iron deficiency; HgB at baseline at 10.4 yesterday - continue home supplements (9) HTN (hypertension) Status: Chronic Assessment and Plan: Blood pressure near Geriatric goal of SBP < 150 - continue home medications (10) Hyperkalemia Status: Resolved Assessment and Plan: K 4.7 without symptoms; down from 5 DVT Prophylaxis: coumadin - Time Spent with Patient Total time spent is greater than 50% in coordination of care (as documented) at patient's floor/unit and/or counseling patient: Internal Medicine: Result - Labs CBC & Chem 7: 06/06/18 07:58 06/06/18 07:58 Labs: Short CBC 06/06/18 Range/Units 07:58 WBC 7.8 (4.3-11.1) K/mcL Hgb 10.4 L (12.9-16.9) g/dL Hct 35.1 L (37.5-50.1) % Plt Count 147 (140-400) K/mcL Neutrophils # 5.4 (1.6-8.9) K/mcL BMP 06/06/18 07:58 Sodium 138 Potassium 5.1 Chloride 108 H Carbon Dioxide 24 BUN 27 H Creatinine 1.50 H Glucose 152 H Calcium 9.1 - ABG Interpretation ABG results: PT/INR, D-dimer PT 27.2 Seconds (9.4-12.1) H 06/07/18 05:29 Consult Discharge Plan - Plan Additional Instructions: Please follow up with her primary care and take all medications as prescribed. Follow up with the Coumadin clinic. Return to the emergency room with any worsening of symptoms. [facility]errals: [facility] [Primary Care Provider[facility] - Prescriptions: RX: Warfarin [Coumadin] 4 mg PO DAILY #10 tablet <Nguyễn Rossi - Last Filed: 06/07/18 19:33> Hospitalist Progress Note - Encounter Date of Encounter: 06/07/18 - Exam Vitals: Temp Pulse Resp BP Pulse Ox 98 F 78 16 154/73 99 06/07/18 06:35 06/07/18 06:35 06/07/18 06:35 06/07/18 06:35 06/07/18 06:35 - Assessment and Plan (1) DVT (deep venous thrombosis) Status: Acute (2) Femoral thrombosis Status: Acute (3) Diabetes mellitus Status: Chronic (4) Chronic kidney disease Status: Chronic (5) Decreased hemoglobin Status: Chronic (6) CAD (coronary artery disease) Status: Chronic (7) Diastolic heart failure Status: Chronic (8) LYNSEY on CPAP Status: Chronic (9) HTN (hypertension) Status: Chronic (10) Atrial fibrillation Status: Chronic - Time Spent with Patient Total time spent is greater than 50% in coordination of care (as documented) at patient's floor/unit and/or counseling patient: Internal Medicine: Result - Labs CBC & Chem 7: 06/06/18 07:58 06/06/18 07:58 - ABG Interpretation ABG results: PT/INR, D-dimer PT 27.2 Seconds (9.4-12.1) H 06/07/18 05:29 - Attending Attestation I examined this patient and my medical decision-making was reviewed with the Resident Physician on 06/07/18. I agree with the documented findings, disposition and treatment plan as described except to the extent set forth below. Mr Poe is currently admitted for DVT. He is on coumadin and lovenox. He remains moderate risk Mr Poe feels oK. INR better today. No CP or SOB Exam alert Comfortable Mucus membranes dry Heart reg No wheeze ABd soft Moves all extremities I/P 1. DVT Plan d/c home today Further diagnoses and plan as above. <Nathalie Perea - Last Filed: 06/07/18 15:15> (1) DVT (deep venous thrombosis) Qualifiers: DVT location: lower extremity Affected thrombotic vein of extremity: femoral Chronicity: acute Laterality: right Qualified Code(s): I82.411 - Acute embolism and thrombosis of right femoral vein (5) CAD (coronary artery disease) Qualifiers: Coronary Disease-Associated Artery/Lesion type: bypass graft [place] vs. transplanted heart: [place] heart Associated angina: without angina Qualified Code(s): I25.810 - Atherosclerosis of coronary artery bypass graft(s) without angina pectoris (6) Diastolic heart failure Qualifiers: Heart failure chronicity: chronic Qualified Code(s): I50.32 - Chronic diastolic (congestive) heart failure (7) DM2 (diabetes mellitus, type 2) Qualifiers: Diabetes mellitus retirement insulin use: without retirement use Diabetes mellitus complication status: with kidney complications Diabetes mellitus complication detail: with chronic kidney disease Chronic kidney disease stage: stage 3 (moderate) Qualified Code(s): E11.22 - Type 2 diabetes mellitus with diabetic chronic kidney disease; N18.3 - Chronic kidney disease, stage 3 (moderate) (8) Anemia Qualifiers: Anemia type: other cause Other causes of anemia: acute posthemorrhagic Qualified Code(s): D62 - Acute posthemorrhagic anemia (9) HTN (hypertension) Qualifiers: Hypertension type: essential hypertension Qualified Code(s): I10 - Essential (primary) hypertension <Nguyễn Rossi - Last Filed: 06/07/18 19:33> (1) DVT (deep venous thrombosis) Qualifiers: DVT location: lower extremity Affected thrombotic vein of extremity: femoral Chronicity: acute Laterality: right Qualified Code(s): I82.411 - Acute embolism and thrombosis of right femoral vein (3) Diabetes mellitus Qualifiers: Diabetes mellitus type: type 2 Diabetes mellitus retirement insulin use: without retirement use Diabetes mellitus complication status: without complication Qualified Code(s): E11.9 - Type 2 diabetes mellitus without complications (4) Chronic kidney disease Qualifiers: Chronic kidney disease stage: stage 3 (moderate) Qualified Code(s): N18.3 - Chronic kidney disease, stage 3 (moderate) (6) CAD (coronary artery disease) Qualifiers: Coronary Disease-Associated Artery/Lesion type: bypass graft [place] vs. transplanted heart: [place] heart Associated angina: without angina Qualified Code(s): I25.810 - Atherosclerosis of coronary artery bypass graft(s) without angina pectoris (7) Diastolic heart failure Qualifiers: Heart failure chronicity: chronic Qualified Code(s): I50.32 - Chronic diastolic (congestive) heart failure (9) HTN (hypertension) Qualifiers: Hypertension type: essential hypertension Qualified Code(s): I10 - Essential (primary) hypertension (10) Atrial fibrillation Qualifiers: Atrial fibrillation type: chronic Qualified Code(s): I48.2 - Chronic atrial fibrillation
[2018-06-07] MEDS: *HR* Ticagrelor 90 MG TABLET PO SCH (09:09)
[2018-06-07] MEDS: Isosorbide MONOnitrate (24 HR) 30 MG TAB.ER.24H PO SCH (09:09)
[2018-06-07] MEDS: Cyanocobalamin (B-12) 1,000 MCG TABLET PO SCH (09:09)
[2018-06-07] MEDS: Magnesium Oxide 400 MG TABLET PO SCH (09:09)
[2018-06-07] MEDS: Furosemide 20 MG TABLET PO SCH (09:09)
[2018-06-07] MEDS: Gabapentin 100 MG CAPSULE PO SCH (09:09)
[2018-06-07] MEDS ORDERED: *HR* Warfarin 2 MG TABLET PO ONE (18:00)
== END 2018-06-07 10:56 | disposition home health service (06) | DRG 300 ==
LOC: EMEROOARM 16:29 → 3NENU 16:29 → SUATTDRO 22:36 → 3NENU 05-31 00:07 → SUATTDRO 05-31 17:19
PROVIDERS: ADMIT Family Medicine; ATTEND Internal Medicine

== ENCOUNTER 2020-05-20 21:47 | Inpatient (IN) ==
[2020-05-20 23:20] LABS: Basophils % 0.4 %; Eosinophils # 0.1 K/mcL (0.0-0.6); Eosinophils % 1.2 %; Hematocrit 34.7 % (37.5-50.1); Hemoglobin 10.3 g/dL (12.9-16.9); Immature Granulocytes % 0.8 % (0-4); Lymphocytes # 1.8 K/mcL (0.6-4.6); Lymphocytes % 23.8 %; Mean Corpuscular HGB Conc 29.7 g/dL (31.6-35.5); Mean Corpuscular Volume 84.2 fL (83.0-100.0); Mean Platelet Volume 12.4 fL (9.4-12.4); Monocytes # 0.6 K/mcL (0.0-1.3); Monocytes % 8.3 %; Platelet Count 143 K/mcL (140-400); Red Blood Count 4.12 M/mcL (4.19-5.50); Red Cell Distribution Width 15.7 % (11.5-14.5); Segmented Neutrophils % 65.5 %; White Blood Count 7.7 K/mcL (4.3-11.1)
[2020-05-20 23:28] LABS: Albumin 3.3 g/dL (3.5-5.7); Albumin/Globulin Ratio 1.2 (1.1-2.2); Bilirubin,Total 0.4 mg/dL (0.3-1.0); Calcium 8.9 mg/dL (8.6-10.3); Globulin 2.7 g/dL (2.4-3.5)
[2020-05-20] MEDS ORDERED: 0.9 % Sodium Chloride 1,000 ML IVC ONE (23:53)
[2020-05-20] MEDS ORDERED: cefTRIAXone 1,000 MG in Water for inj. (sterile) 10 ML IVP ONE (23:54)
[2020-05-21] MEDS ORDERED: Ondansetron 4 MG/2 ML VIAL IVP ONE (00:26)
[2020-05-21 00:38] LABS: Troponin I 0.03 ng/mL (< 0.04)
[2020-05-21] MEDS ORDERED: Naloxone 0.4 MG/ML INJ IVP PRN (01:13)
[2020-05-21 03:01] LABS: Basophils % 0.3 %; Eosinophils # 0.1 K/mcL (0.0-0.6); Eosinophils % 1.3 %; Hematocrit 33.9 % (37.5-50.1); Hemoglobin 10.5 g/dL (12.9-16.9); Immature Granulocytes % 0.6 % (0-4); Lymphocytes # 1.8 K/mcL (0.6-4.6); Lymphocytes % 25.8 %; Mean Corpuscular Volume 83.9 fL (83.0-100.0); Mean Platelet Volume 12.2 fL (9.4-12.4); Monocytes # 0.6 K/mcL (0.0-1.3); Monocytes % 8.1 %; Neutrophils # 4.5 K/mcL (1.6-8.9); Platelet Count 132 K/mcL (140-400); Red Blood Count 4.04 M/mcL (4.19-5.50); Red Cell Distribution Width 15.8 % (11.5-14.5); Segmented Neutrophils % 63.9 %
[2020-05-21 03:10] LABS: INR 1.8; Prothrombin Time 20.9 Seconds (9.4-12.1)
[2020-05-21 03:18] LABS: Calcium 8.7 mg/dL (8.6-10.3)
[2020-05-21] MEDS ORDERED: D5% in Water 1,000 ML IVC PRN (07:33)
[2020-05-21] MEDS ORDERED: Dextrose Gel 15 GM/37.5 ML TUBE PO PRN ×2 (07:33)
[2020-05-21] MEDS ORDERED: *HR* Dextrose 50 % in Water (Vial) 50 ML VIAL IVP PRN (07:33)
[2020-05-21] MEDS ORDERED: Acetaminophen 325 MG TABLET PO PRN (07:36)
[2020-05-21] MEDS: Cholecalciferol (D-3) 1,000 UNIT (25MCG) TABLET PO SCH (08:17)
[2020-05-21] MEDS: Isosorbide MONOnitrate (24 HR) 30 MG TAB.ER.24H PO SCH (08:17)
[2020-05-21] MEDS: Famotidine 20 MG TABLET PO SCH (08:17)
[2020-05-21] MEDS: Furosemide 40 MG TABLET PO SCH ×2 (08:17→17:18)
[2020-05-21] MEDS: Aspirin Enteric Coated 81 MG Tablet PO SCH (08:17)
[2020-05-21] MEDS: allopurinoL 100 MG TABLET PO SCH (08:17)
[2020-05-21] MEDS: Cyanocobalamin (B-12) 1,000 MCG TABLET PO SCH (08:17)
[2020-05-21] MEDS: Insulin LISPRO 300 UNITS/3 ML VIAL SUBQ SCH ×3 (11:17→20:02)
[2020-05-21] MEDS: Spironolactone 25 MG TABLET PO SCH (12:25)
[2020-05-21] MEDS: polyethylene glycoL 3350 17 GM POWD.PACK PO SCH (17:18)
[2020-05-21] MEDS ORDERED: *HR* Warfarin 4 MG TABLET PO ONE (18:00)
[2020-05-21] MEDS ORDERED: Warfarin perPT PO PRN (18:00)
[2020-05-21] MEDS: Metoprolol XL (24 HR) Succ 25 MG TAB.ER.24H PO SCH (20:02)
[2020-05-21] MEDS: Insulin DETEMIR 100 UNIT/ML X5UNITS SUBQ SCH (20:03)
[2020-05-21] MEDS: Pregabalin 50 MG CAPSULE PO SCH (20:03)
[2020-05-21] MEDS: Melatonin 3 MG TABLET PO SCH (20:03)
[2020-05-21] MEDS: cefTRIAXone 1,000 MG in 0.9 % Sodium Chloride Mini Bag 100 ML IVPB SCH (23:42)
[2020-05-22 05:00] LABS: Mean Corpuscular HGB Conc 30.4 g/dL (31.6-35.5); Red Blood Count 4.08 M/mcL (4.19-5.50)
[2020-05-22 05:02] LABS: Basophils % 0.4 %; Eosinophils # 0.2 K/mcL (0.0-0.6); Eosinophils % 2.1 %; Hematocrit 33.5 % (37.5-50.1); Hemoglobin 10.2 g/dL (12.9-16.9); Immature Granulocytes % 0.7 % (0-4); Immature Platelets 8.7 % (1.1-6.1); Lymphocytes # 1.6 K/mcL (0.6-4.6); Lymphocytes % 22.6 %; Mean Corpuscular Volume 82.1 fL (83.0-100.0); Mean Platelet Volume 11.9 fL (9.4-12.4); Monocytes # 0.5 K/mcL (0.0-1.3); Monocytes % 7.3 %; Platelet Count 121 K/mcL (140-400); Red Cell Distribution Width 15.8 % (11.5-14.5); Segmented Neutrophils % 66.9 %; White Blood Count 7.1 K/mcL (4.3-11.1)
[2020-05-22 05:08] LABS: INR 1.7
[2020-05-22 05:15] LABS: Neutrophils # 4.8 K/mcL (1.6-8.9)
[2020-05-22 05:18] LABS: Calcium 8.8 mg/dL (8.6-10.3); Potassium 4.1 mEq/L (3.5-5.1)
[2020-05-22] MEDS: Psyllium 1 PACKET POWD.PACK PO SCH (07:39)
[2020-05-22] MEDS: Insulin LISPRO 300 UNITS/3 ML VIAL SUBQ SCH ×4 (07:41→20:07)
[2020-05-22] MEDS: Isosorbide MONOnitrate (24 HR) 30 MG TAB.ER.24H PO SCH (07:42)
[2020-05-22] MEDS: Cholecalciferol (D-3) 1,000 UNIT (25MCG) TABLET PO SCH (07:42)
[2020-05-22] MEDS: Famotidine 20 MG TABLET PO SCH (07:42)
[2020-05-22] MEDS: allopurinoL 100 MG TABLET PO SCH (07:43)
[2020-05-22] MEDS: Furosemide 40 MG TABLET PO SCH ×2 (07:43→17:12)
[2020-05-22] MEDS: Metoprolol XL (24 HR) Succ 25 MG TAB.ER.24H PO SCH ×2 (07:43→20:04)
[2020-05-22] MEDS: Lactobacillus 1 EACH CAP.SPRINK PO SCH (07:43)
[2020-05-22] MEDS: Multivit/Ca/Min/Fe/FA 1 TAB TABLET PO SCH (07:43)
[2020-05-22] MEDS: Pregabalin 50 MG CAPSULE PO SCH ×2 (07:43→20:04)
[2020-05-22] MEDS: Aspirin Enteric Coated 81 MG Tablet PO SCH (07:43)
[2020-05-22] MEDS: Cyanocobalamin (B-12) 1,000 MCG TABLET PO SCH (07:43)
[2020-05-22] MEDS: Spironolactone 25 MG TABLET PO SCH (11:50)
[2020-05-22] MEDS: polyethylene glycoL 3350 17 GM POWD.PACK PO SCH (17:12)
[2020-05-22] MEDS ORDERED: *HR* Warfarin 4 MG TABLET PO ONE (18:00)
[2020-05-22] MEDS: Insulin DETEMIR 100 UNIT/ML X5UNITS SUBQ SCH (20:04)
[2020-05-22] MEDS: Melatonin 3 MG TABLET PO SCH (20:04)
[2020-05-22] MEDS: cefTRIAXone 1,000 MG in 0.9 % Sodium Chloride Mini Bag 100 ML IVPB SCH (23:20)
[2020-05-23 05:05] LABS: Basophils % 0.2 %; Eosinophils # 0.2 K/mcL (0.0-0.6); Eosinophils % 1.9 %; Hematocrit 34.7 % (37.5-50.1); Hemoglobin 10.6 g/dL (12.9-16.9); Immature Granulocytes % 0.9 % (0-4); Lymphocytes # 1.5 K/mcL (0.6-4.6); Lymphocytes % 18.9 %; Mean Corpuscular HGB Conc 30.5 g/dL (31.6-35.5); Mean Corpuscular Hemoglobin 25.5 pg (28.0-33.3); Mean Corpuscular Volume 83.6 fL (83.0-100.0); Mean Platelet Volume 12.3 fL (9.4-12.4); Monocytes # 0.6 K/mcL (0.0-1.3); Monocytes % 7.9 %; Neutrophils # 5.6 K/mcL (1.6-8.9); Platelet Count 125 K/mcL (140-400); Red Blood Count 4.15 M/mcL (4.19-5.50); Red Cell Distribution Width 15.6 % (11.5-14.5); Segmented Neutrophils % 70.2 %
[2020-05-23 05:11] LABS: INR 1.9; Prothrombin Time 21.4 Seconds (9.4-12.1)
[2020-05-23 05:23] LABS: Calcium 8.8 mg/dL (8.6-10.3); Potassium 4.3 mEq/L (3.5-5.1)
[2020-05-23] MEDS: Aspirin Enteric Coated 81 MG Tablet PO SCH (08:11)
[2020-05-23] MEDS: Metoprolol XL (24 HR) Succ 25 MG TAB.ER.24H PO SCH ×2 (08:11→20:16)
[2020-05-23] MEDS: Cholecalciferol (D-3) 1,000 UNIT (25MCG) TABLET PO SCH (08:11)
[2020-05-23] MEDS: Furosemide 40 MG TABLET PO SCH ×2 (08:12→16:43)
[2020-05-23] MEDS: Cyanocobalamin (B-12) 1,000 MCG TABLET PO SCH (08:12)
[2020-05-23] MEDS: Psyllium 1 PACKET POWD.PACK PO SCH (08:12)
[2020-05-23] MEDS: Pregabalin 50 MG CAPSULE PO SCH ×2 (08:12→20:16)
[2020-05-23] MEDS: Famotidine 20 MG TABLET PO SCH (08:12)
[2020-05-23] MEDS: allopurinoL 100 MG TABLET PO SCH (08:12)
[2020-05-23] MEDS: Isosorbide MONOnitrate (24 HR) 30 MG TAB.ER.24H PO SCH (08:12)
[2020-05-23] MEDS: Lactobacillus 1 EACH CAP.SPRINK PO SCH (08:12)
[2020-05-23] MEDS: Multivit/Ca/Min/Fe/FA 1 TAB TABLET PO SCH (08:12)
[2020-05-23] MEDS: Insulin LISPRO 300 UNITS/3 ML VIAL SUBQ SCH ×4 (08:13→20:15)
[2020-05-23] MEDS: Piperacillin/Tazobactam 3.375 GM in 0.9 % Sodium Chloride Mini Bag 100 ML IVPB SCH ×3 (08:28→22:57)
[2020-05-23] MEDS: Spironolactone 25 MG TABLET PO SCH (11:40)
[2020-05-23] MEDS: polyethylene glycoL 3350 17 GM POWD.PACK PO SCH (16:44)
[2020-05-23] MEDS ORDERED: *HR* Warfarin 4 MG TABLET PO ONE (18:00)
[2020-05-23] MEDS: Melatonin 3 MG TABLET PO SCH (20:16)
[2020-05-23] MEDS: Insulin DETEMIR 100 UNIT/ML X5UNITS SUBQ SCH (20:17)
[2020-05-24 06:10] LABS: Basophils # 0.1 K/mcL (0.0-0.2); Basophils % 0.6 %; Eosinophils # 0.2 K/mcL (0.0-0.6); Eosinophils % 2.2 %; Hematocrit 33.1 % (37.5-50.1); Hemoglobin 10.3 g/dL (12.9-16.9); Immature Granulocytes % 1.3 % (0-4); Lymphocytes # 1.7 K/mcL (0.6-4.6); Lymphocytes % 22.5 %; Mean Corpuscular HGB Conc 31.1 g/dL (31.6-35.5); Mean Corpuscular Hemoglobin 24.9 pg (28.0-33.3); Mean Corpuscular Volume 80.1 fL (83.0-100.0); Mean Platelet Volume 12.3 fL (9.4-12.4); Monocytes # 0.6 K/mcL (0.0-1.3); Monocytes % 8.1 %; Neutrophils # 5.1 K/mcL (1.6-8.9); Platelet Count 126 K/mcL (140-400); Red Blood Count 4.13 M/mcL (4.19-5.50); Red Cell Distribution Width 15.6 % (11.5-14.5); Segmented Neutrophils % 65.3 %; White Blood Count 7.7 K/mcL (4.3-11.1)
[2020-05-24 06:30] LABS: Potassium 3.9 mEq/L (3.5-5.1)
[2020-05-24 06:32] LABS: Prothrombin Time 22.9 Seconds (9.4-12.1)
[2020-05-24] MEDS ORDERED: 0.9 % Sodium Chloride 1,000 ML IVC SCH (07:45)
[2020-05-24] MEDS: Pregabalin 50 MG CAPSULE PO SCH ×2 (08:30→21:02)
[2020-05-24] MEDS: Aspirin Enteric Coated 81 MG Tablet PO SCH (08:30)
[2020-05-24] MEDS: Isosorbide MONOnitrate (24 HR) 30 MG TAB.ER.24H PO SCH (08:30)
[2020-05-24] MEDS: allopurinoL 100 MG TABLET PO SCH (08:30)
[2020-05-24] MEDS: Cholecalciferol (D-3) 1,000 UNIT (25MCG) TABLET PO SCH (08:30)
[2020-05-24] MEDS: Lactobacillus 1 EACH CAP.SPRINK PO SCH (08:31)
[2020-05-24] MEDS: Furosemide 40 MG TABLET PO SCH ×2 (08:31→16:41)
[2020-05-24] MEDS: Multivit/Ca/Min/Fe/FA 1 TAB TABLET PO SCH (08:31)
[2020-05-24] MEDS: Famotidine 20 MG TABLET PO SCH (08:31)
[2020-05-24] MEDS: Piperacillin/Tazobactam 3.375 GM in 0.9 % Sodium Chloride Mini Bag 100 ML IVPB SCH ×3 (08:31→23:24)
[2020-05-24] MEDS: Metoprolol XL (24 HR) Succ 25 MG TAB.ER.24H PO SCH ×2 (08:31→21:01)
[2020-05-24] MEDS: Cyanocobalamin (B-12) 1,000 MCG TABLET PO SCH (08:31)
[2020-05-24] MEDS: Insulin LISPRO 300 UNITS/3 ML VIAL SUBQ SCH ×4 (08:32→21:04)
[2020-05-24] MEDS: Psyllium 1 PACKET POWD.PACK PO SCH (08:32)
[2020-05-24] MEDS: Spironolactone 25 MG TABLET PO SCH (12:49)
[2020-05-24] MEDS: polyethylene glycoL 3350 17 GM POWD.PACK PO SCH (16:41)
[2020-05-24] MEDS ORDERED: *HR* Warfarin 4 MG TABLET PO ONE (18:00)
[2020-05-24] MEDS: Melatonin 3 MG TABLET PO SCH (21:01)
[2020-05-24] MEDS: Insulin DETEMIR 100 UNIT/ML X5UNITS SUBQ SCH (21:04)
[2020-05-25 02:48] LABS: Basophils # 0.1 K/mcL (0.0-0.2); Basophils % 0.7 %; Eosinophils # 0.2 K/mcL (0.0-0.6); Eosinophils % 2.1 %; Hematocrit 33.8 % (37.5-50.1); Hemoglobin 10.5 g/dL (12.9-16.9); Immature Granulocytes % 1.6 % (0-4); Mean Corpuscular HGB Conc 31.1 g/dL (31.6-35.5); Mean Corpuscular Hemoglobin 24.7 pg (28.0-33.3); Mean Corpuscular Volume 79.5 fL (83.0-100.0); Mean Platelet Volume 12.1 fL (9.4-12.4); Monocytes # 0.8 K/mcL (0.0-1.3); Monocytes % 8.9 %; Neutrophils # 5.9 K/mcL (1.6-8.9); Platelet Count 136 K/mcL (140-400); Red Blood Count 4.25 M/mcL (4.19-5.50); Red Cell Distribution Width 15.6 % (11.5-14.5); Segmented Neutrophils % 64.7 %; White Blood Count 9.2 K/mcL (4.3-11.1)
[2020-05-25 02:55] LABS: INR 2.3; Prothrombin Time 26.1 Seconds (9.4-12.1)
[2020-05-25 03:10] LABS: Potassium 3.9 mEq/L (3.5-5.1)
[2020-05-25] MEDS: Insulin LISPRO 300 UNITS/3 ML VIAL SUBQ SCH ×4 (07:18→21:58)
[2020-05-25] MEDS: Piperacillin/Tazobactam 3.375 GM in 0.9 % Sodium Chloride Mini Bag 100 ML IVPB SCH ×3 (08:41→23:49)
[2020-05-25] MEDS: allopurinoL 100 MG TABLET PO SCH (08:42)
[2020-05-25] MEDS: Furosemide 40 MG TABLET PO SCH ×2 (08:42→17:17)
[2020-05-25] MEDS: Psyllium 1 PACKET POWD.PACK PO SCH (08:42)
[2020-05-25] MEDS: Cyanocobalamin (B-12) 1,000 MCG TABLET PO SCH (08:42)
[2020-05-25] MEDS: Multivit/Ca/Min/Fe/FA 1 TAB TABLET PO SCH (08:42)
[2020-05-25] MEDS: Famotidine 20 MG TABLET PO SCH (08:42)
[2020-05-25] MEDS: Pregabalin 50 MG CAPSULE PO SCH ×2 (08:42→21:57)
[2020-05-25] MEDS: Aspirin Enteric Coated 81 MG Tablet PO SCH (08:42)
[2020-05-25] MEDS: Cholecalciferol (D-3) 1,000 UNIT (25MCG) TABLET PO SCH (08:42)
[2020-05-25] MEDS: Metoprolol XL (24 HR) Succ 25 MG TAB.ER.24H PO SCH ×2 (08:42→21:57)
[2020-05-25] MEDS: Lactobacillus 1 EACH CAP.SPRINK PO SCH (08:42)
[2020-05-25] MEDS: Isosorbide MONOnitrate (24 HR) 30 MG TAB.ER.24H PO SCH (08:42)
[2020-05-25] MEDS: Spironolactone 25 MG TABLET PO SCH (12:41)
[2020-05-25] MEDS: 0.9 % Sodium Chloride 1,000 ML IVC SCH ×2 (12:43→21:59)
[2020-05-25] MEDS: polyethylene glycoL 3350 17 GM POWD.PACK PO SCH (17:17)
[2020-05-25] MEDS ORDERED: *HR* Warfarin 2 MG TABLET PO ONE (18:00)
[2020-05-25] MEDS: Melatonin 3 MG TABLET PO SCH (21:57)
[2020-05-25] MEDS: Insulin DETEMIR 100 UNIT/ML X5UNITS SUBQ SCH (21:58)
[2020-05-26 07:13] LABS: Basophils % 0.5 %; Eosinophils # 0.2 K/mcL (0.0-0.6); Eosinophils % 1.9 %; Hematocrit 33.9 % (37.5-50.1); Hemoglobin 10.2 g/dL (12.9-16.9); Immature Granulocytes % 1.6 % (0-4); Lymphocytes # 1.8 K/mcL (0.6-4.6); Lymphocytes % 22.6 %; Mean Corpuscular HGB Conc 30.1 g/dL (31.6-35.5); Mean Corpuscular Hemoglobin 24.9 pg (28.0-33.3); Mean Corpuscular Volume 82.7 fL (83.0-100.0); Monocytes # 0.7 K/mcL (0.0-1.3); Monocytes % 9.2 %; Neutrophils # 5.1 K/mcL (1.6-8.9); Platelet Count 139 K/mcL (140-400); Red Cell Distribution Width 15.7 % (11.5-14.5); Segmented Neutrophils % 64.2 %
[2020-05-26 07:14] LABS: INR 2.6; Prothrombin Time 29.8 Seconds (9.4-12.1)
[2020-05-26 08:01] VITALS: BP 138/76
[2020-05-26] MEDS: Psyllium 1 PACKET POWD.PACK PO SCH (08:31)
[2020-05-26] MEDS: Insulin LISPRO 300 UNITS/3 ML VIAL SUBQ SCH (08:31)
[2020-05-26] MEDS: Aspirin Enteric Coated 81 MG Tablet PO SCH (08:31)
[2020-05-26] MEDS: Metoprolol XL (24 HR) Succ 25 MG TAB.ER.24H PO SCH (08:32)
[2020-05-26] MEDS: allopurinoL 100 MG TABLET PO SCH (08:32)
[2020-05-26] MEDS: Cyanocobalamin (B-12) 1,000 MCG TABLET PO SCH (08:32)
[2020-05-26] MEDS: Pregabalin 50 MG CAPSULE PO SCH (08:32)
[2020-05-26] MEDS: Isosorbide MONOnitrate (24 HR) 30 MG TAB.ER.24H PO SCH (08:32)
[2020-05-26] MEDS: Famotidine 20 MG TABLET PO SCH (08:32)
[2020-05-26] MEDS: Furosemide 40 MG TABLET PO SCH (08:32)
[2020-05-26] MEDS: Cholecalciferol (D-3) 1,000 UNIT (25MCG) TABLET PO SCH (08:32)
[2020-05-26] MEDS: Multivit/Ca/Min/Fe/FA 1 TAB TABLET PO SCH (08:32)
[2020-05-26] MEDS: Lactobacillus 1 EACH CAP.SPRINK PO SCH (08:32)
[2020-05-26 09:42] LABS: Calcium 8.7 mg/dL (8.6-10.3); Potassium 3.8 mEq/L (3.5-5.1)
== END 2020-05-26 11:47 | DRG 683 ==
LOC: 3BNU 21:47 → EMEROOARM 21:47 → 3BNU 05-21 01:23 → SUATTDRO 05-22 18:13
PROVIDERS: ADMIT Internal Medicine; ATTEND Family Medicine

== ENCOUNTER 2021-02-19 12:10 | Inpatient (IN) ==
[2021-02-19 15:23] LABS: Basophils % 0.5 %; Eosinophils # 0.1 K/mcL (0.0-0.6); Eosinophils % 1.8 %; Hematocrit 38.8 % (37.5-50.1); Hemoglobin 11.5 g/dL (12.9-16.9); Immature Granulocytes % 0.5 % (0-4); Lymphocytes # 2.2 K/mcL (0.6-4.6); Lymphocytes % 28.3 %; Mean Corpuscular HGB Conc 29.6 g/dL (31.6-35.5); Mean Corpuscular Hemoglobin 23.9 pg (28.0-33.3); Mean Corpuscular Volume 80.5 fL (83.0-100.0); Monocytes # 0.6 K/mcL (0.0-1.3); Monocytes % 7.4 %; Neutrophils # 4.8 K/mcL (1.6-8.9); Platelet Count 144 K/mcL (140-400); Red Blood Count 4.82 M/mcL (4.19-5.50); Red Cell Distribution Width 16.1 % (11.5-14.5); Segmented Neutrophils % 61.5 %; White Blood Count 7.7 K/mcL (4.3-11.1)
[2021-02-19 15:46] LABS: BUN/Creatinine Ratio 23 (6-26); Blood Urea Nitrogen 45 mg/dL (8-23); C-Reactive Protein < 5 mg/L (Less than 10); Calcium 9.3 mg/dL (8.6-10.3); Carbon Dioxide 28 mEq/L (23-29); Chloride 106 mEq/L (98-107); Glucose 152 mg/dL (70-105); Osmolality,Calculated 309 (280-300); Potassium 4.2 mEq/L (3.5-5.1); Sodium 142 mEq/L (136-145); Troponin I < 0.03 ng/mL (< 0.04); eGFR For African Americans 40 (> 60); eGFR For Non-African Americans 33 (> 60)
[2021-02-19] MEDS ORDERED: Furosemide 40 MG/4 ML VIAL IVP ONE (16:10)
[2021-02-19] MEDS ORDERED: Cefepime HCl 2,000 MG in Water for inj. (sterile) 20 ML IVP ONE (16:14)
[2021-02-19] MEDS ORDERED: Vancomycin 1,500 MG/265 ML IV.SOLN IVPB ONE (17:00)
[2021-02-19] MEDS ORDERED: Naloxone 0.4 MG/ML INJ IVP PRN (17:13)
[2021-02-19] MEDS ORDERED: Mag Hydrox/Al Hydrox/Simeth 30 ML UDC PO PRN (17:13)
[2021-02-19] MEDS ORDERED: MOM Conc 10 ML UD.LIQ PO PRN (17:13)
[2021-02-19] MEDS ORDERED: Melatonin 3 MG TABLET PO PRN (17:13)
[2021-02-19] MEDS ORDERED: Ondansetron ODT 4 MG TAB.RAPDIS SL PRN (17:13)
[2021-02-19] MEDS ORDERED: *HR* Dextrose 50 % in Water (Syg) 50 ML SYRINGE IVP PRN (17:17)
[2021-02-19] MEDS ORDERED: Perflutren Lipid Microsphere 1.3 ML in 0.9 % Sodium Chloride 8.7 ML IVP PRN (17:17)
[2021-02-19] MEDS ORDERED: D5% in Water 1,000 ML IVC PRN (17:17)
[2021-02-19] MEDS ORDERED: Dextrose Gel 15 GM/37.5 ML TUBE PO PRN ×2 (17:17)
[2021-02-19 17:23] LABS: INR 2.6; Prothrombin Time 29.2 Seconds (9.4-12.1)
[2021-02-19] MEDS ORDERED: Gadolinium Contrast Agent (WT Based) IV PRN (17:25)
[2021-02-19 17:26] LABS: Activated Partial Thrombo Time 45.5 Seconds (26.0-36.0)
[2021-02-19 18:35] LABS: Estimated Average Glucose 186 mg/dl; Hemoglobin A1C 8.1 %
[2021-02-19] MEDS: Insulin LISPRO 300 UNITS/3 ML VIAL SUBQ SCH ×2 (20:47→20:48)
[2021-02-19] MEDS: *HR* Heparin 5,000 UNIT/ML VIAL SQ SCH (20:48)
[2021-02-19] MEDS: Furosemide 40 MG/4 ML VIAL IVP SCH (20:48)
[2021-02-20] MEDS ORDERED: Cefepime HCl 2,000 MG in 0.9 % Sodium Chloride Mini Bag 100 ML IVPB SCH
[2021-02-20] MEDS: Cefepime HCl 2,000 MG in Water for inj. (sterile) 20 ML IVP SCH ×2 (00:46→08:04)
[2021-02-20] MEDS: *HR* Heparin 5,000 UNIT/ML VIAL SQ SCH ×2 (06:06→16:57)
[2021-02-20 06:22] LABS: Hematocrit 35.9 % (37.5-50.1); Hemoglobin 10.6 g/dL (12.9-16.9); Mean Corpuscular HGB Conc 29.5 g/dL (31.6-35.5); Mean Corpuscular Hemoglobin 23.5 pg (28.0-33.3); Mean Corpuscular Volume 79.6 fL (83.0-100.0); Mean Platelet Volume 12.2 fL (9.4-12.4); Platelet Count 142 K/mcL (140-400); Red Blood Count 4.51 M/mcL (4.19-5.50); Red Cell Distribution Width 16.2 % (11.5-14.5); White Blood Count 7.8 K/mcL (4.3-11.1)
[2021-02-20 06:39] LABS: Calcium 9.1 mg/dL (8.6-10.3); Potassium 3.7 mEq/L (3.5-5.1)
[2021-02-20] MEDS: Insulin LISPRO 300 UNITS/3 ML VIAL SUBQ SCH ×4 (07:59→20:58)
[2021-02-20] MEDS: Furosemide 40 MG/4 ML VIAL IVP SCH ×2 (08:04→20:57)
[2021-02-20] MEDS: Albumin 25% 25gram/100mL 25 GM/100 ML IV.SOLN IVPB SCH (16:57)
[2021-02-20] MEDS ORDERED: Vancomycin 1,500 MG/265 ML IV.SOLN IVPB SCH (17:00)
[2021-02-21] MEDS: Albumin 25% 25gram/100mL 25 GM/100 ML IV.SOLN IVPB SCH ×3 (00:01→18:06)
[2021-02-21 01:13] LABS: Hematocrit 35.7 % (37.5-50.1); Mean Corpuscular HGB Conc 30.8 g/dL (31.6-35.5); Mean Corpuscular Hemoglobin 24.2 pg (28.0-33.3); Mean Corpuscular Volume 78.5 fL (83.0-100.0); Mean Platelet Volume 11.9 fL (9.4-12.4); Platelet Count 144 K/mcL (140-400); Red Blood Count 4.55 M/mcL (4.19-5.50); Red Cell Distribution Width 16.1 % (11.5-14.5); White Blood Count 8.5 K/mcL (4.3-11.1)
[2021-02-21 01:26] LABS: Calcium 9.1 mg/dL (8.6-10.3); Potassium 3.6 mEq/L (3.5-5.1)
[2021-02-21] MEDS: *HR* Heparin 5,000 UNIT/ML VIAL SQ SCH (04:33)
[2021-02-21] MEDS ORDERED: Acetaminophen 325 MG TABLET PO PRN (04:45)
[2021-02-21] MEDS ORDERED: Nitroglycerin 0.4 MG TAB.SUBL SL PRN (04:45)
[2021-02-21] MEDS ORDERED: Famotidine 20 MG TABLET PO PRN (04:45)
[2021-02-21] MEDS ORDERED: Cefepime HCl 2,000 MG in Water for inj. (sterile) 20 ML IVP SCH (08:00)
[2021-02-21] MEDS: cefTRIAXone 1,000 MG in 0.9 % Sodium Chloride Mini Bag 100 ML IVPB SCH (08:15)
[2021-02-21] MEDS: Insulin LISPRO 300 UNITS/3 ML VIAL SUBQ SCH ×4 (08:15→20:38)
[2021-02-21] MEDS: Furosemide 40 MG/4 ML VIAL IVP SCH ×2 (08:17→20:37)
[2021-02-21] MEDS: Lactobacillus 1 EACH CAP.SPRINK PO SCH ×2 (08:18→20:38)
[2021-02-21] MEDS: Pregabalin 75 MG CAPSULE PO SCH ×2 (08:18→20:37)
[2021-02-21] MEDS: Metoprolol XL (24 HR) Succ 25 MG TAB.ER.24H PO SCH ×2 (08:18→20:38)
[2021-02-21] MEDS: Doxycycline 100 MG CAPSULE PO SCH ×2 (08:18→20:38)
[2021-02-21] MEDS: Cholecalciferol (D-3) 1,000 UNIT (25MCG) TABLET PO SCH (08:19)
[2021-02-21] MEDS: Spironolactone 25 MG TABLET PO SCH (08:19)
[2021-02-21] MEDS: Multivit/Ca/Min/Fe/FA 1 TAB TABLET PO SCH (08:19)
[2021-02-21] MEDS: Cyanocobalamin (B-12) 1,000 MCG TABLET PO SCH (08:19)
[2021-02-21] MEDS: Fluticasone Propionate Nasal 50 MCG/SPRAY BOTTLE NS SCH ×2 (08:20→20:51)
[2021-02-21] MEDS: Aspirin Enteric Coated 81 MG Tablet PO SCH (08:20)
[2021-02-21] MEDS: Isosorbide MONOnitrate (24 HR) 30 MG TAB.ER.24H PO SCH (08:20)
[2021-02-21 11:24] LABS: INR 2.2; Prothrombin Time 24.3 Seconds (9.4-12.1)
[2021-02-21] MEDS ORDERED: *HR* Warfarin 2 MG TABLET PO ONE (18:00)
[2021-02-21] MEDS ORDERED: Warfarin perPT PO PRN (18:00)
[2021-02-21] MEDS: Insulin DETEMIR 100 UNIT/ML X5UNITS SUBQ SCH (20:45)
[2021-02-22] MEDS: Albumin 25% 25gram/100mL 25 GM/100 ML IV.SOLN IVPB SCH ×3 (00:57→17:46)
[2021-02-22 01:25] LABS: Hematocrit 31.2 % (37.5-50.1); Hemoglobin 9.6 g/dL (12.9-16.9); Mean Corpuscular HGB Conc 30.8 g/dL (31.6-35.5); Mean Corpuscular Hemoglobin 24.1 pg (28.0-33.3); Mean Corpuscular Volume 78.4 fL (83.0-100.0); Mean Platelet Volume 12.5 fL (9.4-12.4); Platelet Count 132 K/mcL (140-400); Red Blood Count 3.98 M/mcL (4.19-5.50); Red Cell Distribution Width 15.9 % (11.5-14.5); White Blood Count 7.7 K/mcL (4.3-11.1)
[2021-02-22 01:30] LABS: INR 1.7; Prothrombin Time 19.1 Seconds (9.4-12.1)
[2021-02-22 01:42] LABS: Calcium 9.1 mg/dL (8.6-10.3); Potassium 3.7 mEq/L (3.5-5.1)
[2021-02-22] MEDS: Insulin LISPRO 300 UNITS/3 ML VIAL SUBQ SCH ×4 (08:44→21:28)
[2021-02-22] MEDS: cefTRIAXone 1,000 MG in 0.9 % Sodium Chloride Mini Bag 100 ML IVPB SCH (09:57)
[2021-02-22] MEDS: Cholecalciferol (D-3) 1,000 UNIT (25MCG) TABLET PO SCH (09:57)
[2021-02-22] MEDS: Spironolactone 25 MG TABLET PO SCH (09:57)
[2021-02-22] MEDS: Doxycycline 100 MG CAPSULE PO SCH ×2 (09:58→21:27)
[2021-02-22] MEDS: Metoprolol XL (24 HR) Succ 25 MG TAB.ER.24H PO SCH ×2 (09:58→21:27)
[2021-02-22] MEDS: Lactobacillus 1 EACH CAP.SPRINK PO SCH ×2 (09:58→21:26)
[2021-02-22] MEDS: Aspirin Enteric Coated 81 MG Tablet PO SCH (09:58)
[2021-02-22] MEDS: Isosorbide MONOnitrate (24 HR) 30 MG TAB.ER.24H PO SCH (09:58)
[2021-02-22] MEDS: Multivit/Ca/Min/Fe/FA 1 TAB TABLET PO SCH (09:58)
[2021-02-22] MEDS: Furosemide 40 MG/4 ML VIAL IVP SCH ×2 (09:59→21:26)
[2021-02-22] MEDS: Pregabalin 75 MG CAPSULE PO SCH ×2 (09:59→21:26)
[2021-02-22] MEDS: Cyanocobalamin (B-12) 1,000 MCG TABLET PO SCH (09:59)
[2021-02-22] MEDS: Fluticasone Propionate Nasal 50 MCG/SPRAY BOTTLE NS SCH ×2 (10:08→21:28)
[2021-02-22] MEDS ORDERED: *HR* Warfarin 4 MG TABLET PO ONE (18:00)
[2021-02-22] MEDS: Insulin DETEMIR 100 UNIT/ML X5UNITS SUBQ SCH (21:27)
[2021-02-23 06:13] LABS: Hemoglobin 9.5 g/dL (12.9-16.9); Mean Corpuscular HGB Conc 30.6 g/dL (31.6-35.5); Mean Corpuscular Hemoglobin 24.2 pg (28.0-33.3); Mean Corpuscular Volume 78.9 fL (83.0-100.0); Mean Platelet Volume 12.3 fL (9.4-12.4); Platelet Count 131 K/mcL (140-400); Red Blood Count 3.93 M/mcL (4.19-5.50); Red Cell Distribution Width 15.9 % (11.5-14.5); White Blood Count 8.3 K/mcL (4.3-11.1)
[2021-02-23 06:21] LABS: INR 1.5; Prothrombin Time 16.7 Seconds (9.4-12.1)
[2021-02-23 06:34] LABS: Calcium 9.1 mg/dL (8.6-10.3); Potassium 3.7 mEq/L (3.5-5.1)
[2021-02-23] MEDS: Insulin LISPRO 300 UNITS/3 ML VIAL SUBQ SCH ×4 (07:17→19:48)
[2021-02-23] MEDS: Furosemide 40 MG/4 ML VIAL IVP SCH (07:53)
[2021-02-23] MEDS: Multivit/Ca/Min/Fe/FA 1 TAB TABLET PO SCH (07:54)
[2021-02-23] MEDS: cefTRIAXone 1,000 MG in 0.9 % Sodium Chloride Mini Bag 100 ML IVPB SCH (07:54)
[2021-02-23] MEDS: Cholecalciferol (D-3) 1,000 UNIT (25MCG) TABLET PO SCH (07:54)
[2021-02-23] MEDS: Doxycycline 100 MG CAPSULE PO SCH ×2 (07:54→19:45)
[2021-02-23] MEDS: Aspirin Enteric Coated 81 MG Tablet PO SCH (07:54)
[2021-02-23] MEDS: Lactobacillus 1 EACH CAP.SPRINK PO SCH ×2 (07:54→19:46)
[2021-02-23] MEDS: Spironolactone 25 MG TABLET PO SCH (07:54)
[2021-02-23] MEDS: Metoprolol XL (24 HR) Succ 25 MG TAB.ER.24H PO SCH ×2 (07:55→19:45)
[2021-02-23] MEDS: Pregabalin 75 MG CAPSULE PO SCH ×2 (07:55→19:45)
[2021-02-23] MEDS: Isosorbide MONOnitrate (24 HR) 30 MG TAB.ER.24H PO SCH (07:55)
[2021-02-23] MEDS: Cyanocobalamin (B-12) 1,000 MCG TABLET PO SCH (07:55)
[2021-02-23] MEDS: Fluticasone Propionate Nasal 50 MCG/SPRAY BOTTLE NS SCH ×2 (07:56→19:46)
[2021-02-23] MEDS ORDERED: *HR* Warfarin 4 MG TABLET PO ONE (18:00)
[2021-02-23] MEDS: Insulin DETEMIR 100 UNIT/ML X5UNITS SUBQ SCH (19:48)
[2021-02-24 01:28] LABS: Hematocrit 30.9 % (37.5-50.1); Hemoglobin 9.6 g/dL (12.9-16.9); Mean Corpuscular HGB Conc 31.1 g/dL (31.6-35.5); Mean Corpuscular Hemoglobin 24.7 pg (28.0-33.3); Mean Corpuscular Volume 79.4 fL (83.0-100.0); Mean Platelet Volume 12.7 fL (9.4-12.4); Platelet Count 134 K/mcL (140-400); Red Blood Count 3.89 M/mcL (4.19-5.50); Red Cell Distribution Width 15.9 % (11.5-14.5); White Blood Count 8.7 K/mcL (4.3-11.1)
[2021-02-24 01:36] LABS: INR 1.5; Prothrombin Time 16.2 Seconds (9.4-12.1)
[2021-02-24 01:51] LABS: Calcium 8.6 mg/dL (8.6-10.3); Potassium 3.6 mEq/L (3.5-5.1)
[2021-02-24] MEDS: Insulin LISPRO 300 UNITS/3 ML VIAL SUBQ SCH ×4 (07:26→20:13)
[2021-02-24] MEDS: Cholecalciferol (D-3) 1,000 UNIT (25MCG) TABLET PO SCH (08:20)
[2021-02-24] MEDS: Isosorbide MONOnitrate (24 HR) 30 MG TAB.ER.24H PO SCH (08:20)
[2021-02-24] MEDS: Cyanocobalamin (B-12) 1,000 MCG TABLET PO SCH (08:20)
[2021-02-24] MEDS: Doxycycline 100 MG CAPSULE PO SCH ×2 (08:20→20:18)
[2021-02-24] MEDS: Lactobacillus 1 EACH CAP.SPRINK PO SCH ×2 (08:20→20:18)
[2021-02-24] MEDS: Multivit/Ca/Min/Fe/FA 1 TAB TABLET PO SCH (08:20)
[2021-02-24] MEDS: Metoprolol XL (24 HR) Succ 25 MG TAB.ER.24H PO SCH ×2 (08:20→20:18)
[2021-02-24] MEDS: Spironolactone 25 MG TABLET PO SCH (08:20)
[2021-02-24] MEDS: Pregabalin 75 MG CAPSULE PO SCH ×2 (08:20→20:18)
[2021-02-24] MEDS: Aspirin Enteric Coated 81 MG Tablet PO SCH (08:20)
[2021-02-24] MEDS: Furosemide 40 MG TABLET PO SCH (08:20)
[2021-02-24] MEDS: Fluticasone Propionate Nasal 50 MCG/SPRAY BOTTLE NS SCH ×2 (08:21→20:19)
[2021-02-24] MEDS ORDERED: *HR* Warfarin 3 MG TABLET PO ONE (18:00)
[2021-02-24] MEDS: Insulin DETEMIR 100 UNIT/ML X5UNITS SUBQ SCH (20:13)
[2021-02-25 01:20] LABS: Hematocrit 31.7 % (37.5-50.1); Hemoglobin 9.4 g/dL (12.9-16.9); Mean Corpuscular HGB Conc 29.7 g/dL (31.6-35.5); Mean Corpuscular Hemoglobin 23.3 pg (28.0-33.3); Mean Corpuscular Volume 78.7 fL (83.0-100.0); Mean Platelet Volume 12.5 fL (9.4-12.4); Platelet Count 135 K/mcL (140-400); Red Blood Count 4.03 M/mcL (4.19-5.50); Red Cell Distribution Width 15.8 % (11.5-14.5); White Blood Count 8.9 K/mcL (4.3-11.1)
[2021-02-25 01:29] LABS: INR 1.5; Prothrombin Time 17.2 Seconds (9.4-12.1)
[2021-02-25 01:39] LABS: Calcium 8.4 mg/dL (8.6-10.3); Potassium 3.9 mEq/L (3.5-5.1)
[2021-02-25] MEDS: Insulin LISPRO 300 UNITS/3 ML VIAL SUBQ SCH ×3 (08:40→15:23)
[2021-02-25] MEDS: Cholecalciferol (D-3) 1,000 UNIT (25MCG) TABLET PO SCH (08:57)
[2021-02-25] MEDS: Cyanocobalamin (B-12) 1,000 MCG TABLET PO SCH (08:58)
[2021-02-25] MEDS: Isosorbide MONOnitrate (24 HR) 30 MG TAB.ER.24H PO SCH (08:58)
[2021-02-25] MEDS: Spironolactone 25 MG TABLET PO SCH (08:58)
[2021-02-25] MEDS: Furosemide 40 MG TABLET PO SCH (08:58)
[2021-02-25] MEDS: Aspirin Enteric Coated 81 MG Tablet PO SCH (08:58)
[2021-02-25] MEDS: Pregabalin 75 MG CAPSULE PO SCH (08:58)
[2021-02-25] MEDS: Doxycycline 100 MG CAPSULE PO SCH (08:58)
[2021-02-25] MEDS: Metoprolol XL (24 HR) Succ 25 MG TAB.ER.24H PO SCH (08:58)
[2021-02-25] MEDS: Multivit/Ca/Min/Fe/FA 1 TAB TABLET PO SCH (08:58)
[2021-02-25] MEDS: Lactobacillus 1 EACH CAP.SPRINK PO SCH (08:58)
[2021-02-25] MEDS: Fluticasone Propionate Nasal 50 MCG/SPRAY BOTTLE NS SCH (08:58)
[2021-02-25] MEDS ORDERED: *HR* Enoxaparin 120 MG/0.8 ML SYRINGE SQ SCH (14:43)
[2021-02-25 14:52] LABS: Influenza A PCR Negative (Negative); Influenza B PCR Negative (Negative); Resp. Syncytial Virus PCR Negative (Negative); SARS-CoV-2 by PCR (In House) Negative (Negative)
[2021-02-25 15:14] VITALS: BP 116/69; PULSE 66; TEMP 97.7; O2SAT 97
[2021-02-25] MEDS ORDERED: *HR* Warfarin 3 MG TABLET PO ONE (18:00)
== END 2021-02-25 15:52 | DRG 602 ==
LOC: 3BNU 12:10 → EMEROOARM 12:10 → SUATTDRO 17:39 → 3BNU 18:53
PROVIDERS: ADMIT Internal Medicine; ATTEND Registered Nurse

== ENCOUNTER 2021-05-03 18:26 | Inpatient (IN) ==
[2021-05-03 20:38] LABS: Basophils % 0.3 %; Eosinophils # 0.3 K/mcL (0.0-0.6); Hematocrit 36.8 % (37.5-50.1); Hemoglobin 10.9 g/dL (12.9-16.9); Immature Granulocytes % 0.6 % (0-4); Lymphocytes # 1.9 K/mcL (0.6-4.6); Lymphocytes % 18.3 %; Mean Corpuscular HGB Conc 29.6 g/dL (31.6-35.5); Mean Corpuscular Hemoglobin 23.7 pg (28.0-33.3); Mean Corpuscular Volume 80.2 fL (83.0-100.0); Mean Platelet Volume 11.5 fL (9.4-12.4); Monocytes # 0.8 K/mcL (0.0-1.3); Monocytes % 7.7 %; Neutrophils # 7.1 K/mcL (1.6-8.9); Platelet Count 189 K/mcL (140-400); Red Blood Count 4.59 M/mcL (4.19-5.50); Red Cell Distribution Width 17.1 % (11.5-14.5); Segmented Neutrophils % 70.1 %; White Blood Count 10.2 K/mcL (4.3-11.1)
[2021-05-03 22:20] LABS: BUN/Creatinine Ratio 25 (6-26); Blood Urea Nitrogen 43 mg/dL (8-23); Calcium 9.5 mg/dL (8.6-10.3); Carbon Dioxide 25 mEq/L (23-29); Chloride 105 mEq/L (98-107); Glucose 152 mg/dL (70-105); Osmolality,Calculated 306 (280-300); Potassium 4.8 mEq/L (3.5-5.1); Sodium 141 mEq/L (136-145); eGFR For African Americans 46 (> 60); eGFR For Non-African Americans 38 (> 60)
[2021-05-03 22:45] LABS: Troponin I < 0.03 ng/mL (< 0.04)
[2021-05-03] MEDS ORDERED: Furosemide 40 MG/4 ML VIAL IVP ONE (23:48)
[2021-05-04] MEDS ORDERED: cefTRIAXone 1,000 MG in 0.9 % Sodium Chloride Mini Bag 100 ML IVPB ONE (01:19)
[2021-05-04] MEDS ORDERED: Naloxone 0.4 MG/ML INJ IVP PRN (03:19)
[2021-05-04] MEDS ORDERED: Melatonin 3 MG TABLET PO PRN (03:19)
[2021-05-04] MEDS ORDERED: Ondansetron ODT 4 MG TAB.RAPDIS SL PRN (03:19)
[2021-05-04] MEDS ORDERED: Acetaminophen 325 MG TABLET PO PRN (03:19)
[2021-05-04] MEDS ORDERED: *HR* Dextrose 50 % in Water (Syg) 50 ML SYRINGE IVP PRN (03:37)
[2021-05-04] MEDS ORDERED: Dextrose Gel 15 GM/37.5 ML TUBE PO PRN ×2 (03:37)
[2021-05-04] MEDS ORDERED: D5% in Water 1,000 ML IVC PRN (03:37)
[2021-05-04] MEDS: Nystatin POWDER 30 GM BOTTLE TP SCH ×4 (05:37→20:17)
[2021-05-04 05:56] LABS: Basophils % 0.3 %; Eosinophils # 0.2 K/mcL (0.0-0.6); Eosinophils % 1.9 %; Hematocrit 36.2 % (37.5-50.1); Hemoglobin 10.9 g/dL (12.9-16.9); Immature Granulocytes % 0.6 % (0-4); Lymphocytes # 1.5 K/mcL (0.6-4.6); Lymphocytes % 13.8 %; Mean Corpuscular HGB Conc 30.1 g/dL (31.6-35.5); Mean Corpuscular Hemoglobin 23.8 pg (28.0-33.3); Mean Platelet Volume 12.1 fL (9.4-12.4); Monocytes # 0.8 K/mcL (0.0-1.3); Monocytes % 7.5 %; Neutrophils # 8.2 K/mcL (1.6-8.9); Platelet Count 201 K/mcL (140-400); Red Blood Count 4.58 M/mcL (4.19-5.50); Segmented Neutrophils % 75.9 %; White Blood Count 10.7 K/mcL (4.3-11.1)
[2021-05-04 06:03] LABS: INR 1.6; Prothrombin Time 18.3 Seconds (9.4-12.1)
[2021-05-04 06:10] LABS: Albumin 3.8 g/dL (3.5-5.7); Albumin/Globulin Ratio 1.3 (1.1-2.2); Bilirubin,Total 0.6 mg/dL (0.3-1.0); Calcium 9.7 mg/dL (8.6-10.3); Globulin 2.9 g/dL (2.4-3.5); Potassium 4.2 mEq/L (3.5-5.1); Total Protein 6.7 g/dL (6.4-8.9)
[2021-05-04] MEDS: Insulin LISPRO 300 UNITS/3 ML VIAL SUBQ SCH ×4 (07:11→20:08)
[2021-05-04] MEDS: Furosemide 40 MG/4 ML VIAL IVP SCH (08:12)
[2021-05-04] MEDS ORDERED: Nystatin POWDER 30 GM BOTTLE TP SCH (09:00)
[2021-05-04] MEDS ORDERED: Warfarin perPT PO PRN (18:00)
[2021-05-04] MEDS ORDERED: *HR* Warfarin 4 MG TABLET PO ONE (18:00)
[2021-05-04] MEDS: Metoprolol XL (24 HR) Succ 25 MG TAB.ER.24H PO SCH (20:17)
[2021-05-04] MEDS: Pregabalin 50 MG CAPSULE PO SCH (20:17)
[2021-05-05 02:17] LABS: Hematocrit 31.1 % (37.5-50.1); Hemoglobin 9.6 g/dL (12.9-16.9); Mean Corpuscular HGB Conc 30.9 g/dL (31.6-35.5); Mean Corpuscular Hemoglobin 24.4 pg (28.0-33.3); Mean Corpuscular Volume 79.1 fL (83.0-100.0); Mean Platelet Volume 12.2 fL (9.4-12.4); Platelet Count 193 K/mcL (140-400); Red Blood Count 3.93 M/mcL (4.19-5.50); Red Cell Distribution Width 16.7 % (11.5-14.5)
[2021-05-05 02:22] LABS: INR 1.4; Prothrombin Time 15.7 Seconds (9.4-12.1)
[2021-05-05 02:33] LABS: Calcium 8.5 mg/dL (8.6-10.3); Potassium 3.9 mEq/L (3.5-5.1)
[2021-05-05] MEDS: Insulin LISPRO 300 UNITS/3 ML VIAL SUBQ SCH ×4 (08:31→20:25)
[2021-05-05] MEDS: Isosorbide MONOnitrate (24 HR) 30 MG TAB.ER.24H PO SCH (08:33)
[2021-05-05] MEDS: Aspirin Enteric Coated 81 MG Tablet PO SCH (08:33)
[2021-05-05] MEDS: Pregabalin 50 MG CAPSULE PO SCH ×2 (08:33→20:22)
[2021-05-05] MEDS: Metoprolol XL (24 HR) Succ 25 MG TAB.ER.24H PO SCH ×2 (08:34→20:22)
[2021-05-05] MEDS: Nystatin POWDER 30 GM BOTTLE TP SCH ×3 (08:34→20:23)
[2021-05-05] MEDS: Furosemide 40 MG/4 ML VIAL IVP SCH (08:34)
[2021-05-05] MEDS ORDERED: *HR* Warfarin 3 MG TABLET PO ONE (18:00)
[2021-05-06 01:35] LABS: INR 1.3; Prothrombin Time 14.3 Seconds (9.4-12.1)
[2021-05-06 01:44] LABS: Calcium 8.8 mg/dL (8.6-10.3); Potassium 4.1 mEq/L (3.5-5.1)
[2021-05-06] MEDS: Pregabalin 50 MG CAPSULE PO SCH ×2 (08:02→20:13)
[2021-05-06] MEDS: Metoprolol XL (24 HR) Succ 25 MG TAB.ER.24H PO SCH ×3 (08:03→21:44)
[2021-05-06] MEDS: Aspirin Enteric Coated 81 MG Tablet PO SCH (08:03)
[2021-05-06] MEDS: Isosorbide MONOnitrate (24 HR) 30 MG TAB.ER.24H PO SCH (08:04)
[2021-05-06] MEDS: Nystatin POWDER 30 GM BOTTLE TP SCH ×3 (08:04→20:13)
[2021-05-06] MEDS: Insulin LISPRO 300 UNITS/3 ML VIAL SUBQ SCH ×4 (08:12→20:15)
[2021-05-06] MEDS: *HR* HYDROcodone/Acet 10/325 mg TABLET PO PRN (11:48)
[2021-05-06] MEDS: Doxycycline 100 MG CAPSULE PO SCH ×2 (11:49→20:13)
[2021-05-06] MEDS: Furosemide 40 MG TABLET PO SCH (17:31)
[2021-05-06] MEDS ORDERED: *HR* Warfarin 3 MG TABLET PO ONE (18:00)
[2021-05-07 07:11] LABS: INR 1.5; Prothrombin Time 16.8 Seconds (9.4-12.1)
[2021-05-07 07:22] LABS: Calcium 9.4 mg/dL (8.6-10.3); Potassium 4.1 mEq/L (3.5-5.1)
[2021-05-07] MEDS: Pregabalin 50 MG CAPSULE PO SCH ×2 (10:30→20:35)
[2021-05-07] MEDS: Furosemide 40 MG TABLET PO SCH ×2 (10:30→16:23)
[2021-05-07] MEDS: Insulin LISPRO 300 UNITS/3 ML VIAL SUBQ SCH ×4 (10:30→20:35)
[2021-05-07] MEDS: Metoprolol XL (24 HR) Succ 25 MG TAB.ER.24H PO SCH (10:30)
[2021-05-07] MEDS: Isosorbide MONOnitrate (24 HR) 30 MG TAB.ER.24H PO SCH (10:30)
[2021-05-07] MEDS: Aspirin Enteric Coated 81 MG Tablet PO SCH (10:30)
[2021-05-07] MEDS: Doxycycline 100 MG CAPSULE PO SCH ×2 (10:30→20:35)
[2021-05-07] MEDS: Nystatin POWDER 30 GM BOTTLE TP SCH ×3 (10:31→20:36)
[2021-05-07] MEDS: *HR* HYDROcodone/Acet 10/325 mg TABLET PO PRN (16:23)
[2021-05-07] MEDS ORDERED: *HR* Warfarin 3 MG TABLET PO ONE (18:00)
[2021-05-08 05:29] LABS: Calcium 9.1 mg/dL (8.6-10.3)
[2021-05-08 06:05] LABS: INR 2.1; Prothrombin Time 22.8 Seconds (9.4-12.1)
[2021-05-08] MEDS: Metoprolol XL (24 HR) Succ 25 MG TAB.ER.24H PO SCH ×3 (07:44→21:31)
[2021-05-08] MEDS: Doxycycline 100 MG CAPSULE PO SCH ×2 (07:44→21:31)
[2021-05-08] MEDS: Pregabalin 50 MG CAPSULE PO SCH ×2 (07:44→21:31)
[2021-05-08] MEDS: Aspirin Enteric Coated 81 MG Tablet PO SCH (07:44)
[2021-05-08] MEDS: Nystatin POWDER 30 GM BOTTLE TP SCH ×3 (07:45→21:31)
[2021-05-08] MEDS: Insulin LISPRO 300 UNITS/3 ML VIAL SUBQ SCH ×4 (07:45→21:33)
[2021-05-08] MEDS: Isosorbide MONOnitrate (24 HR) 30 MG TAB.ER.24H PO SCH (07:45)
[2021-05-08] MEDS: Furosemide 40 MG TABLET PO SCH ×2 (07:45→16:55)
[2021-05-08] MEDS: *HR* HYDROcodone/Acet 10/325 mg TABLET PO PRN ×2 (10:32→16:54)
[2021-05-08] MEDS ORDERED: *HR* Warfarin 3 MG TABLET PO ONE (18:00)
[2021-05-09 05:00] LABS: INR 2.8; Prothrombin Time 30.6 Seconds (9.4-12.1)
[2021-05-09] MEDS: Aspirin Enteric Coated 81 MG Tablet PO SCH (09:02)
[2021-05-09] MEDS: Pregabalin 50 MG CAPSULE PO SCH ×2 (09:02→22:01)
[2021-05-09] MEDS: Isosorbide MONOnitrate (24 HR) 30 MG TAB.ER.24H PO SCH (09:02)
[2021-05-09] MEDS: Metoprolol XL (24 HR) Succ 25 MG TAB.ER.24H PO SCH ×2 (09:02→22:01)
[2021-05-09] MEDS: Doxycycline 100 MG CAPSULE PO SCH ×2 (09:02→22:01)
[2021-05-09] MEDS: Furosemide 40 MG TABLET PO SCH ×2 (09:02→17:45)
[2021-05-09] MEDS: Insulin LISPRO 300 UNITS/3 ML VIAL SUBQ SCH ×4 (09:02→22:02)
[2021-05-09] MEDS: Nystatin POWDER 30 GM BOTTLE TP SCH ×3 (09:05→22:02)
[2021-05-09] MEDS: *HR* HYDROcodone/Acet 10/325 mg TABLET PO PRN (12:14)
[2021-05-09] MEDS: 0.9 % Sodium Chloride 1,000 ML IVC SCH (12:15)
[2021-05-10 03:42] LABS: Basophils # 0.1 K/mcL (0.0-0.2); Basophils % 0.4 %; Eosinophils # 0.5 K/mcL (0.0-0.6); Eosinophils % 3.3 %; Hematocrit 34.5 % (37.5-50.1); Hemoglobin 10.7 g/dL (12.9-16.9); Immature Granulocytes % 1.1 % (0-4); Lymphocytes # 2.1 K/mcL (0.6-4.6); Mean Corpuscular Hemoglobin 24.5 pg (28.0-33.3); Mean Corpuscular Volume 79.1 fL (83.0-100.0); Mean Platelet Volume 11.3 fL (9.4-12.4); Monocytes # 1.1 K/mcL (0.0-1.3); Monocytes % 7.7 %; Neutrophils # 10.2 K/mcL (1.6-8.9); Platelet Count 226 K/mcL (140-400); Red Blood Count 4.36 M/mcL (4.19-5.50); Red Cell Distribution Width 16.5 % (11.5-14.5); Segmented Neutrophils % 72.5 %; White Blood Count 14.1 K/mcL (4.3-11.1)
[2021-05-10 03:49] LABS: Prothrombin Time 33.1 Seconds (9.4-12.1)
[2021-05-10 04:14] LABS: Calcium 8.9 mg/dL (8.6-10.3); Potassium 4.4 mEq/L (3.5-5.1)
[2021-05-10] MEDS: 0.9 % Sodium Chloride 1,000 ML IVC SCH ×3 (04:25→14:23)
[2021-05-10] MEDS: Insulin LISPRO 300 UNITS/3 ML VIAL SUBQ SCH ×4 (07:43→22:18)
[2021-05-10] MEDS: Pregabalin 50 MG CAPSULE PO SCH ×2 (08:13→22:16)
[2021-05-10] MEDS: Aspirin Enteric Coated 81 MG Tablet PO SCH (08:13)
[2021-05-10] MEDS: Isosorbide MONOnitrate (24 HR) 30 MG TAB.ER.24H PO SCH (08:13)
[2021-05-10] MEDS: Doxycycline 100 MG CAPSULE PO SCH ×2 (08:13→22:17)
[2021-05-10] MEDS: Furosemide 40 MG TABLET PO SCH ×2 (08:13→16:55)
[2021-05-10] MEDS: Nystatin POWDER 30 GM BOTTLE TP SCH (08:14)
[2021-05-10] MEDS: Metoprolol XL (24 HR) Succ 25 MG TAB.ER.24H PO SCH ×2 (08:14→22:17)
[2021-05-10] MEDS ORDERED: *HR* Warfarin 2 MG TABLET PO ONE (18:00)
[2021-05-10] MEDS: Nystatin Cream 15 GM TUBE TP SCH (22:17)
[2021-05-11 01:25] LABS: INR 2.4; Prothrombin Time 26.8 Seconds (9.4-12.1)
[2021-05-11] MEDS: 0.9 % Sodium Chloride 1,000 ML IVC SCH (06:28)
[2021-05-11] MEDS: Furosemide 40 MG TABLET PO SCH ×2 (08:34→17:38)
[2021-05-11] MEDS: Aspirin Enteric Coated 81 MG Tablet PO SCH (08:34)
[2021-05-11] MEDS: Metoprolol XL (24 HR) Succ 25 MG TAB.ER.24H PO SCH (08:34)
[2021-05-11] MEDS: Isosorbide MONOnitrate (24 HR) 30 MG TAB.ER.24H PO SCH (08:34)
[2021-05-11] MEDS: Pregabalin 50 MG CAPSULE PO SCH (08:34)
[2021-05-11] MEDS: *HR* HYDROcodone/Acet 10/325 mg TABLET PO PRN (08:35)
[2021-05-11] MEDS: Doxycycline 100 MG CAPSULE PO SCH (08:35)
[2021-05-11] MEDS: Insulin LISPRO 300 UNITS/3 ML VIAL SUBQ SCH ×3 (08:46→17:16)
[2021-05-11] MEDS: Nystatin Cream 15 GM TUBE TP SCH (10:00)
[2021-05-11 12:16] LABS: Adenovirus Not Detected (Not Detect); Bordetella Pertussis Not Detected (Not Detect); Chlamydophila pneumoniae Not Detected (Not Detect); Coronavirus 229E Not Detected (Not Detect); Coronavirus HKU1 Not Detected (Not Detect); Coronavirus NL63 Not Detected (Not Detect); Coronavirus OC43 Not Detected (Not Detect); Human Metapneumovirus Not Detected (Not Detect); Human Rhinovirus/Enterovirus Not Detected (Not Detect); Influenza A Subtype 2009 H1 Not Detected (Not Detect); Influenza B Not Detected (Not Detect); Mycoplasma pneumoniae Not Detected (Not Detect); Parainfluenza Virus 1 Not Detected (Not Detect); Parainfluenza Virus 2 Not Detected (Not Detect); Parainfluenza Virus 3 Not Detected (Not Detect); Parainfluenza Virus 4 Not Detected (Not Detect); Respiratory Syncytial Virus Not Detected (Not Detect); SARS-CoV-2 Not Detected (Not Detect)
[2021-05-11 14:57] VITALS: BP 139/80; PULSE 76; TEMP 97.3; O2SAT 94
[2021-05-11] MEDS ORDERED: *HR* Warfarin 4 MG TABLET PO ONE (18:00)
== END 2021-05-11 19:50 | DRG 291 ==
LOC: EMEROOARM 18:26 → 2ANU 18:26 → SUATTDRO 05-04 01:40 → 2ANU 05-04 03:08
PROVIDERS: ADMIT Family Medicine; ATTEND Internal Medicine